=== PATIENT | male | born 1940 | race Caucasian/White ===

== ENCOUNTER → 2016-10-09 | Outpatient (CLI) | payer OTHER ==
[~2016-10-09] MED LIST: ASPI-113 PO
--- NOTE | 2016-10-09 16:43 | DIAGNOSTIC IMAGING REPORT ---
VENOUS DOPPLER LWR EXT BILA CLINICAL HISTORY: 76 years-old Male presenting with SUDDEN ONSET EDEMA, DYSPNEA ON EXERTION. TECHNIQUE: Real-time grayscale and color and spectral Doppler ultrasound imaging of the veins of the bilateral lower extremities was performed. Compression and augmentation were also utilized. COMPARISON: None. FINDINGS: Right: Common femoral vein: Patent. Femoral vein: Patent. Greater saphenous vein: Patent. Popliteal vein: Patent. Calf veins: Patent. Left: Common femoral vein: Patent. Femoral vein: Patent. Greater saphenous vein: Patent. Popliteal vein: Patent. Calf veins: Patent. Other: None. IMPRESSION: No evidence of deep venous thrombosis. Electronically signed by: El Larson M.D. 10/09/2016 4:42 PM Dictated Date/Time: 10/09/2016 4:41 PM
== END | disposition home or self-care (01) ==
LOC: C.ULTR 16:17
PROVIDERS: ATTEND Student in an Organized Health Care Education/Training Program
DX: R60.0 Localized edema (principal); R06.09 Other forms of dyspnea

== ENCOUNTER 2019-08-09 10:35 | Inpatient (IN) ==
[2019-08-09] MEDS ORDERED: fentaNYL citrate 100 MCG/2 ML VIAL IV PRN ×2 (11:28→16:43)
[2019-08-09] MEDS ORDERED: ONDANSETRON INJ 2 MG/ML 2 ML VIAL IV STA (11:28)
[2019-08-09] MEDS ORDERED: SODIUM CHLORIDE 0.9% 500 ML IV SCH (11:30)
[2019-08-09 11:47] LABS: Appearance Urine Cloudy (Clear); Bacteria Urine Automated Negative (Negative); Blood Urine 3+ (Negative); Color Urine Orange; Glucose Urine UA Negative (Negative); Ketones Urine Trace (Negative); Leukocyte Esterase Urine 1+ (Negative); Nitrite Urine Positive (Negative); Protein Urine 2+ (Negative); Urobilinogen Urine Negative (Negative); WBC Urine Automated >30 /hpf (0-5)
[2019-08-09 11:58] LABS: Bilirubin Urine Negative (Negative); Ictotest Urine Negative (Negative)
[2019-08-09 12:00] LABS: BUN Creatinine Ratio 25.1 (10-20); Calcium 8.7 mg/dl (8.5-10.1); Creatinine Clr Calc Pharmacy 37.3 ml/min; Est GFR (Non-African American) 42.3
[2019-08-09 12:03] LABS: Albumin Globulin Ratio 0.7 (0.9-2); Globulin 4.4 gm/dl (2.5-4.0); Total Protein 7.4 gm/dl (6.4-8.2)
[2019-08-09] MEDS ORDERED: ACETAMINOPHEN 500 MG TAB PO STA (12:09)
[2019-08-09 12:11] LABS: Hematocrit (blood only) 37.3 % (42-52); Hemoglobin 12.9 g/dL (14.0-18.0); Mean Corpuscular Hemoglobin 30.9 pg (25-34); Mean Corpuscular Hgb Conc 34.6 g/dL (32-36); Mean Corpuscular Volume 89.2 fL (80-100); Mean Platelet Volume 9.4 fL (7.4-10.4); Platelet Count 68 K/uL (130-400); RDW Coefficient of Variation 15.7 % (11.5-14.5); Red Blood Count 4.18 M/uL (4.7-6.1); White Blood Count 9.71 K/uL (4.8-10.8)
[2019-08-09] MEDS ORDERED: cefTRIAXone SODIUM 1,000 MG/50 ML BAG IV STA (12:19)
[2019-08-09 12:20] LABS: Basophils # (auto) 0.04 K/uL (0-0.2); Basophils % (auto) 0.4 %; Eosinophils # (auto) 0.01 K/uL (0-0.5); Eosinophils % (auto) 0.1 %; Immature Granulocytes # (auto) 0.09 K/uL (0.00-0.02); Immature Granulocytes % (auto) 0.9 %; Lymphocytes # (auto) 1.61 K/uL (1.2-3.4); Lymphocytes % (auto) 16.6 %; Monocytes # (auto) 1.67 K/uL (0.11-0.59); Monocytes % (auto) 17.2 %; Neutrophils # (auto) 6.29 K/uL (1.4-6.5); Neutrophils % (auto) 64.8 %; Platelet Estimate Decreased (Normal)
--- NOTE | 2019-08-09 12:28 | XRay Report ---
XR KUB/Abdomen 1 view CLINICAL HISTORY: hernia, obstruction COMPARISON STUDY: No previous studies for comparison. FINDINGS: The soft tissues, psoas shadows, renal outlines and intestinal gas pattern appear normal. T here is no evidence for bowel obstruction. No abnormal abdominal calcifications are seen. IMPRESSION: Normal study. ACT 112: Negative or not required by law. The above report was generated using voice recognition software. It may contain grammatical, syntax or spelling errors. Electronically signed by: Lex Hillman M.D. 08/09/2019 12:26 PM
[2019-08-09] MEDS ORDERED: IOVERSOL 100ml IV PRN (12:31)
[2019-08-09] MEDS ORDERED: AZITHROMYCIN 250 MG TAB PO ONE (12:45)
[2019-08-09] MEDS ORDERED: ATOVAQUONE 750 MG/5 ML UDC PO ONE (12:45)
--- NOTE | 2019-08-09 12:53 | CT Scan Report ---
CT OF THE ABDOMEN AND PELVIS WITH CONTRAST CLINICAL HISTORY: R inguinal hernia, reducible but pain, UTI COMPARISON STUDY: CT of the abdomen and pelvis November 23, 2011. KUB August 09, 2019. TECHNIQUE: Following IV administration of 93 mL of Optiray-320, axial images of the abdomen and pelvi s were obtained from the lung bases to the proximal femurs. Images were reviewed in the axial, sagitt al, and coronal planes. IV contrast was administered without complication. Automated exposure contro l was utilized for the study. A dose lowering technique was utilized adhering to the principles of A IRMA. CT DOSE: 432.27 mGycm FINDINGS: There is a nonobstructing 5 mm x 3 mm distal right ureteral calculus. There is no hydroneph rosis or hydroureter. Nephrograms are symmetric. A subcentimeter right renal lesion favors a cyst. Mo derate cardiomegaly is noted. The liver, spleen, adrenal glands and pancreas are unremarkable. There is no peripancreatic or pericholecystic infiltration. A prominent portacaval lymph node is unchanged. Mild dilatation of the proximal celiac axis, measuring 1.4 cm is also unchanged. Major vasculature i s patent. A small amount of ascites within the pelvis is noted. The appendix is normal. Caliber and w all thickness of small and large bowel are normal. Small bowel loop extends into a right inguinal her olga. Is no resultant bowel obstruction. No suspicious osseous lesions are present. Prostate is mildly enlarged. There is no pneumatosis, free air or portal venous gas. Colonic diverticulosis is noted wi thout evidence for acute diverticulitis. IMPRESSION: 1. Nonobstructing 5 mm x 3 mm distal right ureteral calculus. No hydronephrosis. 2. Right inguinal hernia which contains a loop of small bowel. No resultant bowel obstruction. 3. Small amount of ascites within the pelvis. ACT 112: Negative or not required by law. Electronically signed by: Janusz Cardoso M.D. 08/09/2019 12:51 PM
[2019-08-09] MEDS ORDERED: MAGNESIUM HYDROXIDE SUSP 30 ML UDC PO PRN (14:27)
[2019-08-09] MEDS ORDERED: ACETAMINOPHEN 325 MG TAB PO PRN (14:27)
[2019-08-09] MEDS ORDERED: POLYETHYLENE (MIRALAX) 17 GM PACK PO PRN (14:27)
[2019-08-09] MEDS ORDERED: ONDANSETRON INJ 2 MG/ML 2 ML VIAL IV PRN ×2 (14:27→16:43)
[2019-08-09] MEDS ORDERED: ALUMINUM/MAGNESIUM SUSP 30 ML UDC PO PRN (14:27)
[2019-08-09 14:28] LABS: INR 3.8 (0.9-1.1); Prothrombin Time 37.5 Seconds (9.0-12.0)
--- NOTE | 2019-08-09 14:39 | History & Physical Report ---
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 Lab work consistent with anemia and thrombocytopenia. Peripheral smear ordered to eval for tick borne illness. 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 He does have mildly elevated temp 37.7, anemia, and low platelets, decreased appetite and 15lb weight loss, but otherwise asymptomatic. In ED received Azithromycin 500mg x 1 and Atovaquone 750mg x 1. admit to tele continue treatment with azithromycin 250mg bid and atovaquone 750mg bid x 10 days Will need outpt evaluation/follow up with ID continue IVF, supportive measures trend h/h, plts hold warfarin until plt > 100 per cardiology (2) UTI (urinary tract infection): (3) Right nephrolithiasis: (4) RACHEL (acute kidney injury): CT scan abd/pelvis revealed: Nonobstructing 5 mm x 3 mm distal right ureteral calculus. No hydronephrosis. UA appears consistent with UTI bun/cr elevated 30 and 1.53 (last creatinine 2017 1.0) Hold nephrotoxic agents including Lasix and lisinopril Urology consulted IV ceftriaxone for UTI Await urine culture Keep n.p.o. until evaluated by urology (5) Thrombocytopenia: In EPIC 2015 plot 233, 2017 109, now 68 likely in setting of underlying tick borne illness no s/sx of bleeding monitor (6) Hyponatremia: Na 127 obtain urine na, urine osm, serum osm poor po intake over last several days, 15lb weight loss in past month likely pre renal continue IVF, monitor volume status repeat bmp (7) Chronic atrial fibrillation: continue metoprolol INR supratherapeutic at 3.8 Hold warfarin Discussed with cardiology, Dr. Nieves regarding thrombocytopenia in setting of babesiosis Recommend holding coumadin until PLT > 100 monitor on tele (8) (HFpEF) heart failure with preserved ejection fraction: Without acute exacerbation Last echo 10/29/2016 revealed EF 55 to 60%, diastolic dysfunction, reduced right ventricle systolic function, dilated right ventricle, mild left atrial enlargement, severe right atrial enlargement, pulmonary pretension As outpatient he is on metoprolol, lisinopril and Lasix Hold lisinopril and Lasix in setting of RACHEL He does have mild lower extremity edema Monitor daily weights, strict I's and O's (9) HTN (hypertension): Blood pressure on lower side Hold lisinopril and Lasix Continue metoprolol (10) Supratherapeutic INR: INR 3.8 On warfarin, repeat INR in a.m. Per cardiology hold warfarin until platelets greater than 100 (11) DVT prophylaxis: warfarin/INR supratherapeutic hold avoid mechanical prophylaxis in setting of thrombocytopenia Disposition: admit to tele Follow up: PCP Dr. Garcia upon discharge along with infectious disease follow up as outpt Pt was seen and examined in collaboration with Dr. Strauss, please see addendum History of Present Illness Chief Complaint: Painful right inguinal hernia x1 week. 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 Of significance patient was seen and evaluated in outpatient setting on [address] Grossman. He did undergo ultrasound of right inguinal region which did confirm a 14 x 13 mm defect appreciated with Valsalva. This morning when he woke up he was having significant right inguinal pain, nonradiating, described as sharp and stabbing which prompted him to present to ED. He further elicits approximately 15 pound weight loss in the past 1 month and overall decreased appetite. He denies any documented fever, chills, sweats, lightheadedness, dizziness, chest pain, shortness of breath, cough, hemoptysis, palpitations, nausea, abdominal pain, vomiting, diarrhea. He is moving bowels and passing urine without difficulty. He does admit to mild dysuria and increased urinary frequency but denies hematuria or urgency. He denies any flank pain. He denies any known tick bite or COVID-19 exposure. He denies any rash. He does admit to increased lower extremity swelling over the past week. He has been compliant with his medications. Denies any recent travel. In ED patient remained hemodynamically stable and mildly elevated temperature 37.7. Lab work notable for H&H 12.9 and 37.3, WBC 9.71, platelets 68, INR 3.8, sodium 127, chloride 97, BUN 30, creatinine 1.53, glucose 127, total bilirubin 2.0. Urinalysis consistent with +3 blood, positive nitrates, leukocyte esterase Peripheral smear revealed numerous intro erythrocyte ring forms concerning for Babesia. In ED he received 1 g IV Rocephin for concern for UTI. He also received azithromycin 500 mg x 1 and atovaquone 750 mg x 1. Allergies Allergy/AdvReac Type Severity Reaction Status Date / Time No Known Allergies Allergy Unverified 08/09/19 11:25 Home Medications Home Medications Medication Instructions Recorded Confirmed Type ferrous sulfate 325 mg PO DAILY 08/09/19 08/09/19 History metoprolol succinate 25 mg PO QAM 08/09/19 08/09/19 History vitamin B complex 1 tab PO DAILY 08/09/19 08/09/19 History Lactobacillus rhamnosus GG 1 cap PO DAILY #30 cap 08/12/19 Rx [Culturelle] atovaquone [Mepron] 750 mg PO BID #70 ml 08/12/19 Rx azithromycin 250 mg PO DAILY #7 tab 08/12/19 Rx doxycycline hyclate 100 mg PO BID 16 Days #32 cap 08/12/19 Rx Past Med/Surg History Medical History (HFpEF) heart failure with preserved ejection fraction RACHEL (acute kidney injury) Babesiosis Chronic atrial fibrillation HTN (hypertension) Hyponatremia Right distal ureteral calculus Supratherapeutic INR Valvular heart disease Surgical History History of right inguinal hernia repair 2014 with mesh Family History Father Myocardial infarction, Onset Age: 70 Mother COPD (chronic obstructive pulmonary disease) Social History Preferred Language: French Communication Ability: Effective Beliefs That Will Affect Care: None marital status: Current Living Situation: Spouse Feels Safe at Home: Yes Smoking Status: Never smoker Hx Alcohol Use: Yes Alcohol type: beer Alcohol Intake Frequency: Rarely Hx Substance Use: No Review of Systems Review of Systems: All systems reviewed & are unremarkable except as noted in HPI & below Physical Exam Physical Exam: Constitutional: Elderly, M, WD/WN, vitals as above, NAD, sitting up in bed, pleasant, conversing easily Head: Normocephalic, Atraumatic Eyes: PERRL, conjunctivae normal, anicteric sclerae ENMT: [place], external ear and nose normal, oropharynx normal Neck: trachea midline, no thyromegaly normal visual inspection Respiratory: normal respiratory effort, lungs clear to auscultation, no wheeze, rales, rhonchi. Normal insp/exp effort, no accessory muscle use Cardiovascular: regular rate, Irregular rhythm, no murmur, +1 lower ext edema, venous stasis chronic changes, b/l petechiae noted on pretibial surfaces Vessels: no JVD or carotid bruit Chest: normal inspection of chest Abdomen: normal bowel sounds, soft, nontender, no hepatosplenomegaly Musculoskeletal: no cyanosis or clubbing, extremities motor strength 5/5 Skin: no rashes, warm and dry normal turgor Neurologic: PERRL, EOMI, accommodation nl, no face palsy, no dysarthria CN's II-XI intact bilaterally and moves all extremities Psychiatric: A+Ox3, euthymic affect Lymphatic: no cervical or axillary lymphadenopathy : deferred Results & Data Results & Data ([facility]) Vital Signs (Past 12 Hours) Vital Signs Temp Pulse Resp BP Pulse Ox 08/09/19 14:11 80 16 96 08/09/19 13:02 80 19 08/09/19 13:01 85 22 107/75 08/09/19 13:00 97 H 21 08/09/19 12:36 83 20 08/09/19 12:01 89 22 98 08/09/19 12:00 82 17 101/67 98 08/09/19 11:35 103 H 20 08/09/19 11:34 97 08/09/19 11:30 103 H 17 116/77 08/09/19 10:47 37.7 C H 110 H 20 96 Laboratory Results Short CBC 08/09/19 Range/Units 11:30 WBC 9.71 (4.8-10.8) K/uL Hgb 12.9 L (14.0-18.0) g/dL Hct 37.3 L (42-52) % Plt Count 68 L (130-400) K/uL BMP 08/09/19 11:30 Sodium 127 L Potassium 4.0 Chloride 97 L Carbon Dioxide 22 BUN 38 H Creatinine 1.53 H Glucose 127 H Calcium 8.7 Liver Function 08/09/19 Range/Units 11:30 Total Bilirubin 2.0 H (0.2-1) mg/dl AST 28 (15-37) U/L ALT 21 (12-78) U/L Alkaline Phosphatase 96 (45-117) U/L Albumin 3.0 L (3.4-5.0) gm/dl Urine 08/09/19 Range/Units 11:30 Urine Color [place] Urine Appearance Cloudy A (Clear) Urine pH 5.0 (4.5-7.5) Ur Specific [place] 1.030 (1.000-1.030) Urine Protein 2+ H (Negative) Urine Glucose (UA) Negative (Negative) Diagnostic Findings KUB: FINDINGS: The soft tissues, psoas shadows, renal outlines and intestinal gas pattern appear normal. There is no evidence for bowel obstruction. No abnormal abdominal calcifications are seen. IMPRESSION: Normal study. Abd/Pelvis CT: IMPRESSION: 1. Nonobstructing 5 mm x 3 mm distal right ureteral calculus. No hydronephrosis. 2. Right inguinal hernia which contains a loop of small bowel. No resultant bowel obstruction. 3. Small amount of ascites within the pelvis. Medications Administered Fentanyl Citrate (Fentanyl Citrate) 50 mcg IV Q15M PRN PRN Reason: Pain Stop: 08/23/19 11:27 Last Admin: 08/09/19 11:48 Dose: 50 mcg Documented by: [id number] Ioversol (Optiray 320 100ml) 93 ml IV ONCE PRN PRN Reason: Interaction Checking Stop: 08/13/19 12:30 Last Admin: 08/09/19 12:31 Dose: 93 ml Documented by: [id number] Discontinued Medications Acetaminophen (Tylenol) 1,000 mg PO NOW STA Stop: 08/09/19 12:10 Last Admin: 08/09/19 12:57 Dose: 1,000 mg Documented by: [id number] Atovaquone (Mepron) 750 mg PO NOW ONE Stop: 08/09/19 12:46 Last Admin: 08/09/19 14:09 Dose: 750 mg Documented by: [id number] Azithromycin (Zithromax) 500 mg PO NOW ONE Stop: 08/09/19 12:46 Last Admin: 08/09/19 14:10 Dose: 500 mg Documented by: [id number] Sodium Chloride (Nss) 500 mls @ 999 mls/hr IV .Q31M NANCY Stop: 08/09/19 12:00 Last Infusion: 08/09/19 13:00 Dose: 0 mls/hr Documented by: [id number] Admin: 08/09/19 11:49 Dose: 999 mls/hr Documented by: [id number] Ceftriaxone Sodium (Rocephin) 1,000 mg in 50 mls @ 100 mls/hr IV NOW STA Stop: 08/09/19 12:48 Last Admin: 08/09/19 12:57 Dose: 100 mls/hr Documented by: [id number] Ondansetron HCl (Zofran) 4 mg IV NOW STA Stop: 08/09/19 11:29 Last Admin: 08/09/19 11:48 Dose: 4 mg Documented by: [id number] Code Status & VTE Plan Code Status Full Code VTE Prophylaxis Plan VTE Prophylaxis will be ordered: No Reason for no VTE drug order: Contraindicated (pt on warfarin, INR supratherapeutic) Supervising Physician Co-Signing Physician Notes ATTENDING ADDENDUM : 79 yo Male presented with Rt groin pain noted to have rt sided non obstructive ureteric stone , acute renal failure thrombocytosis , ,peripheral smear shows Babesiois started tx for Babesiosis IV fluid Urology consult Mirian Strauss MD
--- NOTE | 2019-08-09 14:43 | Urology Consultation ---
Date of Consultation August 09, 2019 Assessment & Plan (1) UTI (urinary tract infection): (2) Right distal ureteral calculus: 79 year-old male with multiple comorbidities admitted due to worsening right inguinal pain secondary to inguinal hernia and babesiosis. -Plan of care reviewed with Dr. Quispe. -CT notable for nonobstructing distal right ureteral calculus without hydronephrosis. -Clinically he is feeling well without flank pain or reported fevers. -Urinalysis suspicious for infection, received IV Rocephin, await culture results. -Continue to monitor patient closely. -He is with multiple acute conditions present, currently does not warrant acute urologic intervention. -Recommend keeping NPO after midnight and will reassess in the morning. Please consult our service urgently if patient develops fever >101F, intractable pain or nausea, or acute changes in status, as this will necessitate urgent surgical intervention. Thank you for the consultation and we will continue to monitor closely with primary service. Supervising Physician Co-Signing Physician Notes agree with assessment as above unfortunately, shortly after he was seen - he had a BP measured at 72/51 asymptomatic I returned to see and evaluate him again he has mild tenderness in the right groin no CVA tenderness denies light headed/dizzy feeling non-toxic appearing - discussed options - despite his stable clinical appearance, between the BP, UA, and stone - I have recommended we move forward with ureteral stent insertion emergently - his symptoms may ultimately prove to be secondary to his other issues, but we can at least treat the issues and try to stabilize that aspect of his care History of Present Illness Reason for Consultation: Right distal ureteral stone History of Present Illness 79 year-old male patient, with past medical history of hypertension, heart failure, atrial fibrillation currently on anticoagulation, and right inguinal hernia who presented to the ER with complaints of worsening discomfort to right inguinal area. Patient is currently following with Dr. Grossman hernia management. Patient has not followed with urology in the past. Has history of kidney stone x1, roughly 5 years ago, in which he passed spontaneously. Chart review: Temperature 37.7 Wbc 9.71 Creatinine 1.53 (noted to be 1.0 in 2017). 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 Urinalysis positive for nitrates, +1 leukocytes, >30 wbc, 5-10 RBCs, negative bacteria. Urine culture pending CT abdomen/pelvis: Demonstrating nonobstructing 5 mm x 3 mm distal right ureteral calculus. No hydronephrosis. Right inguinal hernia which contains a loop of small bowel. Patient examined with his brother at bedside. Reports he is feeling good overall. Pain to right inguinal area is reported as "not bad". Denies recent history of flank or abdominal pain. Did state he had episode of left flank pain over 2 months ago that resolved. Denies recent fevers or chills. Denies nausea or vomiting. Reports "slight" dysuria and has noticed more concentrated urine. Denies urinary frequency or urgency. Denies hematuria. Did eat breakfast this morning. Denies additional urologic concerns today. Allergies Allergy/AdvReac Type Severity Reaction Status Date / Time No Known Allergies Allergy Unverified 08/09/19 11:25 Home Medications Home Medications Medication Instructions Recorded Confirmed Type aspirin 81 mg PO DAILY 08/09/19 08/09/19 History ferrous sulfate 325 mg PO DAILY 08/09/19 08/09/19 History furosemide 20 mg PO DAILY 08/09/19 08/09/19 History lisinopril 10 mg PO DAILY 08/09/19 08/09/19 History metoprolol succinate 25 mg PO QAM 08/09/19 08/09/19 History vitamin B complex 1 tab PO DAILY 08/09/19 08/09/19 History warfarin 5 mg PO DAILY 08/09/19 08/09/19 History Patient History Medical History (HFpEF) heart failure with preserved ejection fraction Chronic atrial fibrillation HTN (hypertension) Valvular heart disease Surgical History History of right inguinal hernia repair 2014 with mesh Family History Father Myocardial infarction, Onset Age: 70 Mother COPD (chronic obstructive pulmonary disease) Social History Preferred Language: Upper Sorbian Communication Ability: Effective marital status: Current Living Situation: Spouse Feels Safe at Home: Yes Smoking Status: Never smoker Hx Alcohol Use: Yes Alcohol type: beer Alcohol Intake Frequency: Rarely Hx Substance Use: No Review of Systems Constitutional: no fever and no chills Respiratory: no cough and no dyspnea Cardiovascular: + edema; no chest pain Gastrointestinal: no nausea and no vomiting Genitourinary: + as per Subjective / HPI Integumentary: no rash Neurologic: no dizziness and no syncope Endocrine: no polyuria Physical Exam Constitutional: well developed and well nourished; no acute distress and not ill appearing Eyes: no eyelid abnormality ENMT: Ears: no external ear abnormality Neck: normal visual inspection and trachea midline Respiratory: normal respiratory effort and able to speak in complete sentences; no respiratory distress and no audible wheezes Cardiovascular: Extremities: + edema (+1 pitting edema to bilateral lower extremities) Gastrointestinal (Abdomen): Inspection/Auscultation: abdomen normal to inspection; abdomen not distended Percussion/Palpation: abdomen soft; abdomen nontender and no guarding Musculoskeletal: Moves all extremities without difficulty. Skin: Positive scattered petechiae to bilateral lower extremities. Neurologic: moves all extremities and awake Psychiatric: Orientation: alert, oriented x 3 and cooperative Affect: euthymic affect Genitourinary: no CVA tenderness Results & Data Vital Signs (Past 12 Hours) Vital Signs Temp Pulse Resp BP Pulse Ox 08/09/19 14:11 80 16 96 08/09/19 13:02 80 19 08/09/19 13:01 85 22 107/75 08/09/19 13:00 97 H 21 08/09/19 12:36 83 20 08/09/19 12:01 89 22 98 08/09/19 12:00 82 17 101/67 98 08/09/19 11:35 103 H 20 08/09/19 11:34 97 08/09/19 11:30 103 H 17 116/77 08/09/19 10:47 37.7 C H 110 H 20 96 PG Care Time/CCT Total # of Minutes Spent Total Time Spent with Patient: Total time spent is greater than 50% in coordination of care (as documented) at patient's floor/unit and/or counseling patient: Coding Level of Care Code 54127 Initial Inpt Care Lvl 2 Diagnoses UTI (urinary tract infection) N39.0 Right distal ureteral calculus N20.1
[2019-08-09] MEDS ORDERED: SODIUM CHLORIDE 0.9% 500 ML IV ONE (15:42)
--- NOTE | 2019-08-09 16:16 | Anesthesiology Consultation ---
Date of Service August 09, 2019 Assessment & Plan (1) Encounter for pre-operative examination: Chart Review Patient had peanut butter with meds at 1400. Urology physician has deemed this procedure an emergency so will proceed with the case. Given that he has not been NPO from his peanut butter, plan will be no sedation for this procedure. If he requires anything further he will require an RSI with GETA. ASA [id number] Proposed Anesthesia Anesthesia Type: MAC Risk / Benefits Reviewed With: PT / POA / Parent / Guardian, Accepts Plan and Informed Consent Obtained History Surgery Operation Date: 08/09/19 08:55 Proposed Procedures p Cystoscopy, Right Retrograde Pyelogram, Right Stent Insertion - Melvin Quispe MD Height/Weight Height: 5 ft 8 in Weight: 71.4 kg Allergies Allergy/AdvReac Type Severity Reaction Status Date / Time No Known Allergies Allergy Unverified 08/09/19 11:25 Medications Home Medications Medication Instructions Recorded Confirmed Last Taken aspirin 81 mg PO DAILY 08/09/19 08/09/19 08/08/19 ferrous sulfate 325 mg PO DAILY 08/09/19 08/09/19 08/08/19 furosemide 20 mg PO DAILY 08/09/19 08/09/19 08/08/19 lisinopril 10 mg PO DAILY 08/09/19 08/09/19 08/08/19 metoprolol succinate 25 mg PO QAM 08/09/19 08/09/19 08/09/19 vitamin B complex 1 tab PO DAILY 08/09/19 08/09/19 08/08/19 warfarin 5 mg PO DAILY 08/09/19 08/09/19 08/08/19 Active Medications Generic Name Dose Route Start Last Admin Trade Name Freq PRN Reason Stop Dose Admin Fentanyl Citrate 50 mcg 08/09/19 11:28 08/09/19 11:48 Fentanyl Citrate IV 08/23/19 11:27 50 mcg Q15M PRN Administration Pain Ioversol 93 ml 08/09/19 12:31 08/09/19 12:31 Optiray 320 100ml IV 08/13/19 12:30 93 ml ONCE PRN Administration Interaction Checking Past Medical History Medical History (HFpEF) heart failure with preserved ejection fraction RACHEL (acute kidney injury) Babesiosis Chronic atrial fibrillation HTN (hypertension) Hyponatremia Right distal ureteral calculus Supratherapeutic INR Valvular heart disease Exercise / Class Metabolic Activity III < 4 Walking/Shop/Light housework Past Family History Family History Father Myocardial infarction, Onset Age: 70 Mother COPD (chronic obstructive pulmonary disease) Past Surgical History Surgical History History of right inguinal hernia repair 2015 with mesh Past Anesthesia History No Hx of Anesthesia Complications and No Family Hx of Anesthesia Complications History of PONV No Hx of PONV and No Hx of Motion Sickness Social History Smoking Status: Never smoker Hx Alcohol Use: Yes Alcohol type: beer Hx Substance Use: No Review of Systems denies fever/cough/ colds/ chest pain/ SOB/ LOY Constitutional: no fever and no chills Respiratory: no cough and no dyspnea denies LOY Cardiovascular: no chest pain and no dyspnea on exertion Physical Exam Vital Signs Last Vital Signs Temp 36.8 C 08/09/19 16:35 Pulse 79 08/09/19 16:35 Resp 20 08/09/19 16:35 BP 85/60 L 08/09/19 16:35 Pulse Ox 97 08/09/19 16:35 ENMT Mouth: + edentulous; no TMJ abnormality and no dentition abnormality Thyromental Distance: > or= 3.5 Finger Breadths Mallampati Class: II Neck neck extension not limited Respiratory normal respiratory effort; no respiratory distress Auscultation: lungs clear to auscultation bilaterally Cardiovascular Rate/Rhythm: regular rate and regular rhythm Neurologic moves all extremities Psychiatric Orientation: alert and oriented x 3 Testing Laboratory Results 08/09/19 11:30 08/09/19 11:30 PT 37.5 Seconds (9.0-12.0) H 08/09/19 11:30 INR 3.8 (0.9-1.1) H 08/09/19 11:30 Urine Color [place] 08/09/19 11:30 Urine Appearance Cloudy (Clear) A 08/09/19 11:30 Urine pH 5.0 (4.5-7.5) 08/09/19 11:30 Ur Specific [place] 1.030 (1.000-1.030) 08/09/19 11:30 Urine Protein 2+ (Negative) H 08/09/19 11:30 Urine Glucose (UA) Negative (Negative) 08/09/19 11:30 Urine Ketones Trace (Negative) H 08/09/19 11:30 Urine Nitrite Positive (Negative) A 08/09/19 11:30 Ur Leukocyte Esterase 1+ (Negative) H 08/09/19 11:30 Urine WBC (Auto) >30 /hpf (0-5) H 08/09/19 11:30 Urine RBC (Auto) 5-10 /hpf (0-4) H 08/09/19 11:30 U Hyaline Cast (Auto) 5-10 /lpf (0-5) H 08/09/19 11:30 U Epithel Cells (Auto) 5-10 /lpf (0-5) H 08/09/19 11:30 Urine Bacteria (Auto) Negative (Negative) 08/09/19 11:30 08/09/19 11:30 Blood Parasites Smear - Preliminary Blood
--- NOTE | 2019-08-09 16:42 | Electrocardiogram Report ---
Test Reason : Blood Pressure : / mmHG Vent. Rate : 079 BPM Atrial Rate : 089 BPM P-R Int : 000 ms QRS Dur : 138 ms QT Int : 424 ms P-R-T Axes : 000 107 006 degrees QTc Int : 486 ms Atrial fibrillation Right bundle branch block Abnormal ECG No previous ECGs available Confirmed by Aldo Astorga ([id number]) on 08/09/2019 4:42:03 PM Referred By: REFERRED SELF Confirmed By:Aldo Astorga
[2019-08-09] MEDS ORDERED: ATROPINE SULFATE 0.1 MG/ML 10ML SYR IV PRN (16:43)
[2019-08-09] MEDS ORDERED: ePHEDrine sulfate 50 MG/ML AMP IV PRN (16:43)
[2019-08-09] MEDS ORDERED: fentaNYL citrate 100 MCG/2 ML VIAL ONE (16:47)
[2019-08-09] MEDS ORDERED: MIDAZOLAM HCL 1 MG/ML 2ML VIAL ONE (16:47)
[2019-08-09] MEDS ORDERED: PHENYLEPHRINE 100MCG/ML 5ML SYR ONE (16:54)
--- NOTE | 2019-08-09 17:08 | Operative Report ---
PG Post Operative Report Pre & Post Diagnosis Operation Date: 08/09/19 08:55 Pre-Op Diagnosis: Right Ureteral Stone Post-Op Diagnosis: Right Ureteral Stone I identified the patient and participated in the time-out.: Yes Procedure Operation Date: 08/09/19 08:55 Actual Procedures p Cystoscopy, Right Ureteral Stent Insertion(Right) - Melvin Quispe MD Surgeon Dante Quispe MD Android Ios Developer none Estimated Blood Loss 0 Findings Consistent with Post-Op Diagnosis Specimens none Description of Procedure The patient was identified in the preoperative holding area, appropriate informed consents were reviewed and completed and the patient was transferred to the operative suite. Upon arrival, appropriate antibiotics and anesthesia were administered and the patient was placed in dorsal lithotomy position and prepped and draped in sterile fashion. To begin the case I passed a 22 [place] cystoscope with 30 degree lens. Inspection revealed a healthy-appearing urethra and a relatively large prostate with a moderately high bladder neck. After bypassing the bladder neck I was able to inspect the bladder and saw no mucosal abnormalities. I turned my attention to the right ureteral orifice which I cannulated with a wire and a 5 [place] open-ended catheter. There was an obstructing calculus in the distal ureter which took some manipulation of bypass with the wire. I was able to advance the wire to the level of the kidney. There was some contrast within the collecting system from a prior CT. I then placed a 6 [place] by 26 cm double-J ureteral stent seeing a good curl in the renal pelvis as well as in the bladder. I emptied the bladder and concluded the case. He was subsequently taken to the PACU in stable condition. There were no complications. I attest to the content of the Intraoperative Record and any orders documented therein. Any exceptions are noted below.
--- NOTE | 2019-08-09 17:18 | Fluoroscopy Report ---
FL KUB CLINICAL HISTORY: RIGHT SIDE CYSTO/STENT COMPARISON STUDY: None. FLUOROSCOPY TIME: 6 seconds. FINDINGS: Single fluoroscopic spot image of the right abdomen demonstrate a ureteral stent. Only the proximal portion of the stent is visualized but appears in good position. IMPRESSION: Fluoroscopy provided for right ureteral stent placement as described above. ACT 112: Negative or not required by law. Electronically signed by: German Sheets M.D. 08/09/2019 5:17 PM
--- NOTE | 2019-08-09 17:45 | Anesthesiology Progress Note ---
Date of Service August 09, 2019 Anesthesia Post Procedure Vital Signs Vital Signs: Temp Pulse Pulse Pulse Resp BP BP 08/09/19 17:35 36.4 C L 71 14 88/57 L 08/09/19 17:25 62 14 102/73 08/09/19 17:18 77 14 94/60 L 08/09/19 17:11 36.3 C L 73 14 67/51 L 08/09/19 16:35 36.8 C 79 20 85/60 L 08/09/19 16:23 86/64 L 08/09/19 16:15 68 18 77/58 L 08/09/19 16:01 77 18 08/09/19 16:00 73 18 88/60 L 08/09/19 15:45 78 14 83/57 L 08/09/19 15:35 75 17 80/52 L 08/09/19 15:32 69 18 73/49 L 08/09/19 15:31 83 18 08/09/19 15:30 73 16 72/51 L 08/09/19 15:19 76 16 88/53 L 08/09/19 15:00 73 18 08/09/19 14:30 79 19 08/09/19 14:11 80 16 08/09/19 13:02 80 19 08/09/19 13:01 85 22 107/75 08/09/19 13:00 97 H 21 08/09/19 12:36 83 20 08/09/19 12:01 89 22 08/09/19 12:00 82 17 101/67 08/09/19 11:35 103 H 20 08/09/19 11:34 08/09/19 11:30 103 H 17 116/77 08/09/19 10:47 37.7 C H 110 H 20 Pulse Ox 08/09/19 17:35 98 08/09/19 17:25 98 08/09/19 17:18 95 08/09/19 17:11 98 08/09/19 16:35 97 08/09/19 16:23 08/09/19 16:15 96 08/09/19 16:01 97 08/09/19 16:00 98 08/09/19 15:45 96 08/09/19 15:35 96 08/09/19 15:32 95 08/09/19 15:31 94 08/09/19 15:30 95 06/30/20 15:19 96 08/09/19 15:00 96 08/09/19 14:30 96 08/09/19 14:11 96 08/09/19 13:02 08/09/19 13:01 08/09/19 13:00 08/09/19 12:36 08/09/19 12:01 98 08/09/19 12:00 98 08/09/19 11:35 08/09/19 11:34 97 08/09/19 11:30 08/09/19 10:47 96 Pain Intensity Right Groin: Pain Intensity: 4 Transfer of Care Handoff Completed per policy Notes Mental Status: alert / awake / arousable and participated in evaluation Patient Amnestic to Procedure: Yes Nausea / Vomiting: adequately controlled Pain: adequately controlled Airway Patency, RR, SpO2: stable & adequate BP & HR: stable & adequate Hydration State: stable & adequate Anesthetic Complications: no major complications apparent and Pt Satisfied with anesthetic care
--- NOTE | 2019-08-09 18:31 | Emergency Department Note ---
History of Present Illness General Chief complaint: Abdominal Pain Stated complaint: HERNIA Time Seen by Provider: 08/09/19 11:27 Source: patient and family Mode of arrival: ambulatory Limitations: no limitations History of Present Illness Provider complaint: Right inguinal pain Maximum Pain Intensity: 9 This patient is an 79-year-old male who presents emergency department with complaints of right inguinal pain. Patient states he saw the general surgeon several days ago in [place] and had a follow-up ultrasound. He was told he has a hernia and will need to have surgery. Patient states it has become somewhat more painful so he presents to the emergency department. He denies any fevers, chills, chest pain or shortness of breath. He denies any abdominal pain or difficulty with eating. Patient denies any urinary burning or bleeding. Patient is on Coumadin daily. He denies any significant COVID exposures. Home Medications Home Medications Medication Instructions Recorded Confirmed Type aspirin 81 mg PO DAILY 08/09/19 08/09/19 History ferrous sulfate 325 mg PO DAILY 08/09/19 08/09/19 History furosemide 20 mg PO DAILY 08/09/19 08/09/19 History lisinopril 10 mg PO DAILY 08/09/19 08/09/19 History metoprolol succinate 25 mg PO QAM 08/09/19 08/09/19 History vitamin B complex 1 tab PO DAILY 08/09/19 08/09/19 History warfarin 5 mg PO DAILY 08/09/19 08/09/19 History Allergies Allergy/AdvReac Type Severity Reaction Status Date / Time No Known Allergies Allergy Unverified 08/09/19 11:25 Past Med/Surg History Medical History (HFpEF) heart failure with preserved ejection fraction RACHEL (acute kidney injury) Babesiosis Chronic atrial fibrillation HTN (hypertension) Hyponatremia Right distal ureteral calculus Supratherapeutic INR Valvular heart disease Surgical History History of right inguinal hernia repair 2014 with mesh Family History Father Myocardial infarction, Onset Age: 70 Mother COPD (chronic obstructive pulmonary disease) Social History Preferred Language: Turkmen Communication Ability: Effective Beliefs That Will Affect Care: None marital status: Current Living Situation: Spouse Feels Safe at Home: Yes Smoking Status: Never smoker Hx Alcohol Use: Yes Alcohol type: beer Alcohol Intake Frequency: Rarely Hx Substance Use: No Review of Systems See HPI for pertinent positives & negatives. and A total of 10 systems reviewed and were otherwise negative Physical Exam Vital Signs Vital Signs - 24 hr 08/09/19 10:47 08/09/19 11:30 08/09/19 11:34 Temperature 37.7 C H Temperature Source Oral Pulse Rate 110 H 103 H Pulse Rate from SpO2 Sensor Pulse Rhythm Regular Pulse Strength Normal Respiratory Rate 20 17 Respiratory Effort / Characteristics Non-Labored Spontaneous Respiratory Depth Normal Respiratory Pattern Regular Blood Pressure 116/77 Blood Pressure Mean 89 Blood Pressure Position Sitting Pulse Oximetry 96 97 Oxygen Delivery Method Room Air Sepsis Recent Fever Within 48 Hours No Sepsis Action Taken by Nursing No Action Required 08/09/19 11:35 08/09/19 12:00 08/09/19 12:01 Temperature Temperature Source Pulse Rate 103 H 82 89 Pulse Rate from SpO2 Sensor 88 88 Pulse Rhythm Pulse Strength Respiratory Rate 20 17 22 Respiratory Effort / Characteristics Respiratory Depth Respiratory Pattern Blood Pressure 101/67 Blood Pressure Mean 71 Blood Pressure Position Pulse Oximetry 98 98 Oxygen Delivery Method Sepsis Recent Fever Within 48 Hours Sepsis Action Taken by Nursing 08/09/19 12:36 08/09/19 13:00 08/09/19 13:01 Temperature Temperature Source Pulse Rate 83 97 H 85 Pulse Rate from SpO2 Sensor Pulse Rhythm Pulse Strength Respiratory Rate 20 21 22 Respiratory Effort / Characteristics Respiratory Depth Respiratory Pattern Blood Pressure 107/75 Blood Pressure Mean 78 Blood Pressure Position Pulse Oximetry Oxygen Delivery Method Sepsis Recent Fever Within 48 Hours Sepsis Action Taken by Nursing 08/09/19 13:02 08/09/19 14:11 08/09/19 14:30 Temperature Temperature Source Pulse Rate 80 80 79 Pulse Rate from SpO2 Sensor 88 78 Pulse Rhythm Pulse Strength Respiratory Rate 19 16 19 Respiratory Effort / Characteristics Respiratory Depth Respiratory Pattern Blood Pressure Blood Pressure Mean Blood Pressure Position Pulse Oximetry 96 96 Oxygen Delivery Method Sepsis Recent Fever Within 48 Hours Sepsis Action Taken by Nursing 08/09/19 15:00 08/09/19 15:19 08/09/19 15:30 Temperature Temperature Source Pulse Rate 73 76 73 Pulse Rate from SpO2 Sensor 74 73 74 Pulse Rhythm Pulse Strength Respiratory Rate 18 16 16 Respiratory Effort / Characteristics Respiratory Depth Respiratory Pattern Blood Pressure 88/53 L 72/51 L Blood Pressure Mean 62 54 Blood Pressure Position Pulse Oximetry 96 96 95 Oxygen Delivery Method Sepsis Recent Fever Within 48 Hours Sepsis Action Taken by Nursing 08/09/19 15:31 08/09/19 15:32 08/09/19 15:35 Temperature Temperature Source Pulse Rate 83 69 75 Pulse Rate from SpO2 Sensor 80 73 78 Pulse Rhythm Pulse Strength Respiratory Rate 18 18 17 Respiratory Effort / Characteristics Respiratory Depth Respiratory Pattern Blood Pressure 73/49 L 80/52 L Blood Pressure Mean 58 63 Blood Pressure Position Pulse Oximetry 94 95 96 Oxygen Delivery Method Sepsis Recent Fever Within 48 Hours Sepsis Action Taken by Nursing 08/09/19 15:45 08/09/19 16:00 08/09/19 16:01 Temperature Temperature Source Pulse Rate 78 73 77 Pulse Rate from SpO2 Sensor 77 71 76 Pulse Rhythm Pulse Strength Respiratory Rate 14 18 18 Respiratory Effort / Characteristics Respiratory Depth Respiratory Pattern Blood Pressure 83/57 L 88/60 L Blood Pressure Mean 61 62 Blood Pressure Position Pulse Oximetry 96 98 97 Oxygen Delivery Method Sepsis Recent Fever Within 48 Hours Sepsis Action Taken by Nursing 08/09/19 16:15 08/09/19 16:23 Temperature Temperature Source Pulse Rate 68 Pulse Rate from SpO2 Sensor 67 Pulse Rhythm Pulse Strength Respiratory Rate 18 Respiratory Effort / Characteristics Respiratory Depth Respiratory Pattern Blood Pressure 77/58 L 86/64 L Blood Pressure Mean 62 66 Blood Pressure Position Pulse Oximetry 96 Oxygen Delivery Method Sepsis Recent Fever Within 48 Hours Sepsis Action Taken by Nursing Vital signs reviewed. Noted to be slightly hypotensive and tachycardic. General: Elderly, somewhat ill-appearing 79-year-old male, in no significant distress HEENT: No scleral icterus, PERRLA, neck supple. Atraumatic. Cardiovascular: Tachycardic, irregular. No extra sounds. Pulmonary: Clear to auscultation bilaterally, normal work of breathing. Abdomen: Soft, nontender, nondistended, positive bowel sounds. Reducible right inguinal hernia. Musculoskeletal: Atraumatic, no peripheral edema. Neurologic: Patient awake alert and oriented x 3 Skin: Warm, dry, no rash Course Administered Medications Atovaquone (Mepron) 750 mg PO BID [facility]; Protocol Stop: 08/18/19 21:01 Last Admin: 08/12/19 08:28 Dose: 750 mg Documented by: [id number] Admin: 08/11/19 20:12 Dose: 750 mg Documented by: [id number] Admin: 08/11/19 08:12 Dose: 750 mg Documented by: [id number] Admin: 08/10/19 20:37 Dose: 750 mg Documented by: [id number] Admin: 08/10/19 07:37 Dose: 750 mg Documented by: [id number] Admin: 08/09/19 22:42 Dose: 750 mg Documented by: [id number] Azithromycin (Zithromax) 250 mg PO DAILY [facility] Stop: 08/18/19 09:01 Last Admin: 08/12/19 08:29 Dose: 250 mg Documented by: [id number] Admin: 08/11/19 08:12 Dose: 250 mg Documented by: [id number] Admin: 08/10/19 07:36 Dose: 250 mg Documented by: [id number] Ferrous Sulfate (Feosol) 325 mg PO DAILY NANCY Stop: 09/09/19 08:59 Last Admin: 08/12/19 08:29 Dose: 325 mg Documented by: [id number] Admin: 08/11/19 08:12 Dose: 325 mg Documented by: [id number] Admin: 08/10/19 07:37 Dose: 325 mg Documented by: [id number] Ceftriaxone Sodium 2,000 mg/ (Dextrose) 70 mls @ 100 mls/hr IV Q24H [facility]; Protocol Stop: 08/20/19 12:59 Last Infusion: 08/11/19 13:15 Dose: 0 mls/hr Documented by: [id number] Admin: 08/11/19 12:30 Dose: 100 mls/hr Documented by: [id number] Infusion: 08/10/19 13:46 Dose: 0 mls/hr Documented by: [id number] Admin: 08/10/19 13:01 Dose: 100 mls/hr Documented by: [id number] Metoprolol Succinate (Toprol Xl) 25 mg PO QAM NANCY Stop: 09/09/19 08:59 Last Admin: 08/12/19 08:29 Dose: 25 mg Documented by: [id number] Admin: 08/11/19 08:12 Dose: 25 mg Documented by: [id number] Admin: 08/10/19 07:37 Dose: 25 mg Documented by: [id number] Vitamin B Complex (Vitamin B Complex) 1 tab PO DAILY [facility] Stop: 09/09/19 08:59 Last Admin: 08/12/19 08:29 Dose: 1 tab Documented by: [id number] Admin: 08/11/19 08:12 Dose: 1 tab Documented by: [id number] Admin: 08/10/19 07:37 Dose: 1 tab Documented by: [id number] Discontinued Medications Acetaminophen (Tylenol) 1,000 mg PO NOW STA Stop: 08/09/19 12:10 Last Admin: 08/09/19 12:57 Dose: 1,000 mg Documented by: [id number] Atovaquone (Mepron) 750 mg PO NOW ONE Stop: 08/09/19 12:46 Last Admin: 08/09/19 14:09 Dose: 750 mg Documented by: [id number] Azithromycin (Zithromax) 500 mg PO NOW ONE Stop: 08/09/19 12:46 Last Admin: 08/09/19 14:10 Dose: 500 mg Documented by: [id number] Fentanyl Citrate (Fentanyl Citrate) 50 mcg IV Q15M PRN PRN Reason: Pain Stop: 08/23/19 11:27 Last Admin: 08/09/19 11:48 Dose: 50 mcg Documented by: [id number] Sodium Chloride (Nss) 500 mls @ 999 mls/hr IV .Q31M NANCY Stop: 08/09/19 12:00 Last Infusion: 08/09/19 13:00 Dose: 0 mls/hr Documented by: [id number] Admin: 08/09/19 11:49 Dose: 999 mls/hr Documented by: [id number] Ceftriaxone Sodium (Rocephin) 1,000 mg in 50 mls @ 100 mls/hr IV NOW STA Stop: 08/09/19 12:48 Last Infusion: 08/09/19 15:27 Dose: 0 mls/hr Documented by: [id number] Admin: 08/09/19 12:57 Dose: 100 mls/hr Documented by: [id number] Sodium Chloride (Nss) 500 mls @ 999 mls/hr IV .Q31M ONE Stop: 08/09/19 16:12 Last Infusion: 08/09/19 16:35 Dose: 0 mls/hr Documented by: [id number] Admin: 08/09/19 16:03 Dose: 999 mls/hr Documented by: [id number] Lactated Ringer's (Lr) 1,000 mls @ 100 mls/hr IV .Q10H NANCY Stop: 09/08/19 18:35 Last Infusion: 08/10/19 14:05 Dose: 0 mls/hr Documented by: [id number] Admin: 08/10/19 04:53 Dose: 100 mls/hr Documented by: [id number] Infusion: 08/10/19 04:51 Dose: 100 mls/hr Documented by: [id number] Admin: 08/09/19 18:51 Dose: 100 mls/hr Documented by: [id number] Ioversol (Optiray 320 100ml) 93 ml IV ONCE PRN PRN Reason: Interaction Checking Stop: 08/13/19 12:30 Last Admin: 08/09/19 12:31 Dose: 93 ml Documented by: [id number] Ondansetron HCl (Zofran) 4 mg IV NOW STA Stop: 08/09/19 11:29 Last Admin: 08/09/19 11:48 Dose: 4 mg Documented by: [id number] Phytonadione (Mephyton) 5 mg PO NOW STA Stop: 08/11/19 13:06 Last Admin: 08/11/19 13:50 Dose: 5 mg Documented by: [id number] Medical Decision Making Medical Records Attestation: I reviewed the patient's medical records. (Tonia) Home Medications Current Medication List: was personally reviewed by me Laboratory Data Attestation: I reviewed the patient's lab results. Result diagrams: 08/12/19 06:01 08/12/19 06:01 Lab Results 08/09/19 08/09/19 08/09/19 Range/Units 11:30 11:30 11:30 WBC 9.71 (4.8-10.8) K/uL RBC 4.18 L (4.7-6.1) M/uL Hgb 12.9 L (14.0-18.0) g/dL Hct 37.3 L (42-52) % MCV 89.2 (80-100) fL MCH 30.9 (25-34) pg MCHC 34.6 (32-36) g/dL RDW Std Deviation 51.0 H (36.4-46.3) fL RDW Coeff of Jono 15.7 H (11.5-14.5) % Plt Count 68 L (130-400) K/uL MPV 9.4 (7.4-10.4) fL Immature Gran % (Auto) 0.9 % Neut % (Auto) 64.8 % Lymph % (Auto) 16.6 % [place] % (Auto) 17.2 % Eos % (Auto) 0.1 % Baso % (Auto) 0.4 % Neut # (Auto) 6.29 (1.4-6.5) K/uL Lymph # (Auto) 1.61 (1.2-3.4) K/uL [place] # (Auto) 1.67 H (0.11-0.59) K/uL Eos # (Auto) 0.01 (0-0.5) K/uL Baso # (Auto) 0.04 (0-0.2) K/uL Immature Gran # (Auto) 0.09 H (0.00-0.02) K/uL Blood Smear Review Platelet Estimate Decreased L (Normal) PT (9.0-12.0) Seconds INR (0.9-1.1) Sodium 127 L (136-145) mmol/L Potassium 4.0 (3.5-5.1) mmol/L Chloride 97 L (98-107) mmol/L Carbon Dioxide 22 (21-32) mmol/L Anion Gap 8.0 (3-11) BUN 38 H (7-18) mg/dl Creatinine 1.53 H (0.6-1.4) mg/dl Est Cr Clr Drug Dosing 37.3 ml/min Est GFR ( Amer) 49.0 Est GFR (Non-Af Amer) 42.3 BUN/Creatinine Ratio 25.1 H (10-20) Glucose 127 H (70-99) mg/dl Osmolality (280-300) mOsm/kg Lactate (0.4-2.0) mmol/L Calcium 8.7 (8.5-10.1) mg/dl Total Bilirubin 2.0 H (0.2-1) mg/dl Direct Bilirubin (0-0.2) mg/dl AST 28 (15-37) U/L ALT 21 (12-78) U/L Alkaline Phosphatase 96 (45-117) U/L Total Protein 7.4 (6.4-8.2) gm/dl Albumin 3.0 L (3.4-5.0) gm/dl Globulin 4.4 H (2.5-4.0) gm/dl Albumin/Globulin Ratio 0.7 L (0.9-2) Lipase 273 (73-393) U/L Procalcitonin (0-0.5) ng/ml Urine Color [place] Urine Appearance Cloudy A (Clear) Urine pH 5.0 (4.5-7.5) Ur Specific [place] 1.030 (1.000-1.030) Urine Protein 2+ H (Negative) Urine Glucose (UA) Negative (Negative) Urine Ketones Trace H (Negative) Urine Blood 3+ H (Negative) Urine Nitrite Positive A (Negative) Urine Bilirubin Negative (Negative) Urine Urobilinogen Negative (Negative) Ur Leukocyte Esterase 1+ H (Negative) Urine WBC (Auto) >30 H (0-5) /hpf Urine RBC (Auto) 5-10 H (0-4) /hpf U Hyaline Cast (Auto) 5-10 H (0-5) /lpf U Epithel Cells (Auto) 5-10 H (0-5) /lpf Urine Bacteria (Auto) Negative (Negative) Granular Casts 5-10 H (0) /lpf Urine Yeast Not Reportable Lyme Disease IgG Ab (Negative) Lyme IgG (Western Blot) (NEGATIVE) Lyme IgG 18 kDa Band Lyme IgG 23 kDa Band Lyme IgG 28 kDa Band Lyme IgG 30 kDa Band Lyme IgG 39 kDa Band Lyme IgG 41 kDa Band Lyme IgG 45 kDa Band Lyme IgG 58 kDa Band Lyme IgG 66 kDa Band Lyme IgG 93 kDa Band Lyme IgM Ab (WB) (NEGATIVE) Lyme Disease IgM Ab (Negative) Lyme IgM 23 kDa Band Lyme IgM 39 kDa Band Lyme IgM 41 kDa Band 30/20 30/20 30/20 Range/Units 11:30 14:30 14:30 WBC (4.8-10.8) K/uL RBC (4.7-6.1) M/uL Hgb (14.0-18.0) g/dL Hct (42-52) % MCV (80-100) fL MCH (25-34) pg MCHC (32-36) g/dL RDW Std Deviation (36.4-46.3) fL RDW Coeff of Jono (11.5-14.5) % Plt Count (130-400) K/uL MPV (7.4-10.4) fL Immature Gran % (Auto) % Neut % (Auto) % Lymph % (Auto) % [place] % (Auto) % Eos % (Auto) % Baso % (Auto) % Neut # (Auto) (1.4-6.5) K/uL Lymph # (Auto) (1.2-3.4) K/uL [place] # (Auto) (0.11-0.59) K/uL Eos # (Auto) (0-0.5) K/uL Baso # (Auto) (0-0.2) K/uL Immature Gran # (Auto) (0.00-0.02) K/uL Blood Smear Review Platelet Estimate (Normal) PT 37.5 H (9.0-12.0) Seconds INR 3.8 H (0.9-1.1) Sodium (136-145) mmol/L Potassium (3.5-5.1) mmol/L Chloride (98-107) mmol/L Carbon Dioxide (21-32) mmol/L Anion Gap (3-11) BUN (7-18) mg/dl Creatinine (0.6-1.4) mg/dl Est Cr Clr Drug Dosing ml/min Est GFR ( Amer) Est GFR (Non-Af Amer) BUN/Creatinine Ratio (10-20) Glucose (70-99) mg/dl Osmolality (280-300) mOsm/kg Lactate (0.4-2.0) mmol/L Calcium (8.5-10.1) mg/dl Total Bilirubin (0.2-1) mg/dl Direct Bilirubin 0.8 H (0-0.2) mg/dl AST (15-37) U/L ALT (12-78) U/L Alkaline Phosphatase (45-117) U/L Total Protein (6.4-8.2) gm/dl Albumin (3.4-5.0) gm/dl Globulin (2.5-4.0) gm/dl Albumin/Globulin Ratio (0.9-2) Lipase (73-393) U/L Procalcitonin (0-0.5) ng/ml Urine Color Urine Appearance (Clear) Urine pH (4.5-7.5) Ur Specific [place] (1.000-1.030) Urine Protein (Negative) Urine Glucose (UA) (Negative) Urine Ketones (Negative) Urine Blood (Negative) Urine Nitrite (Negative) Urine Bilirubin (Negative) Urine Urobilinogen (Negative) Ur Leukocyte Esterase (Negative) Urine WBC (Auto) (0-5) /hpf Urine RBC (Auto) (0-4) /hpf U Hyaline Cast (Auto) (0-5) /lpf U Epithel Cells (Auto) (0-5) /lpf Urine Bacteria (Auto) (Negative) Granular Casts (0) /lpf Urine Yeast Lyme Disease IgG Ab Positive A (Negative) Lyme IgG (Western Blot) (NEGATIVE) Lyme IgG 18 kDa Band Lyme IgG 23 kDa Band Lyme IgG 28 kDa Band Lyme IgG 30 kDa Band Lyme IgG 39 kDa Band Lyme IgG 41 kDa Band Lyme IgG 45 kDa Band Lyme IgG 58 kDa Band Lyme IgG 66 kDa Band Lyme IgG 93 kDa Band Lyme IgM Ab (WB) (NEGATIVE) Lyme Disease IgM Ab Positive A (Negative) Lyme IgM 23 kDa Band Lyme IgM 39 kDa Band Lyme IgM 41 kDa Band 08/08/08/08/08/09/19 Range/Units 14:30 14:30 14:30 WBC (4.8-10.8) K/uL RBC (4.7-6.1) M/uL Hgb (14.0-18.0) g/dL Hct (42-52) % MCV (80-100) fL MCH (25-34) pg MCHC (32-36) g/dL RDW Std Deviation (36.4-46.3) fL RDW Coeff of Jono (11.5-14.5) % Plt Count (130-400) K/uL MPV (7.4-10.4) fL Immature Gran % (Auto) % Neut % (Auto) % Lymph % (Auto) % [place] % (Auto) % Eos % (Auto) % Baso % (Auto) % Neut # (Auto) (1.4-6.5) K/uL Lymph # (Auto) (1.2-3.4) K/uL [place] # (Auto) (0.11-0.59) K/uL Eos # (Auto) (0-0.5) K/uL Baso # (Auto) (0-0.2) K/uL Immature Gran # (Auto) (0.00-0.02) K/uL Blood Smear Review Platelet Estimate (Normal) PT (9.0-12.0) Seconds INR (0.9-1.1) Sodium (136-145) mmol/L Potassium (3.5-5.1) mmol/L Chloride (98-107) mmol/L Carbon Dioxide (21-32) mmol/L Anion Gap (3-11) BUN (7-18) mg/dl Creatinine (0.6-1.4) mg/dl Est Cr Clr Drug Dosing ml/min Est GFR ( Amer) Est GFR (Non-Af Amer) BUN/Creatinine Ratio (10-20) Glucose (70-99) mg/dl Osmolality 278 L (280-300) mOsm/kg Lactate (0.4-2.0) mmol/L Calcium (8.5-10.1) mg/dl Total Bilirubin (0.2-1) mg/dl Direct Bilirubin (0-0.2) mg/dl AST (15-37) U/L ALT (12-78) U/L Alkaline Phosphatase (45-117) U/L Total Protein (6.4-8.2) gm/dl Albumin (3.4-5.0) gm/dl Globulin (2.5-4.0) gm/dl Albumin/Globulin Ratio (0.9-2) Lipase (73-393) U/L Procalcitonin 0.31 (0-0.5) ng/ml Urine Color Urine Appearance (Clear) Urine pH (4.5-7.5) Ur Specific [place] (1.000-1.030) Urine Protein (Negative) Urine Glucose (UA) (Negative) Urine Ketones (Negative) Urine Blood (Negative) Urine Nitrite (Negative) Urine Bilirubin (Negative) Urine Urobilinogen (Negative) Ur Leukocyte Esterase (Negative) Urine WBC (Auto) (0-5) /hpf Urine RBC (Auto) (0-4) /hpf U Hyaline Cast (Auto) (0-5) /lpf U Epithel Cells (Auto) (0-5) /lpf Urine Bacteria (Auto) (Negative) Granular Casts (0) /lpf Urine Yeast Lyme Disease IgG Ab (Negative) Lyme IgG (Western Blot) POSITIVE A (NEGATIVE) Lyme IgG 18 kDa Band REACTIVE A Lyme IgG 23 kDa Band REACTIVE A Lyme IgG 28 kDa Band NON-REACTIVE Lyme IgG 30 kDa Band NON-REACTIVE Lyme IgG 39 kDa Band NON-REACTIVE Lyme IgG 41 kDa Band REACTIVE A Lyme IgG 45 kDa Band REACTIVE A Lyme IgG 58 kDa Band NON-REACTIVE Lyme IgG 66 kDa Band NON-REACTIVE Lyme IgG 93 kDa Band REACTIVE A Lyme IgM Ab (WB) POSITIVE A (NEGATIVE) Lyme Disease IgM Ab (Negative) Lyme IgM 23 kDa Band REACTIVE A Lyme IgM 39 kDa Band NON-REACTIVE Lyme IgM 41 kDa Band REACTIVE A 08/09/19 Range/Units 15:52 WBC (4.8-10.8) K/uL RBC (4.7-6.1) M/uL Hgb (14.0-18.0) g/dL Hct (42-52) % MCV (80-100) fL MCH (25-34) pg MCHC (32-36) g/dL RDW Std Deviation (36.4-46.3) fL RDW Coeff of Jono (11.5-14.5) % Plt Count (130-400) K/uL MPV (7.4-10.4) fL Immature Gran % (Auto) % Neut % (Auto) % Lymph % (Auto) % [place] % (Auto) % Eos % (Auto) % Baso % (Auto) % Neut # (Auto) (1.4-6.5) K/uL Lymph # (Auto) (1.2-3.4) K/uL [place] # (Auto) (0.11-0.59) K/uL Eos # (Auto) (0-0.5) K/uL Baso # (Auto) (0-0.2) K/uL Immature Gran # (Auto) (0.00-0.02) K/uL Blood Smear Review Platelet Estimate (Normal) PT (9.0-12.0) Seconds INR (0.9-1.1) Sodium (136-145) mmol/L Potassium (3.5-5.1) mmol/L Chloride (98-107) mmol/L Carbon Dioxide (21-32) mmol/L Anion Gap (3-11) BUN (7-18) mg/dl Creatinine (0.6-1.4) mg/dl Est Cr Clr Drug Dosing ml/min Est GFR ( Amer) Est GFR (Non-Af Amer) BUN/Creatinine Ratio (10-20) Glucose (70-99) mg/dl Osmolality (280-300) mOsm/kg Lactate 1.7 (0.4-2.0) mmol/L Calcium (8.5-10.1) mg/dl Total Bilirubin (0.2-1) mg/dl Direct Bilirubin (0-0.2) mg/dl AST (15-37) U/L ALT (12-78) U/L Alkaline Phosphatase (45-117) U/L Total Protein (6.4-8.2) gm/dl Albumin (3.4-5.0) gm/dl Globulin (2.5-4.0) gm/dl Albumin/Globulin Ratio (0.9-2) Lipase (73-393) U/L Procalcitonin (0-0.5) ng/ml Urine Color Urine Appearance (Clear) Urine pH (4.5-7.5) Ur Specific [place] (1.000-1.030) Urine Protein (Negative) Urine Glucose (UA) (Negative) Urine Ketones (Negative) Urine Blood (Negative) Urine Nitrite (Negative) Urine Bilirubin (Negative) Urine Urobilinogen (Negative) Ur Leukocyte Esterase (Negative) Urine WBC (Auto) (0-5) /hpf Urine RBC (Auto) (0-4) /hpf U Hyaline Cast (Auto) (0-5) /lpf U Epithel Cells (Auto) (0-5) /lpf Urine Bacteria (Auto) (Negative) Granular Casts (0) /lpf Urine Yeast Lyme Disease IgG Ab (Negative) Lyme IgG (Western Blot) (NEGATIVE) Lyme IgG 18 kDa Band Lyme IgG 23 kDa Band Lyme IgG 28 kDa Band Lyme IgG 30 kDa Band Lyme IgG 39 kDa Band Lyme IgG 41 kDa Band Lyme IgG 45 kDa Band Lyme IgG 58 kDa Band Lyme IgG 66 kDa Band Lyme IgG 93 kDa Band Lyme IgM Ab (WB) (NEGATIVE) Lyme Disease IgM Ab (Negative) Lyme IgM 23 kDa Band Lyme IgM 39 kDa Band Lyme IgM 41 kDa Band Imaging Data Radiologist's Impression: CT OF THE ABDOMEN AND PELVIS WITH CONTRAST CLINICAL HISTORY: R inguinal hernia, reducible but pain, UTI COMPARISON STUDY: CT of the abdomen and pelvis November 23, 2011. KUB August 09, 2019. TECHNIQUE: Following IV administration of 93 mL of Optiray-320, axial images of the abdomen and pelvis were obtained from the lung bases to the proximal femurs. Images were reviewed in the axial, sagittal, and coronal planes. IV contrast was administered without complication. Automated exposure control was utilized for the study. A dose lowering technique was utilized adhering to the principles of ALARA. CT DOSE: 432.27 mGycm FINDINGS: There is a nonobstructing 5 mm x 3 mm distal right ureteral calculus. There is no hydronephrosis or hydroureter. Nephrograms are symmetric. A subcentimeter right renal lesion favors a cyst. Moderate cardiomegaly is noted. The liver, spleen, adrenal glands and pancreas are unremarkable. There is no peripancreatic or pericholecystic infiltration. A prominent portacaval lymph node is unchanged. Mild dilatation of the proximal celiac axis, measuring 1.4 cm is also unchanged. Major vasculature is patent. A small amount of ascites within the pelvis is noted. The appendix is normal. Caliber and wall thickness of small and large bowel are normal. Small bowel loop extends into a right inguinal hernia. Is no resultant bowel obstruction. No suspicious osseous lesions are present. Prostate is mildly enlarged. There is no pneumatosis, free air or portal venous gas. Colonic diverticulosis is noted without evidence for acute diverticulitis. IMPRESSION: 1. Nonobstructing 5 mm x 3 mm distal right ureteral calculus. No hydronephrosis. 2. Right inguinal hernia which contains a loop of small bowel. No resultant bowel obstruction. 3. Small amount of ascites within the pelvis. ACT 112: Negative or not required by law. Electronically signed by: Janusz Cardoso M.D. 08/09/2019 12:51 PM Dictated: 08/09/19 1243 Transcribed: 08/09/19 1243 ECG Data Attestation: I personally reviewed and interpreted this ECG as follows: Indication: + weakness Rate (beats per minute): 79 Rhythm: + atrial fibrillation ECG Intervals/blocks: + Right Bundle branch block; no Normal QT-c (486) ECG ST segments: + repolarization abnormalities ECG Findings: no PACs and no PVCs Blood Pressure Blood Pressure Findings: Low blood pressure Blood Pressure Disposition: further management by hospitalist NOAH Quesada This patient was evaluated and appeared to be in no significant distress. He has noted to be slightly tachycardic and hypotensive. IV access was obtained and laboratory work was drawn. Patient was hydrated with normal saline solution. An order for cardiac monitoring was placed and he was found to be in atrial fibrillation. Patient's laboratory work reveals a leukopenia and thrombocytopenia. Patient's right inguinal hernia is reducible without difficulty. Patient is noted to be hyponatremic and also has an INR of 3.8. Urinalysis is concerning for infection. CT scan of the abdomen pelvis was performed and reveals a 5 mm distal right ureteral calculus. Patient was given 1 g of IV ceftriaxone. I did receive a call from pathology, Dr. Xiong who believes the patient has babesiosis. Pharmacy was consulted and the patient was treated with azithromycin and atovaquone. The [facility] service was consulted for further evaluation and management. Patient is aware of the plan and agrees. Impression & Plan Babesiosis, UTI (urinary tract infection), Calculus of distal right ureter Discharge Plan Visit Data *Final* Discharge Date/Time: 08/09/19 16:34 Chief Complaint: Abdominal Pain Stated Complaint: HERNIA ED Provider: Serena Romero Discharge Problem: Babesiosis, UTI (urinary tract infection), Calculus of distal right ureter Patient Disposition: Admitted As Inpatient Discharge Instructions Interventions: ED Discharge Assessment Last Done: 08/09/19 16:34 Discharge Problem: UTI (urinary tract infection) Qualifiers: Urinary tract infection type: acute cystitis Hematuria presence: without hematuria Qualified Code(s): N30.00 - Acute cystitis without hematuria
[2019-08-09] MEDS ORDERED: [UNRECOGNIZED DRUG - REMARK] PRN (18:49)
[2019-08-09] MEDS: LACTATED RINGER'S 1,000 ML IV SCH (18:51)
[2019-08-09 21:07] LABS: Lyme Ab IgG w/WB Rflx Positive (Negative); Lyme Ab IgM w/WB Rflx Positive (Negative)
[2019-08-09] MEDS: ATOVAQUONE 750 MG/5 ML UDC PO SCH (22:42)
[2019-08-10] MEDS: LACTATED RINGER'S 1,000 ML IV SCH (04:53)
[2019-08-10] MEDS: AZITHROMYCIN 250 MG TAB PO SCH (07:36)
[2019-08-10] MEDS: METOPROLOL SUCC 25MG EXT REL TAB PO SCH (07:37)
[2019-08-10] MEDS: ATOVAQUONE 750 MG/5 ML UDC PO SCH ×2 (07:37→20:37)
[2019-08-10] MEDS: VITAMIN B COMPLEX TAB PO SCH (07:37)
[2019-08-10] MEDS: FERROUS SULFATE 325 MG TAB PO SCH (07:37)
[2019-08-10 07:47] LABS: Hematocrit (blood only) 32.4 % (42-52); Hemoglobin 11.2 g/dL (14.0-18.0); Mean Corpuscular Hemoglobin 30.5 pg (25-34); Mean Corpuscular Hgb Conc 34.6 g/dL (32-36); Mean Corpuscular Volume 88.3 fL (80-100); RDW Coefficient of Variation 16.1 % (11.5-14.5); RDW Standard Deviation 51.9 fL (36.4-46.3); Red Blood Count 3.67 M/uL (4.7-6.1); White Blood Count 7.22 K/uL (4.8-10.8)
[2019-08-10 08:05] LABS: INR 4.9 (0.9-1.1); Prothrombin Time 47.7 Seconds (9.0-12.0)
[2019-08-10 08:09] LABS: Mean Platelet Volume 9.3 fL (7.4-10.4); Platelet Count 60 K/uL (130-400)
[2019-08-10 08:10] LABS: Basophils # (auto) 0.03 K/uL (0-0.2); Basophils % (auto) 0.4 %; Echinocytes 1+; Eosinophils # (auto) 0.04 K/uL (0-0.5); Eosinophils % (auto) 0.6 %; Immature Granulocytes # (auto) 0.07 K/uL (0.00-0.02); Lymphocytes # (auto) 1.34 K/uL (1.2-3.4); Lymphocytes % (auto) 18.6 %; Monocytes # (auto) 1.45 K/uL (0.11-0.59); Monocytes % (auto) 20.1 %; Neutrophils # (auto) 4.29 K/uL (1.4-6.5); Neutrophils % (auto) 59.3 %
--- NOTE | 2019-08-10 08:11 | Urology Progress Note ---
Date of Service August 10, 2019 Assessment & Plan (1) Calculus of distal right ureter: Postop day 1 status post right ureteral stent placement Subjectively feels much better He is anxious to go home From a standpoint he is stableI will defer to the hospitalist team to determine his general medical care and discharge plan I will plan for outpatient follow-up for definitive stone treatment We will arrange that appointment Please call if further issues during this hospitalization Subjective Subjectively feeling quite well today He is no longer having any right flank pain It seems that placement of the stent relieved his discomfort No fevers or chills overnight Physical Exam Constitutional: well developed and well nourished Neck: neck nontender Respiratory: normal respiratory effort; no respiratory distress and does not use accessory muscles Cardiovascular: Rate/Rhythm: regular rate Vessels: radial pulses present Extremities: no edema Gastrointestinal (Abdomen): Inspection/Auscultation: abdomen normal to inspection Percussion/Palpation: abdomen soft; abdomen nontender and no guarding Musculoskeletal: Head/Neck/Chest: normocephalic and head atraumatic Extremities: extremities normal to inspection Skin: no rashes and no lesions Trauma: no evidence of skin trauma Neurologic: awake; not obtunded Speech / Cognition: normal speech Motor/Sensory: no tremor Psychiatric: Orientation: alert and oriented x 3 Genitourinary: no CVA tenderness Lymphatic: no lymphadenopathy Results & Data Vital Signs (Past 12 Hours) Vital Signs Temp Pulse Pulse Pulse Resp BP Pulse Ox 08/10/19 07:25 36.4 C L 70 16 102/70 96 08/10/19 04:35 36.8 C 78 20 102/68 97 08/10/19 01:00 67 08/10/19 00:10 36.8 C 75 20 114/72 97 08/09/19 20:31 36.6 C 82 19 106/73 96 PG Care Time/CCT Total # of Minutes Spent Total Time Spent with Patient: Total time spent is greater than 50% in coordination of care (as documented) at patient's floor/unit and/or counseling patient: Coding Level of Care Code 11514 Subseq Hosp Care Lvl 2 Diagnoses Calculus of distal right ureter N20.1
[2019-08-10 08:20] LABS: Albumin Level 2.2 gm/dl (3.4-5.0); BUN Creatinine Ratio 29.1 (10-20); Calcium 7.9 mg/dl (8.5-10.1); Creatinine Clr Calc Pharmacy 48.5 ml/min; Est GFR (African American) 63.2; Est GFR (Non-African American) 54.6; Potassium 4.3 mmol/L (3.5-5.1)
[2019-08-10 08:37] LABS: Albumin Globulin Ratio 0.6 (0.9-2); Bilirubin,Total 1.4 mg/dl (0.2-1); Globulin 3.9 gm/dl (2.5-4.0); Total Protein 6.1 gm/dl (6.4-8.2)
--- NOTE | 2019-08-10 08:42 | Anesthesiology Progress Note ---
Date of Service August 10, 2019 Anesthesia Post Procedure Vital Signs Vital Signs: Temp Pulse Pulse Pulse Resp BP BP 08/10/19 08:00 68 08/10/19 07:25 36.4 C L 70 16 102/70 08/10/19 04:35 36.8 C 78 20 102/68 08/10/19 01:00 67 08/10/19 00:10 36.8 C 75 20 114/72 08/09/19 20:31 36.6 C 82 19 106/73 08/09/19 19:33 36.4 C L 80 16 98/69 L 08/09/19 19:20 08/09/19 18:40 36.5 C 72 14 101/64 08/09/19 18:07 36.5 C 71 14 102/67 08/09/19 17:35 36.4 C L 71 14 88/57 L 08/09/19 17:25 62 14 102/73 08/09/19 17:18 77 14 94/60 L 08/09/19 17:11 36.3 C L 73 14 67/51 L 08/09/19 16:35 36.8 C 79 20 85/60 L 08/09/19 16:23 86/64 L 08/09/19 16:15 68 18 77/58 L 08/09/19 16:01 77 18 08/09/19 16:00 73 18 88/60 L 08/09/19 15:45 78 14 83/57 L 08/09/19 15:35 75 17 80/52 L 08/09/19 15:32 69 18 73/49 L 08/09/19 15:31 83 18 08/09/19 15:30 73 16 72/51 L 08/09/19 15:19 76 16 88/53 L 08/09/19 15:00 73 18 08/09/19 14:30 79 19 08/09/19 14:11 80 16 08/09/19 13:02 80 19 08/09/19 13:01 85 22 107/75 08/09/19 13:00 97 H 21 08/09/19 12:36 83 20 08/09/19 12:01 89 22 08/09/19 12:00 82 17 101/67 08/09/19 11:35 103 H 20 08/09/19 11:34 08/09/19 11:30 103 H 17 116/77 08/09/19 10:47 37.7 C H 110 H 20 Pulse Ox Pulse Ox 08/10/19 08:00 08/10/19 07:25 96 08/10/19 04:35 97 08/10/19 01:00 08/10/19 00:10 97 08/09/19 20:31 96 08/09/19 19:33 97 08/09/19 19:20 99 08/09/19 18:40 97 08/09/19 18:07 99 08/09/19 17:35 98 08/09/19 17:25 98 08/09/19 17:18 95 08/09/19 17:11 98 08/09/19 16:35 97 08/09/19 16:23 08/09/19 16:15 96 08/09/19 16:01 97 08/09/19 16:00 98 08/09/19 15:45 96 08/09/19 15:35 96 08/09/19 15:32 95 08/09/19 15:31 94 08/09/19 15:30 95 08/09/19 15:19 96 08/09/19 15:00 96 08/09/19 14:30 96 08/09/19 14:11 96 08/09/19 13:02 08/09/19 13:01 08/09/19 13:00 08/09/19 12:36 08/09/19 12:01 98 08/09/19 12:00 98 08/09/19 11:35 08/09/19 11:34 97 08/09/19 11:30 08/09/19 10:47 96 Pain Intensity Right Groin: Pain Intensity: 4 Notes Mental Status: alert / awake / arousable and participated in evaluation Patient Amnestic to Procedure: Yes Nausea / Vomiting: adequately controlled Pain: adequately controlled Airway Patency, RR, SpO2: stable & adequate BP & HR: stable & adequate Hydration State: stable & adequate Anesthetic Complications: no major complications apparent and Pt Satisfied with anesthetic care
[2019-08-10 09:47] LABS: Estimated Average Glucose 134 mg/dl; Hemoglobin A1C 6.3 % (4.5-5.6)
[2019-08-10] MEDS: cefTRIAXone SODIUM 2,000 MG in DEXTROSE 5% 50 ML IV SCH (13:01)
--- NOTE | 2019-08-10 14:07 | Hospitalist Progress Note ---
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 Lab work consistent with anemia and thrombocytopenia. Peripheral smear ordered to eval for tick borne illness. 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 He does have mildly elevated temp 37.7, anemia, and low platelets, decreased appetite and 15lb weight loss, but otherwise asymptomatic. In ED received Azithromycin 500mg x 1 and Atovaquone 750mg x 1. admit to tele continue treatment with azithromycin 250mg bid and atovaquone 750mg bid x 10 days Will need outpt evaluation/follow up with ID continue IVF, supportive measures trend h/h, plts hold warfarin until plt > 100 per cardiology 08/10/2019 Patient is afebrile, denies arthralgias, chills Lyme Western blot: Pending Positive babesiosis and peripheral smear Continue ceftriaxone, azithromycin, atovaquone Hemoglobin and platelet mildly decreased, continue to trend INR 4.9, also monitor with thrombocytopenia (3) UTI (urinary tract infection): (4) Right nephrolithiasis: (5) RACHEL (acute kidney injury): CT scan abd/pelvis revealed: Nonobstructing 5 mm x 3 mm distal right ureteral calculus. No hydronephrosis. UA appears consistent with UTI bun/cr elevated 30 and 1.53 (last creatinine 2016 1.0) Hold nephrotoxic agents including Lasix and lisinopril Urology consulted IV ceftriaxone for UTI Await urine culture Keep n.p.o. until evaluated by urology 08/10/2019 Status post right ureteral stent placement 08/09/2019 Headache improved from 1.5-1.2 Urine cultures: Pending Continue ceftriaxone Follow-up with urologist as an outpatient (6) Thrombocytopenia: In EP[facility] 2015 plot 233, 2017 109, now 68 likely in setting of underlying tick borne illness no s/sx of bleeding --Plt count 60,000 Continue to monitor (7) Hyponatremia: Na 127-- > 132 likely pre renal DC IV fluids Continue to monitor (8) Chronic atrial fibrillation: continue metoprolol INR supratherapeutic at 4.9 Hold warfarin Discussed with cardiology, Dr. Nieves regarding thrombocytopenia in setting of babesiosis Recommend holding coumadin until PLT > 100 monitor on tele (9) (HFpEF) heart failure with preserved ejection fraction: Without acute exacerbation Last echo 10/29/2016 revealed EF 55 to 60%, diastolic dysfunction, reduced right ventricle systolic function, dilated right ventricle, mild left atrial enlargem ent, severe right atrial enlargement, pulmonary pretension As outpatient he is on metoprolol, lisinopril and Lasix Hold lisinopril and Lasix in setting of RACHEL euvolemic (10) HTN (hypertension): Blood pressure on lower side Hold lisinopril and Lasix Continue metoprolol (11) Supratherapeutic INR: INR 4.9 hold coumadin Per cardiology hold warfarin until platelets greater than 100 (12) DVT prophylaxis: warfarin/INR supratherapeutic hold Disposition: admit to tele Follow up: PCP Dr. Garcia upon discharge along with infectious disease follow up as outpt Admission and Anticipated Discharge Date Admission Date: August 09, 2019 Subjective Follow-up for right atrial stone, Lyme disease plus babesiosis Called by RN as patient was getting confused, trying to leave Seen at the bedside, patient sitting edge of the bed, calm, cooperative, mildly confused but reoriented easily Is most questions appropriately but occasionally gets intermittently confused Says he feels fine overall Denies abdominal pain, flank pain, back pain Denies problems with urination, no hematuria or dysuria Denies headache, chills, chest pain, shortness of breath, joint pain, rashes No other symptoms Review of Systems Review of Systems: All systems reviewed & are unremarkable except as noted in HPI & below Physical Exam Physical Exam: General- oriented x 1-2, not in distress, speaks in sentences with no effort or accessory muscle use Head- atraumatic Eyes- PERRL, EOMI, anicteric ENT- oropharynx clear Neck- supple, no JVD, no adenopathy, no thyromegaly; carotids +2/2, no bruits appreciated Lungs- clear to auscultation bilaterally, no rales/wheezes Heart- normal rate, regular rhythm; no murmur, no gallop, no rub appreciated Abdomen- normal bowel sounds, nondistended, soft, nontender, no masses or hepatosplenomegaly Extremities- no pretibial edema, no calf tenderness; peripheral pulses intact Neuro- alert, oriented x 1-2; CN 2-12 grossly intact; motor 5/5 bilaterally;sensation 100% on all extremities; no other gross focal neurologic deficits Skin- warm & dry Results & Data Results & Data ([facility]) Vital Signs (Past 12 Hours) Vital Signs Temp Pulse Pulse Resp BP Pulse Ox 08/10/19 11:48 36.3 C L 77 16 115/77 97 08/10/19 08:00 68 08/10/19 07:25 36.4 C L 70 16 102/70 96 08/10/19 04:35 36.8 C 78 20 102/68 97
--- NOTE | 2019-08-10 15:03 | Electrocardiogram Report ---
Test Reason : Blood Pressure : / mmHG Vent. Rate : 077 BPM Atrial Rate : 000 BPM P-R Int : 000 ms QRS Dur : 140 ms QT Int : 426 ms P-R-T Axes : 000 049 -22 degrees QTc Int : 482 ms Atrial fibrillation Right bundle branch block Abnormal ECG When compared with ECG of 09-AUG-2019 15:16, No significant change Confirmed by Aldo Astorga ([id number] on 08/10/2019 3:03:07 PM Referred By: REFERRED SELF Confirmed By:Aldo Astorga
[2019-08-11 06:22] LABS: Hematocrit (blood only) 30.3 % (42-52); Hemoglobin 10.4 g/dL (14.0-18.0); Mean Corpuscular Hemoglobin 30.1 pg (25-34); Mean Corpuscular Hgb Conc 34.3 g/dL (32-36); Mean Corpuscular Volume 87.6 fL (80-100); RDW Coefficient of Variation 16.3 % (11.5-14.5); RDW Standard Deviation 52.2 fL (36.4-46.3); Red Blood Count 3.46 M/uL (4.7-6.1); White Blood Count 7.15 K/uL (4.8-10.8)
[2019-08-11 06:31] LABS: Platelet Count 73 K/uL (130-400)
[2019-08-11 06:51] LABS: Basophils # (auto) 0.01 K/uL (0-0.2); Basophils % (auto) 0.1 %; Echinocytes 1+; Eosinophils # (auto) 0.05 K/uL (0-0.5); Eosinophils % (auto) 0.7 %; Immature Granulocytes # (auto) 0.09 K/uL (0.00-0.02); Immature Granulocytes % (auto) 1.3 %; Lymphocytes # (auto) 1.43 K/uL (1.2-3.4); Monocytes # (auto) 1.69 K/uL (0.11-0.59); Monocytes % (auto) 23.6 %; Neutrophils # (auto) 3.88 K/uL (1.4-6.5); Neutrophils % (auto) 54.3 %; Platelet Estimate Decreased (Normal); Spherocytes 1+
[2019-08-11 06:59] LABS: BUN Creatinine Ratio 33.4 (10-20); Calcium 7.7 mg/dl (8.5-10.1); Creatinine Clr Calc Pharmacy 52.9 ml/min; Est GFR (African American) 69.3; Est GFR (Non-African American) 59.8; Potassium 4.1 mmol/L (3.5-5.1)
[2019-08-11] MEDS: FERROUS SULFATE 325 MG TAB PO SCH (08:12)
[2019-08-11] MEDS: VITAMIN B COMPLEX TAB PO SCH (08:12)
[2019-08-11] MEDS: ATOVAQUONE 750 MG/5 ML UDC PO SCH ×2 (08:12→20:12)
[2019-08-11] MEDS: METOPROLOL SUCC 25MG EXT REL TAB PO SCH (08:12)
[2019-08-11] MEDS: AZITHROMYCIN 250 MG TAB PO SCH (08:12)
[2019-08-11 11:13] LABS: INR 3.8 (0.9-1.1); Prothrombin Time 37.1 Seconds (9.0-12.0)
[2019-08-11] MEDS: cefTRIAXone SODIUM 2,000 MG in DEXTROSE 5% 50 ML IV SCH (12:30)
[2019-08-11] MEDS ORDERED: PHYTONADIONE 5 MG TAB PO STA (13:05)
[2019-08-11 16:39] LABS: 18KDIGG Band REACTIVE; 23KDIGG Band REACTIVE; 23KDIGM Band REACTIVE; 28KDIGG Band NON-REACTIVE; 30KDIGG Band NON-REACTIVE; 39KDIGG Band NON-REACTIVE; 39KDIGM Band NON-REACTIVE; 41KDIGG Band REACTIVE; 41KDIGM Band REACTIVE; 45KDIGG Band REACTIVE; 58KDIGG Band NON-REACTIVE; 66KDIGG Band NON-REACTIVE; 93KDIGG Band REACTIVE; Lyme Antibodies, WB IgG POSITIVE (NEGATIVE); Lyme Antibodies, WB IgM POSITIVE (NEGATIVE)
[2019-08-11 19:51] LABS: Hematocrit (blood only) 33.5 % (42-52); Hemoglobin 11.5 g/dL (14.0-18.0)
--- NOTE | 2019-08-11 20:01 | Hospitalist Progress Note ---
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 Lab work consistent with anemia and thrombocytopenia. Peripheral smear ordered to eval for tick borne illness. 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 He does have mildly elevated temp 37.7, anemia, and low platelets, decreased appetite and 15lb weight loss, but otherwise asymptomatic. In ED received Azithromycin 500mg x 1 and Atovaquone 750mg x 1. admit to tele continue treatment with azithromycin 250mg bid and atovaquone 750mg bid x 10 days Will need outpt evaluation/follow up with ID continue IVF, supportive measures trend h/h, plts hold warfarin until plt > 100 per cardiology 08/11/2019 Patient is afebrile, denies arthralgias, chills Lyme Western blot: Pending Positive babesiosis and peripheral smear Continue ceftriaxone, azithromycin, atovaquone Hemoglobin and platelet mildly decreased,-->platelet count improving, hemoglobin stable INR 3.8, positive hematuria, vitamin K 5 mg p.o. given, monitor INR platelet counts (3) UTI (urinary tract infection): (4) Right nephrolithiasis: (5) RACHEL (acute kidney injury): CT scan abd/pelvis revealed: Nonobstructing 5 mm x 3 mm distal right ureteral calculus. No hydronephrosis. UA appears consistent with UTI bun/cr elevated 30 and 1.53 (last creatinine 2017 1.0) Hold nephrotoxic agents including Lasix and lisinopril Urology consulted IV ceftriaxone for UTI Await urine culture Keep n.p.o. until evaluated by urology 08/11/2019 Status post right ureteral stent placement 08/09/2019 Creatinine normalized Urine cultures: Negative Vitamin K given for hematuria, continue to monitor Follow-up with urologist as an outpatient (6) Thrombocytopenia: In [facility] plot 233, 2017 109, now 68 likely in setting of underlying tick borne illness --Plt count 70 K Hematuria noted today, vitamin K given Continue to monitor (7) Hyponatremia: Na 127-- > 132 likely pre renal DC IV fluids Continue to monitor (8) Chronic atrial fibrillation: continue metoprolol INR supratherapeutic at 3.8 Hold warfarin Discussed with cardiology, Dr. Nieevs regarding thrombocytopenia in setting of babesiosis Recommend holding coumadin until PLT > 100 monitor on tele (9) (HFpEF) heart failure with preserved ejection fraction: Without acute exacerbation Last echo 10/29/2016 revealed EF 55 to 60%, diastolic dysfunction, reduced right ventricle systolic function, dilated right ventricle, mild left atrial enlargement, severe right atrial enlargement, pulmonary pretension As outpatient he is on metoprolol, lisinopril and Lasix Hold lisinopril and Lasix in setting of RACHEL euvolemic (10) HTN (hypertension): Blood pressure stable Hold lisinopril and Lasix Continue metoprolol (11) Supratherapeutic INR: INR 3.8 hold coumadin Per cardiology hold warfarin until platelets greater than 100 (12) DVT prophylaxis: warfarin/INR supratherapeutic hold Disposition: Anticipate discharge to home with home health services when m edically stable Follow up: PCP Dr. Garcia upon discharge along with infectious disease follow up as outpt Admission and Anticipated Discharge Date Admission Date: August 09, 2019 Subjective follow-up for ureteral stone, Lyme disease Seen resting in bed, comfortable, not in distress Patient reports he feels fine overall Denies headache, neck pain, blurring of vision, chills, joint pains Reports hematuria since yesterday, but no dysuria No chest pain, shortness of breath no palpitations, dizziness, nausea vomiting No other symptoms Review of Systems Review of Systems: All systems reviewed & are unremarkable except as noted in HPI & below Physical Exam Physical Exam: General- oriented x 2, not in distress, speaks in sentences w ith no effort or accessory muscle use Eyes- anicteric Neck- no JVD Lungs- clear breath sounds bilaterally, no rales/wheezes Heart- normal rate, irregularly irregular rhythm; no murmurs Abdomen- normal bowel sounds, nondistended, soft, nontender Extremities- no pretibial edema, no calf tenderness Positive hematoma on the left antecubital fossa area, no erythema/warmth/tenderness Neuro- alert, oriented x 2; no gross focal neurologic deficits Skin- warm & dry Results & Data Results & Data ([facility]) Vital Signs (Past 12 Hours) Vital Signs Temp Pulse Pulse Resp BP BP Pulse Ox 08/11/19 16:20 37.0 C 71 17 122/80 100 08/11/19 16:00 77 08/11/19 12:02 37.1 C 86 17 115/80 96 08/11/19 08:47 82
[2019-08-12 06:38] LABS: INR 1.6 (0.9-1.1); Prothrombin Time 16.5 Seconds (9.0-12.0)
[2019-08-12 06:54] LABS: Hematocrit (blood only) 30.7 % (42-52); Hemoglobin 10.6 g/dL (14.0-18.0); Mean Corpuscular Hemoglobin 30.5 pg (25-34); Mean Corpuscular Hgb Conc 34.5 g/dL (32-36); Mean Corpuscular Volume 88.2 fL (80-100); RDW Coefficient of Variation 16.6 % (11.5-14.5); Red Blood Count 3.48 M/uL (4.7-6.1); White Blood Count 7.68 K/uL (4.8-10.8)
[2019-08-12 07:03] LABS: BUN Creatinine Ratio 32.2 (10-20); Calcium 7.8 mg/dl (8.5-10.1); Creatinine Clr Calc Pharmacy 46.8 ml/min; Est GFR (African American) 59.7; Est GFR (Non-African American) 51.5; Potassium 4.2 mmol/L (3.5-5.1)
[2019-08-12 07:11] LABS: Basophils # (auto) 0.04 K/uL (0-0.2); Basophils % (auto) 0.5 %; Eosinophils # (auto) 0.07 K/uL (0-0.5); Eosinophils % (auto) 0.9 %; Immature Granulocytes # (auto) 0.09 K/uL (0.00-0.02); Immature Granulocytes % (auto) 1.2 %; Lymphocytes # (auto) 1.86 K/uL (1.2-3.4); Lymphocytes % (auto) 24.2 %; Monocytes # (auto) 1.75 K/uL (0.11-0.59); Monocytes % (auto) 22.8 %; Neutrophils # (auto) 3.87 K/uL (1.4-6.5); Neutrophils % (auto) 50.4 %; Platelet Count 95 K/uL (130-400)
[2019-08-12] MEDS: ATOVAQUONE 750 MG/5 ML UDC PO SCH (08:28)
[2019-08-12] MEDS: AZITHROMYCIN 250 MG TAB PO SCH (08:29)
[2019-08-12] MEDS: METOPROLOL SUCC 25MG EXT REL TAB PO SCH (08:29)
[2019-08-12] MEDS: VITAMIN B COMPLEX TAB PO SCH (08:29)
[2019-08-12] MEDS: FERROUS SULFATE 325 MG TAB PO SCH (08:29)
[2019-08-12] MEDS: cefTRIAXone SODIUM 2,000 MG in DEXTROSE 5% 50 ML IV SCH (12:05)
--- NOTE | 2019-08-12 13:27 | Hospitalist Progress Note ---
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 Lab work consistent with anemia and thrombocytopenia. Peripheral smear ordered to eval for tick borne illness. 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 He does have mildly elevated temp 37.7, anemia, and low platelets, decreased appetite and 15lb weight loss, but otherwise asymptomatic. In ED received Azithromycin 500mg x 1 and Atovaquone 750mg x 1. admit to tele continue treatment with azithromycin 250mg bid and atovaquone 750mg bid x 10 days Will need outpt evaluation/follow up with ID continue IVF, supportive measures trend h/h, plts hold warfarin until plt > 100 per cardiology 08/12/2019 Patient remains afebrile, denies arthralgias, chills Lyme Western blot: Positive Positive babesiosis based on peripheral smear Patient given ceftriaxone, azithromycin, atovaquone x4 days Hemoglobin and platelet mildly decreased-->platelet count improvin,000 on discharge day, hemoglobin stable: 10.6 on discharge day Discussed with infectious disease service of [facility], Dr. Lex Motta Recommend to transition patient to doxycycline 100 mg twice daily x16 more days to complete 3-week course Also continue azithromycin and atovaquone x6 more days to complete 10-day course Repeat CBC on 08/15/2019 (3) UTI (urinary tract infection): (4) Right nephrolithiasis: (5) RACHEL (acute kidney injury): CT scan abd/pelvis revealed: Nonobstructing 5 mm x 3 mm distal right ureteral calculus. No hydronephrosis. UA appears consistent with UTI bun/cr elevated 30 and 1.53 (last creatinine 2017 1.0) Hold nephrotoxic agents including Lasix and lisinopril Urology consulted IV ceftriaxone for UTI Await urine culture Keep n.p.o. until evaluated by urology 08/12/2019 Status post right ureteral stent placement 08/09/2019 Creatinine normalized Urine cultures: Negative Patient was having hematuria, given vitamin K for for therapeutic INR Hematuria resolved Follow-up with urologist Dr. Dante Quispe of [facility] physicians group in 1 week for definitive stone treatment (6) Thrombocytopenia: In EPIC 2014 plt 233, 2017 109, on admission platelet count decreased to 68 likely in setting of underlying tick borne illness --Plt count improved gradually, 90 5K on discharge day --Repeat CBC on Thursday, August 15, 2019 (7) Hyponatremia: Na 127-- > 133 likely pre renal Was given IV fluids Repeat BMP on follow-up with PCP next week (8) Chronic atrial fibrillation: continue metoprolol INR supratherapeutic, peaked at 4.9 Patient's Coumadin was held secondary to hematuria and thrombocytopenia Vitamin K 5 mg p.o. given Discussed with cardiology, Dr. Nieves regarding thrombocytopenia in setting of babesiosis Recommend holding coumadin until PLT > 100 INR on discharge day is 1.6 Will need repeat CBC and INR check on Thursday, August 15, 2019, as well as follow-up with Coumadin clinic Thursday, will notify Coumadin clinic (9) (HFpEF) heart failure with preserved ejection fraction: Without acute exacerbation Last echo 10/29/2016 revealed EF 55 to 60%, diastolic dysfunction, reduced right ventricle systolic function, dilated right ventricle, mild left atrial enlargement, severe right atrial enlargement, pulmonary pretension As outpatient he is on metoprolol, lisinopril and Lasix Patient euvolemic, blood pressure marginal, on discharge today, blood pressures 102/66 Hold lisinopril and Lasix until follow-up with primary care physician this coming week (10) HTN (hypertension): Blood pressure on the low normal side Hold lisinopril and Lasix Continue metoprolol Follow-up with primary care physician this coming week (11) Supratherapeutic INR: Management of Coumadin per above (12) DVT prophylaxis: INR supratherapeutic while admitted Disposition Discharge to home today Follow-up with primary care physician this coming week Follow-up with Coumadin clinic on Thursday, August 15, 2019 Follow-up with urologist Dr. Dante Quispe of [facility] physicians group in 1 week Admission and Anticipated Discharge Date Admission Date: August 09, 2019 Subjective Follow-up for ureteral stone, Lyme disease to be babesiosis Seen resting in bed, sitting up, just had lunch, comfortable Oriented X3, answers most questions appropriately States he feels much better overall No hematuria, no dysuria, or any problems with urination Denies fever or chills, abdominal pain, nausea vomiting No headache, dizziness, joint pains Appetite is great Denies other symptoms States he is ready and would like to be discharged today Review of Systems Review of Systems: All systems reviewed & are unremarkable except as noted in HPI & below Physical Exam Physical Exam: General- oriented x 2, not in distress, speaks in sentences with no effort or accessory muscle use Eyes- anicteric Neck- no JVD Lungs- clear BS BL No crackles or wheezing Heart- normal rate, regular rhythm; no murmurs Abdomen- normal bowel sounds, nondistended, soft, nontender Extremities- no pretibial edema, no calf tenderness Neuro- alert, oriented x 2; no gross focal neurologic deficits Skin- warm & dry Results & Data Results & Data ([facility]) Vital Signs (Past 12 Hours) Vital Signs Temp Pulse Pulse Resp BP BP Pulse Ox 08/12/19 11:50 36.7 C 86 17 102/66 96 08/12/19 07:32 36.8 C 84 17 113/79 97 08/12/19 07:00 79 08/12/19 03:31 37.2 C 90 20 110/63 97 Laboratory Results Laboratory Results - last 24 hr 08/09/19 08/11/19 08/12/19 14:30 19:42 06:01 WBC 7.68 RBC 3.48 L Hgb 11.5 L 10.6 L Hct 33.5 L 30.7 L MCV 88.2 MCH 30.5 MCHC 34.5 RDW Std Deviation 53.0 H RDW Coeff of Jono 16.6 H Plt Count 95 L MPV 9.0 Immature Gran % (Auto) 1.2 Neut % (Auto) 50.4 Lymph % (Auto) 24.2 [place] % (Auto) 22.8 Eos % (Auto) 0.9 Baso % (Auto) 0.5 Neut # (Auto) 3.87 Lymph # (Auto) 1.86 [place] # (Auto) 1.75 H Eos # (Auto) 0.07 Baso # (Auto) 0.04 Immature Gran # (Auto) 0.09 H PT INR Sodium Potassium Chloride Carbon Dioxide Anion Gap BUN Creatinine Est Cr Clr Drug Dosing Est GFR ( Amer) Est GFR (Non-Af Amer) BUN/Creatinine Ratio Glucose Calcium Lyme IgG (Western Blot) POSITIVE A Lyme IgG 18 kDa Band REACTIVE A Lyme IgG 23 kDa Band REACTIVE A Lyme IgG 28 kDa Band NON-REACTIVE Lyme IgG 30 kDa Band NON-REACTIVE Lyme IgG 39 kDa Band NON-REACTIVE Lyme IgG 41 kDa Band REACTIVE A Lyme IgG 45 kDa Band REACTIVE A Lyme IgG 58 kDa Band NON-REACTIVE Lyme IgG 66 kDa Band NON-REACTIVE Lyme IgG 93 kDa Band REACTIVE A Lyme IgM Ab (WB) POSITIVE A Lyme IgM 23 kDa Band REACTIVE A Lyme IgM 39 kDa Band NON-REACTIVE Lyme IgM 41 kDa Band REACTIVE A 08/12/19 08/12/19 06:01 06:01 WBC RBC Hgb Hct MCV MCH MCHC RDW Std Deviation RDW Coeff of Jono Plt Count MPV Immature Gran % (Auto) Neut % (Auto) Lymph % (Auto) [place] % (Auto) Eos % (Auto) Baso % (Auto) Neut # (Auto) Lymph # (Auto) [place] # (Auto) Eos # (Auto) Baso # (Auto) Immature Gran # (Auto) PT 16.5 H INR 1.6 H Sodium 133 L Potassium 4.2 Chloride 104 Carbon Dioxide 25 Anion Gap 4.0 BUN 42 H Creatinine 1.30 Est Cr Clr Drug Dosing 46.8 Est GFR ( Amer) 59.7 Est GFR (Non-Af Amer) 51.5 BUN/Creatinine Ratio 32.2 H Glucose 105 H Calcium 7.8 L Lyme IgG (Western Blot) Lyme IgG 18 kDa Band Lyme IgG 23 kDa Band Lyme IgG 28 kDa Band Lyme IgG 30 kDa Band Lyme IgG 39 kDa Band Lyme IgG 41 kDa Band Lyme IgG 45 kDa Band Lyme IgG 58 kDa Band Lyme IgG 66 kDa Band Lyme IgG 93 kDa Band Lyme IgM Ab (WB) Lyme IgM 23 kDa Band Lyme IgM 39 kDa Band Lyme IgM 41 kDa Band
--- NOTE | 2019-08-12 13:30 | Discharge Summary ---
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 Of significance patient was seen and evaluated in outpatient setting on [address] Grossman. He did undergo ultrasound of right inguinal region which did confirm a 14 x 13 mm defect appreciated with Valsalva. This morning when he woke up he was having significant right inguinal pain, nonradiating, described as sharp and stabbing which prompted him to present to ED. He further elicits approximately 15 pound weight loss in the past 1 month and overall decreased appetite. He denies any documented fever, chills, sweats, lightheadedness, dizziness, chest pain, shortness of breath, cough, hemoptysis, palpitations, nausea, abdominal pain, vomiting, diarrhea. He is moving bowels and passing urine without difficulty. He does admit to mild dysuria and increased urinary frequency but denies hematuria or urgency. He denies any flank pain. He denies any known tick bite or COVID-19 exposure. He denies any rash. He does admit to increased lower extremity swelling over the past week. He has been compliant with his medications. Denies any recent travel. In ED patient remained hemodynamically stable and mildly elevated temperature 37.7. Lab work notable for H&H 12.9 and 37.3, WBC 9.71, platelets 68, INR 3.8, sodium 127, chloride 97, BUN 30, creatinine 1.53, glucose 127, total bilirubin 2.0. Urinalysis consistent with +3 blood, positive nitrates, leukocyte esterase Peripheral smear revealed numerous intro erythrocyte ring forms concerning for Babesia. In ED he received 1 g IV Rocephin for concern for UTI. He also received azithromycin 500 mg x 1 and atovaquone 750 mg x 1. Admission Exam Per Admitting Provider Constitutional: Elderly, M, WD/WN, vitals as above, NAD, sitting up in bed, pleasant, conversing easily Head: Normocephalic, Atraumatic Eyes: PERRL, conjunctivae normal, anicteric sclerae ENMT: [place], external ear and nose normal, oropharynx normal Neck: trachea midline, no thyromegaly normal visual inspection Respiratory: normal respiratory effort, lungs clear to auscultation, no wheeze, rales, rhonchi. Normal insp/exp effort, no accessory muscle use Cardiovascular: regular rate, Irregular rhythm, no murmur, +1 lower ext edema, venous stasis chronic changes, b/l petechiae noted on pretibial surfaces Vessels: no JVD or carotid bruit Chest: normal inspection of chest Abdomen: normal bowel sounds, soft, nontender, no hepatosplenomegaly Musculoskeletal: no cyanosis or clubbing, extremities motor strength 5/5 Skin: no rashes, warm and dry normal turgor Neurologic: PERRL, EOMI, accommodation nl, no face palsy, no dysarthria CN's II-XI intact bilaterally and moves all extremities Psychiatric: A+Ox3, euthymic affect Lymphatic: no cervical or axillary lymphadenopathy : deferred Principal Diagnosis Right ureteral stone, Lyme disease, babesiosis Discharge Exam General- oriented x 2, not in distress, speaks in sentences with no effort or accessory muscle use Eyes- anicteric Neck- no JVD Lungs- clear BS BL No crackles or wheezing Heart- normal rate, regular rhythm; no murmurs Abdomen- normal bowel sounds, nondistended, soft, nontender Extremities- no pretibial edema, no calf tenderness Neuro- alert, oriented x 2; no gross focal neurologic deficits Skin- warm & dry Discharge Data Allergies Allergy/AdvReac Type Severity Reaction Status Date / Time No Known Allergies Allergy Unverified 08/09/19 11:25 Consultations 08/09/19 13:54 ED Decision to Admit Stat 08/09/19 14:27 Consult Urology Routine 08/09/19 14:29 Consult Case Management - Discharge Planning Routine Procedures Performed Operation Date: 08/09/19 08:55 Actual Procedures p Right Ureteral Stent Insertion(Right) - Melvin Quispe MD s Cystoscopy, - Melvin Quispe MD Ordered Studies 08/09/19 12:08 CT abd pelvis IV con only Stat FINDINGS: There is a nonobstructing 5 mm x 3 mm distal right ureteral calculus. There is no hydronephrosis or hydroureter. Nephrograms are symmetric. A subcentimeter right renal lesion favors a cyst. Moderate cardiomegaly is noted. The liver, spleen, adrenal glands and pancreas are unremarkable. There is no peripancreatic or pericholecystic infiltration. A prominent portacaval lymph node is unchanged. Mild dilatation of the proximal celiac axis, measuring 1.4 cm is also unchanged. Major vasculature is patent. A small amount of ascites within the pelvis is noted. The appendix is normal. Caliber and wall thickness of small and large bowel are normal. Small bowel loop extends into a right inguinal hernia. Is no resultant bowel obstruction. No suspicious osseous lesions are present. Prostate is mildly enlarged. There is no pneumatosis, free air or portal venous gas. Colonic diverticulosis is noted without evidence for acute diverticulitis. IMPRESSION: 1. Nonobstructing 5 mm x 3 mm distal right ureteral calculus. No hydronephrosis. 2. Right inguinal hernia which contains a loop of small bowel. No resultant bowel obstruction. 3. Small amount of ascites within the pelvis. 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 Lab work consistent with anemia and thrombocytopenia. Peripheral smear ordered to eval for tick borne illness. 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 He does have mildly elevated temp 37.7, anemia, and low platelets, decreased appetite and 15lb weight loss, but otherwise asymptomatic. In ED received Azithromycin 500mg x 1 and Atovaquone 750mg x 1. Lyme Western blot: Positive Positive babesiosis based on peripheral smear Patient given ceftriaxone, azithromycin, atovaquone x4 days Patient remains afebrile, denies arthralgias, chills Hemoglobin and platelet mildly decreased-->platelet count improvin,000 on discharge day, hemoglobin stable: 10.6 on discharge day Discussed with infectious disease service of [facility], Dr. Lex Motta Recommend to transition patient to doxycycline 100 mg twice daily x16 more days to complete 3-week course Also continue azithromycin and atovaquone x6 more days to complete 10-day course Repeat CBC on 08/15/2019 (3) UTI (urinary tract infection): (4) Right nephrolithiasis: (5) RACHEL (acute kidney injury): per admitting service notes: CT scan abd/pelvis revealed: Nonobstructing 5 mm x 3 mm distal right ureteral calculus. No hydronephrosis. UA appears consistent with UTI bun/cr elevated 30 and 1.53 (last creatinine 2017 1.0) Hold nephrotoxic agents including Lasix and lisinopril Urology consulted IV ceftriaxone for UTI Status post right ureteral stent placement 08/09/2019 Creatinine normalized Urine cultures: Negative Patient was having hematuria, given vitamin K for for therapeutic INR Hematuria resolved Follow-up with urologist Dr. Dante Quispe of [facility] physicians group in 1 week for definitive stone treatment (6) Thrombocytopenia: In EPIC 2014 plt 233, 2017 109, on admission platelet count decreased to 68 likely in setting of underlying tick borne illness --Plt count improved gradually, 95K on discharge day --Repeat CBC on Thursday, August 15, 2019 -- hold coumadin if Plt < 100k as per [employer] (7) Hyponatremia: Na 127-- > 133 likely pre renal Was given IV fluids Repeat BMP on follow-up with PCP next week (8) Cognitive impairment: --Noticed to be forgetful, mildly confused on occasion while admitted Discussed with patient's Brit, confirms patient has occasional forgetfulness at home as well --Likely exacerbated by underlying infection --Further work-up and close follow-up as an outpatient Please evaluate fitness for driving (9) Abnormal CT of the abdomen: Moderate cardiomegaly is noted. Small bowel loop extends into a right inguinal hernia. Is no resultant bowel obstruction -- please refer to full report noted in ordered studies above -- further work up and follow up as outpatient (10) Chronic atrial fibrillation: continue metoprolol INR supratherapeutic, peaked at 4.9 Patient's Coumadin was held secondary to hematuria and thrombocytopenia Vitamin K 5 mg p.o. given Discussed with cardiology, Dr. Nieves regarding thrombocytopenia in setting of babesiosis Recommend holding coumadin until PLT > 100 INR on discharge day is 1.6 Will need repeat CBC and INR check on Thursday, August 15, 2019, as well as follow-up with Coumadin clinic Thursday, will notify Coumadin clinic (11) (HFpEF) heart failure with preserved ejection fraction: Without acute exacerbation Last echo 10/29/2016 revealed EF 55 to 60%, diastolic dysfunction, reduced right ventricle systolic function, dilated right ventricle, mild left atrial enlargement, severe right atrial enlargement, pulmonary pretension As outpatient he is on metoprolol, lisinopril and Lasix Patient euvolemic, blood pressure marginal, on discharge today, blood pressures 102/66 Hold lisinopril and Lasix until follow-up with primary care physician this coming week (12) HTN (hypertension): Blood pressure on the low normal side Hold lisinopril and Lasix Continue metoprolol Follow-up with primary care physician this coming week (13) Supratherapeutic INR: Management of Coumadin per above (14) DVT prophylaxis: INR supratherapeutic while admitted Disposition Discharge to home Follow-up with primary care physician this week Follow-up with Coumadin clinic on Thursday, August 15, 2019 Follow-up with urologist Dr. Dante Quispe of [facility] group in 1 week Total Time Total Time Spent Total Time Spent (In Minutes): > 30 minutes Discharge Plan Discharge Items Patient Disposition: Home - Self-Care Reason For Visit: KIDNEY STONE,LOW PLATELETS Discharge Diagnosis: Right ureter stone, status post ureter stent placement Tick borne infection: Lyme disease, Babesiosis Activity: Resume your previous activity Activity Comment: Resume activity gradually as tolerated Exercise/Sports: Wait until after follow-up appointment Driving/Machine Use: No driving until evaluated and allowed by primary care physician Non-emergency contact: Primary Care Provider Call non-emergency contact if: you have any medication questions, your symptoms worsen, your pain is not controlled, your pain is worsening, your pain is unusual for you, your pain is concerning for you and you have a fever Follow-up/Referrals: Melvin Quispe MD [Physician] - Javi Garcia MD [Primary Care Provider] - 08/18/19 12:00 pm (08/18/2019 12:00 PM Provider Javi Garcia MD Department Internal Medicine [facility] ) Diet: Heart Healthy Ambulatory Orders: Complete Blood Count with Diff (Timed) Timeframe: 20190815 Location: Determined by Patient Ordered By: Jey Navarrete Prothrombin Time INR (Timed) Timeframe: 20190815 Location: Determined by Patient Ordered By: Jey Navarrete Addtl Attending Provider Instructions: Please review new medication list and follow instructions carefully. Your new medications are: Doxycycline-antibiotic for Lyme disease Azithromycin and atovaquone-antibiotics for babesiosis Please hold Coumadin/warfarin until further advice by the Coumadin clinic on Thursday, August 15, 2019. Also, hold aspirin, lisinopril and Lasix until follow-up with your primary care physician this coming week August 18, 2019. You may call the hospital and ask for Dr. Jey Navarrete, for any medication questions until August 16, 2019. After that, please call your primary care physician if you have any questions. Call primary care physician or return to the ER immediately if with worsening of symptoms, Blood in the urine, problems with urination, abdominal pain or flank pain, fevers or chills, headaches, weakness, nausea vomiting. You need to have blood work done on Thursday, August 15, 2019. Prescription will be provided for you. Coumadin clinic will call you on Thursday, August 15, 2019 for advice regarding your Coumadin/warfarin dosing. Follow-up with Dr. Blevins next week as outlined above. Follow-up with the urologist Dr. Dante Quispe of [facility] physicians group in 1 week. Call his office for an appointment. Contact information outlined above. Pending Studies at Discharge: Yes Studies:: Blood work on August 15, 2019: INR and complete blood count Stand-Alone Forms: My [facility] [employer], Smoking Cessation Medications and DC Order Prescriptions: New atovaquone [Mepron] 750 mg/5 mL Suspension 750 mg PO BID Qty: 70 RF: 0 azithromycin 250 mg Tablet 250 mg PO DAILY Qty: 7 RF: 0 doxycycline hyclate 100 mg capsule 100 mg PO BID 16 Days Qty: 32 RF: 0 Culturelle 10 billion cell capsule 1 cap PO DAILY Qty: 30 RF: 0 Continued ferrous sulfate 325 mg (65 mg iron) Tablet 325 mg PO DAILY RF: 0 vitamin B complex Tablet 1 tab PO DAILY RF: 0 metoprolol succinate 25 mg tablet extended release 24 hr 25 mg PO QAM RF: 0 Discontinued aspirin 81 mg Tablet,Delayed Release (Dr/Ec) 81 mg PO DAILY RF: 0 lisinopril 10 mg tablet 10 mg PO DAILY RF: 0 warfarin 5 mg tablet 5 mg PO DAILY RF: 0 furosemide 20 mg tablet 20 mg PO DAILY RF: 0 Discharge Orders: Discharge Order (Routine); Ordered 08/12/19 Ordered By: Jey Conte/Other Patient Handouts: A1C Admission Data Admit Date/Time: 08/09/19 16:35 Attending Provider: Jey Navarrete Admit Provider: Mirian Strauss Primary Care Provider: Javi Garcia Other Providers: Mirian Strauss ; Rodriguez Packer Other Interventions: Discharge Summary Assessment (RN) Last Done: 08/12/19 15:20 DC Date/Time DO NOT enter until pt leaves facility: 08/12/19 16:59
== END 2019-08-12 16:59 | disposition home or self-care (01) | DRG 854 ==
LOC: ED 10:35 → OR 16:34 → SUATTDRO 16:35 → 2N 16:35

== ENCOUNTER 2022-07-09 09:33 | Inpatient (IN) ==
--- NOTE | 2022-07-09 10:00 | Emergency Department Note ---
Impression & Plan Weakness, Acute confusion, Acute hyponatremia ED Provider Note NAME: LUCIAN SANDHU AGE: 82 SEX: M : 1940 ARRIVES VIA: Ambulance INFORMANT: Patient, EMS ED PROVIDER(S): Hernan Howell DO CHIEF COMPLAINT: AMS HPI: Patient is an 82-year-old female with a past medical history of UTI, babesiosis, cognitive impairment, chronic A-fib with valvular heart disease and heart failure with preserved EF who presents to the ER following a fall on the . He had CTs of his head and neck done which were unremarkable. He was referred back in today due to confusion. He denies any headache or neck pain. No chest pain or shortness of breath. No belly pain, nausea, vomiting, or diarrhea. No dysuria, urgency, or frequency. No other exacerbating or remitting factors. PAST MEDICAL HISTORY:See Below PAST SURGICAL HISTORY:See Below FAMILY HISTORY:See Below SOCIAL HISTORY:See Below HOME MEDICATIONS:See Below ALLERGIES:See Below VITALS:See Below PHYSICAL EXAMINATION: GENERAL: Sitting up in bed, alert, well appearing, well nourished, no distress, non-toxic HEAD: Small laceration with stable EYE EXAM: normal conjunctiva. PERRL and EOM's grossly intact. OROPHARYNX: no exudate, no erythema, lips, buccal mucosa, and tongue normal and mucous membranes are moist NECK: supple, no nuchal rigidity, no adenopathy, non-tender LUNGS: Clear to auscultation. Normal chest wall mechanics HEART: no murmurs, S1 normal and S2 normal ABDOMEN: abdomen soft, non-tender, normo-active bowel sounds, no masses, no rebound or guarding. BACK: Back is symmetrical on inspection and there is no deformity, no midline tenderness, no CVA tenderness. SKIN: no rashes and no bruising UPPER EXTREMITIES: upper extremities are grossly normal. LOWER EXTREMITIES: No pitting edema. NEURO EXAM: Oriented to person not place but year, cranial nerves II-XII grossly intact, normal speech, no gross weakness of arms, no gross weakness of legs. No drift. Finger to nose intact. Gross sensation intact. MEDICAL DECISION MAKING: Patient is an 82-year-old male who presents ER for above-stated complaint. IV was established blood work is obtained. External records were reviewed. Labs show no significant leukocytosis. No anemia. It was a thrombocytopenia at 80. INR was therapeutic at 2.3. BMP with LFTs bilirubin and lipase is unremarkable. UA was contaminated. Will not treat at this time. CT of the head was negative. Chest x-ray was unremarkable. Patient was updated bedside as well as family. They do not believe they can take him home. Patient was discussed with the hospitalist for further evaluation management and likely placement. Triage Nursing notes reviewed. Limited review of prior medical records performed Vital Signs: reviewed and remarkable for no significant abnormalities Differential diagnosis: Differential diagnoses includes but is not limited to toxic, metabolic, infectious, traumatic, cardiac, neurologic, hematologic, psychiatric and inflammatory etiologies. ER treatment provided: See below Diagnostics interpreted by me include EKG and cardiac monitoring as listed below: -Cardiac Monitoring: An order was placed for continuous cardiac monitoring. The monitor shows a rate of 92 with sinus rhythm. -ECG: A-fib rate of 98 Normal axis Right bundle branch block QTc 472 septal anterior and lateral leads T wave inversions are new from previous -Laboratory studies:Interpreted by me as stated above in MDM and shown below. Imaging studies: Xrays: As interpreted by me: Portable AP upright 1 view of the chest shows no pneumonia CTs show: CT head was negative Consultation(s): As described in MDM Procedures:none Critical Care: None Past Med/Surg History Medical History (HFpEF) heart failure with preserved ejection fraction Chronic atrial fibrillation on coumadin History of kidney stones HTN (hypertension) Valvular heart disease severe TR, mild to moderate MR per 2017 echo- cardio monitoring Surgical History History of right inguinal hernia repair 2014 with mesh History of tooth extraction Hx of cystoscopy with stent in place due to kidney stone Family History Father Myocardial infarction, Onset Age: 70 Mother COPD (chronic obstructive pulmonary disease) Social History Smoking Status: Never smoker Second Hand Exposure: No; Do You Dip or Chew Tobacco: No; Tobacco Cessation Education Requested by Patient: No Hx Alcohol Use: Yes Alcohol type: beer Hx Substance Use: No Preferred Language: Albanian Communication Ability: Effective 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 Beliefs That Will Affect Care: None marital status: Current Living Situation: Spouse Other Information That Helps Us Care for You: No Feels Safe at Home: Yes Safety Concerns: Feels Safe At This Time Assistive Devices: Denture - Upper and Denture - Lower Allergies Allergies Allergy/AdvReac Type Severity Reaction Status Date / Time No Known Allergies Allergy Verified 07/09/22 12:45 Home Meds Home Medications Medication Instructions Recorded Confirmed ferrous sulfate 325 mg (65 mg 325 mg PO QAM 08/09/19 07/09/22 iron) tablet vitamin B complex 1 tab PO QAM 08/09/19 07/09/22 warfarin 5 mg tablet 2.5 mg PO UD 08/24/19 07/09/22 furosemide 20 mg tablet 20 mg PO Q OTHER DAY 08/25/19 07/09/22 lisinopril 10 mg tablet 10 mg PO QAM 08/25/19 07/09/22 silver sulfadiazine 1 % topical 1 applic topical DAILY 07/09/22 07/09/22 cream warfarin 5 mg tablet 5 mg PO UD 07/09/22 07/09/22 Results & Data (ED) Vital Signs Vital Signs - 24 hr 07/09/22 09:52 07/09/22 09:52 07/09/22 09:52 Temperature 36.8 C Temperature Source Oral Pulse Rate 85 Pulse Rate [Apical] 85 Respiratory Rate 20 20 Respiratory Effort / Characteristics Non-Labored Non-Labored Respiratory Depth Normal Normal Blood Pressure 137/97 Blood Pressure [Right Arm] 137/97 Blood Pressure Mean 110 Blood Pressure Mean [Right Arm] 110 Blood Pressure Position Lying Pulse Oximetry 97 97 97 Oxygen Delivery Method Room Air Room Air Room Air Sepsis Recent Fever Within 48 Hours No Sepsis New/Unexplained Change in Mental Status Yes Sepsis Action Taken by Nursing No Action Required 07/09/22 09:58 07/09/22 11:07 07/09/22 11:46 Temperature Temperature Source Pulse Rate 85 Pulse Rate [Apical] 87 Respiratory Rate 20 Respiratory Effort / Characteristics Non-Labored Respiratory Depth Normal Blood Pressure Blood Pressure [Right Arm] 126/103 H Blood Pressure Mean Blood Pressure Mean [Right Arm] 110 Blood Pressure Position Pulse Oximetry 97 97 Oxygen Delivery Method Room Air Room Air Sepsis Recent Fever Within 48 Hours Sepsis New/Unexplained Change in Mental Status Sepsis Action Taken by Nursing Laboratory Data 07/09/22 09:46 07/09/22 09:46 Lab Results 07/09/22 07/09/22 07/09/22 Range/Units 09:46 09:46 09:46 WBC 5.05 (4.8-10.8) K/ul RBC 4.14 L (4.70-6.10) M/uL Hgb 13.1 L (14.0-18.0) g/dl Hct 38.8 L (42.0-52.0) % MCV 93.7 (80.0-100.0) fL MCH 31.6 (25.0-34.0) pg MCHC 33.8 (32.0-36.0) g/dL RDW Std Deviation 52.8 H (36.4-46.3) fL RDW Coeff of Jono 15.3 H (11.5-14.5) % Plt Count 80 L (130-400) K/uL MPV 10.5 (9.4-12.4) fL Immature Gran % (Auto) 0.6 % Neut % (Auto) 76.2 % Lymph % (Auto) 12.7 % [place] % (Auto) 9.7 % Eos % (Auto) 0.0 % Baso % (Auto) 0.8 % Neut # (Auto) 3.85 (1.40-6.50) K/uL Lymph # (Auto) 0.64 L (1.2-3.4) K/uL [place] # (Auto) 0.49 (0.11-0.59) K/uL Eos # (Auto) 0.00 (0-0.50) K/uL Baso # (Auto) 0.04 (0-0.2) K/uL Immature Gran # (Auto) 0.03 (0.01-0.20) K/uL Platelet Estimate Decreased L (Normal) Echinocytes 1+ PT 24.0 H (9.0-12.0) Seconds INR 2.3 H (0.9-1.1) Sodium 134 L (136-145) mmol/L Potassium 4.5 (3.5-5.1) mmol/L Chloride 103 (98-107) mmol/L Carbon Dioxide 25 (21-32) mmol/L Anion Gap 6 (3-11) BUN 32 H (6-23) mg/dl Creatinine 1.18 (0.6-1.4) mg/dl Est Cr Clr Drug Dosing 49.0 ml/min Est GFR ( Amer) 65.7 ml/min Est GFR (Non-Af Amer) 56.7 ml/min BUN/Creatinine Ratio 27.1 H (10-20) Glucose 109 H (70-99(Fasting)) mg/dl Calcium 8.7 (8.6-10.3) mg/dl Total Bilirubin 1.2 H (0.2-1.0) mg/dl AST 31 (13-39) U/L ALT 17 (7-52) U/L Alkaline Phosphatase 92 (34-104) U/L Troponin I High Sens 19.8 (0-20) pg/ml Total Protein 6.9 (6.0-8.3) gm/dl Albumin 3.8 (3.4-5.0) gm/dl Globulin 3.1 (2.5-4.0) gm/dl Albumin/Globulin Ratio 1.2 (0.9-2) Lipase 40 (11-82) U/L Urine Color Urine Appearance (Clear) Urine pH (4.5-7.5) Ur Specific [place] (1.000-1.030) Urine Protein (Negative) Urine Glucose (UA) (Negative) Urine Ketones (Negative) Urine Blood (Negative) Urine Nitrite (Negative) Urine Bilirubin (Negative) Urine Urobilinogen (Negative) Ur Leukocyte Esterase (Negative) Urine RBC (0-4) /hpf Urine WBC (0-5) /hpf Ur Epithelial Cells (0-5) /lpf Urine Bacteria (Negative) Urine Yeast (None Prsent) Anaplasma Smear Babesia Smear Lyme Disease IgG Ab (Negative) Lyme Disease IgM Ab (Negative) SARS-CoV-2, RNA, NAAT (NEGATIVE) 07/09/22 07/09/22 07/09/22 Range/Units 09:46 09:46 10:00 WBC (4.8-10.8) K/ul RBC (4.70-6.10) M/uL Hgb (14.0-18.0) g/dl Hct (42.0-52.0) % MCV (80.0-100.0) fL MCH (25.0-34.0) pg MCHC (32.0-36.0) g/dL RDW Std Deviation (36.4-46.3) fL RDW Coeff of Jono (11.5-14.5) % Plt Count (130-400) K/uL MPV (9.4-12.4) fL Immature Gran % (Auto) % Neut % (Auto) % Lymph % (Auto) % [place] % (Auto) % Eos % (Auto) % Baso % (Auto) % Neut # (Auto) (1.40-6.50) K/uL Lymph # (Auto) (1.2-3.4) K/uL [place] # (Auto) (0.11-0.59) K/uL Eos # (Auto) (0-0.50) K/uL Baso # (Auto) (0-0.2) K/uL Immature Gran # (Auto) (0.01-0.20) K/uL Platelet Estimate (Normal) Echinocytes PT (9.0-12.0) Seconds INR (0.9-1.1) Sodium (136-145) mmol/L Potassium (3.5-5.1) mmol/L Chloride (98-107) mmol/L Carbon Dioxide (21-32) mmol/L Anion Gap (3-11) BUN (6-23) mg/dl Creatinine (0.6-1.4) mg/dl Est Cr Clr Drug Dosing ml/min Est GFR ( Amer) ml/min Est GFR (Non-Af Amer) ml/min BUN/Creatinine Ratio (10-20) Glucose (70-99(Fasting)) mg/dl Calcium (8.6-10.3) mg/dl Total Bilirubin (0.2-1.0) mg/dl AST (13-39) U/L ALT (7-52) U/L Alkaline Phosphatase (34-104) U/L Troponin I High Sens (0-20) pg/ml Total Protein (6.0-8.3) gm/dl Albumin (3.4-5.0) gm/dl Globulin (2.5-4.0) gm/dl Albumin/Globulin Ratio (0.9-2) Lipase (11-82) U/L Urine Color Urine Appearance (Clear) Urine pH (4.5-7.5) Ur Specific [place] (1.000-1.030) Urine Protein (Negative) Urine Glucose (UA) (Negative) Urine Ketones (Negative) Urine Blood (Negative) Urine Nitrite (Negative) Urine Bilirubin (Negative) Urine Urobilinogen (Negative) Ur Leukocyte Esterase (Negative) Urine RBC (0-4) /hpf Urine WBC (0-5) /hpf Ur Epithelial Cells (0-5) /lpf Urine Bacteria (Negative) Urine Yeast (None Prsent) Anaplasma Smear See Comment Babesia Smear See Comment Lyme Disease IgG Ab Negative (Negative) Lyme Disease IgM Ab Equivocal A (Negative) SARS-CoV-2, RNA, NAAT NEGATIVE (NEGATIVE) 07/09/22 07/09/22 Range/Units 11:00 11:55 WBC (4.8-10.8) K/ul RBC (4.70-6.10) M/uL Hgb (14.0-18.0) g/dl Hct (42.0-52.0) % MCV (80.0-100.0) fL MCH (25.0-34.0) pg MCHC (32.0-36.0) g/dL RDW Std Deviation (36.4-46.3) fL RDW Coeff of Jono (11.5-14.5) % Plt Count (130-400) K/uL MPV (9.4-12.4) fL Immature Gran % (Auto) % Neut % (Auto) % Lymph % (Auto) % [place] % (Auto) % Eos % (Auto) % Baso % (Auto) % Neut # (Auto) (1.40-6.50) K/uL Lymph # (Auto) (1.2-3.4) K/uL [place] # (Auto) (0.11-0.59) K/uL Eos # (Auto) (0-0.50) K/uL Baso # (Auto) (0-0.2) K/uL Immature Gran # (Auto) (0.01-0.20) K/uL Platelet Estimate (Normal) Echinocytes PT (9.0-12.0) Seconds INR (0.9-1.1) Sodium (136-145) mmol/L Potassium (3.5-5.1) mmol/L Chloride (98-107) mmol/L Carbon Dioxide (21-32) mmol/L Anion Gap (3-11) BUN (6-23) mg/dl Creatinine (0.6-1.4) mg/dl Est Cr Clr Drug Dosing ml/min Est GFR ( Amer) ml/min Est GFR (Non-Af Amer) ml/min BUN/Creatinine Ratio (10-20) Glucose (70-99(Fasting)) mg/dl Calcium (8.6-10.3) mg/dl Total Bilirubin (0.2-1.0) mg/dl AST (13-39) U/L ALT (7-52) U/L Alkaline Phosphatase (34-104) U/L Troponin I High Sens (0-20) pg/ml Total Protein (6.0-8.3) gm/dl Albumin (3.4-5.0) gm/dl Globulin (2.5-4.0) gm/dl Albumin/Globulin Ratio (0.9-2) Lipase (11-82) U/L Urine Color Yellow Urine Appearance Slightly Cloudy (Clear) Urine pH 6.0 (4.5-7.5) Ur Specific [place] >= 1.030 (1.000-1.030) Urine Protein 2+ H (Negative) Urine Glucose (UA) Negative (Negative) Urine Ketones Trace H (Negative) Urine Blood 3+ H (Negative) Urine Nitrite Negative (Negative) Urine Bilirubin Negative (Negative) Urine Urobilinogen Positive H (Negative) Ur Leukocyte Esterase 1+ H (Negative) Urine RBC 10-30 H (0-4) /hpf Urine WBC >30 H (0-5) /hpf Ur Epithelial Cells 10-20 H (0-5) /lpf Urine Bacteria 1+ H (Negative) Urine Yeast Budding w/ Hyphae A (None Prsent) Anaplasma Smear Babesia Smear Lyme Disease IgG Ab (Negative) Lyme Disease IgM Ab (Negative) SARS-CoV-2, RNA, NAAT NEGATIVE (NEGATIVE) Administered Medications Discontinued Medications Furosemide (Furosemide Inj 20 Mg/2 Ml Vial) 20 mg IV ONE ONE Stop: 07/09/22 13:19 Last Admin: 07/09/22 13:54 Dose: 20 mg Documented By: EDA Doxycycline Hyclate 100 mg/ (Dextrose) 110 mls @ 50 mls/hr IV NOW STA Stop: 07/09/22 15:24 Last Admin: 07/09/22 13:50 Dose: 50 mls/hr Documented By: EDA Imaging Data Radiologist's Impression: Chest X-Ray 07/09/22 09:52 SINGLE VIEW CHEST CLINICAL HISTORY: Generalized weakness. FINDINGS: An AP, portable, upright chest radiograph is obtained. No prior studies are available for comparison at the time of dictation. Heart is enlarged. The pulmonary vasculature is noncongested. The lungs and pleural spaces are clear noting bibasilar scarring/atelectasis. No pneumothorax is seen. The skeletal structures are osteopenic. The bony thorax is grossly intact. IMPRESSION: Cardiomegaly with no acute cardiopulmonary abnormality. ACT 112: Negative or not required by law. Electronically signed by: Shiv Laughlin M.D. 07/09/2022 10:[address] 07/09/22 10:54 CT head/brain wo con CLINICAL HISTORY: fell again today Technique: Contiguous axial CT images of the head were acquired from the base of the skull to the vertex without intravenous contrast administration. Images were viewed in brain, subdural and bone windows. Automated dose lowering techniques and/or adjustment according to patient size were utilized for this exam. Comparison: Comparison is made to CT head 06/28/2022 Findings: Areas of decreased attenuation are present in the periventricular and subcortical white matter bilaterally consistent with small vessel ischemic disease. Generalized cerebral atrophy with commensurate enlargement of the ventricles, sulci, and cisterns is also present. There is no acute intracranial hemorrhage or evidence of acute territorial infarction. No shift of the midline structures, mass effect, or extra-axial abnormalities are shown. Atherosclerotic calcifications are present in the intracranial segments of the internal carotid arteries. Mucous retention cyst seen in the left maxillary sinus. The orbits appear normal. There are no acute fractures of the calvaria or scalp swelling. Impression: No acute intracranial hemorrhage, no evidence of acute territorial infarction or other acute intracranial disease process. ACT 112: Negative or not required by law. Electronically signed by: Dwight Amaya M.D. 07/09/2022 11:44 AM Discharge Plan Visit Data Chief Complaint: Altered Mental Status Stated Complaint: AMS ED Provider: Hernan Howell Discharge Problem: Weakness, Acute confusion, Acute hyponatremia Patient Disposition: Admitted As Inpatient Discharge Instructions Interventions: ED Discharge Assessment Last Done: 07/09/22 14:39
--- NOTE | 2022-07-09 10:24 | XRay Report ---
SINGLE VIEW CHEST CLINICAL HISTORY: Generalized weakness. FINDINGS: An AP, portable, upright chest radiograph is obtained. No prior studies are available for c omparison at the time of dictation. Heart is enlarged. The pulmonary vasculature is noncongested. The lungs and pleural spaces are clear noting bibasilar scarring/atelectasis. No pneumothorax is seen. T he skeletal structures are osteopenic. The bony thorax is grossly intact. IMPRESSION: Cardiomegaly with no acute cardiopulmonary abnormality. ACT 112: Negative or not required by law. Electronically signed by: Shiv Laughlin M.D. 07/09/2022 10:23 AM
[2022-07-09 10:54] LABS: Albumin Globulin Ratio 1.2 (0.9-2); Albumin Level 3.8 gm/dl (3.4-5.0); BUN Creatinine Ratio 27.1 (10-20); Bilirubin,Total 1.2 mg/dl (0.2-1.0); Calcium 8.7 mg/dl (8.6-10.3); Est GFR (African American) 65.7 ml/min; Est GFR (Non-African American) 56.7 ml/min; Globulin 3.1 gm/dl (2.5-4.0); Potassium 4.5 mmol/L (3.5-5.1); Total Protein 6.9 gm/dl (6.0-8.3)
[2022-07-09 10:58] LABS: Troponin I High Sensitivity 19.8 pg/ml (0-20)
[2022-07-09 11:02] LABS: INR 2.3 (0.9-1.1)
[2022-07-09 11:22] LABS: Appearance Urine Slightly Cloudy (Clear); Bilirubin Urine Negative (Negative); Blood Urine 3+ (Negative); Color Urine Yellow; Glucose Urine UA Negative (Negative); Ketones Urine Trace (Negative); Leukocyte Esterase Urine 1+ (Negative); Nitrite Urine Negative (Negative); Protein Urine 2+ (Negative); Specific Gravity Urine >= 1.030 (1.000-1.030); Urobilinogen Urine Positive (Negative)
--- NOTE | 2022-07-09 11:44 | Electrocardiogram Report ---
Test Reason : Blood Pressure : / mmHG Vent. Rate : 098 BPM Atrial Rate : 000 BPM P-R Int : 000 ms QRS Dur : 132 ms QT Int : 370 ms P-R-T Axes : 000 090 246 degrees QTc Int : 472 ms Poor data quality, interpretation may be adversely affected Atrial fibrillation with premature ventricular or aberrantly conducted complexes Right bundle branch block Abnormal ECG When compared with ECG of 10-AUG-2019 09:29, No significant change Confirmed by Aldo Astorga ([id number]) on 07/09/2022 11:43:52 AM Referred By: REFERRED SELF Confirmed By:Aldo Astorga
[2022-07-09 11:45] LABS: Hematocrit (blood only) 38.8 % (42.0-52.0); Hemoglobin 13.1 g/dl (14.0-18.0); Mean Corpuscular Hemoglobin 31.6 pg (25.0-34.0); Mean Corpuscular Hgb Conc 33.8 g/dL (32.0-36.0); Mean Corpuscular Volume 93.7 fL (80.0-100.0); Mean Platelet Volume 10.5 fL (9.4-12.4); Platelet Count 80 K/uL (130-400); RDW Coefficient of Variation 15.3 % (11.5-14.5); RDW Standard Deviation 52.8 fL (36.4-46.3); Red Blood Count 4.14 M/uL (4.70-6.10); White Blood Count 5.05 K/ul (4.8-10.8)
[2022-07-09 11:46] LABS: Bacteria Urine 1+ (Negative); WBC Urine >30 /hpf (0-5)
[2022-07-09 11:46] LABS: Basophils # (auto) 0.04 K/uL (0-0.2); Basophils % (auto) 0.8 %; Echinocytes 1+; Immature Granulocytes # (auto) 0.03 K/uL (0.01-0.20); Immature Granulocytes % (auto) 0.6 %; Lymphocytes # (auto) 0.64 K/uL (1.2-3.4); Lymphocytes % (auto) 12.7 %; Monocytes # (auto) 0.49 K/uL (0.11-0.59); Monocytes % (auto) 9.7 %; Neutrophils # (auto) 3.85 K/uL (1.40-6.50); Neutrophils % (auto) 76.2 %; Platelet Estimate Decreased (Normal)
--- NOTE | 2022-07-09 11:46 | CT Scan Report ---
CT head/brain wo con CLINICAL HISTORY: fell again today Technique: Contiguous axial CT images of the head were acquired from the base of the skull to the santos alli without intravenous contrast administration. Images were viewed [facility] brain, subd[facility] . Automated dose lowering techniques and/or adjustment according to patient size were utilized for this exam. Comparison: Comparison is made to CT head 06/28/2022 Findings: Areas of decreased attenuation are present in the periventricular and subcortical white matter bilate rally consistent with small vessel ischemic disease. Generalized cerebral atrophy with commensurate e nlargement of the ventricles, sulci, and cisterns is also present. There is no acute intracranial hem orrhage or evidence of acute territorial infarction. No shift of the midline structures, mass effect, or extra-axial abnormalities are shown. Atherosclerotic calcifications are present in the intracran ial segments of the internal carotid arteries. Mucous retention cyst seen in the left maxillary sinus. The orbits appear normal. There are no acute fractures of the calvaria or scalp swelling. Impression: No acute intracranial hemorrhage, no evidence of acute territorial infarction or other acute intracra nial disease process. ACT 112: Negative or not required by law. Electronically signed by: Dwight Amaya M.D. 07/09/2022 11:44 AM
--- NOTE | 2022-07-09 12:33 | History & Physical Report ---
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, CKD III, memory loss presented to ER with c/o fall last night and fall couple of days ago In ER CT head: No acute intracranial abnormality Fall precautions PT/OT eval Family reports would be interested in possible rehab at [facility] Treatment as below (2) AMS (altered mental status): Plan: Family reports progressive decline in cognitive status over the several years with increased confusion past day May be metabolic encephalopathy secondary to possible UTI on chronic dementia Monitor for delirium Other treatment as below (3) UTI (urinary tract infection): Plan: Possible UTI Family reports intermittent gross hematuria over the past several weeks No leukocytosis, UA 3+ blood, 1+ leuk esterase,> 30 WBC, 10-20 epithelial cells, 1+ bacteria Urine culture, blood cultures pending Start Rocephin CT abdomen pelvis to rule out ureteral/renal stone. Patient history of kidney stones in past CBC in a.m. (4) Thrombocytopenia: Plan: PLT: 80. Was 195 on 11/26/2021 DDx: Tickborne illness such as anaplasmosis Peripheral smear, anaplasmosis, Lyme pending Start empiric doxycycline (5) Wound of left foot: Plan: Following with outpatient podiatry for chronic left foot wound Looked at outpatient podiatry note with picture of wound. Today wound appears much improved Continue Silvadene ointment daily (6) Chronic atrial fibrillation: Plan: Anticoagulated on Coumadin INR: 2.3 Hold Coumadin secondary to thrombocytopenia INR, CBC in a.m. (7) Valvular heart disease: (8) (HFpEF) heart failure with preserved ejection fraction: Plan: History of heart failure secondary to valvular heart disease History echo 07/16/2021: EF: 45-49%, moderate MR, severe TR, moderate aortic valve sclerosis without aortic stenosis. Moderate AR, left atrium severely enlarged, right atrium severely enlarged Give dose of IV Lasix today Hold home oral Lasix which he was taking every 2 days. Reassess volume status tomorrow (9) CKD (chronic kidney disease), stage III: Plan: Cr: 1.18. Baseline Cr 1-1.3 Monitor renal functions, avoid nephrotoxic agents when possible (10) Chronic anemia: Plan: Hgb: 13. Baseline 12-13 Continue ferrous sulfate Monitor H&H DVT Prophylaxis INR currently 2.3. Monitor INR DNR/DNI as per discussion with pt and pt's family Follows with Dr Garcia for routine care Pt was seen and care coordinated with Dr Swift. See addendum I spent a total of 83 minutes reviewing notes, outpatient records, labs, medication, coordinating, documenting and providing care for this patient excluding time spent in the performance of separately billed services. 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 History obtained from patient, patient's , and chart review. Patient states was walking outside and fell two days ago. Denies dizziness, CP, SOB prior to fall. He was seen at [facility] ER and had negative CT head at the time. Patient's reports yesterday seemed very fatigued and slept all day. Today still very tired. Patient states he feels tired and weak. Patients reports heard patient in the middle of the night. She went to his bedroom and found the bed blankets all tossed everywhere and the lamp was knocked off the night stand. Patient stated he had to urinate so waited for him outside of the bathroom. She states she went in to the bathroom and found him sitting on the floor with blood on his elbow. She did not hear a thump but is unsure if patient fell. She states he seemed more confused than baseline and urinated on the floor. Family reports patient has had steady decline of mental status and has had progressive confusion over past couple of years. Family feels he was a little more confused than baseline. No known tick bites. Is outside often. Intermittent hematuria. Patient had PCP vist on 06/18/22 and confusion was discussed and thought patient may have had a UTI and was treated with Cipro x 10 days. 06/18/2022 urine culture: No significant growth. Denies fever/chills, diaphoresis, N/V/D/C, BENEDICT, dizziness, syncope, vision changes, neck pain, CP, SOB, , palpitations, cough, sore throat, rhinorrhea, abdominal pain, paresthesias, increased extremity edema, rashes, dysuria, urinary frequency. Allergies Allergy/AdvReac Type Severity Reaction Status Date / Time No Known Allergies Allergy Verified 07/09/22 12:45 Home Medications Medication Instructions Recorded Confirmed Type ferrous sulfate 325 mg (65 mg 325 mg PO QAM 08/09/19 07/09/22 History iron) tablet vitamin B complex 1 tab PO QAM 08/09/19 07/09/22 History warfarin 5 mg tablet 2.5 mg PO UD 08/24/19 07/09/22 History furosemide 20 mg tablet 20 mg PO Q OTHER DAY 08/25/19 07/09/22 History lisinopril 10 mg tablet 10 mg PO QAM 08/25/19 07/09/22 History silver sulfadiazine 1 % topical 1 applic topical DAILY 07/09/22 07/09/22 History cream warfarin 5 mg tablet 5 mg PO UD 07/09/22 07/09/22 History Past Med/Surg History Medical History (Updated 07/09/22 @ 16:49 by Kimbrelyn Lantigua PA-C) (HFpEF) heart failure with preserved ejection fraction Chronic anemia Chronic atrial fibrillation on coumadin CKD (chronic kidney disease), stage III History of kidney stones HTN (hypertension) Valvular heart disease severe TR, mild to moderate MR per 2017 echo- cardio monitoring Surgical History History of right inguinal hernia repair 2014 with mesh History of tooth extraction Hx of cystoscopy with stent in place due to kidney stone Family History Father Myocardial infarction, Onset Age: 70 Mother COPD (chronic obstructive pulmonary disease) Social History Smoking Status: Never smoker Second Hand Exposure: No; Do You Dip or Chew Tobacco: No; Tobacco Cessation Education Requested by Patient: No Hx Alcohol Use: Yes Alcohol type: beer Hx Substance Use: No Preferred Language: Latvian Communication Ability: Effective Supervisor Enrobing Required: No Beliefs That Will Affect Care: None marital status: Current Living Situation: Spouse Other Information That Helps Us Care for You: No Feels Safe at Home: Yes Safety Concerns: Feels Safe At This Time Assistive Devices: Denture - Upper and Denture - Lower Review of Systems Review of Systems: All systems reviewed & are unremarkable except as noted in HPI & below Physical Exam Physical Exam: General: no acute distress, WDWN Head: normocephalic, atraumatic Eyes: PERRL, EOM's intact, conjunctiva non-injected, anicteric ENT: normal inspection external ears, nose, mucous membranes moist Neck: supple, trachea midline Lungs: clear, no respiratory distress, no wheezing/rhonchi/rales CV: irregularly irregular, +murmur, no JVD, 2+ pretibial edema Abd: normal BS, soft, non-tender, no CVA tenderness Ext: no cyanosis, no calf tenderness Neuro: Alert, oriented to person, place, +lethargy, diffuse weakness, no other focal deficits noted, normal affect Skin: warm, dry, BUE and BLE with dark skin, face and neck with dark skin, left medial aspect foot with superficial ulcer without surrounding erythema Results & Data Results & Data Vital Signs (Past 12 Hours) Vital Signs Temp Pulse Pulse Resp BP BP Pulse Ox 07/09/22 11:46 85 07/09/22 11:07 87 20 126/103 H 97 07/09/22 09:58 97 07/09/22 09:52 85 20 137/97 97 07/09/22 09:52 97 07/09/22 09:52 36.8 C 85 20 137/97 97 O2 Del Method 07/09/22 11:46 07/09/22 11:07 Room Air 07/09/22 09:58 Room Air 07/09/22 09:52 Room Air 07/09/22 09:52 Room Air 07/09/22 09:52 Room Air Laboratory Results Short CBC 07/09/22 Range/Units 09:46 WBC 5.05 (4.8-10.8) K/ul Hgb 13.1 L (14.0-18.0) g/dl Hct 38.8 L (42.0-52.0) % Plt Count 80 L (130-400) K/uL BMP 07/09/22 09:46 Sodium 134 L Potassium 4.5 Chloride 103 Carbon Dioxide 25 BUN 32 H Creatinine 1.18 Glucose 109 H Calcium 8.7 Liver Function 07/09/22 Range/Units 09:46 Total Bilirubin 1.2 H (0.2-1.0) mg/dl AST 31 (13-39) U/L ALT 17 (7-52) U/L Alkaline Phosphatase 92 (34-104) U/L Albumin 3.8 (3.4-5.0) gm/dl Urine 07/09/22 Range/Units 11:00 Urine Color Yellow Urine Appearance Slightly Cloudy (Clear) Urine pH 6.0 (4.5-7.5) Ur Specific [place] >= 1.030 (1.000-1.030) Urine Protein 2+ H (Negative) Urine Glucose (UA) Negative (Negative) Diagnostic Findings Chest X-Ray 07/09/22 09:52 SINGLE VIEW CHEST CLINICAL HISTORY: Generalized weakness. FINDINGS: An AP, portable, upright chest radiograph is obtained. No prior studies are available for comparison at the time of dictation. Heart is enlarged. The pulmonary vasculature is noncongested. The lungs and pleural spaces are clear noting bibasilar scarring/atelectasis. No pneumothorax is seen. The skeletal structures are osteopenic. The bony thorax is grossly intact. IMPRESSION: Cardiomegaly with no acute cardiopulmonary abnormality. ACT 112: Negative or not required by law. Electronically signed by: Shiv Laughlin M.D. 07/09/2022 10:[address] 07/09/22 10:54 CT head/brain wo con CLINICAL HISTORY: fell again today Technique: Contiguous axial CT images of the head were acquired from the base of the skull to the vertex without intravenous contrast administration. Images were viewed in brain, subdural and bone windows. Automated dose lowering techniques and/or adjustment according to patient size were utilized for this exam. Comparison: Comparison is made to CT head 06/28/2022 Findings: Areas of decreased attenuation are present in the periventricular and subcortical white matter bilaterally consistent with small vessel ischemic disease. Generalized cerebral atrophy with commensurate enlargement of the ventricles, sulci, and cisterns is also present. There is no acute intracranial hemorrhage or evidence of acute territorial infarction. No shift of the midline structures, mass effect, or extra-axial abnormalities are shown. Atherosclerotic calcifications are present in the intracranial segments of the internal carotid arteries. Mucous retention cyst seen in the left maxillary sinus. The orbits appear normal. There are no acute fractures of the calvaria or scalp swelling. Impression: No acute intracranial hemorrhage, no evidence of acute territorial infarction or other acute intracranial disease process. ACT 112: Negative or not required by law. Electronically signed by: Dwight Amaya M.D. 07/09/2022 11:44 AM ECG Rate (beats per minute): 98 Rhythm: atrial fibrillation Findings: + RBBB Code Status & VTE Plan VTE Prophylaxis Plan VTE Prophylaxis will be ordered: Yes Supervising Physician Co-Signing Physician Notes 82 year old male with history of chronic atrial fibrillation anticoagulated on Coumadin, mitral regurgitation, tricuspid regurgitation, chronic heart failure secondary to valvular heart disease, CKD III, memory loss with frequent falls.. concerns for lymes, anaplasmosis, empirically started with doxycycline. also concerns for progressive decline in cognitive status. Also concerns for UTI, started on ceftriaxone. ordered ct abd/pelvis results awaited. Neuro: AAOx4, PERRLA, HEENT: head normocephalic, moist mucus membranes CV: S1/S2+ , systolic murmur+ Resp: Air entry present bilaterally. GI: Abdomen soft non tender . Musculoskeletal:unable to assess gait Skin: left medial aspect superficial ulcer Psych: unable to assess
[2022-07-09] MEDS ORDERED: DOXYCYCLINE HYCLATE 100 MG in DEXTROSE 5% 100 ML IV STA (13:13)
[2022-07-09] MEDS ORDERED: FUROSEMIDE INJ 20 MG/2 ML VIAL IV ONE (13:18)
[2022-07-09 14:16] LABS: Lyme Ab IgG w/WB Rflx Negative (Negative); Lyme Ab IgM w/WB Rflx Equivocal (Negative)
[2022-07-09] MEDS ORDERED: ONDANSETRON INJ 2 MG/ML 2 ML VIAL IV PRN (14:39)
[2022-07-09] MEDS ORDERED: POLYETHYLENE (MIRALAX) 17 GM PACK PO PRN (14:39)
--- NOTE | 2022-07-09 17:36 | CT Scan Report ---
ABDOMEN AND PELVIS CT WITHOUT CONTRAST CT DOSE: 1216.75 mGy.cm HISTORY: Flank pain. Assess for kidney stones. TECHNIQUE: Multiaxial CT images of the abdomen and pelvis were performed without contrast. A dose lo wering technique was utilized adhering to the principles of ALARA. COMPARISON STUDY: Abdomen and pelvis CT 08/09/2019. FINDINGS: Small patchy densities within the left lower lobe posteriorly. This favors atelectasis. A p neumonia could also have a similar appearance. The heart remains enlarged. Mild motion artifact. No p neumoperitoneum. No pneumatosis. Levoscoliosis and moderate to severe degenerative disc disease withi n the lumbar spine. Trace pericardial fluid is noted. There is a tiny hiatus hernia. Mild body wall e jr. Tiny fat-containing umbilical hernia. Trace perihepatic ascites. No hepatic or splenic masses i dentified on this noncontrast study. The unenhanced gallbladder, pancreas, and adrenal glands are unr emarkable. Streak artifact results in suboptimal evaluation the kidneys. No definite renal or uretera l calculi. No hydronephrosis. There is mild bilateral perinephric edema. No retroperitoneal lymphaden opathy. Normal caliber abdominal aorta. 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 Prominent periportal lymph nodes remain unchanged. Normal bladder. The prostate gland is enlarge d. Suboptimal evaluation for bowel pathology due to the lack of intravenous and oral contrast. Howeve r, there is no definite bowel wall thickening or obstruction. Colonic diverticulosis. No evidence for acute diverticulitis. Normal appendix. IMPRESSION: 1. No renal or ureteral stones. No hydronephrosis. 2. No definite bowel wall thickening or obstruction. 3. Colonic diverticulosis. No evidence for acute diverticulitis. 4. Normal appendix. 5. Mild body wall edema and mild perinephric edema. 6. Additional findings as described above. ACT 112: Negative or not required by law. Electronically signed by: German Sheets M.D. 07/09/2022 5:34 PM
[2022-07-09] MEDS: cefTRIAXone SODIUM 2,000 MG in DEXTROSE 5% 50 ML IV SCH (17:52)
[2022-07-09] MEDS: DOXYCYCLINE HYCLATE 100 MG in DEXTROSE 5% 100 ML IV SCH (20:18)
[2022-07-09] MEDS: ACETAMINOPHEN 325 MG TAB PO PRN (20:22)
[2022-07-10] MEDS: VITAMIN B COMPLEX TAB PO SCH (08:22)
[2022-07-10] MEDS: FERROUS SULFATE 325 MG TAB PO SCH (08:22)
[2022-07-10] MEDS: ACETAMINOPHEN 325 MG TAB PO PRN (08:54)
[2022-07-10] MEDS: DOXYCYCLINE HYCLATE 100 MG in DEXTROSE 5% 100 ML IV SCH ×2 (08:55→20:50)
[2022-07-10] MEDS ORDERED: lisinopril 10 MG TAB PO SCH (09:00)
[2022-07-10 09:23] LABS: Albumin Level 3.1 gm/dl (3.4-5.0); BUN Creatinine Ratio 30.2 (10-20); Bilirubin,Total 0.8 mg/dl (0.2-1.0); Calcium 8.1 mg/dl (8.6-10.3); Creatinine Clr Calc Pharmacy 54.5 ml/min; Est GFR (African American) 74.9 ml/min; Est GFR (Non-African American) 64.6 ml/min; Total Protein 6.1 gm/dl (6.0-8.3)
[2022-07-10 09:25] LABS: INR 1.9 (0.9-1.1); Prothrombin Time 19.6 Seconds (9.0-12.0)
[2022-07-10 10:06] LABS: Basophils # (auto) 0.02 K/uL (0-0.2); Basophils % (auto) 0.4 %; Echinocytes 1+; Hematocrit (blood only) 35.8 % (42.0-52.0); Hemoglobin 12.4 g/dl (14.0-18.0); Immature Granulocytes # (auto) 0.03 K/uL (0.01-0.20); Immature Granulocytes % (auto) 0.6 %; Lymphocytes # (auto) 0.44 K/uL (1.2-3.4); Mean Corpuscular Hemoglobin 31.7 pg (25.0-34.0); Mean Corpuscular Hgb Conc 34.6 g/dL (32.0-36.0); Mean Corpuscular Volume 91.6 fL (80.0-100.0); Mean Platelet Volume 11.2 fL (9.4-12.4); Monocytes # (auto) 0.41 K/uL (0.11-0.59); Monocytes % (auto) 8.4 %; Neutrophils % (auto) 81.6 %; Platelet Count 56 K/uL (130-400); RDW Coefficient of Variation 15.1 % (11.5-14.5); RDW Standard Deviation 50.7 fL (36.4-46.3); Red Blood Count 3.91 M/uL (4.70-6.10); Smudge Cells Present
[2022-07-10] MEDS: SILVER SULFADIAZINE 1% CR 50 GM JAR TOP SCH (11:29)
--- NOTE | 2022-07-10 12:38 | Hospitalist Progress Note ---
Date of Service July 10, 2022 Assessment & Plan (1) Recurrent falls: Plan: 82-year-old male with history of chronic atrial fibrillation anticoagulated on Coumadin, mitral regurgitation, tricuspid regurgitation, chronic heart failure secondary to valvular heart disease, CKD III, memory loss presented to ER with c/o fall last night and fall couple of days ago In ER CT head: No acute intracranial abnormality Fall precautions PT/OT eval Family reports would be interested in possible rehab at [facility] Treatment as below (2) AMS (altered mental status): Plan: Family reports progressive decline in cognitive status over the several years with increased confusion past day May be metabolic encephalopathy secondary to possible UTI on chronic dementia AMS seems improved. Monitor for delirium Other treatment as below (3) UTI (urinary tract infection): Plan: Possible UTI. UA abnormal. Prelim urine clx with yeast. Blood clx pending Family reports intermittent gross hematuria over the past several weeks On empiric Rocephin/doxy pending final clx results (4) Thrombocytopenia: Plan: Tick borne panel negative so far except for equivocal IgM for Lyme. Follow platelet count On empiric doxy pending final results (5) Wound of left foot: Plan: Following with outpatient podiatry for chronic left foot wound Looked at outpatient podiatry note with picture of wound. Today wound appears much improved Continue Silvadene ointment daily (6) Chronic atrial fibrillation: Plan: Anticoagulated on Coumadin. Continue coumadin. Follow INR for adjustment (7) Valvular heart disease: (8) (HFpEF) heart failure with preserved ejection fraction: Plan: History of heart failure secondary to valvular heart disease History echo 07/16/2021: EF: 45-49%, moderate MR, severe TR, moderate aortic valve sclerosis without aortic stenosis. Moderate AR, left atrium severely enlarged, right atrium severely enlarged S/p iv lasix in ED Continue home lasix every 2 days (9) CKD (chronic kidney disease), stage III: Plan: Cr: 1.18. Baseline Cr 1-1.3 Monitor renal functions, avoid nephrotoxic agents when possible Plan DVT prophylaxis-Coumadin, INR therapeutic Disposition -continue current level of care pending final culture results, PT OT evaluation Admission and Anticipated Discharge Date Admission Date: July 09, 2022 Subjective Patient was seen and examined at bedside. He is awake, alert oriented and conversing well. He feels better since admission. Denies any fever, chills, chest pain, shortness of breath, N/V. Review of Systems Review of Systems: All systems reviewed & are unremarkable except as noted in Subjective Physical Exam Physical Exam: General: Lying comfortably in bed, not in distress, on room air HEENT: EOMI, RANJAN, MMM Chest: Clear breath sounds bilaterally, no wheezes or crackles CVS: Regular rate and rhythm, normal heart sounds, no murmur Abdomen: Soft, non tender, not distended, normal bowel sounds Neuro: Awake, alert, oriented, conversing well, non focal Extremities: No cyanosis, clubbing or edema Results & Data Results & Data Vital Signs (Past 12 Hours) Vital Signs Temp Pulse Pulse Resp BP Pulse Ox O2 Del Method 07/10/22 10:47 36.6 C 108 H 17 96/60 L 97 Room Air 07/10/22 09:00 Room Air 07/10/22 07:34 37.9 C H 73 16 109/70 94 Room Air 07/10/22 07:00 71 07/10/22 04:00 37.3 C 72 20 135/86 96 Room Air Laboratory Results Short CBC 07/10/22 Range/Units 07:56 WBC 4.90 (4.8-10.8) K/ul Hgb 12.4 L (14.0-18.0) g/dl Hct 35.8 L (42.0-52.0) % Plt Count 56 L (130-400) K/uL BMP 07/10/22 07:56 Sodium 132 L Potassium 4.0 Chloride 100 Carbon Dioxide 23 BUN 32 H Creatinine 1.06 Glucose 95 Calcium 8.1 L Liver Function 07/10/22 Range/Units 07:56 Total Bilirubin 0.8 (0.2-1.0) mg/dl AST 34 (13-39) U/L ALT 17 (7-52) U/L Alkaline Phosphatase 73 (34-104) U/L Albumin 3.1 L (3.4-5.0) gm/dl
[2022-07-10] MEDS ORDERED: FUROSEMIDE 20 MG TAB PO SCH (13:00)
[2022-07-10] MEDS: WARFARIN SOD 5 MG TAB PO SCH (16:20)
[2022-07-10] MEDS: cefTRIAXone SODIUM 2,000 MG in DEXTROSE 5% 50 ML IV SCH (16:22)
[2022-07-11] MEDS: SILVER SULFADIAZINE 1% CR 50 GM JAR TOP SCH (07:51)
[2022-07-11] MEDS: VITAMIN B COMPLEX TAB PO SCH (07:52)
[2022-07-11] MEDS: FERROUS SULFATE 325 MG TAB PO SCH (07:52)
[2022-07-11] MEDS: DOXYCYCLINE HYCLATE 100 MG in DEXTROSE 5% 100 ML IV SCH (09:35)
[2022-07-11 11:01] LABS: Hematocrit (blood only) 36.9 % (42.0-52.0); Hemoglobin 12.8 g/dl (14.0-18.0); Mean Corpuscular Hemoglobin 31.8 pg (25.0-34.0); Mean Corpuscular Hgb Conc 34.7 g/dL (32.0-36.0); Mean Corpuscular Volume 91.6 fL (80.0-100.0); Mean Platelet Volume 10.4 fL (9.4-12.4); Platelet Count 73 K/uL (130-400); RDW Standard Deviation 50.5 fL (36.4-46.3); Red Blood Count 4.03 M/uL (4.70-6.10); White Blood Count 4.17 K/ul (4.8-10.8)
[2022-07-11 11:14] LABS: BUN Creatinine Ratio 34.7 (10-20); Calcium 8.4 mg/dl (8.6-10.3); Creatinine Clr Calc Pharmacy 57.2 ml/min; Est GFR (African American) 79.4 ml/min; Est GFR (Non-African American) 68.5 ml/min; Magnesium 1.9 mg/dl (1.7-2.4); Phosphorus 2.2 mg/dl (2.5-4.9); Potassium 3.9 mmol/L (3.5-5.1)
[2022-07-11 11:23] LABS: INR 1.8 (0.9-1.1); Prothrombin Time 19.1 Seconds (9.0-12.0)
--- NOTE | 2022-07-11 14:26 | Hospitalist Progress Note ---
Date of Service July 11, 2022 Assessment & Plan (1) Recurrent falls: Plan: 82-year-old male with history of chronic atrial fibrillation anticoagulated on Coumadin, mitral regurgitation, tricuspid regurgitation, chronic heart failure secondary to valvular heart disease, CKD III, memory loss presented to ER with c/o fall last night and fall couple of days ago In ER CT head: No acute intracranial abnormality Fall precautions PT/OT eval - recommend to return home with family vs SNF Family reports would be interested in possible rehab at [facility], appreciate CM assistance (2) AMS (altered mental status): Plan: Family reports progressive decline in cognitive status over the several years with increased confusion past day May be metabolic encephalopathy secondary to possible UTI on chronic dementia AMS seems improved. Monitor for delirium Other treatment as below (3) UTI (urinary tract infection): Plan: Possible UTI. UA abnormal. Final urine clx with joaquina albicans 40,000 CFU, no sensitivities to follow Blood cx without growth thus far Family reports intermittent gross hematuria over the past several weeks (4) Thrombocytopenia: Plan: Tick borne panel negative so far except for equivocal IgM for Lyme. Follow platelet count On empiric doxy, rocephin pending final results (5) Wound of left foot: Plan: Following with outpatient podiatry for chronic left foot wound Looked at outpatient podiatry note with picture of wound. Today wound appears much improved Continue Silvadene ointment daily (6) Chronic atrial fibrillation: Plan: Anticoagulated on Coumadin. Continue coumadin. Follow INR for adjustment (7) Valvular heart disease: (8) (HFpEF) heart failure with preserved ejection fraction: Plan: History of heart failure secondary to valvular heart disease History echo 07/16/2021: EF: 45-49%, moderate MR, severe TR, moderate aortic valve sclerosis without aortic stenosis. Moderate AR, left atrium severely enlarged, right atrium severely enlarged S/p iv lasix in ED Continue home lasix every 2 days (9) CKD (chronic kidney disease), stage III: Plan: Cr: 1.01. Baseline Cr 1-1.3 Monitor renal functions, avoid nephrotoxic agents when possible Plan DVT prophylaxis-Coumadin, INR therapeutic Disposition -continue current level of care pending final culture results, PT OT evaluation I spent a total of 35 minutes coordinating, documenting, and providing care for this patient excluding time spent in the performance of separately billed services. Admission and Anticipated Discharge Date Admission Date: July 10, 2022 Supervising Physician Co-Signing Physician Notes Patient was seen and examined independently at bedside. Chart reviewed. Case discussed with Juhi Borjas PA-C and agree with the documentation above. In summary, this is a 82 year old admitted with fall and AMS. AMS resolved and seems back to his baseline. Urine clx only with joaquina, likely colonization. On empiric rocephin/doxy since admission. Lyme IgM equivocal and western blot pending. If continues to improve, will consider discontinuing rocephin and continue doxy only. Continue coumadin and check INR for adjustment. Thrombocytopenia improving. Rest as per the note above. Subjective Seen and examined in 350-2. Resting comfortably. No new issues overnight. Denies any fever, chills, chest pain, shortness of breath, N/V. Review of Systems Review of Systems: At least ten systems reviewed and negative except as noted in the HPI. Physical Exam Physical Exam: Gen: WD/WN, NAD, lying comfortably in bed, pleasant, alert HEENT: Normocephalic, atraumatic, conjunctivae moist, sclerae anicteric, mucous membranes moist Lung: Clear to Auscultation bilaterally, no wheezes/rales/rhonchi Heart: Regular rate, regular rhythm, +systolic murmur Abdomen: Soft, NT, ND +BS x 4 Extremities: no edema Skin: Warm, no rash Results & Data Results & Data Vital Signs (Past 12 Hours) Vital Signs Temp Pulse Resp BP Pulse Ox O2 Del Method 07/11/22 07:01 36.9 C 68 18 119/74 96 Room Air Laboratory Results Short CBC 07/11/22 Range/Units 10:40 WBC 4.17 L (4.8-10.8) K/ul Hgb 12.8 L (14.0-18.0) g/dl Hct 36.9 L (42.0-52.0) % Plt Count 73 L (130-400) K/uL BMP 07/11/22 10:40 Sodium 130 L Potassium 3.9 Chloride 99 Carbon Dioxide 25 BUN 35 H Creatinine 1.01 Glucose 113 H Calcium 8.4 L Diagnostic Findings Chest X-Ray 07/09/22 09:52 SINGLE VIEW CHEST CLINICAL HISTORY: Generalized weakness. FINDINGS: An AP, portable, upright chest radiograph is obtained. No prior studies are available for comparison at the time of dictation. Heart is enlarged. The pulmonary vasculature is noncongested. The lungs and pleural spaces are clear noting bibasilar scarring/atelectasis. No pneumothorax is seen. The skeletal structures are osteopenic. The bony thorax is grossly intact. IMPRESSION: Cardiomegaly with no acute cardiopulmonary abnormality. ACT 112: Negative or not required by law. Electronically signed by: Shiv Laughlin M.D. 07/09/2022 10:[address] 07/09/22 10:54 CT head/brain wo con CLINICAL HISTORY: fell again today Technique: Contiguous axial CT images of the head were acquired from the base of the skull to the vertex without intravenous contrast administration. Images were viewed in brain, subdural and bone windows. Automated dose lowering techniques and/or adjustment according to patient size were utilized for this exam. Comparison: Comparison is made to CT head 06/28/2022 Findings: Areas of decreased attenuation are present in the periventricular and subcortical white matter bilaterally consistent with small vessel ischemic disease. Generalized cerebral atrophy with commensurate enlargement of the ventricles, sulci, and cisterns is also present. There is no acute intracranial hemorrhage or evidence of acute territorial infarction. No shift of the midline structures, mass effect, or extra-axial abnormalities are shown. Atherosclerotic calcifications are present in the intracranial segments of the internal carotid arteries. Mucous retention cyst seen in the left maxillary sinus. The orbits appear normal. There are no acute fractures of the calvaria or scalp swelling. Impression: No acute intracranial hemorrhage, no evidence of acute territorial infarction or other acute intracranial disease process. ACT 112: Negative or not required by law. Electronically signed by: Dwight Amaya M.D. 07/09/2022 11:44 AM Abdomen/Pelvis CT 07/09/22 16:[address] WITHOUT CONTRAST CT DOSE: 1216.75 mGy.cm HISTORY: Flank pain. Assess for kidney stones. TECHNIQUE: Multiaxial CT images of the abdomen and pelvis were performed without contrast. A dose lowering technique was utilized adhering to the principles of ALARA. COMPARISON STUDY: Abdomen and pelvis CT 08/09/2019. FINDINGS: Small patchy densities within the left lower lobe posteriorly. This favors atelectasis. A pneumonia could also have a similar appearance. The heart remains enlarged. Mild motion artifact. No pneumoperitoneum. No pneumatosis. Levoscoliosis and moderate to severe degenerative disc disease within the lumbar spine. Trace pericardial fluid is noted. There is a tiny hiatus hernia. Mild body wall edema. Tiny fat-containing umbilical hernia. Trace perihepatic ascites. No hepatic or splenic masses identified on this noncontrast study. The unenhanced gallbladder, pancreas, and adrenal glands are unremarkable. Streak artifact results in suboptimal evaluation the kidneys. No definite renal or ureteral calculi. No hydronephrosis. There is mild bilateral perinephric edema. No retroperitoneal lymphadenopathy. Normal caliber abdominal aorta. 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 Prominent periportal lymph nodes remain unchanged. Normal bladder. The prostate gland is enlarged. Suboptimal evaluation for bowel pathology due to the lack of intravenous and oral contrast. However, there is no definite bowel wall thickening or obstruction. Colonic diverticulosis. No evidence for acute diverticulitis. Normal appendix. IMPRESSION: 1. No renal or ureteral stones. No hydronephrosis. 2. No definite bowel wall thickening or obstruction. 3. Colonic diverticulosis. No evidence for acute diverticulitis. 4. Normal appendix. 5. Mild body wall edema and mild perinephric edema. 6. Additional findings as described above. ACT 112: Negative or not required by law. Electronically signed by: German Sheets M.D. 07/09/2022 5:34 PM
[2022-07-11] MEDS: WARFARIN SOD 5 MG TAB PO SCH (16:00)
[2022-07-11] MEDS: POT PHOSPHATE MONOBASIC W/ SOD TAB PO SCH ×2 (16:01→20:25)
[2022-07-11] MEDS: ACETAMINOPHEN 325 MG TAB PO PRN (20:26)
--- NOTE | 2022-07-11 20:49 | Communication Note ---
Date of Service: July 11, 2022 Made aware of patient's unwitnessed fall resulting in head trauma. CT head: No acute intracranial hemorrhage, midline shift, or mass effect. Mild posterior soft tissue swelling with single scalp staple. Hold Coumadin for now.
--- NOTE | 2022-07-11 21:11 | CT Scan Report ---
Exam(s): CT HEAD Without Contrast EXAM: CT Head Without Intravenous Contrast CLINICAL HISTORY: Reason for exam: head trauma. TECHNIQUE: Axial computed tomography images of the head/brain without intravenous contrast. CTDI is 37.49 mGy and DLP is 547.75 mGy-cm. Automated exposure control was utilized for the study. A dose lowering technique was utilized adhering to the principles of ALARA. COMPARISON: No relevant prior studies available. FINDINGS: No acute intracranial hemorrhage. No midline shift or mass effect. The territorial goff-white matter differentiation is maintained throughout. Age-related cerebral volume loss. Periventricular and subcortical white matter hypoattenuation, consistent with chronic microangiopathy. The visualized orbits appear grossly unremarkable. The calvarium is intact. Mild posterior soft tissue swelling with single scalp staple. The visualized paranasal sinuses and mastoid air cells are grossly clear. IMPRESSION: No acute intracranial hemorrhage, midline shift, or mass effect. Mild posterior soft tissue swelling with single scalp staple. Electronically signed by: Esau Marie MD 07/11/22 21:11 PM
[2022-07-12 03:12] LABS: 18KDIGG Band REACTIVE; 23KDIGG Band NON-REACTIVE; 23KDIGM Band REACTIVE; 28KDIGG Band NON-REACTIVE; 30KDIGG Band NON-REACTIVE; 39KDIGG Band NON-REACTIVE; 39KDIGM Band NON-REACTIVE; 41KDIGG Band REACTIVE; 41KDIGM Band NON-REACTIVE; 45KDIGG Band REACTIVE; 58KDIGG Band REACTIVE; 66KDIGG Band NON-REACTIVE; 93KDIGG Band NON-REACTIVE; Lyme Antibodies, WB IgG NEGATIVE (NEGATIVE); Lyme Antibodies, WB IgM NEGATIVE (NEGATIVE)
[2022-07-12 07:58] LABS: BUN Creatinine Ratio 34.9 (10-20); Calcium 8.2 mg/dl (8.6-10.3); Creatinine Clr Calc Pharmacy 67.2 ml/min; Est GFR (African American) 92.9 ml/min; Est GFR (Non-African American) 80.2 ml/min; Phosphorus 2.9 mg/dl (2.5-4.9); Potassium 3.7 mmol/L (3.5-5.1)
[2022-07-12 07:59] LABS: INR 1.8 (0.9-1.1); Prothrombin Time 18.7 Seconds (9.0-12.0)
[2022-07-12] MEDS: FERROUS SULFATE 325 MG TAB PO SCH (08:31)
[2022-07-12] MEDS: SILVER SULFADIAZINE 1% CR 50 GM JAR TOP SCH (08:32)
[2022-07-12] MEDS: VITAMIN B COMPLEX TAB PO SCH (08:32)
[2022-07-12] MEDS: DOXYCYCLINE HYCLATE 100 MG in DEXTROSE 5% 100 ML IV SCH ×2 (08:47→20:48)
--- NOTE | 2022-07-12 12:17 | Hospitalist Progress Note ---
Date of Service July 12, 2022 Assessment & Plan (1) Lyme disease: Plan: Western blot reviewed. Will continue doxycyline for lyme disease. Clinically much improved per family. Thrombocytopenia improving. (2) Thrombocytopenia: Plan: due to lyme. Improving on doxy. 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 Continue fall precautions PT OT Eval for rehab Awaiting availability for [facility], appreciate CM assistance (4) Candiduria: Plan[place] [id number] joaquina. 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 Remains stable. Does not warrant treatment currently. (5) AMS (altered mental status): Plan: Family reports progressive decline in cognitive status over the several years with increased confusion past day, in setting of lyme disease. Now improved per family. Monitor for delirium (6) Wound of left foot: Plan: Following with outpatient podiatry for chronic left foot wound Looked at outpatient podiatry note with picture of wound. Today wound appears much improved Continue Silvadene ointment daily (7) Chronic atrial fibrillation: Plan: Anticoagulated on Coumadin. Continue coumadin- will give extra dose today as INR still subtherapeutic. Follow INR for adjustment (8) Valvular heart disease: (9) (HFpEF) heart failure with preserved ejection fraction: Plan: History of heart failure secondary to valvular heart disease History echo 07/16/2021: EF: 45-49%, moderate MR, severe TR, moderate aortic valve sclerosis without aortic stenosis. Moderate AR, left atrium severely enlarged, right atrium severely enlarged S/p iv lasix in ED On home lasix every 2 days at home. Will give as indicated (10) CKD (chronic kidney disease), stage III: Plan: Cr: 1.01. Baseline Cr 1-1.3 Monitor renal functions, avoid nephrotoxic agents when possible (11) Hyponatremia: Plan: Sodium improving to 132. Monitor. Plan DVT prophylaxis-Coumadin Disposition - stable for discharge awaiting insurance auth and bed availability at rehab. Plan for Thursday to [facility] per family at bedside Updated and brother at bedside Admission and Anticipated Discharge Date Admission Date: July 10, 2022 Subjective Patient was seen and examined at bedside. He feels fine. Denies any pain from the fall yesterday. Reemphasized not to get out of bed independently and always ask for help to prevent further falls. No fever, chills, chest pain, SOB, N/V. Review of Systems Review of Systems: All systems reviewed & are unremarkable except as noted in Subjective Physical Exam Physical Exam: General: Lying comfortably in bed, not in distress, on room air HEENT: EOMI, RANJAN, MMM Chest: Clear breath sounds bilaterally, no wheezes or crackles CVS: Regular rate and rhythm, normal heart sounds, no murmur Abdomen: Soft, non tender, not distended, normal bowel sounds Neuro: Awake, alert, oriented, conversing well, non focal Extremities: No cyanosis, clubbing or edema Results & Data Results & Data Vital Signs (Past 12 Hours) Vital Signs Temp Pulse Resp BP Pulse Ox O2 Del Method 07/12/22 08:16 Room Air 07/12/22 07:54 36.6 C 65 16 121/75 96 Room Air Laboratory Results [facility] 07/12/22 07:05 Sodium 132 L Potassium 3.7 Chloride 101 Carbon Dioxide 25 BUN 30 H Creatinine 0.86 Glucose 99 Calcium 8.2 L Medications Administered Current Inpatient Medications Acetaminophen (Acetaminophen 325 Mg Tab) 650 mg PO Q4H PRN PRN Reason: Pain or Fever Stop: 08/08/22 14:38 Last Admin: 07/11/22 20:26 Dose: 650 mg Ferrous Sulfate (Ferrous Sulfate 325 Mg Tab) 325 mg PO DAILY NANCY Stop: 08/09/22 08:59 Last Admin: 07/12/22 08:31 Dose: 325 mg Furosemide (Furosemide 20 Mg Tab) 20 mg PO Q48H NANCY Stop: 08/09/22 12:59 Last Admin: 07/10/22 13:31 Dose: 20 mg Doxycycline Hyclate 100 mg/ (Dextrose) 110 mls @ 50 mls/hr IV Q12H NANCY Stop: 07/22/22 08:59 Last Infusion: 07/12/22 11:01 Dose: Infused Lisinopril (Lisinopril 10 Mg Tab) 10 mg PO QAM NANCY Stop: 08/09/22 08:59 Last Admin: 07/10/22 08:22 Dose: 10 mg Ondansetron HCl (Ondansetron Inj 2 Mg/Ml 2 Ml Vial) 4 mg IV Q6H PRN PRN Reason: Nausea Stop: 08/08/22 14:38 Polyethylene Glycol (Polyethylene (Miralax) 17 Gm Pack) 17 gm PO DAILY PRN PRN Reason: Constipation Stop: 08/08/22 14:38 Silver Sulfadiazine (Silver Sulfadiazine 1% Cr 50 Gm Jar) 1 appln TOP DAILY [facility] Stop: 08/09/22 08:59 Last Admin: 07/12/22 08:32 Dose: 1 appln Vitamin B Complex (Vitamin B Complex Tab) 1 tab PO QAM [facility] Stop: 08/09/22 08:59 Last Admin: 07/12/22 08:32 Dose: 1 tab Warfarin Sodium (Warfarin Sod 2.5 Mg Tab) 2.5 mg PO Sa@1600 [facility] Stop: 08/11/22 15:59 Warfarin Sodium (Warfarin Sod 5 Mg Tab) 5 mg PO SuMoTuWeThFr@1600 [facility] Stop: 08/09/22 15:59 Last Admin: 07/11/22 16:00 Dose: 5 mg Warfarin Sodium (Warfarin Sod 2 Mg Tab) 2 mg PO ONE ONE Stop: 07/12/22 16:01
[2022-07-12] MEDS ORDERED: WARFARIN SOD 2.5 MG TAB PO SCH (16:00)
[2022-07-12] MEDS ORDERED: WARFARIN SOD 2 MG TAB PO ONE (16:00)
[2022-07-12] MEDS ORDERED: OLANZapine 10 MG/2.1 ML SDV IM PRN (19:12)
[2022-07-12] MEDS ORDERED: OLANZapine 10 MG/2.1 ML SDV IM STA (19:12)
[2022-07-12] MEDS: ACETAMINOPHEN 325 MG TAB PO PRN (20:55)
[2022-07-13 02:48] LABS: Babesia microti DNA Not Detected (Not Detected)
[2022-07-13 06:35] LABS: Hematocrit (blood only) 36.3 % (42.0-52.0); Hemoglobin 12.6 g/dl (14.0-18.0); Mean Corpuscular Hemoglobin 31.3 pg (25.0-34.0); Mean Corpuscular Hgb Conc 34.7 g/dL (32.0-36.0); Mean Corpuscular Volume 90.1 fL (80.0-100.0); Mean Platelet Volume 9.8 fL (9.4-12.4); Platelet Count 84 K/uL (130-400); RDW Coefficient of Variation 14.8 % (11.5-14.5); Red Blood Count 4.03 M/uL (4.70-6.10); White Blood Count 7.22 K/ul (4.8-10.8)
[2022-07-13 06:48] LABS: BUN Creatinine Ratio 31.3 (10-20); Calcium 8.6 mg/dl (8.6-10.3); Creatinine Clr Calc Pharmacy 69.6 ml/min; Est GFR (African American) 94.3 ml/min; Est GFR (Non-African American) 81.4 ml/min; Potassium 4.2 mmol/L (3.5-5.1)
[2022-07-13] MEDS: FERROUS SULFATE 325 MG TAB PO SCH (07:13)
[2022-07-13] MEDS: VITAMIN B COMPLEX TAB PO SCH (07:13)
[2022-07-13] MEDS: SILVER SULFADIAZINE 1% CR 50 GM JAR TOP SCH (07:17)
[2022-07-13] MEDS: DOXYCYCLINE HYCLATE 100 MG in DEXTROSE 5% 100 ML IV SCH ×2 (07:17→21:00)
--- NOTE | 2022-07-13 10:53 | Hospitalist Progress Note ---
Date of Service July 13, 2022 Assessment & Plan (1) Lyme disease: Plan: Western blot reviewed. Will continue doxycyline for lyme disease. Thrombocytopenia improving. (2) Thrombocytopenia: Plan: due to lyme. Improving on doxy. Platelets 80->56->73->84. 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 Continue fall precautions PT OT Eval for rehab Awaiting availability for [facility], appreciate CM assistance (4) Candiduria: Plan[place] [id number] joaquina. 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 Remains stable. Does not warrant treatment currently. (5) AMS (altered mental status): Plan: Seems to have sundowning/delirium. Received zyprexa x2 overnight for behavioral issues as above. Family reports progressive decline in cognitive status over the several years with increased confusion past day, in setting of lyme disease. Delirium precautions. Frequent orientations. Avoid meds that might cause agitation/delirium. (6) Wound of left foot: Plan: Follows with outpatient podiatry for chronic left foot wound. Continue Silvadene ointment daily. local wound care (7) Chronic atrial fibrillation: Plan: Anticoagulated on Coumadin. Continue coumadin- INR therapeutic. (8) Valvular heart disease: (9) (HFpEF) heart failure with preserved ejection fraction: Plan: History of heart failure secondary to valvular heart disease History echo 07/16/2021: EF: 45-49%, moderate MR, severe TR, moderate aortic valve sclerosis without aortic stenosis. Moderate AR, left atrium severely enlarged, right atrium severely enlarged S/p iv lasix in ED On home lasix every 2 days at home. Will give as indicated (10) Hyponatremia: Plan: resolved. sodium 138 today Plan DVT prophylaxis-Coumadin,INR therapeutic Disposition - Plan for dc Thursday to [facility] per family at bedside Admission and Anticipated Discharge Date Admission Date: July 10, 2022 Subjective Patient is drowsy, confused and disoriented today during my encounter. Overnight events noted. Apparently he was restless, agitated, swatting at staff and attempting to get OOB frequently last night and was given zyprexa x2 and hence the situation this morning. Afebrile. Not answering questions appropriately, just mumbles, he did not even open eyes for me. Review of Systems Review of Systems: All systems reviewed & are unremarkable except as noted in Subjective Physical Exam Physical Exam: General: Lying comfortably in bed, not in distress, on room air HEENT: EOMI, RANJAN, MMM Chest: Clear breath sounds bilaterally, no wheezes or crackles CVS: Irregular, normal heart sounds, no murmur Abdomen: Soft, non tender, not distended, normal bowel sounds Neuro: Drowsy, confused, disoriented, mumbling, not answering questions appropriatelyl Extremities: No cyanosis, clubbing or edema Results & Data Results & Data Vital Signs (Past 12 Hours) Vital Signs Temp Pulse Resp BP Pulse Ox O2 Del Method 07/13/22 07:32 36.5 C 64 16 128/86 97 Room Air Laboratory Results Short CBC 07/13/22 Range/Units 05:41 WBC 7.22 (4.8-10.8) K/ul Hgb 12.6 L (14.0-18.0) g/dl Hct 36.3 L (42.0-52.0) % Plt Count 84 L (130-400) K/uL BMP 07/13/22 05:41 Sodium 138 Potassium 4.2 Chloride 105 Carbon Dioxide 28 BUN 26 H Creatinine 0.83 Glucose 101 H Calcium 8.6 Medications Administered Current Inpatient Medications Acetaminophen (Acetaminophen 325 Mg Tab) 650 mg PO Q4H PRN PRN Reason: Pain or Fever Stop: 08/08/22 14:38 Last Admin: 07/12/22 20:55 Dose: 650 mg Ferrous Sulfate (Ferrous Sulfate 325 Mg Tab) 325 mg PO DAILY NANCY Stop: 08/09/22 08:59 Last Admin: 07/13/22 07:13 Dose: 325 mg Furosemide (Furosemide 20 Mg Tab) 20 mg PO Q48H NANCY Stop: 08/09/22 12:59 Last Admin: 07/10/22 13:31 Dose: 20 mg Doxycycline Hyclate 100 mg/ (Dextrose) 110 mls @ 50 mls/hr IV Q12H NANCY Stop: 07/22/22 08:59 Last Infusion: 07/13/22 09:29 Dose: Infused Lisinopril (Lisinopril 10 Mg Tab) 10 mg PO QAM [facility] Stop: 08/09/22 08:59 Last Admin: 07/10/22 08:22 Dose: 10 mg Olanzapine (Olanzapine 10 Mg/2.1 Ml Sdv) 2.5 mg IM Q4H PRN PRN Reason: Anxiety/Agitation Stop: 08/11/22 19:11 Last Admin: 07/13/22 00:19 Dose: 2.5 mg Ondansetron HCl (Ondansetron Inj 2 Mg/Ml 2 Ml Vial) 4 mg IV Q6H PRN PRN Reason: Nausea Stop: 08/08/22 14:38 Polyethylene Glycol (Polyethylene (Miralax) 17 Gm Pack) 17 gm PO DAILY PRN PRN Reason: Constipation Stop: 08/08/22 14:38 Silver Sulfadiazine (Silver Sulfadiazine 1% Cr 50 Gm Jar) 1 appln TOP DAILY [facility] Stop: 08/09/22 08:59 Last Admin: 07/13/22 07:17 Dose: 1 appln Vitamin B Complex (Vitamin B Complex Tab) 1 tab [facility] Stop: 08/09/22 08:59 Last Admin: 07/13/22 07:13 Dose: 1 tab Warfarin Sodium (Warfarin Sod 2.5 Mg Tab) 2.5 mg PO Sa@1600 [facility] Stop: 08/11/22 15:59 Last Admin: 07/12/22 15:13 Dose: 2.5 mg Warfarin Sodium (Warfarin Sod 5 Mg Tab) 5 mg PO SuMoTuWeThFr@1600 [facility] Stop: 08/09/22 15:59 Last Admin: 07/11/22 16:00 Dose: 5 mg
[2022-07-13] MEDS: WARFARIN SOD 5 MG TAB PO SCH (16:08)
[2022-07-14 07:37] LABS: INR 2.3 (0.9-1.1); Prothrombin Time 23.9 Seconds (9.0-12.0)
[2022-07-14] MEDS: DOXYCYCLINE HYCLATE 100 MG in DEXTROSE 5% 100 ML IV SCH ×2 (08:49→20:23)
[2022-07-14] MEDS: FERROUS SULFATE 325 MG TAB PO SCH (08:49)
[2022-07-14] MEDS: SILVER SULFADIAZINE 1% CR 50 GM JAR TOP SCH (08:49)
[2022-07-14] MEDS: VITAMIN B COMPLEX TAB PO SCH (08:51)
--- NOTE | 2022-07-14 12:35 | Hospitalist Progress Note ---
Date of Service July 14, 2022 Assessment & Plan (1) Lyme disease: Plan: Western blot reviewed. Will continue doxycyline for lyme disease. Thrombocytopenia improving. (2) Thrombocytopenia: Plan: due to lyme. Improving on doxy. Platelets 80->56->73->84. 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 Continue fall precautions PT OT Eval for rehab Awaiting availability for [facility], appreciate CM assistance (4) Candiduria: Plan[place] [id number] joaquina. 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 Remains stable. Does not warrant treatment currently. (5) AMS (altered mental status): Plan: Seems to have sundowning/delirium. Received zyprexa x2 overnight for behavioral issues as above. Family reports progressive decline in cognitive status over the several years with increased confusion past day, in setting of lyme disease. Delirium precautions. Frequent orientations. Avoid meds that might cause agitation/delirium. (6) Wound of left foot: Plan: Follows with outpatient podiatry for chronic left foot wound. Continue Silvadene ointment daily. local wound care (7) Chronic atrial fibrillation: Plan: Anticoagulated on Coumadin. Continue coumadin- INR therapeutic. (8) Valvular heart disease: (9) (HFpEF) heart failure with preserved ejection fraction: Plan: History of heart failure secondary to valvular heart disease History echo 07/16/2021: EF: 45-49%, moderate MR, severe TR, moderate aortic valve sclerosis without aortic stenosis. Moderate AR, left atrium severely enlarged, right atrium severely enlarged S/p iv lasix in ED On home lasix every 2 days at home. Will give as indicated (10) Hyponatremia: Plan: resolved. sodium 138 Plan DVT prophylaxis-Coumadin,INR therapeutic Disposition - Plan for dc Thursday to [facility] Admission and Anticipated Discharge Date Admission Date: July 10, 2022 Subjective Seen and examined at bedside. No overnight events. Remains pleasantly confused. Sleeping but easily arousable. No fever, shortness of breath. No vomiting. Review of Systems Review of Systems: Unobtainable due to cognitive status Physical Exam Physical Exam: General: Sleeping but easily arousable, Not in distress, on room air HEENT: EOMI, RANJAN, MMM Chest: Clear breath sounds bilaterally, no wheezes or crackles CVS: Irregular, normal heart sounds, no murmur Abdomen: Soft, non tender, not distended, normal bowel sounds Neuro: Disoriented, mumbling, not answering questions appropriately Extremities: No cyanosis, clubbing or edema Results & Data Results & Data Vital Signs (Past 12 Hours) Vital Signs Temp Pulse Resp BP Pulse Ox O2 Del Method 07/14/22 07:34 36.6 C 56 L 14 136/78 96 Room Air
[2022-07-14] MEDS: WARFARIN SOD 5 MG TAB PO SCH (16:00)
[2022-07-15] MEDS: VITAMIN B COMPLEX TAB PO SCH (08:04)
[2022-07-15] MEDS: SILVER SULFADIAZINE 1% CR 50 GM JAR TOP SCH (08:04)
[2022-07-15] MEDS: FERROUS SULFATE 325 MG TAB PO SCH (08:04)
[2022-07-15] MEDS: DOXYCYCLINE HYCLATE 100 MG in DEXTROSE 5% 100 ML IV SCH (08:06)
[2022-07-15 08:51] LABS: Mean Corpuscular Hemoglobin 31.6 pg (25.0-34.0); Mean Corpuscular Hgb Conc 34.2 g/dL (32.0-36.0); Mean Corpuscular Volume 92.2 fL (80.0-100.0); Mean Platelet Volume 9.4 fL (9.4-12.4); Platelet Count 142 K/uL (130-400); RDW Coefficient of Variation 15.1 % (11.5-14.5); RDW Standard Deviation 51.2 fL (36.4-46.3); Red Blood Count 4.12 M/uL (4.70-6.10); White Blood Count 9.17 K/ul (4.8-10.8)
[2022-07-15 09:13] LABS: BUN Creatinine Ratio 37.3 (10-20); Calcium 8.4 mg/dl (8.6-10.3); Creatinine Clr Calc Pharmacy 69.6 ml/min; Est GFR (African American) 94.3 ml/min; Est GFR (Non-African American) 81.4 ml/min; Potassium 4.4 mmol/L (3.5-5.1)
[2022-07-15 09:14] LABS: INR 2.7 (0.9-1.1); Prothrombin Time 28.2 Seconds (9.0-12.0)
--- NOTE | 2022-07-15 13:39 | Discharge Summary ---
Date of Service July 15, 2022 Admission HPI Per Admitting Provider Patient was started on patient is 82-year-old male with history of chronic atrial fibrillation anticoagulated on Coumadin, mitral regurgitation, tricuspid regurgitation, chronic heart failure secondary to valvular heart disease, CKD III, memory loss presented to ER with c/o falls. History obtained from patient, patient's , and chart review. Patient states was walking outside and fell two days ago. Denies dizziness, CP, SOB prior to fall. He was seen at [facility] ER and had negative CT head at the time. Patient's reports yesterday seemed very fatigued and slept all day. Today still very tired. Patient states he feels tired and weak. Patients reports heard patient in the middle of the night. She went to his bedroom and found the bed blankets all tossed everywhere and the lamp was knocked off the night stand. Patient stated he had to urinate so waited for him outside of the bathroom. She states she went in to the bathroom and found him sitting on the floor with blood on his elbow. She did not hear a thump but is unsure if patient fell. She states he seemed more confused than baseline and urinated on the floor. Family reports patient has had steady decline of mental status and has had progressive confusion over past couple of years. Family feels he was a little more confused than baseline. No known tick bites. Is outside often. Intermittent hematuria. Patient had PCP vist on 06/18/22 and confusion was discussed and thought patient may have had a UTI and was treated with Cipro x 10 days. 06/18/2022 urine culture: No significant growth. Denies fever/chills, diaphoresis, N/V/D/C, BENEDICT, dizziness, syncope, vision changes, neck pain, CP, SOB, , palpitations, cough, sore throat, rhinorrhea, abdominal pain, paresthesias, increased extremity edema, rashes, dysuria, urinary frequency. Admission Exam Per Admitting Provider General: no acute distress, WDWN Head: normocephalic, atraumatic Eyes: PERRL, EOM's intact, conjunctiva non-injected, anicteric ENT: normal inspection external ears, nose, mucous membranes moist Neck: supple, trachea midline Lungs: clear, no respiratory distress, no wheezing/rhonchi/rales CV: irregularly irregular, +murmur, no JVD, 2+ pretibial edema Abd: normal BS, soft, non-tender, no CVA tenderness Ext: no cyanosis, no calf tenderness Neuro: Alert, oriented to person, place, +lethargy, diffuse weakness, no other focal deficits noted, normal affect Skin: warm, dry, BUE and BLE with dark skin, face and neck with dark skin, left medial aspect foot with superficial ulcer without surrounding erythema Principal Diagnosis Lyme disease, recurrent falls Discharge Exam General: Sitting comfortably in bed, Not in distress, on room air HEENT: EOMI, RANJAN, MMM Chest: Clear breath sounds bilaterally, no wheezes or crackles CVS: Irregular, normal heart sounds, no murmur Abdomen: Soft, non tender, not distended, normal bowel sounds Neuro: Awake, alert, orientedx2, answering questions appropriately. Extremities: No cyanosis, clubbing or edema Psych: Calm, cooperative. Observed to be ambulating with walker with physical therapy Skin: Ecchymosis present Discharge Data Allergies Allergy/AdvReac Type Severity Reaction Status Date / Time No Known Allergies Allergy Verified 07/09/22 12:45 Consultations 07/09/22 11:51 ED Decision to Admit Stat Ordered Studies 07/09/22 10:54 CT head/brain wo con Stat 07/09/22 16:44 CT Abd and Pelvis [CT abd pelvis wo con] Urgent 07/11/22 19:39 CT head/brain wo con Stat Laboratory Results WBC 9.17 K/ul (4.8-10.8) 07/15/22 08:19 RBC 4.12 M/uL (4.70-6.10) L 07/15/22 08:19 Hgb 13.0 g/dl (14.0-18.0) L 07/15/22 08:19 Hct 38.0 % (42.0-52.0) L 07/15/22 08:19 MCV 92.2 fL (80.0-100.0) 07/15/22 08:19 MCH 31.6 pg (25.0-34.0) 07/15/22 08:19 MCHC 34.2 g/dL (32.0-36.0) 07/15/22 08:19 RDW Std Deviation 51.2 fL (36.4-46.3) H 07/15/22 08:19 RDW Coeff of Jono 15.1 % (11.5-14.5) H 07/15/22 08:19 Plt Count 142 K/uL (130-400) 07/15/22 08:19 MPV 9.4 fL (9.4-12.4) 07/15/22 08:19 Immature Gran % (Auto) 0.6 % 07/10/22 07:56 Neut % (Auto) 81.6 % 07/10/22 07:56 Lymph % (Auto) 9.0 % 07/10/22 07:56 [place] % (Auto) 8.4 % 07/10/22 07:56 Eos % (Auto) 0.0 % 07/10/22 07:56 Baso % (Auto) 0.4 % 07/10/22 07:56 Neut # (Auto) 4.00 K/uL (1.40-6.50) 07/10/22 07:56 Lymph # (Auto) 0.44 K/uL (1.2-3.4) L 07/10/22 07:56 [place] # (Auto) 0.41 K/uL (0.11-0.59) 07/10/22 07:56 Eos # (Auto) 0.00 K/uL (0-0.50) 07/10/22 07:56 Baso # (Auto) 0.02 K/uL (0-0.2) 07/10/22 07:56 Immature Gran # (Auto) 0.03 K/uL (0.01-0.20) 07/10/22 07:56 Smudge Cells Present 07/10/22 07:56 Platelet Estimate Decreased (Normal) L 07/09/22 09:46 Echinocytes 1+ 07/10/22 07:56 PT 28.2 Seconds (9.0-12.0) H 07/15/22 08:19 INR 2.7 (0.9-1.1) H 07/15/22 08:19 Sodium 135 mmol/L (136-145) L 07/15/22 08:19 Potassium 4.4 mmol/L (3.5-5.1) 07/15/22 08:19 Chloride 105 mmol/L (98-107) 07/15/22 08:19 Carbon Dioxide 26 mmol/L (21-32) 07/15/22 08:19 Anion Gap 4 (3-11) 07/15/22 08:19 BUN 31 mg/dl (6-23) H 07/15/22 08:19 Creatinine 0.83 mg/dl (0.6-1.4) 07/15/22 08:19 Est Cr Clr Drug Dosing 69.6 ml/min 07/15/22 08:19 Est GFR ( Amer) 94.3 ml/min 07/15/22 08:19 Est GFR (Non-Af Amer) 81.4 ml/min 07/15/22 08:19 BUN/Creatinine Ratio 37.3 (10-20) H 07/15/22 08:19 Glucose 102 mg/dl (70-99(Fasting)) H 07/15/22 08:19 Calcium 8.4 mg/dl (8.6-10.3) L 07/15/22 08:19 Phosphorus 2.9 mg/dl (2.5-4.9) 07/12/22 07:05 Magnesium 1.9 mg/dl (1.7-2.4) 07/11/22 10:40 Total Bilirubin 0.8 mg/dl (0.2-1.0) 07/10/22 07:56 AST 34 U/L (13-39) 07/10/22 07:56 ALT 17 U/L (7-52) 07/10/22 07:56 Alkaline Phosphatase 73 U/L (34-104) 07/10/22 07:56 Troponin I High Sens 19.8 pg/ml (0-20) 07/09/22 09:46 Total Protein 6.1 gm/dl (6.0-8.3) 07/10/22 07:56 Albumin 3.1 gm/dl (3.4-5.0) L 07/10/22 07:56 Globulin 3.0 gm/dl (2.5-4.0) 07/10/22 07:56 Albumin/Globulin Ratio 1.0 (0.9-2) 07/10/22 07:56 Lipase 40 U/L (11-82) 07/09/22 09:46 Urine Color Yellow 07/09/22 11:00 Urine Appearance Slightly Cloudy (Clear) 07/09/22 11:00 Urine pH 6.0 (4.5-7.5) 07/09/22 11:00 Ur Specific [place] >= 1.030 (1.000-1.030) 07/09/22 11:00 Urine Protein 2+ (Negative) H 07/09/22 11:00 Urine Glucose (UA) Negative (Negative) 07/09/22 11:00 Urine Ketones Trace (Negative) H 07/09/22 11:00 Urine Blood 3+ (Negative) H 07/09/22 11:00 Urine Nitrite Negative (Negative) 07/09/22 11:00 Urine Bilirubin Negative (Negative) 07/09/22 11:00 Urine Urobilinogen Positive (Negative) H 07/09/22 11:00 Ur Leukocyte Esterase 1+ (Negative) H 07/09/22 11:00 Urine RBC 10-30 /hpf (0-4) H 07/09/22 11:00 Urine WBC >30 /hpf (0-5) H 07/09/22 11:00 Ur Epithelial Cells 10-20 /lpf (0-5) H 07/09/22 11:00 Urine Bacteria 1+ (Negative) H 07/09/22 11:00 Urine Yeast Budding w/ Hyphae (None Prsent) A 07/09/22 11:00 Anaplasma Smear See Comment 07/09/22 09:46 A. phagocytophilum DNA Positive (Negative) A 07/09/22 13:37 Babesia Smear See Comment 07/09/22 09:46 Babesia microti DNA PCR Not Detected (Not Detected) 07/09/22 13:37 Lyme Disease IgG Ab Negative (Negative) 07/09/22 09:46 Lyme IgG (Western Blot) NEGATIVE (NEGATIVE) 07/09/22 09:46 Lyme IgG 18 kDa Band REACTIVE A 07/09/22 09:46 Lyme IgG 23 kDa Band NON-REACTIVE 07/09/22 09:46 Lyme IgG 28 kDa Band NON-REACTIVE 07/09/22 09:46 Lyme IgG 30 kDa Band NON-REACTIVE 07/09/22 09:46 Lyme IgG 39 kDa Band NON-REACTIVE 07/09/22 09:46 Lyme IgG 41 kDa Band REACTIVE A 07/09/22 09:46 Lyme IgG 45 kDa Band REACTIVE A 07/09/22 09:46 Lyme IgG 58 kDa Band REACTIVE A 07/09/22 09:46 Lyme IgG 66 kDa Band NON-REACTIVE 07/09/22 09:46 Lyme IgG 93 kDa Band NON-REACTIVE 07/09/22 09:46 Lyme IgM Ab (WB) NEGATIVE (NEGATIVE) 07/09/22 09:46 Lyme Disease IgM Ab Equivocal (Negative) A 07/09/22 09:46 Lyme IgM 23 kDa Band REACTIVE A 07/09/22 09:46 Lyme IgM 39 kDa Band NON-REACTIVE 07/09/22 09:46 Lyme IgM 41 kDa Band NON-REACTIVE 07/09/22 09:46 SARS-CoV-2, RNA, NAAT NEGATIVE (NEGATIVE) 07/15/22 09:45 Impressions Chest X-Ray 07/09/22 09:52 SINGLE VIEW CHEST CLINICAL HISTORY: Generalized weakness. FINDINGS: An AP, portable, upright chest radiograph is obtained. No prior studies are available for comparison at the time of dictation. Heart is enlarged. The pulmonary vasculature is noncongested. The lungs and pleural spaces are clear noting bibasilar scarring/atelectasis. No pneumothorax is seen. The skeletal structures are osteopenic. The bony thorax is grossly intact. IMPRESSION: Cardiomegaly with no acute cardiopulmonary abnormality. ACT 112: Negative or not required by law. Electronically signed by: Shiv Laughlin M.D. 07/09/2022 10:23 AM Abdomen/Pelvis CT 07/09/22 16:[address] WITHOUT CONTRAST CT DOSE: 1216.75 mGy.cm HISTORY: Flank pain. Assess for kidney stones. TECHNIQUE: Multiaxial CT images of the abdomen and pelvis were performed without contrast. A dose lowering technique was utilized adhering to the principles of ALARA. COMPARISON STUDY: Abdomen and pelvis CT 08/09/2019. FINDINGS: Small patchy densities within the left lower lobe posteriorly. This favors atelectasis. A pneumonia could also have a similar appearance. The heart remains enlarged. Mild motion artifact. No pneumoperitoneum. No pneumatosis. Levoscoliosis and moderate to severe degenerative disc disease within the lumbar spine. Trace pericardial fluid is noted. There is a tiny hiatus hernia. Mild body wall edema. Tiny fat-containing umbilical hernia. Trace perihepatic ascites. No hepatic or splenic masses identified on this noncontrast study. The unenhanced gallbladder, pancreas, and adrenal glands are unremarkable. Streak artifact results in suboptimal evaluation the kidneys. No definite renal or ureteral calculi. No hydronephrosis. There is mild bilateral perinephric edema. No retroperitoneal lymphadenopathy. Normal caliber abdominal aorta. 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 Prominent periportal lymph nodes remain unchanged. Normal bladder. The prostate gland is enlarged. Suboptimal evaluation for bowel pathology due to the lack of intravenous and oral contrast. However, there is no definite bowel wall thickening or obstruction. Colonic diverticulosis. No evidence for acute diverticulitis. Normal appendix. IMPRESSION: 1. No renal or ureteral stones. No hydronephrosis. 2. No definite bowel wall thickening or obstruction. 3. Colonic diverticulosis. No evidence for acute diverticulitis. 4. Normal appendix. 5. Mild body wall edema and mild perinephric edema. 6. Additional findings as described above. ACT 112: Negative or not required by law. Electronically signed by: German Sheets M.D. 07/09/2022 5:[address] 07/11/22 19:39 Exam(s): CT HEAD Without Contrast EXAM: CT Head Without Intravenous Contrast CLINICAL HISTORY: Reason for exam: head trauma. TECHNIQUE: Axial computed tomography images of the head/brain without intravenous contrast. CTDI is 37.49 mGy and DLP is 547.75 mGy-cm. Automated exposure control was utilized for the study. A dose lowering technique was utilized adhering to the principles of ALARA. COMPARISON: No relevant prior studies available. FINDINGS: No acute intracranial hemorrhage. No midline shift or mass effect. The territorial goff-white matter differentiation is maintained throughout. Age-related cerebral volume loss. Periventricular and subcortical white matter hypoattenuation, consistent with chronic microangiopathy. The visualized orbits appear grossly unremarkable. The calvarium is intact. Mild posterior soft tissue swelling with single scalp staple. The visualized paranasal sinuses and mastoid air cells are grossly clear. IMPRESSION: No acute intracranial hemorrhage, midline shift, or mass effect. Mild posterior soft tissue swelling with single scalp staple. Electronically signed by: Esau Marie MD 07/11/22 21:11 PM Hospital Course (1) Lyme disease: Western blot reviewed. Continue doxycycline to complete antibiotic course. thrombocytopenia resolved (2) Thrombocytopenia: due to lyme. Thrombocytopenia resolved with doxycycline. Platelets 80->56->73->84>142 (3) Recurrent falls: 82-year-old male with history of chronic atrial fibrillation anticoagulated on Coumadin, mitral regurgitation, tricuspid regurgitation, chronic heart failure secondary to valvular heart disease, CKD III, memory loss presented to ER with c/o fall [employer] and fall couple of days ago In ER CT head: No acute intracranial abnormality Again had an unwitnessed fall on 07/11 in the room, no syncope, CT head with no bleed. Continue fall precautions PT OT Alethaal recommended rehab. He is being discharged to medical today (4) [place]uria: [place] [id number] joaquina. 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 Remains stable. Does not warrant treatment currently. (5) AMS (altered mental status): Awake alert, oriented x2 and back to baseline. Seems to have tendency to sundowning/delirium. Family reports progressive decline in cognitive status over the several years with increased confusion past day, in setting of lyme disease. Continue delirium precautions. Frequent orientations. Avoid meds that might cause agitation/delirium. (6) Wound of left foot: Follows with outpatient podiatry for chronic left foot wound. Continue Silvadene ointment daily. local wound care (7) Chronic atrial fibrillation: Anticoagulated on Coumadin. Continue coumadin- INR therapeutic. Recommended to hold Coumadin today to prevent overshooting as INR is rapidly trending up to 2.7 today. Recommended to check INR tomorrow and adjust Coumadin accordingly. (8) Valvular heart disease: (9) (HFpEF) heart failure with preserved ejection fraction: History of heart failure secondary to valvular heart disease History echo 07/16/2021: EF: 45-49%, moderate MR, severe TR, moderate aortic valve sclerosis without aortic stenosis. Moderate AR, left atrium severely enlarged, right atrium severely enlarged S/p iv lasix in ED Continue home Lasix every other day (10) Hyponatremia: resolved. Total Time Total Time Spent Total Time Spent (In Minutes): 40 Discharge Plan Discharge Items Patient Disposition: Transfer Custodial Fac Reason For Visit: RECURRENT FALLS Activity: Resume your previous activity Non-emergency contact: Primary Care Provider Call non-emergency contact if: you have any medication questions Follow-up/Referrals: Javi Garcia MD [Primary Care Provider] - Diet: Regular Addtl Attending Provider Instructions: Recommend HOLDING the coumadin dose for today as INR is rapidly trending up. Recommend checking INR tomorrow to further adjust the dose of coumadin Continue doxycycline for 1 more week for the lyme disease Follow up with the family doctor Pending Studies at Discharge: No Stand-Alone Forms: My Comfort Line, Smoking Cessation Skilled Items Patient informed of condition?: No DNR: No Discharge Level of Care: Skilled Communicable Disease: No Discharge Prognosis: Stable Lines: None Urinary Catheter: No Medications and DC Order Prescriptions: New doxycycline hyclate 100 mg tablet 100 mg PO BID 7 Days Qty: 14 0RF Continued warfarin 5 mg tablet 2.5 mg PO UD Rx Instructions: sat lisinopril 10 mg Tablet 10 mg PO QAM furosemide 20 mg tablet 20 mg PO Q OTHER DAY ferrous sulfate 325 mg (65 mg iron) Tablet 325 mg PO QAM vitamin B complex Tablet 1 tab PO QAM silver sulfadiazine 1 % cream 1 applic TOPICAL DAILY Rx Instructions: left foot wound warfarin 5 mg tablet 5 mg PO UD Rx Instructions: Sun, Mon, Tue, Wed, Thur, Fri Discharge Orders: Discharge Order (Routine); Ordered 07/15/22 Ordered By: Shayne Rodriguez Admission Data Admit Date/Time: 07/10/22 16:19 Attending Provider: Shayne Rodriguez Admit Provider: Shayne Rodriguez Primary Care Provider: Javi Garcia Other Providers: Nicole Byrd ; Scott Swift ; Juhi Borjas Other Interventions: Discharge Summary Assessment (RN) Last Done: 07/15/22 11:11
--- NOTE | 2022-07-16 09:24 | Coding Query ---
This scalp laceration happened and was addressed during prior ED visit on 07/07 and does not pertain to this admission on 07/09. Patient had a fall with scalp laceration on 07/07 for which he was seen in the ED and suture was placed by the ED provider on 07/07 and discharged home. He again presented on 07/09 due to AMS from lyme disease for which he was admitted. TREATMENT RENDERED WITHOUT A DIAGNOSIS To promote full compliance with coding requirements relating to patient care, physician participation is requested in all cases of pump machine operator uncertainty. Please assist us with the question(s) below: Coding Question: The patient had a fall on 07/11/22 and received a scalp staple, as noted in the communication note on 07/11/[address] report on the same day. Please document the diagnosis that is being addressed by this treatment and who rendered the treatment (need procedure note for the staple, as well.) Provider Response: Thank you for your time, GAURAV Donis, [facility]
--- NOTE | 2022-07-16 09:33 | Coding Query ---
To promote full compliance with coding requirements relating to patient care, provider participation is requested in all cases of relations mgr uncertainty. Please assist us with the question(s) below: Coding Question(s): The diagnosis below was documented in the H&P and progress notes then subsequently fell off all further documentation. Please indicate if it was still a possible diagnosis or if it was ruled out at the time of discharge. Physician's Response(s): METABOLIC ENCEPHALOPATHY ( ) Diagnosed and POA ( x ) Diagnosed and not POA ( ) Ruled out ( ) Other (please specify) Thank you for your time, GAURAV Donis, [facility]
== END 2022-07-15 14:47 | DRG 867 ==
LOC: EDINP 09:33 → ED 09:33 → SUATTDRO 12:28 → 2N 14:39 → SUATTDRO 07-10 16:19 → 3W 07-11 06:57

== ENCOUNTER 2023-04-26 19:09 | Inpatient (IN) ==
--- OUTSIDE RECORDS SUMMARY | 2023-04-26 19:16 | External Medical Summary | Summary of Care ---
Author Name Unknown Organization [facility] Address [address] [facility] [place] [address] Phone [phone] Care Team Providers Care Picture Copyist Name Role Phone Javi Garcia MD Primary Care Provider [phone] Reason for Visit * Reason Comments Dosage Adjustment In Person (Anticoag Cl inic) Encounter Details Date Type Department Care Team (Latest Contact Info) Description 03/30/2023 9:50 AM [facility] Anticoagulation Pharmacy, [address] [place] [address] [place] [address] Permanent atrial fibrillation (HCC)*; Anticoagulation management encounter; 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 30 Tablet 0 07/25/2022 Active Warfarin Sodium 5 MG Oral Tablet (Coumadin)Indicati ons:Permanent atrial fibrillation (HCC) TAKE 5 MG (1 TABLET) BY MOUTH EACH EVENING OR DIRECTED BY ANTICOAGULATION CLINIC. DX: I48.21 90 Tablet 3 07/25/2022 Active Ferrous Sulfate 325 (65 Fe) MG Oral Tablet (Feosol)Indication s:Iron deficiency anemia, unspecified iron deficiency anemia type Take 1 Tablet by mouth in the morning. 90 Tablet 1 07/25/2022 Active Vitamin B Complex Oral Tablet Take 1 Tablet by mouth daily with dinner. 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 45 Tablet 5 12/22/2022 Active Lisinopril 10 MG Oral Tablet (Prinivil)Indicati ons:Permanent atrial fibrillation (HCC) TAKE 1 TABLET BY MOUTH EVERY DAY 90 Tablet 1 01/28/2023 Active documented as of this encounter (statuses as of 03/30/2023) Active Problems Problem Noted Date Diagnosed Date Late onset Alzheimer's dementia with agitation 0 07/23/2022 Hypertension goal BP (blood pressure) < 140/90 0 07/23/2022 Other microscopic hematuria 07/23/2022 Iron deficiency anemia 07/23/2022 DNR (do not resuscitate) 07/18/2022 History of kidney stones 11/08/2019 Stage 3a chronic kidney disease 08/18/2019 Overview: EGFR 50.6 Mitral regurgitation 11/06/2016 TR (tricuspid regurgitation) 11/06/2016 Heart failure due to valvular disease 11/06/2016 Permanent atrial fibrillation 10/09/2016 Osteoarthritis of left hip 11/28/2011 documented as of this encounter (statuses as of 03/30/2023) Resolved Problems Problem Noted Date Diagnosed Date Resolved Date 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 Renal calculus 11/28/2011 11/08/2019 documented as of this encounter (statuses as of 03/30/2023) Immunizations Name Administration Dates Next Due TDAP (age 11 and older)(Adacel) 07/07/2022 documented as of this encounter Social History Tobacco Use Types Packs/Day Years Used Date Smoking Tobacco: Never Smokeless Tobacco: Never Alcohol Use Standard Drinks/Week Comments Yes 0 (1 standard drink = 0.6 oz pur e alcohol) occasional beer PHQ-2 Answer Date Recorded PHQ-2 Score -1 10/30/2019 Hunger Vital Sign Answer Date Recorded Within the past 12 months, y ou worried that your food would run out before you got the money to buy more. Never true 08/09/19 23 Within the past 12 months, t he food you bought just didn't last and you didn't have money to get more. Never true 08/08/2022 Sex and Gender Information Value Date Recorded Sex Assigned at Not on file Gender Identity Not on file Sexual Orientation Not on file Job Start Date Occupation Industry Not on file Not on file Not on file documented as of this encounter Progress Notes * Gely Ramírez RPh - 03/30/2023 9:51 AM EST Medication Therapy Disease Management - Anticoagulation Patient: Joshua Chavez | : 1940 Patient presents with spouse Subjective Patient-Reported Symptoms: Patient Findings Positives: Bruising Negatives: Signs/symptoms of thrombosis, Signs/symptoms of bleeding, Change in health, Change in alcohol use, Change in activity, Upcoming invasive procedure, Missed doses, Extra doses, Change in medications, Change in diet/appetite Objective Current Warfarin Dose As of 03/30/2023 Warfarin maintenance plan: 2.5 mg (5 mg x 0.5) every Sat; 5 mg (5 mg x 1) all other days INR Result As of 03/30/2023 INR goal: 2.0-3.0 INR used for dosin.3 (03/30/2023) Assessment & Plan Warfarin Plan As of 03/30/2023 Full warfarin instructions: 2.5 mg every Sat; 5 mg all other days No change documented: Gely Ramírez RPh Next INR check: 04/27/2023 Repeat PT/INR in 4 week(s) Weekly dose: not changed Additional Dosing Information: Patient presented today with black eye. Notes to falling on the ice last week. Denies any changes in vision/loss of consciousness. States he was not evaluated as injuries are healing. Counseled on the importance of this while on anticoagulation. Gely Ramírez RPh Clinical Pharmacist 03/30/2023, 9:51 AM documented in this encounter Plan of Treatment Upcoming Encounters Date Type Department Care Team (Late st Contact Info) Description 04/27/2023 10:40 AM EDT Anticoagulation Pharmacy, [address] [place] [address] [place] [address] 06/25/2023 10:00 AM EDT Office Visit Family Medicine [address] [place] [phone] Radhames Rowe MD [address] [place] [address] [place] [address] 06/25/2023 11:30 AM EDT Office Visit Cardiology [address] [place] [address] Lex Valerio PA-C [address] [place] [address] Health Maintenance Due Date Last Done Comments Pneumococcal Vaccine: 65+ Years (1 of 2 - PCV) 06/03/1946 Zoster Vaccines (1 of 2) 06/03/1989 Depression Screening 11/21/2020 11/22/2019 CKD PHOS USE SMARTSET 08727 07/04/2021 07/04/2020 COVID-19 Vaccine ( season) 2022 Influenza Vaccine (FLU shot) (#1) 2022 GFR 01/15/2023 07/16/2022, 11/09, 08/05/2021, Additional history exists CKD HGB USE SMARTSET 51743 07/17/202307/16, 07/16/2022, 11/26/2021, Additional history exists Albumin/Creatinine Ratio 07/25/2023 023, 06/18/2022, 07/04/2020 DTaP,Tdap,and Td Vaccines (2 - Td or Tdap) 07/07/2032 07/07/2022 GARDASIL-HPV IMMUNIZATION SERIES Aged Out No longer eligible based on patient's age to complete this topic Hepatitis B Aged Out No longer eligi ble based on patient's age to complete this topic MENINGOCOCCAL (MENACTRA/MENVEO) Aged Out No longer eligible based on patient's age to complete this topic documented as of this encounter Medical Devices Implanted Type Area Proposal Manager Device Identifier Shelf Expiration Date Model / Serial / Lot Patch Mesh Pre-W/Cord Opening - [id number] Implanted:Qty: 1 on 03/08/2014 by Araceli Mayo MD at OR [facility] Left: Groin CR BARD : DAVOL 09/08/2018 [id number] / / [id number] Plate Fib 4h - [id number] Implanted:Qty: 1 on 11/29/2021 by Lashawn Martinez DPM at OR [facility] Left: Ankle TRAV : TRAUMA / / Screw Lck T10 Fulthrd 3.5x12mm - [id number] Implanted:Qty: 1 on 11/29/2021 by Lashawn Martinez DPM at OR [facility] Left: Ankle TRAV : ORTHOPAEDICS [id number] / / Screw Lck T10 Fulthrd 3.5x14mm - [id number] Implanted:Qty: 1 on 11/29/2021 by Lashawn Martinez DPM at OR [facility] Left: Ankle TRAV : ORTHOPAEDICS [id number] / / Screw Bn T10 Ft St Lk 3.5x16mm - [id number] Implanted:Qty: 3 on 11/29/2021 by Lashawn Martinez DPM at OR [facility] Left: Ankle TRAV : ORTHOPAEDICS [id number] / / Screw Bn T10 Ft St Lk 3.5x18mm - [id number] Implanted:Qty: 2 on 11/29/2021 by Lashawn Martinez DPM at OR [facility] Left: Ankle TRAV : ORTHOPAEDICS [id number] / / Screw Bn T10 [address]t [address] Lk 3.5x50mm - [id number] Implanted:Qty: 1 on 11/29/2021 by Lashawn Martinez DPM at OR [facility] Left: Ankle TRAV : ORTHOPAEDICS [id number] / / documented as of this encounter Procedures Procedure Name Priority Date/Time Associated Diagnosis Comments INR FINGERSTICK, POINT OF CARE STAT 03/30/2023 9:55 AM EST Permanent atrial fibrillation (HCC) Anticoagulation management 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 documented in this encounter Results * INR FINGERSTICK, POINT OF CARE (03/30/2023 9:55 AM EST) Fingerstick INR 2.3 INR 9:56 AM EST [facility] Blood 03/30/2023 9:55 AM EST 03/30/2023 9:56 AM EST Narrative [facility] - 03/30/2023 9:56 AM EST Therapeutic ranges for non-operative patients: Prophylaxsis/treatment of DVT: (Range:2.0-3.0) Treatment of pulmonary embolism:(Range:2.0-3.0) Prevention of systemic embolism from: -tissue heart valves -acute myocardial infarction -valvular heart disease -atrial fibrillation (Range: 2.0-3.0) Mechanical prosthetic valves: (Range: 2.5-3.5) [facility]illo [facility] POINT OF CARE TEST DOCKED DEVICE UNSOLICITED RESULTS [facility] [address] [place] [address] [place] [address] documented in this encounter Visit Diagnoses Diagnosis Permanent atrial fibrillation (HCC)- Primary Atrial fibrillation Anticoagulation management encounter Encounter for therapeutic drug monitoring 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
--- OUTSIDE RECORDS SUMMARY | 2023-04-26 19:16 | External Medical Summary | Summary of Care ---
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 30 Tablet 0 07/25/2022 Active Warfarin Sodium 5 MG Oral Tablet (Coumadin)Indicat ions:Permanent atrial fibrillation (HCC) TAKE 5 MG (1 TABLET) BY MOUTH EACH EVENING OR DIRECTED BY ANTICOAGULATION CLINIC. DX: I48.21 90 Tablet 3 07/25/2022 Active Ferrous Sulfate 325 (65 Fe) MG Oral Tablet (Feosol)Indicatio ns:Iron deficiency anemia, unspecified iron deficiency anemia type Take 1 Tablet by mouth in the morning. 90 Tablet 1 07/25/2022 Active Vitamin B Complex Oral Tablet Take 1 Tablet by mouth daily with dinner. 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 Take with largest meal of the day.. 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 Renal calculus 11/28/2011 11/08/2019 documented as of this encounter (statuses as of 04/06/2023) Immunizations Name Administration Dates Next Due TDAP [...] on file documented as of this encounter Last Filed Vital Signs Vital Sign Reading Time Taken Comments Blood Pressure 110/60 04/06/2023 3:50 PM EST Pulse 68 04/06/2023 3:50 PM EST Temperature 36.1 C (97 F) 04/06/2023 3:50 PM EST Respiratory Rate 16 04/06/2023 3:50 PM EST Oxygen Saturation - - Inhaled Oxygen Concentration - - Weight 78 kg (172 lb) 04/06/2023 3:50 PM EST Height 170.2 cm (5' 7") 04/06/2023 3:50 PM EST Body Mass Index 26.94 04/06/2023 3:50 PM EST documented in this encounter Progress Notes * Javi Garcia MD - 04/06/2023 3:53 PM EST Things are getting bad at home with Joshua's dementia. He has no idea what is going on, what day it is. He is up all night talking. He can't do his ADLs. He is unsteady on his feet and has fallen several times. Once was down the steps. has been dealing with this for years and the burden is getting to be too much. They are interested in [employer], need my ok? He has not been tried on anything but it is not going to help that much. I asked him several questions, he did not know the answers. He says sometimes he feels short of breath but is not breathing heavy here. 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) 11/06/2016 HTN, goal below 140/90 Left inguinal hernia 02/17/2014 Lyme disease 08/09/2019 positive western blot Mitral regurgitation 11/06/2016 Nonrheumatic aortic valve stenosis 10/18/2019 moderate OA (osteoarthritis) Osteoarthritis of left hip 11/28/2011 Renal calculus 11/28/2011 Renal calculus, right 08/09/2019 5 mm nonobstructing ureteral calculus Stage 3a chronic kidney disease (HCC) 08/18/2019 EGFR 50.6 TR (tricuspid regurgitation) 11/06/2016 Yeast cystitis 01/24/2023 40,000 [place] Past Surgical History: Procedure Laterality Date BIMALLEOLAR ANKLE FX W/ FIXATION Left 11/29/2021 OPEN TREATMENT BIMALLEOLAR ANKLE FRACTURE performed by Lashawn Martinez DPM at OR [facility] ECHO, COMPLETE (2D), TRANS-THORACIC N/A 10/18/2019 EF 50-54% severe grade III diastoic dysfunction nl LV wall motion and function, mod ECHO, COMPLETE (2D), TRANS-THORACIC 07/16/2021 no wall motion abnormalities, EF 45-49%, severe LA and RA dilitation, MR, severed grade III diastolic dysfunction REPAIR INITIAL INGUINAL HERNIA REDUCIBLE AGE 5 OR MORE Left 03/08/2014 REPAIR INITIAL INGUINAL HERNIA REDUCIBLE AGE 5 OR MORE performed by Araceli Mayo MD at OR [facility] REPAIR INITIAL INGUINAL HERNIA REDUCIBLE AGE 5 OR MORE Right 09/26/2019 Dr Grossman XR ANKLE 2 VIEWS Left 11/25/2021 bimalleolar rx left ankle Review of patient's allergies indicates: No Known Allergies Social History Socioeconomic History Marital status: Spouse name: Not on file Number of children: Not on file Years of education: Not on file Highest education level: Not on file Occupational History Not on file Tobacco Use Smoking status: Never Smokeless tobacco: Never Vaping Use Vaping Use: Never used Substance and Sexual Activity Alcohol use: Yes Comment: occasional beer Drug use: No Sexual activity: Not on file Other Topics Concern Not on file Social History Narrative Not on file Social Determinants of Health Financial Resource Strain: Not on file Food Insecurity: No Food Insecurity (08/08/2022) Hunger Vital Sign Worried About Running Out of Food in the Last Year: Never true Ran Out of Food in the Last Year: Never true Transportation Needs: Not on file Physical Activity: Not on file Stress: Not on file Social Connections: Not on file Intimate Partner Violence: Not on file Housing Stability: Not on file Current Outpatient Medications Medication Sig Dispense Refill Melatonin 5 MG Oral Tablet Take 1 Tablet by mouth at bedtime. 30 Tablet 0 Warfarin Sodium 5 MG Oral Tablet (Coumadin) TAKE 5 MG (1 TABLET) BY MOUTH EACH EVENING OR DIRECTED BY ANTICOAGULATION CLINIC. DX: I48.21 90 Tablet 3 Ferrous Sulfate 325 (65 Fe) MG Oral Tablet (Feosol) Take 1 Tablet by mouth in the morning. 90 Tablet 1 Vitamin B Complex Oral Tablet Take 1 Tablet by mouth daily with dinner. 30 Tablet 0 Furosemide 20 MG Oral Tablet (Lasix) TAKE BY MOUTH 1 TABLET EVERY OTHER DAY . 45 Tablet 5 Lisinopril 10 MG Oral Tablet (Prinivil) TAKE 1 TABLET BY MOUTH EVERY DAY 90 Tablet 1 No current facility-administered medications for this visit. Immunization History Administered Date(s) Administered TDAP (age 11 and older)(Adacel) 07/07/2022 Results for orders placed or performed in visit on 07/16/22 BASIC METABOLIC PANEL Result Value Ref Range BUN 29 (H) 6 - 20 mg/dL Creatinine 0.8 0.6 - 1.2 mg/dL Estimated Glomerular Filtration Rate 87 >=60 mL/min Sodium 138 135 - 146 mmol/L Potassium 4.7 3.5 - 5.1 mmol/L Chloride 103 98 - 107 mmol/L CO2 22 22 - 32 mmol/L Anion Gap 13 7 - 15 mmol/L Glucose 95 70 - 120 mg/dL Calcium 9.0 8.4 - 10.2 mg/dL CBC Results: Results for orders placed or performed in visit on 07/16/22 CBC Result Value Ref Range WBC 11.21 (H) 4.00 - 10.80 K/uL RBC 4.33 4.50 - 5.25 M/uL HGB 13.4 (L) 14.0 - 16.8 g/dL HCT 40.2 40.0 - 48.4 % MCV 92.8 82.0 - 99.5 fL MCH 30.9 27.0 - 34.0 pg MCHC 33.3 32.0 - 36.0 g/dL RDW 15.5 11.5 - 15.5 % PLT 180 140 - 400 K/uL MPV 9.5 6.6 - 11.1 fL Results for orders placed or performed in visit on 03/01/14 LIPID PANEL WITH DIRECT LDL IF TG ABOVE 400 MG/DL Result Value Ref Range HOURS FASTING 12 hours Triglycerides 53 <200 mg/dL Cholesterol 163 <200 mg/dL HDL Cholesterol 67 >39 mg/dL Cholesterol-HDL Ratio 2.4 LDL Cholesterol 85 0 - 129 mg/dL LDL Cholesterol (Direct Measure) NOT APPLICABLE 0 - 100 mg/dL O: Blood pressure 110/60, pulse 68, temperature 36.1 C (97 F), resp. rate 16, height 1.702 m (5' 7"), weight 78 kg (172 lb). He has some ecchymosis by right eye. Neck is supple without adenopathyor thyromegaly. Chest is symmetrical and moves normally. The lungs are clear without wheezes, rales, rhonchi or rubs, and the heart is regular without murmurs or gallops, or ectopy. PMI not displaced. Hands seem a little puffy. 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 Take with largest meal of the day.. Will see if Haydee can help. I am not sure what else I am supposed to do. Follow Up: Return if symptoms worsen or fail to improve. documented in this encounter Nursing Notes * Mary Meier RN - 04/06/2023 3:51 PM EST Check up [facility] They want to discuss his Dementia documented in this encounter Plan of Treatment Upcoming Encounters Date Type Department Care Team (Late st Contact Info) Description 04/27/2023 10:40 AM EDT Anticoagulation Pharmacy, [address] [place] [address] [place] [address] 06/25/2023 10:00 AM EDT Office Visit Family Medicine [address] [place] [phone] Radhames Rowe MD [address] [place] [address] [place] [address] 06/25/2023 11:30 AM EDT Office Visit Cardiology [address] [place] [address] Lex Valerio PA-C [address] [place] [address] Health Maintenance Due Date Last Done Comments Pneumococcal Vaccine: 65+ Years (1 of 2 - PCV) 06/03/1946 Zoster Vaccines (1 of 2) 06/03/1989 Depression Screening 11/21/2020 11/22/2019 CKD PHOS USE SMARTSET 76395 07/04/2021 07/04/2020 COVID-19 Vaccine ( season) 2022 Influenza Vaccine (FLU shot) (#1) 2022 GFR 01/15/2023 07/16/2022, 11/09, 08/05/2021, Additional history exists CKD HGB USE SMARTSET 45282 07/17/202307/16, 07/16/2022, 11/26/2021, Additional history exists Albumin/Creatinine [...] this encounter Medical Devices Implanted Type Area Fern Cutter Device Identifier Shelf Expiration Date Model / Serial / Lot Patch Mesh Pre-W/Cord Opening - [id number] Implanted:Qty: 1 on 03/08/2014 by Araceli Mayo MD at OR [facility] Left: Courtneyin CR BARD : DAVOL 09/08/2018 [id number] / / [id number] Plate Fib 4h - [id number] Implanted:Qty: 1 on 11/29/2021 by Lashawn Martinez DPM at OR [facility] Left: Ankle TRAV : TRAUMA / / Screw Lck T10 Fulthrd 3.5x12mm - [id number] Implanted:Qty: 1 on 11/29/2021 by Lashawn Martinez DPM at OR [facility] Left: Ankle TRAV : ORTHOPAEDICS [id number] / / Screw Lck T10 Fulthrd 3.5x14mm - [id number] Implanted:Qty: 1 on 11/29/2021 by Lashawn Martinez DPM at OR [facility] Left: Ankle TRAV : ORTHOPAEDICS [id number] / / Screw Bn T10 Ft St Lk 3.5x16mm - [id number] Implanted:Qty: 3 on 11/29/2021 by Lashawn Martinez DPM at OR [facility] Left: Ankle TRAV : ORTHOPAEDICS [id number] / / Screw Bn T10 [address] Lk 3.5x18mm - [id number] Implanted:Qty: 2 on 11/29/2021 by Lashawn Martinez DPM at OR [facility] Left: Ankle TRAV : ORTHOPAEDICS [id number] / / Screw Bn T10 [address] Lk 3.5x50mm - [id number] Implanted:Qty: 1 on 11/29/2021 by Lashawn Martinez DPM at OR [facility] Left: Ankle TRAV : ORTHOPAEDICS [id number] / / documented as of this encounter Visit Diagnoses Diagnosis 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
--- OUTSIDE RECORDS SUMMARY | 2023-04-26 19:16 | External Medical Summary | Summary of Care ---
Author Name Unknown Organization [facility] Address [address] [place] [address] Phone [phone] Care Team Providers Care Boiler Reliner Name Role Phone Javi Garcia MD Primary Care Provider [phone] Encounter Details Date Type Department Care Team ([facility] Contact Info) Description 04/03/2023 Population Health External Data Unspecified Department Allergies No known active allergiesdocumented as of this encounter (statuses as of 04/03/2023) Medications Medication Sig Dispensed Refills Start Date [...] as of this encounter (statuses as of 04/03/2023) Active Problems Problem Noted Date Diagnosed Date [...] as of this encounter (statuses as of 04/03/2023) Resolved Problems Problem Noted Date Diagnosed Date Resolved Date 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 Never true 08/09/19 Within the past 12 months, t he [...] on file documented as of this encounter Plan of Treatment Upcoming Encounters Date Type Department Care Team (Late st Contact Info) Description 04/27/2023 10:40 AM EDT Anticoagulation Pharmacy, [address] [place] [address] [place] [address] 06/25/2023 10:00 AM EDT Office Visit Family Medicine [address] [place] [phone] Radhames Rowe MD [address] [place] [address] [place] [address] 06/25/2023 11:30 AM EDT Office Visit Cardiology [address] [place] [address] Lex Valerio PA-C [address] [place] [address] Health Maintenance Due Date Last Done Comments Pneumococcal Vaccine: 65+ Years (1 of 2 - PCV) 06/03/1946 Zoster Vaccines (1 of 2) 06/03/1989 Depression Screening 11/21/2020 11/22/2019 CKD PHOS USE SMARTSET 66922 07/04/2021 07/04/2020 COVID-19 Vaccine ( - season) 2022 Influenza Vaccine (FLU shot) (#1) 2022 GFR 01/15/2023 07/16/2022, 11/09, 08/05/2021, Additional history exists CKD HGB USE SMARTSET 95479 07/17/202307/16, 07/16/2022, 11/26/2021, Additional history exists Albumin/Creatinine [...] this encounter Medical Devices Implanted Type Area Web Design Instructor Device Identifier Shelf Expiration Date Model / Serial / Lot Patch Mesh Pre-W/Cord Opening - [id number] Implanted:Qty: 1 on 03/08/2014 by Araceli Mayo MD at OR [facility] Left: Groin CR BARD : DAVOL 09/08/2018 [id number] / / [id number] Plate Fib 4h - [id number] Implanted:Qty: 1 on 11/29/2021 by Lashawn Martinez DPM at OR [facility] Left: Ankle TRAV : TRAUMA / / Screw Lck T10 Fulthrd 3.5x12mm - [id number] Implanted:Qty: 1 on 11/29/2021 by Lashawn Martinez DPM at OR [facility] Left: Ankle TRAV : ORTHOPAEDICS [id number] / / Screw Lck T10 Fulthrd 3.5x14mm - [id number] Implanted:Qty: 1 on 11/29/2021 by Lashawn Martinez DPM at OR [facility] Left: Ankle TRAV : ORTHOPAEDICS [id number] / / Screw Bn T10 Ft [address] Lk 3.5x16mm - [id number] Implanted:Qty: 3 on 11/29/2021 by Lashawn Martinez DPM at OR [facility] Left: Ankle TRAV : ORTHOPAEDICS [id number] / / Screw Bn T10 Ft [address] Lk 3.5x18mm - [id number] Implanted:Qty: 2 on 11/29/2021 by Lashawn Martinez DPM at OR [facility] Left: Ankle TRAV : ORTHOPAEDICS [id number] / / Screw Bn T10 F[address] Lk 3.5x50mm - [id number] Implanted:Qty: 1 on 11/29/2021 by Lashawn Martinez DPM at OR [facility] Left: Ankle TRAV : ORTHOPAEDICS [id number] / / documented as of this encounter Care Teams Boiler Reliner Relationship Specialty Start Date End Date Javi Garcia MD [address] [place] [address] [place] [address] PCP - General Family Medicine 10/30/16 documented as of this encounter
--- OUTSIDE RECORDS SUMMARY | 2023-04-26 19:17 | External Medical Summary ---
Author Name Unknown Address Unknown Organization : Laboratory Report Ordering Provider Test Date Status THOMAS BURRELL 03/30/2023 09:55:03 Final Therapeutic ranges for non-o perative patients:
Prophylaxsis/treatment of DVT: (Range:2.0-3.0)
Treatment of pulmonary embolism:(Range:2.0-3.0)
Prevention of systemic embolism from:
-tissue heart valves
-acute myocardial infarction
-valvular heart disease
-atrial fibrillation
(Range: 2.0-3.0)
Mechanical prosthetic valves: (Range: 2.5-3.5) Observation Date Value Abnormality Reference (Units ) Status INR in Capillary blood by Coagulation assay 03/30/2023 09:55:03 2.3 (INR) Final Performing Location
--- OUTSIDE RECORDS SUMMARY | 2023-04-26 19:17 | External Medical Summary | Summary of Care ---
Author Name Unknown Organization [facility] Address [address] [place] [address] Phone [phone] Care Team Providers Care Office Rental Clerk Name Role Phone Javi Garcia MD Primary Care Provider Encounter Details Date Type Department Care Team ([facility] st Contact Info) Description 01/27/2023 Telephone Family Medicine [address] [phone] Javi Garcia MD [address] [place] [address] [place] [address] Allergies No known active allergiesdocumented as of this encounter (statuses as of 01/27/2023) Medications Medication Sig Dispensed Refills Start Date End Date Status Melatonin 5 MG Oral Tablet Take 1 Tablet by mouth at bedtime. 30 Tablet 0 07/25/2022 Active Warfarin Sodium 5 MG Oral Tablet (Coumadin)Indicati ons:Permanent atrial fibrillation (HCC) TAKE 5 MG (1 TABLET) BY MOUTH EACH EVENING OR DIRECTED BY ANTICOAGULATION CLINIC. DX: I48.21 90 Tablet 3 07/25/2022 Active Lisinopril 10 MG Oral Tablet (Prinivil)Indicati ons:Permanent atrial fibrillation (HCC) Take 1 Tablet by mouth in the morning. 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 Current weekly dose: 32.5 mg (2.5 mg every Sat; 5 mg all other days) Adjusted weekly dose while on Fluconazole: 17.5 mg (2.5mg daily) Called patient and spouse providing the above dosage instructions. This is a 47 % reduction (shouldbe 30-50%). Patient will resume usual dose when they finish course of medication Patient will contact [facility] if they experience any issues with unusual bruising or bleeding, or if they have any N/V/D while taking the medication. Repeat INR in 2 weeks on 02/17/23 Gely Ramírez RPh, PharmD Clinical Pharmacist - Still Photographer Medication [facility] 01/27/2023, 3:59 PM [phone] * Telephone Encounter - Vani Hernandez LPN - 01/27/2023 10:49 AM EST aware to take Diflucan along with Cephalexin. * Telephone Encounter - Giuliana Cheng RPh - 01/27/2023 10:47 AM EST Images from the original note were not included. BPA received for patient on warfarin prescribed fluconazole BID for 7 days: * Telephone Encounter - Javi Garcia MD - 01/27/2023 10:33 AM EST Yeast Cystitis. Gely: does his Coumadin need changed? * Telephone Encounter - Vani Hernandez LPN - 01/27/2023 10:25 AM EST Pt is seeing Gely today. said she had him at the [facility] on 01/24 for UTI symptoms. He is on Cephalexin for it. questioned if he actually has an infection. I reviewed reports with Dr. Garcia. Do you want to call something else in? Thanks. documented in this encounter Plan of Treatment Upcoming Encounters Date Type Department Care Team (Late st Contact Info) Description 02/17/2023 10:30 AM EST Anticoagulation Pharmacy, [address] [place] [address] [place] [address] 03/10/2023 11:00 AM EST Anticoagulation Pharmacy, [address] [place] [address] [place] [address] 06/25/2023 10:40 AM EDT Office Visit Family Medicine [address] [place] [phone] Radhames Rowe MD [address] [place] [address] [place] [address] 06/25/2023 11:30 AM EDT Office Visit Cardiology [address] [place] [address] Lex Valerio PA-C [address] [place] [address] Health Maintenance Due Date Last Done Comments COVID-19 Vaccine (#1) 1940 Pneumococcal Vaccine: 65+ Years (1 - PCV) 06/03/1946 Zoster Vaccines (1 of 2) 06/03/1989 Depression Screening 11/21/2020 11/22/2019 CKD PHOS USE SMARTSET 88591 07/04/2021 07/04/2020 Influenza Vaccine (FLU shot) (#1) 2022 GFR 01/15/2023 07/16/2022, 11/09, 08/05/2021, Additional history exists CKD HGB USE SMARTSET 86186 07/17/202307/16, 07/16/2022, 11/26/2021, Additional history exists Albumin/Creatinine [...] this encounter Medical Devices Implanted Type Area Field Coil Winder Device Identifier Shelf Expiration Date Model / Serial / Lot Patch Mesh Pre-W/Cord Opening - [id number] Implanted:Qty: 1 on 03/08/2014 by Araceli Mayo MD at OR [facility] Left: Groin CR BARD : DAVOL 09/08/2018 [id number] / / [id number] Screw Bn T10 Ft St Lk 3.5x50mm - [id number] Implanted:Qty: 1 on 11/29/2021 by Lashawn Martinez DPM at OR [facility] Left: Ankle TRAV : ORTHOPAEDICS [id number] / / documented as of this encounter Visit Diagnoses Diagnosis Yeast cystitis- Primary Candidiasis of other urogenital sites Permanent atrial fibrillation (HCC) Atrial fibrillation documented in this encounter Care Teams Office Rental Clerk Relationship Specialty Start Date End Date Javi Garcia MD [address] [place] [address] [place] [id number] PCP - General Family Medicine 10/30/16 documented as of this encounter
--- OUTSIDE RECORDS SUMMARY | 2023-04-26 19:17 | External Medical Summary ---
Author Name Unknown Address Unknown Organization : Laboratory Report Ordering Provider Test Date Status THOMAS BURRELL 03/10/2023 11:03:37 Final Therapeutic ranges for non-o perative patients:
Prophylaxsis/treatment of DVT: (Range:2.0-3.0)
Treatment of pulmonary embolism:(Range:2.0-3.0)
Prevention of systemic embolism from:
-tissue heart valves
-acute myocardial infarction
-valvular heart disease
-atrial fibrillation
(Range: 2.0-3.0)
Mechanical prosthetic valves: (Range: 2.5-3.5) Observation Date Value Abnormality Reference (Units ) Status INR in Capillary blood by Coagulation assay 03/10/2023 11:03:37 3.8 (INR) Final Performing Location
--- OUTSIDE RECORDS SUMMARY | 2023-04-26 19:17 | External Medical Summary | Summary of Care ---
Author Name Unknown Organization [facility] Address [address] [place] [address] Phone [phone] Care Team Providers Care Chemist Water Purification Name Role Phone Javi Garcia MD Primary Care Provider [phone] Encounter Details Date Type Department Care Team ([facility] Contact Info) Description 01/24/2023 Result Scan Unspecified Department <No scans attached> Allergies No known active allergiesdocumented as of this encounter (statuses as of 02/05/2023) Medications Medication Sig Dispensed Refills Start Date [...] DAY . 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 Renal calculus 11/28/2011 11/08/2019 documented as of this encounter (statuses as of 02/05/2023) Immunizations Name Administration Dates Next Due TDAP [...] Description 02/17/2023 10:30 AM EST Anticoagulation Pharmacy, [address] [place] [address] [place] [address] 03/10/2023 11:00 AM EST Anticoagulation Pharmacy, [address] [place] [address] [place] [address] 06/25/2023 10:40 AM EDT Office Visit Family Medicine [address] [place] [phone] Radhames Rowe MD [address] [place] [address] [place] [address] 06/25/2023 11:30 AM EDT Office Visit Cardiology [address] [place] [address] Lex Valerio PA-C [address] [place] [address] Health Maintenance Due Date Last Done Comments COVID-19 Vaccine (#1) 1940 Pneumococcal Vaccine: 65+ Years (1 - PCV) 06/03/1946 Zoster Vaccines (1 of 2) 06/03/1989 Depression Screening 11/21/2020 11/22/2019 CKD PHOS USE SMARTSET 30439 07/04/2021 07/04/2020 Influenza Vaccine (FLU shot) (#1) 2022 GFR 01/15/2023 07/16/2022, 11/09, 08/05/2021, Additional history exists CKD HGB USE SMARTSET 82046 07/17/202307/16, 07/16/2022, 11/26/2021, Additional history exists Albumin/Creatinine [...] this encounter Medical Devices Implanted Type Area Retail Field Merchandiser Device Identifier Shelf Expiration Date Model / Serial / Lot Patch Mesh Pre-W/Cord Opening - [id number] Implanted:Qty: 1 on 03/08/2014 by Araceli Mayo MD at OR [facility] Left: Groin CR BARD : DAVOL 09/08/2018 [id number] / / [id number] Screw Bn T10 Ft St Lk 3.5x50mm - [id number] Implanted:Qty: 1 on 11/29/2021 by Lashawn Martinez DPM at OR [facility] Left: Ankle TRAV : ORTHOPAEDICS [id number] / / documented as of this encounter Procedures Procedure Name Priority Date/Time Associated Diagnosis Comments OUTSIDE LAB RESULTS 01/24/2023 documented in this encounter Results * OUTSIDE LAB RESULTS (01/24/2023) 01/24/2023 No Physician Data Unknown LABORATORY documented in this encounter Care Teams Chemist Water Purification Relationship Specialty Start Date End Date Javi Garcia MD [address] [place] [address] [place] [id number] PCP - General Family Medicine 10/30/16 documented as of this encounter
--- OUTSIDE RECORDS SUMMARY | 2023-04-26 19:17 | External Medical Summary | Summary of Care ---
Author Name Unknown Organization [facility] Address [address] [place] [address] Phone [phone] Care Team Providers Care Computer Systems Technician Name Role Phone Wilbert Damian MD Primary Care Provider [phone] Reason for Visit * Reason Comments eRx-Medication Refill Encounter Details Date Type Department Care Team (Late st Contact Info) Description 01/28/2023 Refill Family Medicine [address] [phone] Wilbert Damian MD [address] [place] [address] Permanent atrial fibrillation (HCC) Allergies No known active allergiesdocumented as of this encounter (statuses as of 01/28/2023) Medications Medication Sig Dispensed Refills Start Date End Date Status Melatonin 5 MG Oral Tablet Take 1 Tablet by mouth at bedtime. 30 Tablet 0 3 Active Warfarin Sodium 5 MG Oral Tablet (Coumadin)Indica tions:Permanent atrial fibrillation (HCC) TAKE 5 MG (1 TABLET) BY MOUTH EACH EVENING OR DIRECTED BY ANTICOAGULATION CLINIC. DX: I48.21 90 Tablet 3 3 Active Ferrous Sulfate 325 (65 Fe) MG Oral Tablet (Feosol)Indicati ons:Iron deficiency anemia, unspecified iron deficiency anemia type Take 1 Tablet by mouth in the morning. 90 Tablet 1 3 Active Vitamin B Complex Oral Tablet Take 1 Tablet by mouth daily with dinner. 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 45 Tablet 5 3 Active Fluconazole 200 MG Oral Tablet (Diflucan)Indica tions:Yeast cystitis one pill twice a day 14 Tablet 0 3 02/04/20 23 Active Lisinopril 10 MG Oral Tablet (Prinivil)Indica tions:Permanent atrial fibrillation (HCC) TAKE 1 TABLET BY MOUTH EVERY DAY 90 Tablet 1 3 Active Lisinopril 10 MG Oral Tablet (Prinivil)Indica tions:Permanent atrial fibrillation (HCC) Take 1 Tablet by mouth in the morning. 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 Renal calculus 11/28/2011 11/08/2019 documented as of this encounter (statuses as of 01/28/2023) Immunizations Name Administration Dates Next Due TDAP [...] encounter Miscellaneous Notes * Telephone Encounter - Yesica Doe RPh - 01/28/2023 4:09 PM ESTSigned Prescriptions: Disp Refills Lisinopril 10 MG Oral Tablet (Prinivil) 90 Tab*1 Sig: TAKE 1 TABLET BY MOUTH EVERY DAYAuthorizing Provider: WILBERT DAMIAN User: YESICA DOE------ documented in this encounter Plan of Treatment Upcoming Encounters Date Type Department Care Team (Late st Contact Info) Description 02/17/2023 10:30 AM EST Anticoagulation Pharmacy, [address] [place] [address] [place] [address] 03/10/2023 11:00 AM EST Anticoagulation Pharmacy, [address] [place] [address] [place] [address] 06/25/2023 10:40 AM EDT Office Visit Family Medicine [address] [place] [phone] Radhames Rowe MD [address] [place] [address] [place] [address] 06/25/2023 11:30 AM EDT Office Visit Cardiology [address] [place] [address] Lex Valerio PA-C [address] [place] [address] Health Maintenance Due Date Last Done Comments COVID-19 Vaccine (#1) 1940 Pneumococcal Vaccine: 65+ Years (1 - PCV) 06/03/1946 Zoster Vaccines (1 of 2) 06/03/1989 Depression Screening 11/21/2020 11/22/2019 CKD PHOS USE SMARTSET 37164 07/04/2021 07/04/2020 Influenza Vaccine (FLU shot) (#1) 2022 GFR 01/15/2023 07/16/2022, 11/09, 08/05/2021, Additional history exists CKD HGB USE SMARTSET 17547 07/17/202307/16, 07/16/2022, 11/26/2021, Additional history exists Albumin/Creatinine [...] this encounter Medical Devices Implanted Type Area Cast Associate Device Identifier Shelf Expiration Date Model / Serial / Lot Patch Mesh Pre-W/Cord Opening - [id number] Implanted:Qty: 1 on 03/08/2014 by Araceli Mayo MD at OR [facility] Left: Groin CR BARD : DAVOL 09/08/2018 [id number] / / [id number] Screw Bn T10 Ft St Lk 3.5x50mm - [id number] Implanted:Qty: 1 on 11/29/2021 by Lashawn Martinez DPM at OR [facility] Left: Ankle TRAV : ORTHOPAEDICS [id number] / / documented as of this encounter Visit Diagnoses Diagnosis Permanent atrial fibrillation (HCC) Atrial fibrillation documented in this encounter Care Teams Computer Systems Technician Relationship Specialty Start Date End Date Wilbert Damian MD [address] [place] [address] [place] [address] PCP - General Family Medicine 10/30/16 documented as of this encounter
--- OUTSIDE RECORDS SUMMARY | 2023-04-26 19:17 | External Medical Summary ---
Author Name Unknown Address Unknown Organization : Laboratory Report Ordering Provider Test Date Status THOMAS BURRELL 01/27/2023 10:26:24 Final Therapeutic ranges for non-o perative patients:
Prophylaxsis/treatment of DVT: (Range:2.0-3.0)
Treatment of pulmonary embolism:(Range:2.0-3.0)
Prevention of systemic embolism from:
-tissue heart valves
-acute myocardial infarction
-valvular heart disease
-atrial fibrillation
(Range: 2.0-3.0)
Mechanical prosthetic valves: (Range: 2.5-3.5) Observation Date Value Abnormality Reference (Units ) Status INR in Capillary blood by Coagulation assay 01/27/2023 10:26:24 2.0 (INR) Final Performing Location
--- OUTSIDE RECORDS SUMMARY | 2023-04-26 19:17 | External Medical Summary | Summary of Care ---
Author Name Unknown Organization [facility] Address [address] [facility] [place] [address] Phone [phone] Care Team Providers Care Prosthodontist/Owner Name Role Phone Javi Garcia MD Primary Care Provider [phone] Reason for Visit * Reason Comments Dosage Adjustment In Person (Anticoag Cl inic) Encounter Details Date Type Department Care Team (Latest Contact Info) Description 01/27/2023 10:20 AM [facility] Anticoagulation Pharmacy, [address] [place] [address] [place] [address] Permanent atrial fibrillation (HCC)*; Anticoagulation management encounter; exterminator current use of anticoagulant therapy Allergies No [...] Progress Notes * Gely Ramírez RPh - 01/27/2023 10:23 AM EST Medication Therapy Disease Management - Anticoagulation Patient: Joshua Chavez | : 1940 Patient presents with spouse Subjective Patient-Reported Symptoms: Patient Findings Positives: Extra doses Negatives: Signs/symptoms of thrombosis, Signs/symptoms of bleeding, Change in health, Change in alcohol use, Change in activity, Upcoming invasive procedure, Missed doses, Change in medications, Change in diet/appetite, Bruising Objective Current Warfarin Dose As of 01/27/2023 Warfarin maintenance plan: 2.5 mg (5 mg x 0.5) every Thu, Sat; 5 mg (5 mg x 1) all other days INR Result As of 01/27/2023 INR goal: 2.0-3.0 INR used for dosin.0 (01/27/2023) Assessment & Plan Warfarin Plan As of 01/27/2023 Full warfarin instructions: 2.5 mg every Sat; 5 mg all other days Next INR check: 03/10/2023 Repeat PT/INR in 6 week(s) Weekly dose: not changed, increased to reflect what patient has been taking Additional Dosing Information: Patient and spouse report he has been taking 1/2 tablet on Thursday ONLY. Spouse confirms this is what she has been giving him. INR today is therapeutic. Will plan to continue with dosing at this time. Gely Ramírez RPh Clinical Pharmacist 01/27/2023, 10:23 AM documented in this encounter Plan of Treatment Upcoming Encounters Date Type Department Care Team (Late st Contact Info) Description 03/10/2023 11:00 AM EST Anticoagulation Pharmacy, [address] [place] [address] [place] [address] 06/25/2023 10:40 AM EDT Office Visit Family Medicine [address] [place] [phone] Radhames Rowe MD [address] [place] [address] [place] [address] 06/25/2023 11:30 AM EDT Office Visit Cardiology [address] [place] [address] Lex Valerio PA-C [address] [place] [address] Health Maintenance Due Date Last Done Comments COVID-19 Vaccine (#1) 1940 Pneumococcal Vaccine: 65+ Years (1 - PCV) 06[birth year]03/1945 Zoster Vaccines (1 of 2) 06/03/1989 Depression Screening 11/21/2020 11/22/2019 CKD PHOS USE SMARTSET 15224 07/04/2021 07/04/2020 Influenza Vaccine (FLU shot) (#1) 2022 GFR 01/15/2023 07/16/2022, 11/09, 08/05/2021, Additional history exists CKD HGB USE SMARTSET 92079 07/17/202307/16, 07/16/2022, 11/26/2021, Additional history exists Albumin/Creatinine [...] this encounter Medical Devices Implanted Type Area Host Coordinator Device Identifier Shelf Expiration Date Model / Serial / Lot Patch Mesh Pre-W/Cord Opening - [id number] Implanted:Qty: 1 on 03/08/2014 by Araceli Mayo MD at OR [facility] Left: Groin CR BARD : DAVOL 09/08/2018 [id number] / / [id number] Screw Bn T10 Ft [address] Lk 3.5x50mm - [id number] Implanted:Qty: 1 on 11/29/2021 by Lashawn Martinez DPM at OR [facility] Left: Ankle TRAV : ORTHOPAEDICS [id number] / / documented as of this encounter Procedures Procedure Name Priority Date/Time Associated Diagnosis Comments INR FINGERSTICK, POINT OF CARE STAT 01/27/2023 10:26 AM EST Permanent atrial fibrillation (HCC) Anticoagulation management encounter shelter current use of anticoagulant therapy documented in this encounter Results * INR FINGERSTICK, POINT OF CARE (01/27/2023 10:26 AM EST) Fingerstick INR 2.0 INR 10:28 AM EST [facility] 55-00 Blood 01/27/2023 10:2 6 AM EST 01/27/2023 10:28 AM EST Narrative [facility] [place] 55-00 - 01/27/2023 10:28 AM EST Therapeutic ranges for non-operative patients: Prophylaxsis/treatment of DVT: (Range:2.0-3.0) Treatment of pulmonary embolism:(Range:2.0-3.0) Prevention of systemic embolism from: -tissue heart valves -acute myocardial infarction -valvular heart disease -atrial fibrillation (Range: 2.0-3.0) Mechanical prosthetic valves: (Range: 2.5-3.5) Gely Ramírez [facility] LAB POINT OF CARE TEST DOCKED DEVICE UNSOLICITED RESULTS LAB[facility] 55-[address] [place] [address] Drive [place] [address] documented in this encounter Visit Diagnoses Diagnosis Permanent atrial fibrillation (HCC)- Primary Atrial fibrillation Anticoagulation management encounter Encounter for therapeutic drug monitoring shelter current use of anticoagulant therapy documented in this encounter Care Teams Prosthodontist/Owner Relationship Specialty Start Date End Date Javi Garcia MD [address] [place] [address] [place] [phone] PCP - General Family Medicine 10/30/16 documented as of this encounter"
--- OUTSIDE RECORDS SUMMARY | 2023-04-26 19:17 | External Medical Summary | Summary of Care ---
Author Name Unknown Organization [facility] [address] [facility] [place] [address] Phone [phone] Care Team Providers Care Casting Finisher Name Role Phone Jaiv Garcia MD Primary Care Provider [phone] Reason for Visit * Reason Comments Dosage Adjustment In Person (Anticoag Cl inic) Encounter Details Date Type Department Care Team (Latest Contact Info) Description 03/10/2023 11:00 AM [facility] Anticoagulation Pharmacy, [address] [place] [address] [place] [address] Permanent atrial fibrillation (HCC)*; Anticoagulation management encounter; termination clerk current use of anticoagulant therapy Allergies No known active allergiesdocumented as of this encounter (statuses as of 03/10/2023) Medications Medication Sig Dispensed Refills Start Date [...] as of this encounter (statuses as of 03/10/2023) Active Problems Problem Noted Date Diagnosed Date [...] as of this encounter (statuses as of 03/10/2023) Resolved Problems Problem Noted Date Diagnosed Date Resolved Date 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 Medication Therapy Disease Management - Anticoagulation Patient: Joshua Chavez | : 1940 Patient presents with spouse Subjective Patient-Reported Symptoms: Patient Findings Positives: Change in alcohol use Negatives: Signs/symptoms of thrombosis, Signs/symptoms of bleeding, Change in health, Change in activity, Upcoming invasive procedure, Missed doses, Extra doses, Change in medications, Change in diet/appetite, Bruising Objective Current Warfarin Dose As of 03/10/2023 Warfarin maintenance plan: 2.5 mg (5 mg x 0.5) every Sat; 5 mg (5 mg x 1) all other days INR Result As of 03/10/2023 INR goal: 2.0-3.0 INR used for dosin.8 (03/10/2023) Assessment & Plan Warfarin Plan As of 03/10/2023 Full warfarin instructions: 03/10: Hold; Otherwise 2.5 mg every Sat; 5 mg all other days Next INR check: 03/24/2023 Repeat PT/INR in 2 week(s) Weekly dose: not changed Additional Dosing Information: Gely Ramírez [facility] Clinical Pharmacist 03/10/2023, 10:59 AM documented in this encounter Plan of Treatment Upcoming Encounters Date Type Department Care Team (Late st Contact Info) Description 03/24/2023 9:50 AM EST Anticoagulation Pharmacy, [address] [place] [address] [place] [address] 06/25/2023 10:00 AM EDT Office Visit Family Medicine [address] [place] [phone] Radhames Rowe MD [address] [place] [address] [place] [address] 06/25/2023 11:30 AM EDT Office Visit Cardiology [address] [place] [address] Lex Valerio PA-C [address] [place] [address] Health Maintenance Due Date Last Done Comments COVID-19 Vaccine (#1) 1940 Pneumococcal Vaccine: 65+ Years (1 - PCV) 06/03/1945 Zoster Vaccines (1 of 2) 06/03/1989 Depression Screening 11/21/2020 11/22/2019 CKD PHOS USE SMARTSET 39379 07/04/2021 07/04/2020 Influenza Vaccine (FLU shot) (#1) 2022 GFR 01/15/2023 07/16/2022, 11/09, 08/05/2021, Additional history exists CKD HGB USE SMARTSET 29815 07/17/202307/16, 07/16/2022, 11/26/2021, Additional history exists Albumin/Creatinine [...] this encounter Medical Devices Implanted Type Area Box Order Person Device Identifier Shelf Expiration Date Model / Serial / Lot Patch Mesh Pre-W/Cord Opening - [id number] Implanted:Qty: 1 on 03/08/2014 by Araceli Mayo MD at OR [facility] Left: Groin CR BARD : DAVOL 09/08/2018 [id number] / / [id number] Screw Bn T10 Ft St Lk 3.5x50mm - [id number] Implanted:Qty: 1 on 11/29/2021 by Lashawn Martinez DPM at OR [facility] Left: Ankle TRAV : ORTHOPAEDICS [id number] / / documented as of this encounter Procedures Procedure Name Priority Date/Time Associated Diagnosis Comments INR FINGERSTICK, POINT OF CARE STAT 03/10/2023 11:03 AM EST Permanent atrial fibrillation (HCC) Anticoagulation 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 documented in this encounter Results * INR FINGERSTICK, POINT OF CARE (03/10/2023 11:03 AM EST) Fingerstick INR 3.8 INR 11:05 AM EST [facility] [place] 55-00 Blood 03/10/2023 11:0 3 AM EST 03/10/2023 11:05 AM EST Narrative [facility] [place] 55-00 - 03/10/2023 11:05 AM EST Therapeutic ranges for non-operative patients: Prophylaxsis/treatment of DVT: (Range:2.0-3.0) Treatment of pulmonary embolism:(Range:2.0-3.0) Prevention of systemic embolism from: -tissue heart valves -acute myocardial infarction -valvular heart disease -atrial fibrillation (Range: 2.0-3.0) Mechanical prosthetic valves: (Range: 2.5-3.5) Gely Ramírez [facility] LAB POINT OF CARE TEST DOCKED DEVICE UNSOLICITED RESULTS [facility] [place] 55-[address] [place] [address] [place] [address] documented in this encounter Visit Diagnoses Diagnosis Permanent atrial fibrillation (HCC)- Primary Atrial fibrillation Anticoagulation management encounter Encounter for therapeutic drug monitoring [facility] current use of anticoagulant therapy documented in this encounter Care Teams Casting Finisher Relationship Specialty Start Date End Date Javi Garcia MD [address] [place] [address] [place] [address] PCP - General Family Medicine 10/30/16 documented as of this encounter"
[2023-04-26 20:19] LABS: Basophils # (auto) 0.04 K/uL (0.00-0.20); Basophils % (auto) 0.6 %; Eosinophils # (auto) 0.03 K/uL (0.00-0.50); Eosinophils % (auto) 0.4 %; Hematocrit (blood only) 33.7 % (42.0-52.0); Hemoglobin 11.3 g/dl (14.0-18.0); Immature Granulocytes # (auto) 0.02 K/uL (0.01-0.20); Immature Granulocytes % (auto) 0.3 %; Lymphocytes # (auto) 1.45 K/uL (1.20-3.40); Lymphocytes % (auto) 20.7 %; Mean Corpuscular Hemoglobin 31.6 pg (25.0-34.0); Mean Corpuscular Hgb Conc 33.5 g/dL (32.0-36.0); Mean Corpuscular Volume 94.1 fL (80.0-100.0); Mean Platelet Volume 11.1 fL (9.4-12.4); Monocytes # (auto) 1.08 K/uL (0.11-0.59); Monocytes % (auto) 15.5 %; Neutrophils # (auto) 4.37 K/uL (1.40-6.50); Neutrophils % (auto) 62.5 %; Platelet Count 88 K/uL (130-400); RDW Coefficient of Variation 16.4 % (11.5-14.5); RDW Standard Deviation 56.7 fL (36.4-46.3); Red Blood Count 3.58 M/uL (4.70-6.10); White Blood Count 6.99 K/ul (4.8-10.8)
[2023-04-26 20:37] LABS: Albumin Globulin Ratio 1.4 (0.9-2); Albumin Level 3.8 gm/dl (3.4-5.0); BUN Creatinine Ratio 35.2 (10-20); Bilirubin,Total 2.3 mg/dl (0.2-1.0); Creatinine Clr Calc Pharmacy 33.9 ml/min; Est GFR (African American) 45.8 ml/min; Est GFR (Non-African American) 39.6 ml/min; Globulin 2.8 gm/dl (2.5-4.0); Magnesium 2.3 mg/dl (1.7-2.4); Potassium 4.4 mmol/L (3.5-5.1); Total Protein 6.6 gm/dl (6.0-8.3)
[2023-04-26 20:43] LABS: Troponin I High Sensitivity 33.5 pg/ml (0-20)
[2023-04-26 20:49] LABS: INR 3.8 (0.9-1.1); Partial Thromboplastin Ratio 1.7; Partial Thromboplastin Time 47 Seconds (21-31); Prothrombin Time 38.5 Seconds (9.0-12.0)
[2023-04-26 20:52] LABS: Thyroid Stimulating Hormone 1.823 uIu/ml (0.300-4.500)
[2023-04-26 21:00] LABS: Appearance Urine Cloudy (Clear); Bacteria Urine Automated Negative (Negative); Blood Urine 2+ (Negative); Color Urine Orange; Glucose Urine UA Negative (Negative); Ketones Urine Trace (Negative); Leukocyte Esterase Urine 1+ (Negative); Nitrite Urine Negative (Negative); Protein Urine 2+ (Negative); Specific Gravity Urine 1.024 (1.000-1.030); Urobilinogen Urine Negative (Negative); WBC Urine Automated >30 /hpf (0-5)
[2023-04-26 21:05] LABS: Bilirubin Urine 1+ (Negative)
[2023-04-26] MEDS: OPTIRAY 320 100ml IV ONE (21:38)
--- NOTE | 2023-04-26 22:24 | CT Scan Report ---
Exam(s): CT C SPINE EXAM: CT Cervical Spine Without Intravenous Contrast CLINICAL HISTORY: Reason for exam: Trauma, confusion. TECHNIQUE: Axial computed tomography images of the cervical spine without intravenous contrast. CTDI is 26.64 mGy and DLP is 489.9 mGy-cm. Automated exposure control was utilized for the study. A dose lowering technique was utilized adhering to the principles of ALARA. COMPARISON: 01/24/23 FINDINGS: Vertebral body heights are maintained. There is no acute fracture or traumatic subluxation. There is moderate to severe multilevel disc degeneration, multilevel uncovertebral joint degeneration, and advanced multilevel facet joint degeneration. There is degenerative anterolisthesis of C7 on T1 measuring 2 mm. Disc-osteophyte complex is mildly narrow the central canal at C5-C6 and C6-C7. There is moderate-severe right foraminal narrowing at C2-C3, mild right foraminal narrowing at C3-C4, severe left and mild right foraminal narrowing at C4-C5, mild bilateral foraminal narrowing at C5-C6, and severe bilateral foraminal narrowing at C6-C7. No prevertebral soft tissue swelling. Lung apices are clear. IMPRESSION: 1. No acute osseous findings. 2. Degenerative changes. Electronically signed by: Rene Garcia M.D. 04/26/23 22:23 PM
--- NOTE | 2023-04-26 22:25 | CT Scan Report ---
Exam(s): CT HEAD Without Contrast EXAM: CT Head Without Intravenous Contrast CLINICAL HISTORY: Reason for exam: Trauma, confusion. TECHNIQUE: Axial computed tomography images of the head/brain without intravenous contrast. CTDI is 36.67 mGy and DLP is 624.41 mGy-cm. Automated exposure control was utilized for the study. A dose lowering technique was utilized adhering to the principles of ALARA. COMPARISON: 01/24/23 FINDINGS: Brain: Age-related parenchymal volume loss. Mild chronic small vessel ischemic changes. Delacruz-white matter differentiation maintained. No acute intracranial hemorrhage, mass-effect, or edema. Ventricles: Unremarkable. No hydrocephalus. Bones/joints: Unremarkable. No acute fracture. Soft tissues: Unremarkable. Sinuses: Unremarkable as visualized. No acute sinusitis. Mastoid air cells: Unremarkable as visualized. No mastoid effusion. Orbits: Bilateral lens replacements. IMPRESSION: No acute intracranial process. Electronically signed by: Rene Garcia M.D. 04/26/23 22:24 PM
--- NOTE | 2023-04-26 22:29 | CT Scan Report ---
Exam(s): CT ABDOMEN + PELVIS With Contrast IV Amt: 90ml EXAM: CT Abdomen and Pelvis With Intravenous Contrast CLINICAL HISTORY: Reason for exam: Confusion, falls, ecchymosis, scrotal swelling. TECHNIQUE: Axial computed tomography images of the abdomen and pelvis with intravenous contrast. CTDI is 25.63 mGy and DLP is 1455.85 mGy-cm. Automated exposure control was utilized for the study. A dose lowering technique was utilized adhering to the principles of ALARA. CONTRAST: Patient received 90ml of IV contrast COMPARISON: 01/24/23 FINDINGS: Heart is enlarged. There is a small pleural effusion at the left lung base. Lung bases are otherwise clear. Gallbladder and common bile duct are normal. Liver appears cirrhotic. Dilatation of the hepatic veins and IVC are compatible with elevated right heart pressure. Spleen, pancreas, and adrenal glands are unremarkable. Kidneys enhance symmetrically, without hydronephrosis or significant perinephric stranding. There is atherosclerosis without aortic aneurysm. 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 There is no adenopathy. There is no free air. Prostate is mildly enlarged. Urinary bladder is decompressed around a Sanchez catheter. There is a small volume of low-density free pelvic fluid. Appendix is normal. There is no bowel obstruction or inflammation. There is diverticulosis without diverticulitis. There is lumbar scoliosis and spondylosis. Bones are demineralized. There are no acute fractures. Anasarca is increased from prior exam. There are bilateral scrotal hydroceles. IMPRESSION: 1. Anasarca, bilateral scrotal hydroceles, mild ascites, and small left pleural effusion. 2. Cirrhotic liver. 3. Cardiomegaly. Evidence of elevated right heart pressure with dilatation of the hepatic veins and IVC. Electronically signed by: Rene Garcia M.D. 04/26/23 22:28 PM
--- NOTE | 2023-04-26 22:40 | Emergency Department Note ---
Impression & Plan UTI (urinary tract infection), Anasarca, Acute confusion, Elevated INR, Heart failure ED Provider Note NAME: LUCIAN SANDHU AGE: 82 SEX: M : 1940 ARRIVES VIA: Ambulance INFORMANT: Patient, ED PROVIDER(S): Quinn Kwan MD CHIEF COMPLAINT: Fall, confusion HPI: This is an 82-year-old male with history of dementia presenting for confusion and falls. Patient is limited for any history at this time. Reported by nursing/EMS, patient had numerous falls in the past couple of days with increased confusion. He has numerous abrasions, skin tears across his arms and legs. He currently denies any pain. ROS: See above HPI for pertinent positives & negatives. A total of 10 systems reviewed and were otherwise negative. PAST MEDICAL HISTORY: See Below PAST SURGICAL HISTORY: See Below FAMILY HISTORY: See Below SOCIAL HISTORY: See Below HOME MEDICATIONS: See Below ALLERGIES: See Below VITALS: See Below PHYSICAL EXAMINATION: General: Resting in bed Head: Normocephalic and atraumatic Eyes: Normal inspection, extraocular muscles intact Ear, nose, throat: Normal external exam Neck: Normal range of motion Respiratory: lungs clear to auscultation bilaterally Cardiovascular: Regular rate/rhythm, no murmur GI: soft, nontender, distended with scrotal swelling/erythema Extremities: 2+ pitting edema to bilateral lower extremities Neuro: The patient awake and alert, appropriately conversive, no focal deficits, symmetric faces Skin: Scattered abrasions/skin tears MEDICAL DECISION MAKING: This is an 82-year-old male with history of dementia presenting for confusion/falls. This time patient is unable to provide any significant history. Appears to be fluid overloaded with significant pitting edema to bilateral lower extremities tracking up to the groin with a slight distended abdomen. With patient's numerous falls, will require CT imaging of the head. Patient has significant groin erythema, tenderness and swelling, low concern for Homa's gangrene but will rule out with CT imaging. Patient has as numerous falls necessitating further imaging of his abdomen/pelvis. -Chest Xray independently interpreted by me showing no pneumothorax, focal opacity, however cardiomegaly is noted -Sanchez placed by nurse as patient has significant skin excoriation around the genitals and patient being difficult to ambulate -Lab work is reviewed without significant leukocytosis, anemia is noted, slightly worse than usual. INR is elevated at 3.8. Otherwise creatinine elevation 1.59. Total bilirubin is slightly elevated with AST greater than ALT -Troponin currently elevated at 33 CT head and C-spine revealed no acute intracranial process. CT Abdo/pelvis with significant anasarca, pleural effusion on the left -Patient will require admission for confusion, UTI, fluid overload, CHF Differential diagnosis: Urosepsis, UTI, head trauma including intracranial hemorrhage, pneumonia, Homa's gangrene, ER treatment provided: See below Diagnostics interpreted by me: ECG: None Cardiac Monitoring: An order was placed for continuous cardiac monitoring. The monitor shows a rate of 79 with sinus rhythm. Laboratory studies: As stated above and show below. Imaging studies: See below. Past Med/Surg History Medical History (Updated 04/27/23 @ 00:40 by Quinn Kwan MD) Chronic anemia CKD (chronic kidney disease), stage III History of kidney stones HTN (hypertension) (HFpEF) heart failure with preserved ejection fraction Valvular heart disease severe TR, mild to moderate MR per 2017 echo- cardio monitoring Chronic atrial fibrillation on coumadin Surgical History History of tooth extraction Hx of cystoscopy with stent in place due to kidney stone History of right inguinal hernia repair 2014 with mesh Family History Father Myocardial infarction, Onset Age: 70 Mother COPD (chronic obstructive pulmonary disease) Social History Smoking Status: Unknown if ever smoked Second Hand Exposure: No; Do You Dip or Chew Tobacco: No; Hx Alcohol Use: Yes Alcohol type: beer Hx Substance Use: No Preferred Language: Tuvaluan Communication Ability: Impaired Machine Leather Trimmer Required: No Beliefs That Will Affect Care: None marital status: Current Living Situation: Spouse Feels Safe at Home: Yes Assistive Devices: Glasses Allergies Allergies Allergy/AdvReac Type Severity Reaction Status Date / Time No Known Allergies Allergy Verified 04/26/23 22:07 Home Meds Home Medications Medication Instructions Recorded Confirmed ferrous sulfate 325 mg (65 mg 325 mg PO QAM 08/09/19 04/26/23 iron) tablet vitamin B complex 1 tab PO QDD 08/09/19 04/26/23 furosemide 20 mg tablet 20 mg PO Q OTHER DAY 08/25/19 04/26/23 lisinopril 10 mg tablet 10 mg PO QAM 08/25/19 04/26/23 warfarin 5 mg tablet See Rx Instructions .Route .COMPLEX 07/09/22 04/26/23 donepezil 5 mg tablet 5 mg PO QAM 04/26/23 04/26/23 melatonin 5 mg tablet 5 mg PO HS 04/26/23 04/26/23 Results & Data (ED) Vital Signs Vital Signs - 24 hr 04/26/23 19:27 04/26/23 19:27 04/26/23 19:48 Temperature 36.6 C Temperature Source Oral Pulse Rate 83 84 Pulse Rate [Apical] 89 Respiratory Rate 18 18 18 Respiratory Effort / Characteristics Non-Labored Non-Labored Respiratory Depth Normal Normal Respiratory Pattern Regular Regular Blood Pressure 121/62 Blood Pressure [Right Arm] 121/62 Blood Pressure Mean 81 Blood Pressure Mean [Right Arm] 81 Pulse Oximetry 96 97 98 Oxygen Delivery Method Room Air Room Air Room Air Sepsis Recent Fever Within 48 Hours No Sepsis New/Unexplained Change in Mental Status N/A Sepsis Action Taken by Nursing No Action Required 04/26/23 19:48 04/26/23 22:33 Temperature Temperature Source Pulse Rate 83 Pulse Rate [Apical] 79 Respiratory Rate 18 Respiratory Effort / Characteristics Non-Labored Respiratory Depth Normal Respiratory Pattern Regular Blood Pressure Blood Pressure [Right Arm] Blood Pressure Mean Blood Pressure Mean [Right Arm] Pulse Oximetry 97 Oxygen Delivery Method Room Air Sepsis Recent Fever Within 48 Hours Sepsis New/Unexplained Change in Mental Status Sepsis Action Taken by Nursing Laboratory Data 04/26/23 20:05 04/26/23 20:05 Lab Results 04/26/23 04/26/23 Range/Units 20:05 20:45 WBC 6.99 (4.8-10.8) K/ul RBC 3.58 L (4.70-6.10) M/uL Hgb 11.3 L (14.0-18.0) g/dl Hct 33.7 L (42.0-52.0) % MCV 94.1 (80.0-100.0) fL MCH 31.6 (25.0-34.0) pg MCHC 33.5 (32.0-36.0) g/dL RDW Std Deviation 56.7 H (36.4-46.3) fL RDW Coeff of Jono 16.4 H (11.5-14.5) % Plt Count 88 L (130-400) K/uL MPV 11.1 (9.4-12.4) fL Immature Gran % (Auto) 0.3 % Neut % (Auto) 62.5 % Lymph % (Auto) 20.7 % [place] % (Auto) 15.5 % Eos % (Auto) 0.4 % Baso % (Auto) 0.6 % Neut # (Auto) 4.37 (1.40-6.50) K/uL Lymph # (Auto) 1.45 (1.20-3.40) K/uL [place] # (Auto) 1.08 H (0.11-0.59) K/uL Eos # (Auto) 0.03 (0.00-0.50) K/uL Baso # (Auto) 0.04 (0.00-0.20) K/uL Immature Gran # (Auto) 0.02 (0.01-0.20) K/uL PT 38.5 H (9.0-12.0) Seconds INR 3.8 H (0.9-1.1) APTT 47 H (21-31) Seconds PTT Ratio 1.7 Sodium 141 (136-145) mmol/L Potassium 4.4 (3.5-5.1) mmol/L Chloride 109 H (98-107) mmol/L Carbon Dioxide 20 L (21-32) mmol/L Anion Gap 12 H (3-11) BUN 56 H (6-23) mg/dl Creatinine 1.59 H (0.6-1.4) mg/dl Est Cr Clr Drug Dosing 33.9 ml/min Est GFR ( Amer) 45.8 ml/min Est GFR (Non-Af Amer) 39.6 ml/min BUN/Creatinine Ratio 35.2 H (10-20) Glucose 109 H (70-99(Fasting)) mg/dl Calcium 9.0 (8.6-10.3) mg/dl Magnesium 2.3 (1.7-2.4) mg/dl Total Bilirubin 2.3 H (0.2-1.0) mg/dl AST 53 H (13-39) U/L ALT 26 (7-52) U/L Alkaline Phosphatase 99 (34-104) U/L Troponin I High Sens 33.5 H (0-20) pg/ml Total Protein 6.6 (6.0-8.3) gm/dl Albumin 3.8 (3.4-5.0) gm/dl Globulin 2.8 (2.5-4.0) gm/dl Albumin/Globulin Ratio 1.4 (0.9-2) TSH 1.823 (0.300-4.500) uIu/ml Urine Color [place] Urine Appearance Cloudy A (Clear) Urine pH 5.0 (4.5-7.5) Ur Specific [place] 1.024 (1.000-1.030) Urine Protein 2+ H (Negative) Urine Glucose (UA) Negative (Negative) Urine Ketones Trace H (Negative) Urine Blood 2+ H (Negative) Urine Nitrite Negative (Negative) Urine Bilirubin 1+ H (Negative) Urine Urobilinogen Negative (Negative) Ur Leukocyte Esterase 1+ H (Negative) Urine WBC (Auto) >30 H (0-5) /hpf Urine RBC (Auto) 5-10 H (0-4) /hpf U Hyaline Cast (Auto) 5-10 H (0-5) /lpf U Epithel Cells (Auto) 5-10 H (0-5) /lpf Urine Bacteria (Auto) Negative (Negative) Administered Medications Droperidol (Droperidol 5 Mg/2 Ml Vial) 1.25 mg IV ONE STA Stop: 04/27/23 00:20 Last Admin: 04/26/23 23:30 Dose: 1.25 mg Documented By: ADDISON Droperidol (Droperidol 5 Mg/2 Ml Vial) 1.25 mg IV ONE STA Stop: 04/27/23 00:21 Last Admin: 04/27/23 00:15 Dose: 1.25 mg Documented By: ADDISON Olanzapine (Olanzapine 10 Mg/2.1 Ml Sdv) 2.5 mg IM NOW STA Stop: 04/27/23 00:12 Last Admin: 04/27/23 00:22 Dose: 2.5 mg Documented By: ADDISON Discontinued Medications Droperidol (Droperidol 5 Mg/2 Ml Vial) Confirm Administered Dose 5 mg .ROUTE .[employer]-MED ONE Stop: 04/26/23 23:39 Last Admin: 04/27/23 00:22 Dose: Not Given Documented By: ADDISON Ioversol (Optiray 320 100ml) 90 ml IV ONCE ONE Stop: 04/26/23 21:39 Last Admin: 04/26/23 21:38 Dose: 90 ml Documented By: KATTY Imaging Data Radiologist's Impression: Abdomen/Pelvis CT 04/26/23 21:18 Exam(s): CT ABDOMEN + PELVIS With Contrast IV Amt: 90ml EXAM: CT Abdomen and Pelvis With Intravenous Contrast CLINICAL HISTORY: Reason for exam: Confusion, falls, ecchymosis, scrotal swelling. TECHNIQUE: Axial computed tomography images of the abdomen and pelvis with intravenous contrast. CTDI is 25.63 mGy and DLP is 1455.85 mGy-cm. Automated exposure control was utilized for the study. A dose lowering technique was utilized adhering to the principles of ALARA. CONTRAST: Patient received 90ml of IV contrast COMPARISON: 01/24/23 FINDINGS: Heart is enlarged. There is a small pleural effusion at the left lung base. Lung bases are otherwise clear. Gallbladder and common bile duct are normal. Liver appears cirrhotic. Dilatation of the hepatic veins and IVC are compatible with elevated right heart pressure. Spleen, pancreas, and adrenal glands are unremarkable. Kidneys enhance symmetrically, without hydronephrosis or significant perinephric stranding. There is atherosclerosis without aortic aneurysm. 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 There is no adenopathy. There is no free air. Prostate is mildly enlarged. Urinary bladder is decompressed around a Sanchez catheter. There is a small volume of low-density free pelvic fluid. Appendix is normal. There is no bowel obstruction or inflammation. There is diverticulosis without diverticulitis. There is lumbar scoliosis and spondylosis. Bones are demineralized. There are no acute fractures. Anasarca is increased from prior exam. There are bilateral scrotal hydroceles. IMPRESSION: 1. Anasarca, bilateral scrotal hydroceles, mild ascites, and small left pleural effusion. 2. Cirrhotic liver. 3. Cardiomegaly. Evidence of elevated right heart pressure with dilatation of the hepatic veins and IVC. Electronically signed by: Rene Garcia M.D. 04/26/23 22:[address] 04/26/23 21:18 Exam(s): CT C SPINE EXAM: CT Cervical Spine Without Intravenous Contrast CLINICAL HISTORY: Reason for exam: Trauma, confusion. TECHNIQUE: Axial computed tomography images of the cervical spine without intravenous contrast. CTDI is 26.64 mGy and DLP is 489.9 mGy-cm. Automated exposure control was utilized for the study. A dose lowering technique was utilized adhering to the principles of ALARA. COMPARISON: 01/24/23 FINDINGS: Vertebral body heights are maintained. There is no acute fracture or traumatic subluxation. There is moderate to severe multilevel disc degeneration, multilevel uncovertebral joint degeneration, and advanced multilevel facet joint degeneration. There is degenerative anterolisthesis of C7 on T1 measuring 2 mm. Disc-osteophyte complex is mildly narrow the central canal at C5-C6 and C6-C7. There is moderate-severe right foraminal narrowing at C2-C3, mild right foraminal narrowing at C3-C4, severe left and mild right foraminal narrowing at C4-C5, mild bilateral foraminal narrowing at C5-C6, and severe bilateral foraminal narrowing at C6-C7. No prevertebral soft tissue swelling. Lung apices are clear. IMPRESSION: 1. No acute osseous findings. 2. Degenerative changes. Electronically signed by: Rene Garcia M.D. 04/26/23 22:[address] 04/26/23 21:18 Exam(s): CT HEAD Without Contrast EXAM: CT Head Without Intravenous Contrast CLINICAL HISTORY: Reason for exam: Trauma, confusion. TECHNIQUE: Axial computed tomography images of the head/brain without intravenous contrast. CTDI is 36.67 mGy and DLP is 624.41 mGy-cm. Automated exposure control was utilized for the study. A dose lowering technique was utilized adhering to the principles of ALARA. COMPARISON: 01/24/23 FINDINGS: Brain: Age-related parenchymal volume loss. Mild chronic small vessel ischemic changes. [place]-white matter differentiation maintained. No acute intracranial hemorrhage, mass-effect, or edema. Ventricles: Unremarkable. No hydrocephalus. Bones/joints: Unremarkable. No acute fracture. Soft tissues: Unremarkable. Sinuses: Unremarkable as visualized. No acute sinusitis. Mastoid air cells: Unremarkable as visualized. No mastoid effusion. Orbits: Bilateral lens replacements. IMPRESSION: No acute intracranial process. Electronically signed by: Rene Garcia M.D. 04/26/23 22:24 PM Discharge Plan Visit Data Chief Complaint: Fall Stated Complaint: FALL, CONFUSION ED Provider: Quinn Kwan Discharge Problem: UTI (urinary tract infection), Anasarca, Acute confusion, Elevated INR, Heart failure Forms Stand Alone Forms: My [facility] Prescriptions Prescriptions: No Action lisinopril 10 mg Tablet 10 mg PO QAM furosemide 20 mg tablet 20 mg PO Q OTHER DAY ferrous sulfate 325 mg (65 mg iron) Tablet 325 mg PO QAM vitamin B complex Tablet 1 tab PO QDD warfarin 5 mg tablet See Rx Instructions .ROUTE .COMPLEX Rx Instructions: Take 5mg on Sun, Mon, Tue, Wed, Thur and Fri. And 2.5mg on Sat donepezil 5 mg tablet 5 mg PO QAM melatonin 5 mg Tablet 5 mg PO HS Referrals Referrals: Javi Garcia MD [Primary Care Provider] -
[2023-04-26] MEDS: DROPERIDOL 5 MG/2 ML VIAL IV STA (23:30)
[2023-04-27] MEDS: DROPERIDOL 5 MG/2 ML VIAL IV STA (00:15)
[2023-04-27] MEDS: DROPERIDOL 5 MG/2 ML VIAL ONE (00:22)
[2023-04-27] MEDS: OLANZapine 10 MG/2.1 ML SDV IM STA ×2 (00:22→01:19)
[2023-04-27] MEDS: OLANZapine 10 MG/2.1 ML SDV IM ONE (00:39)
--- NOTE | 2023-04-27 01:42 | History & Physical Report ---
Date of Service April 27, 2023 Assessment & Plan (1) Acute confusion: Plan: 82-year-old male with past medical history significant for heart failure due to valvular disease, permanent atrial fibrillation, mitral regurgitation, tricuspid regurgitation, hypertension, CKD stage III, microscopic hematuria, osteoarthritis of left hip, late onset Alzheimer's dementia with agitation, iron deficiency anemia, history of kidney stones presents with falls and also con fusion. As per patient was sitting on edge of chair and he fell down and is bleeding from the arm and was brought in here. As per he has dementia but last few days his confusion is getting worse. Yesterday he did not know where he was. Generally ambulates without support. But yesterday he was requiring support of furniture and he was wobbly. Generally eats regular food. No recent fevers. No cough. Complaints of pain all over. No diarrhea. No blood in the stools. Currently patient is very drowsy. He was agitated and received IM Zyprexa. Requiring one-on-one. Hemodynamics okay. Could not get any history from the patient. Acute confusion Possible from UTI Receiving Rocephin Will follow cultures Acute diastolic CHF Due to valvular heart disease Placed on IV Lasix 20 mg daily for now Daily weights and I's and O's Will follow echo Telemetry Consult cardiology in a.m. for further recommendations Mild elevation troponin We will follow serial cardiac enzymes and repeat EKG and echo Cardiology consulted Frequent falls CT head and CT cervical spine okay PT OT when stable Late onset Alzheimer's dementia with agitation Required Zyprexa in the ER Continue home donezepil Close monitor for delirium One-on-one as needed Hypertension On lisinopril Permanent atrial fibrillation On Coumadin Will hold Coumadin as INR is 3.8 Follow PT/INR RACHEL on CKD stage III Baseline creatinine around 1 Plan for creatinine of 1.5 Possibly cardiorenal Getting Lasix Monitor labs Liver cirrhosis On CT scan We will follow LFTs GI consult DVT prophylaxis On Coumadin INR 3.8 Disposition Telemetry CODE STATUS DNR/DNI as per my discussion with the History of Present Illness Chief Complaint: Fall and confusion Primary Care Provider: Javi Garcia MD 82-year-old male with past medical history significant for heart failure due to valvular disease, permanent atrial fibrillation, mitral regurgitation, tricuspid regurgitation, hypertension, CKD stage III, microscopic hematuria, osteoarthritis of left hip, late onset Alzheimer's dementia with agitation, iron deficiency anemia, history of kidney stones presents with falls and also confusion. As per patient was sitting on edge of chair and he fell down and is bleeding from the arm and was brought in here. As per he has dementia but last few days his confusion is getting worse. Yesterday he did not know where he was. Generally ambulates without support. But yesterday he was requiring support of furniture and he was wobbly. Generally eats regular food. No recent fevers. No cough. Complaints of pain all over. No diarrhea. No bl ood in the stools. Currently patient is very drowsy. He was agitated and received IM Zyprexa. Requiring one-on-one. Hemodynamics okay. Could not get any history from the patient. Past medical history. As mentioned above Past surgical history. Left bimalleolar ankle fracture repair. Repair of inguinal hernia. Social history. . No smoking. Alcohol occasional. No drug use. Family history. Father had ID at age of 70. Mother had lung disorder. Allergies Allergy/AdvReac Type Severity Reaction Status Date / Time No Known Allergies Allergy Verified 04/26/23 22:07 Home Medications Medication Instructions Recorded Confirmed Type ferrous sulfate 325 mg (65 mg 325 mg PO QAM 08/09/19 04/26/23 History iron) tablet vitamin B complex 1 tab PO QDD 08/09/19 04/26/23 History furosemide 20 mg tablet 20 mg PO Q OTHER DAY 08/25/19 04/26/23 History lisinopril 10 mg tablet 10 mg PO QAM 08/25/19 04/26/23 History warfarin 5 mg tablet See Rx Instructions .Route .COMPLEX 07/09/22 04/26/23 History donepezil 5 mg tablet 5 mg PO QAM 04/26/23 04/26/23 History melatonin 5 mg tablet 5 mg PO HS 04/26/23 04/26/23 History Past Med/Surg History Medical History (Updated 04/27/23 @ 08:39 by MARI Cortes) Chronic anemia CKD (chronic kidney disease), stage III History of kidney stones HTN (hypertension) (HFpEF) heart failure with preserved ejection fraction Valvular heart disease severe TR, mild to moderate MR per 2017 echo- cardio monitoring Chronic atrial fibrillation on coumadin Surgical History History of tooth extraction Hx of cystoscopy with stent in place due to kidney stone History of right inguinal hernia repair 2015 with mesh Family History Father Myocardial infarction, Onset Age: 70 Mother COPD (chronic obstructive pulmonary disease) Social History Smoking Status: Never smoker Second Hand Exposure: No; Do You Dip or Chew Tobacco: No; Hx Alcohol Use: Yes Alcohol type: beer Hx Substance Use: No Preferred Language: Mexican Communication Ability: Impaired Sourcing Manager Required: No Beliefs That Will Affect Care: None marital status: Current Living Situation: Spouse Current Living Situation Comment: Last medical record stats w/ spouse unable to get a clear response now Feels Safe at Home: Yes Safety Concerns: Feels Safe At This Time Assistive Devices: Denture - Upper Review of Systems Review of Systems: Unobtainable due to cognitive status Physical Exam Physical Exam: General- Drowsy Head- atraumatic Eyes- PERRL. Lungs- clear to auscultation no wheezing or crackles. Heart- regular rhythm; no murmur, no gallop. Abdomen- normal bowel sounds, soft, no distension. Extremities- b/l lower extremity edema present. Chronic skin changes seen. Neuro- Drowsy, not oriented. Moves extremities. Results & Data Results & Data Vital Signs (Past 12 Hours) Vital Signs Temp Pulse Pulse Resp BP BP Pulse Ox 04/27/23 01:30 85 18 92 04/26/23 23:36 83 04/26/23 22:33 79 18 97 04/26/23 19:48 83 04/26/23 19:48 84 18 98 04/26/23 19:27 89 18 121/62 97 04/26/23 19:27 36.6 C 83 18 121/62 96 O2 Del Method 04/27/23 01:30 Room Air 04/26/23 23:36 04/26/23 22:33 Room Air 04/26/23 19:48 04/26/23 19:48 Room Air 04/26/23 19:27 Room Air 04/26/23 19:27 Room Air Diagnostic Findings Laboratory Results WBC 6.99 K/ul (4.8-10.8) 04/26/23 20:05 RBC 3.58 M/uL (4.70-6.10) L 04/26/23 20:05 Hgb 11.3 g/dl (14.0-18.0) L 04/26/23 20:05 Hct 33.7 % (42.0-52.0) L 04/26/23 20:05 MCV 94.1 fL (80.0-100.0) 04/26/23 20:05 MCH 31.6 pg (25.0-34.0) 04/26/23 20:05 MCHC 33.5 g/dL (32.0-36.0) 04/26/23 20:05 RDW Std Deviation 56.7 fL (36.4-46.3) H 04/26/23 20:05 RDW Coeff of Jono 16.4 % (11.5-14.5) H 04/26/23 20:05 Plt Count 88 K/uL (130-400) L 04/26/23 20:05 MPV 11.1 fL (9.4-12.4) 04/26/23 20:05 Immature Gran % (Auto) 0.3 % 04/26/23 20:05 Neut % (Auto) 62.5 % 04/26/23 20:05 Lymph % (Auto) 20.7 % 04/26/23 20:05 [place] % (Auto) 15.5 % 04/26/23 20:05 Eos % (Auto) 0.4 % 04/26/23 20:05 Baso % (Auto) 0.6 % 04/26/23 20:05 Neut # (Auto) 4.37 K/uL (1.40-6.50) 04/26/23 20:05 Lymph # (Auto) 1.45 K/uL (1.20-3.40) 04/26/23 20:05 [place] # (Auto) 1.08 K/uL (0.11-0.59) H 04/26/23 20:05 Eos # (Auto) 0.03 K/uL (0.00-0.50) 04/26/23 20:05 Baso # (Auto) 0.04 K/uL (0.00-0.20) 04/26/23 20:05 Immature Gran # (Auto) 0.02 K/uL (0.01-0.20) 04/26/23 20:05 PT 38.5 Seconds (9.0-12.0) H 04/26/23 20:05 INR 3.8 (0.9-1.1) H 04/26/23 20:05 APTT 47 Seconds (21-31) H 04/26/23 20:05 PTT Ratio 1.7 04/26/23 20:05 Sodium 141 mmol/L (136-145) 04/26/23 20:05 Potassium 4.4 mmol/L (3.5-5.1) 04/26/23 20:05 Chloride 109 mmol/L (98-107) H 04/26/23 20:05 Carbon Dioxide 20 mmol/L (21-32) L 04/26/23 20:05 Anion Gap 12 (3-11) H 04/26/23 20:05 BUN 56 mg/dl (6-23) H 04/26/23 20:05 Creatinine 1.59 mg/dl (0.6-1.4) H 04/26/23 20:05 Est Cr Clr Drug Dosing 33.9 ml/min 04/26/23 20:05 Est GFR ( Amer) 45.8 ml/min 04/26/23 20:05 Est GFR (Non-Af Amer) 39.6 ml/min 04/26/23 20:05 BUN/Creatinine Ratio 35.2 (10-20) H 04/26/23 20:05 Glucose 109 mg/dl (70-99(Fasting)) H 04/26/23 20:05 Calcium 9.0 mg/dl (8.6-10.3) 04/26/23 20:05 Magnesium 2.3 mg/dl (1.7-2.4) 04/26/23 20:05 Total Bilirubin 2.3 mg/dl (0.2-1.0) H 04/26/23 20:05 AST 53 U/L (13-39) H 04/26/23 20:05 ALT 26 U/L (7-52) 04/26/23 20:05 Alkaline Phosphatase 99 U/L (34-104) 04/26/23 20:05 Troponin I High Sens 33.5 pg/ml (0-20) H 04/26/23 20:05 Total Protein 6.6 gm/dl (6.0-8.3) 04/26/23 20:05 Albumin 3.8 gm/dl (3.4-5.0) 04/26/23 20:05 Globulin 2.8 gm/dl (2.5-4.0) 04/26/23 20:05 Albumin/Globulin Ratio 1.4 (0.9-2) 04/26/23 20:05 TSH 1.823 uIu/ml (0.300-4.500) 04/26/23 20:05 Urine Color [place] 04/26/23 20:45 Urine Appearance Cloudy (Clear) A 04/26/23 20:45 Urine pH 5.0 (4.5-7.5) 04/26/23 20:45 Ur Specific [place] 1.024 (1.000-1.030) 04/26/23 20:45 Urine Protein 2+ (Negative) H 04/26/23 20:45 Urine Glucose (UA) Negative (Negative) 04/26/23 20:45 Urine Ketones Trace (Negative) H 04/26/23 20:45 Urine Blood 2+ (Negative) H 04/26/23 20:45 Urine Nitrite Negative (Negative) 04/26/23 20:45 Urine Bilirubin 1+ (Negative) H 04/26/23 20:45 Urine Urobilinogen Negative (Negative) 04/26/23 20:45 Ur Leukocyte Esterase 1+ (Negative) H 04/26/23 20:45 Urine WBC (Auto) >30 /hpf (0-5) H 04/26/23 20:45 Urine RBC (Auto) 5-10 /hpf (0-4) H 04/26/23 20:45 U Hyaline Cast (Auto) 5-10 /lpf (0-5) H 04/26/23 20:45 U Epithel Cells (Auto) 5-10 /lpf (0-5) H 04/26/23 20:45 Urine Bacteria (Auto) Negative (Negative) 04/26/23 20:45 Impressions Abdomen/Pelvis CT 04/26/23 21:18 Exam(s): CT ABDOMEN + PELVIS With Contrast IV Amt: 90ml EXAM: CT Abdomen and Pelvis With Intravenous Contrast CLINICAL HISTORY: Reason for exam: Confusion, falls, ecchymosis, scrotal swelling. TECHNIQUE: Axial computed tomography images of the abdomen and pelvis with intravenous contrast. CTDI is 25.63 mGy and DLP is 1455.85 mGy-cm. Automated exposure control was utilized for the study. A dose lowering technique was utilized adhering to the principles of ALARA. CONTRAST: Patient received 90ml of IV contrast COMPARISON: 01/24/23 FINDINGS: Heart is enlarged. There is a small pleural effusion at the left lung base. Lung bases are otherwise clear. Gallbladder and common bile duct are normal. Liver appears cirrhotic. Dilatation of the hepatic veins and IVC are compatible with elevated right heart pressure. Spleen, pancreas, and adrenal glands are unremarkable. Kidneys enhance symmetrically, without hydronephrosis or significant perinephric stranding. There is atherosclerosis without aortic aneurysm. 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 There is no adenopathy. There is no free air. Prostate is mildly enlarged. Urinary bladder is decompressed around a Sanchez catheter. There is a small volume of low-density free pelvic fluid. Appendix is normal. There is no bowel obstruction or inflammation. There is diverticulosis without diverticulitis. There is lumbar scoliosis and spondylosis. Bones are demineralized. There are no acute fractures. Anasarca is increased from prior exam. There are bilateral scrotal hydroceles. IMPRESSION: 1. Anasarca, bilateral scrotal hydroceles, mild ascites, and small left pleural effusion. 2. Cirrhotic liver. 3. Cardiomegaly. Evidence of elevated right heart pressure with dilatation of the hepatic veins and IVC. Electronically signed by: Rene Garcia M.D. 04/26/23 22:[address] 04/26/23 21:18 Exam(s): CT C SPINE EXAM: CT Cervical Spine Without Intravenous Contrast CLINICAL HISTORY: Reason for exam: Trauma, confusion. TECHNIQUE: Axial computed tomography images of the cervical spine without intravenous contrast. CTDI is 26.64 mGy and DLP is 489.9 mGy-cm. Automated exposure control was utilized for the study. A dose lowering technique was utilized adhering to the principles of ALARA. COMPARISON: 01/24/23 FINDINGS: Vertebral body heights are maintained. There is no acute fracture or traumatic subluxation. There is moderate to severe multilevel disc degeneration, multilevel uncovertebral joint degeneration, and advanced multilevel facet joint degeneration. There is degenerative anterolisthesis of C7 on T1 measuring 2 mm. Disc-osteophyte complex is mildly narrow the central canal at C5-C6 and C6-C7. There is moderate-severe right foraminal narrowing at C2-C3, mild right foraminal narrowing at C3-C4, severe left and mild right foraminal narrowing at C4-C5, mild bilateral foraminal narrowing at C5-C6, and severe bilateral foraminal narrowing at C6-C7. No prevertebral soft tissue swelling. Lung apices are clear. IMPRESSION: 1. No acute osseous findings. 2. Degenerative changes. Electronically signed by: Rene Garcia M.D. 04/26/23 22:[address] 04/26/23 21:18 Exam(s): CT HEAD Without Contrast EXAM: CT Head Without Intravenous Contrast CLINICAL HISTORY: Reason for exam: Trauma, confusion. TECHNIQUE: Axial computed tomography images of the head/brain without intravenous contrast. CTDI is 36.67 mGy and DLP is 624.41 mGy-cm. Automated exposure control was utilized for the study. A dose lowering technique was utilized adhering to the principles of ALARA. COMPARISON: 01/24/23 FINDINGS: Brain: Age-related parenchymal volume loss. Mild chronic small vessel ischemic changes. Delacruz-white matter differentiation maintained. No acute intracranial hemorrhage, mass-effect, or edema. Ventricles: Unremarkable. No hydrocephalus. Bones/joints: Unremarkable. No acute fracture. Soft tissues: Unremarkable. Sinuses: Unremarkable as visualized. No acute sinusitis. Mastoid air cells: Unremarkable as visualized. No mastoid effusion. Orbits: Bilateral lens replacements. IMPRESSION: No acute intracranial process. Electronically signed by: Rene Garcia M.D. 04/26/23 22:24 PM ECG Additional Comments: ECG. Atrial fibrillation at a rate of 82. Right bundle branch block. T wave abnormality inferolateral leads. Code Status & VTE Plan VTE Prophylaxis Plan VTE Prophylaxis will be ordered: Yes
[2023-04-27] MEDS: cefTRIAXone SODIUM 2,000 MG/50 ML BAG IV STA (01:56)
[2023-04-27] MEDS ORDERED: POLYETHYLENE (MIRALAX) 17 GM PACK PO PRN (02:23)
[2023-04-27] MEDS ORDERED: NITROGLYCERIN SL 0.4 MG/TAB TAB SL PRN (02:23)
--- NOTE | 2023-04-27 07:35 | XRay Report ---
SINGLE VIEW CHEST CLINICAL HISTORY: Generalized weakness. FINDINGS: 2 AP, portable, upright chest radiographs are compared to study dated 01/24/2023. The patie nt's head partially obscures the apices. The heart is enlarged. The pulmonary vasculature is nonconge sted. Chronic interstitial thickening is similar to previous. Scarring/atelectasis is noted at the pablito ng bases. The lungs and pleural spaces are otherwise clear. No pneumothorax is seen. The skeletal str uctures are osteopenic. The bony thorax is grossly intact. IMPRESSION: Cardiomegaly with no acute cardiopulmonary abnormality. ACT 112: Negative or not required by law. Electronically signed by: Shiv Laughlin M.D. 04/27/2023 7:34 AM
[2023-04-27 08:07] LABS: Basophils # (auto) 0.02 K/uL (0.00-0.20); Basophils % (auto) 0.3 %; Eosinophils # (auto) 0.07 K/uL (0.00-0.50); Eosinophils % (auto) 0.9 %; Hematocrit (blood only) 30.4 % (42.0-52.0); Immature Granulocytes # (auto) 0.02 K/uL (0.01-0.20); Immature Granulocytes % (auto) 0.3 %; Lymphocytes # (auto) 1.37 K/uL (1.20-3.40); Lymphocytes % (auto) 17.1 %; Mean Corpuscular Hemoglobin 31.2 pg (25.0-34.0); Mean Corpuscular Hgb Conc 32.9 g/dL (32.0-36.0); Mean Corpuscular Volume 94.7 fL (80.0-100.0); Monocytes # (auto) 1.35 K/uL (0.11-0.59); Monocytes % (auto) 16.9 %; Neutrophils # (auto) 5.16 K/uL (1.40-6.50); Neutrophils % (auto) 64.5 %; Platelet Count 72 K/uL (130-400); RDW Coefficient of Variation 16.5 % (11.5-14.5); Red Blood Count 3.21 M/uL (4.70-6.10); White Blood Count 7.99 K/ul (4.8-10.8)
[2023-04-27 08:24] LABS: BUN Creatinine Ratio 37.7 (10-20); Calcium 8.5 mg/dl (8.6-10.3); Creatinine Clr Calc Pharmacy 39.1 ml/min; Est GFR (African American) 54.4 ml/min; Est GFR (Non-African American) 46.9 ml/min; Magnesium 2.3 mg/dl (1.7-2.4); Potassium 4.5 mmol/L (3.5-5.1)
[2023-04-27 08:30] LABS: Troponin I High Sensitivity 24.5 pg/ml (0-20)
[2023-04-27 08:34] LABS: INR 3.8 (0.9-1.1); Prothrombin Time 37.9 Seconds (9.0-12.0)
--- NOTE | 2023-04-27 08:39 | Cardiology Consultation ---
Date of Consultation April 27, 2023 Assessment & Plan (1) Acute on chronic diastolic HF (heart failure): (2) Valvular heart disease: (3) Permanent atrial fibrillation: (4) UTI (urinary tract infection): (5) CKD (chronic kidney disease), stage III: Plan IMPRESSION: Medically complex 82 year old male who presented to [facility] ED due to AMS/Confusion and a fall at home. ROS limited due to cognitive status. +UTI. HS troponin mildly elevated. Hypervolemic on exam. Acute on chronic HFpEF vs Hepatic encephalopathy: Chronic HFpEF secondary to valvular heart disease. Patient appears hypervolemic on exam. BNP pending. HS troponin mildly elevated-- likely in the setting of demand. Low likelihood of ACS. -Being diuresed with IV Lasix 20 mg daily, renal function improving. Continue -Potassium goal of 4.0 and mag goal of 2.0, replace as needed -2g sodium diet when patient is able to eat. -Daily weights. Strict I&O. -Echo pending. -Known CKD, scr improvement with IV diuresis Permanent AFIB: Rate controlled on telemetry. -Not currently requiring beta darrel therapy -AC on hold due to elevated INR (3.8) and recent falls, will need to reconsider car sander AC use prior to discharge with patient's functional decline/dementia (increased risk of bleeding). Confusion/AMS: +UTI. GI workup for possible cirrhosis and ? hepatic encephalopathy-- appreciate recommendations. Will defer to primary team for ABX treatment. Case discussed with Dr. Pineda. Further recommendations pending his assessment. I spent a total of 40 minutes on the date of service in preparation, delivery, and documentation of the care provided to the patient excluding any time spent in the performance of separately billed services. MARI Hernandez Department of Cardiology, [facility] This chart was completed in part utilizing Speech Voice Recognition Software. Grammatical errors, random word insertions, pronoun errors, and incomplete sentences are an occasional consequence of this system due to software limitations, ambient noise, and hardware issues. Any formal questions or concerns about the content, text, or information contained within the body of this dictation should be directly addressed to the provider for clarification. Supervising Physician Co-Signing Physician Notes I have reviewed the advance practitioner's documentation, and I agree with, and take responsibility for the plan of care. 82-year-old male presented to the emergency department due to dementia, confusion, and falls. Unable to offer history. Concerns regarding hyper bulimia and CHF on admission prompting IV diuresis. Fluid balance -2.1 L. No respiratory distress on examination. Patient resting comfortably. Noted to be agitated and combative with staff. Lower extremity edema noted. Pulmonary exam without active wheeze or Rales, poor effort. A/P: 82-year-old male with significant dementia and confusion. Echoca rdiographic evidence of right ventricular dysfunction,dilation, and pulmonary hypertension. Physical exam consistent with acute on chronic heart failure, primarily right-sided signs/symptoms. CT with evidence of anasarca and cirrhosis of the liver. Agree with titration of Lasix to 40 mg daily. Aldactone may be considered during hospitalization pending ongoing assessment of blood pressure and renal function. Hold warfarin with supratherapeutic INR. I spent a total of 25 minutes on the date of service in preparation, delivery, and documentation of the care provided to this patient, excluding any time spent in the performance of separately billed services. History of Present Illness Reason for Consultation: CHF and elevated troponin Requesting Physician: [facility] Attending Physician: Manfred Leung MD History of Present Illness 82-year-old male who presented to [facility] emergency department yesterday due to worsening confusion and a fall at home. Found to have a UTI and was placed on Rocephin. RACHEL on CKD with a serum creatinine of 1.5, normally baseline creatinine around 1.0 Patient appeared hypervolemic and was placed on IV Lasix 20 mg daily. Normally maintained on Lasix 20 mg every other day. Sensitivity troponins were mildly elevated (33.5>>24.5) EKG showing atrial fibrillation without acute changes. Upon entrance into the room paient asleep in bed. Unable to provide a meaningful history due to underlying dementia. Lying flat in bed. Did not appear to be in any distress. +Course lung sounds. +BLLE pitting edema. +Abdominal bloating. GI evaluated this am for possible cirrhosis on CT abdomen. ? Hepatic encephalopathy. Past medical history: Permanent atrial fibrillation--on Coumadin Hypertension, on lisinopril 10 mg daily Chronic diastolic CHF Valvular heart disease-- Mitral and tricuspid regurgitation Right bundle branch block CKD stage III Iron deficiency anemia Alzheimer's dementia Allergies Allergy/AdvReac Type Severity Reaction Status Date / Time No Known Allergies Allergy Verified 04/26/23 22:07 Home Medications Medication Instructions Recorded Confirmed Type ferrous sulfate 325 mg (65 mg 325 mg PO QAM 08/09/19 04/26/23 History iron) tablet vitamin B complex 1 tab PO QDD 08/09/19 04/26/23 History furosemide 20 mg tablet 20 mg PO Q OTHER DAY 08/25/19 04/26/23 History lisinopril 10 mg tablet 10 mg PO QAM 08/25/19 04/26/23 History warfarin 5 mg tablet See Rx Instructions .Route .COMPLEX 07/09/22 04/26/23 History donepezil 5 mg tablet 5 mg PO QAM 04/26/23 04/26/23 History melatonin 5 mg tablet 5 mg PO HS 04/26/23 04/26/23 History Patient History Medical History (Updated 04/27/23 @ 10:49 by MARI Cortes) Chronic anemia CKD (chronic kidney disease), stage III History of kidney stones HTN (hypertension) (HFpEF) heart failure with preserved ejection fraction Valvular heart disease severe TR, mild to moderate MR per 2017 echo- cardio monitoring Chronic atrial fibrillation on coumadin Surgical History History of tooth extraction Hx of cystoscopy with stent in place due to kidney stone History of right inguinal hernia repair 2014 with mesh Family History Father Myocardial infarction, Onset Age: 70 Mother COPD (chronic obstructive pulmonary disease) Social History Smoking Status: Never smoker Second Hand Exposure: No; Do You Dip or Chew Tobacco: No; Hx Alcohol Use: Yes Alcohol type: beer Hx Substance Use: No Preferred Language: [place] Communication Ability: Impaired Nursery Attendant Required: No Beliefs That Will Affect Care: None marital status: Current Living Situation: Spouse Current Living Situation Comment: Last medical record stats w/ spouse unable to get a clear response now Feels Safe at Home: Yes Safety Concerns: Feels Safe At This Time Assistive Devices: Denture - Upper Review of Systems Review of Systems: Unobtainable due to cognitive status Physical Exam Constitutional: + ill appearing and + frail appearing; n o acute distress Neck: normal visual inspection Respiratory: normal respiratory effort Auscultation: + rales and + rhonchi Cardiovascular: Rate/Rhythm: regular rate and + irregularly irregular Heart Sounds: + murmur (+systolic murmur ) Vessels: + JVD Extremities: + edema (+3 BLLE pitting edema ) Gastrointestinal (Abdomen): Percussion/Palpation: abdomen soft Skin: + ecchymosis Psychiatric: A+Ox3, euthymic affect Results & Data Vital Signs (Past 12 Hours) Vital Signs Pulse Pulse Resp BP Pulse Ox O2 Del Method 04/27/23 03:02 78 18 128/78 95 Room Air 04/27/23 01:30 85 18 92 Room Air 04/26/23 23:36 83 04/26/23 22:33 79 18 97 Room Air Laboratory Results Cardiac Enzymes 04/26/23 04/27/23 Range/Units 20:05 07:44 AST 53 H 49 H (13-39) U/L Troponin I High Sens 33.5 H 24.5 H (0-20) pg/ml B-Natriuretic Peptide 657 H (0-100) pg/ml Coagulation 04/26/23 04/27/23 Range/Units 20:05 07:44 PT 38.5 H 37.9 H (9.0-12.0) Seconds APTT 47 H (21-31) Seconds B-Natriuretic Peptide 657 H (0-100) pg/ml CBC 04/26/23 04/27/23 Range/Units 20:05 07:44 WBC 6.99 7.99 (4.8-10.8) K/ul RBC 3.58 L 3.21 L (4.70-6.10) M/uL Hgb 11.3 L 10.0 L (14.0-18.0) g/dl Hct 33.7 L 30.4 L (42.0-52.0) % Plt Count 88 L 72 L (130-400) K/uL Neut # (Auto) 4.37 5.16 (1.40-6.50) K/uL Lymph # (Auto) 1.45 1.37 (1.20-3.40) K/uL Major # (Auto) 1.08 H 1.35 H (0.11-0.59) K/uL Eos # (Auto) 0.03 0.07 (0.00-0.50) K/uL Baso # (Auto) 0.04 0.02 (0.00-0.20) K/uL Comprehensive Metabolic Panel 04/26/23 04/27/23 Range/Units 20:05 07:44 Sodium 141 142 (136-145) mmol/L Potassium 4.4 4.5 (3.5-5.1) mmol/L Chloride 109 H 111 H (98-107) mmol/L Carbon Dioxide 20 L 23 (21-32) mmol/L BUN 56 H 52 H (6-23) mg/dl Creatinine 1.59 H 1.38 (0.6-1.4) mg/dl Glucose 109 H 98 (70-99(Fasting)) mg/dl Calcium 9.0 8.5 L (8.6-10.3) mg/dl Direct Bilirubin TNP AST 53 H 49 H (13-39) U/L ALT 26 24 (7-52) U/L Alkaline Phosphatase 99 80 (34-104) U/L Total Protein 6.6 5.7 L (6.0-8.3) gm/dl Albumin 3.8 3.4 (3.4-5.0) gm/dl Intake and Output 04/26/23 04/27/23 04/27/23 22:59 06:59 14:59 Intake Total 50 / 50 Output Total 400 / 400 Balance 50 / 50 -400 / -400 Intake: IV 50 / 50 cefTRIAXone SODIUM 50 ml @ 100 50 / 50 mls/hr IV NOW STA Rx#:[id number] Oral 0 / 0 Output: Urine Amount (Catheter) 400 / 400 Straight 400 / 400 Other: Weight 68.1 kg 68.1 kg Weight Measurement Method [facility] ([facility]) CKD (chronic kidney disease), stage III Chronic kidney disease stage 3 subtype: unspecified whether 3a or 3b Qualified Code(s): N18.30 - Chronic kidney disease, stage 3 unspecified
--- NOTE | 2023-04-27 08:53 | Electrocardiogram Report ---
Test Reason : Blood Pressure : / mmHG Vent. Rate : 082 BPM Atrial Rate : 000 BPM P-R Int : 000 ms QRS Dur : 138 ms QT Int : 424 ms P-R-T Axes : 000 132 251 degrees QTc Int : 495 ms Atrial fibrillation Right bundle branch block T wave abnormality, consider inferolateral ischemia Abnormal ECG When compared with ECG of 09-JUL-2022 09:37, QRS axis Shifted right Confirmed by Dante Salgado ([id number]) on 04/27/2023 8:53:38 AM Referred By: REFERRED SELF Confirmed By:Dieter Salgado
--- NOTE | 2023-04-27 09:57 | Gastrointestinal Consultation ---
Date of Consultation April 27, 2023 Assessment & Plan (1) Acute confusion: (2) Fall: Pt is a 82 yo male admitted for confusion and after a fall. GI consulted for concern of cirrhosis finding on CT abd/pelvis. Due to confusion, and agitation, he's unable to provide history. MELD 28 (INR driven, on Coumadin) - Evidence of congestive heart disease on CT: will check BNP - Check ammonia level ? hepatic encephalopathy. If elevated, initiate Rifaximin 550mg BID if pt able to take PO meds, or Lactulose enema if still confused and not awake. - Cardiology following - We will follow along and plan to discuss w pt re: cirrhosis workup and management once he's mentating better Supervising Physician Co-Signing Physician Notes I saw and evaluated the patient, we were asked to see the patient with a question of liver disease given nodularity seen on the CT scan. The patient was brought in for confusion and is unable to give much historical information does have Based on the patient's history and appearance I wonder if he may have congestive hepatopathy. We would recommend further evaluation with a proBNP and a ammonia level to see if he may have underlying hepatic encephalopathy. If the patient has an elevated ammonia level we would then recommend initiation of therapy with rifaximin 550 mg twice daily in addition to lactulose 1-2 times daily. History of Present Illness Reason for Consultation: Cirrhosis Requesting Physician: Dr. Manfred Leung Attending Physician: Dr. Percy Mayo History of Present Illness Pt is a 82 yo male who was brought into the hospital after a fall and confusion. He is confused and per RN was combative this AM, unable to provide history. No family at bedside. Chart reviewed. Pt w PMHx of heart failure due to valvular disease, permanent atrial fibrillation, mitral regurgitation, tricuspid regurgitation, hypertension, CKD stage III, microscopic hematuria, osteoarthritis of left hip, late onset Alzheimer's dementia with agitation, iron deficiency anemia, history of kidney stones presents. Head CT wo acute changes. CT abd/pelvis sign of cirrhotic liver. He also has cardiomegaly, and evidence of elevated R heart pressure w dilation of hepatic veins and IVC. Occasional ETOH use, no tobacco or durgs. Hx of L ankle fracture repiar and inguinal hernia repair Father w hx of ND, mother w lung disorder Allergies Allergy/AdvReac Type Severity Reaction Status Date / Time No Known Allergies Allergy Verified 04/26/23 22:07 Home Medications Medication Instructions Recorded Confirmed Type ferrous sulfate 325 mg (65 mg 325 mg PO QAM 08/09/19 04/26/23 History iron) tablet vitamin B complex 1 tab PO QDD 08/09/19 04/26/23 History furosemide 20 mg tablet 20 mg PO Q OTHER DAY 08/25/19 04/26/23 History lisinopril 10 mg tablet 10 mg PO QAM 08/25/19 04/26/23 History warfarin 5 mg tablet See Rx Instructions .Route .COMPLEX 07/09/22 04/26/23 History donepezil 5 mg tablet 5 mg PO QAM 04/26/23 04/26/23 History melatonin 5 mg tablet 5 mg PO HS 04/26/23 04/26/23 History Patient History Medical History (Updated 04/27/23 @ 09:57 by MARI Paetl) Chronic anemia CKD (chronic kidney disease), stage III History of kidney stones HTN (hypertension) (HFpEF) heart failure with preserved ejection fraction Valvular heart disease severe TR, mild to moderate MR per 2017 echo- cardio monitoring Chronic atrial fibrillation on coumadin Surgical History History of tooth extraction Hx of cystoscopy with stent in place due to kidney stone History of right inguinal hernia repair 2014 with mesh Family History Father Myocardial infarction, Onset Age: 70 Mother COPD (chronic obstructive pulmonary disease) Social History Smoking Status: Never smoker Second Hand Exposure: No; Do You Dip or Chew Tobacco: No; Hx Alcohol Use: Yes Alcohol type: beer Hx Substance Use: No Preferred Language: [place] Communication Ability: Impaired 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 Beliefs That Will Affect Care: None marital status: Current Living Situation: Spouse Current Living Situation Comment: Last medical record stats w/ spouse unable to get a clear response now Feels Safe at Home: Yes Safety Concerns: Feels Safe At This Time Assistive Devices: Denture - Upper Review of Systems Review of Systems: Unobtainable due to cognitive status Physical Exam Constitutional: WD/WN, vitals as above (Laying in bed, asleep) Eyes: PERRL, conjunctivae normal, anicteric sclerae Respiratory: Normal respiratory effort Cardiovascular: RRR Skin: no rashes, warm and dry + jaundice Neurologic: Amberly currently, was agitated and somewhat combative this AM per RN Lymphatic: no lymphedema Results & Data Vital Signs (Past 12 Hours) Vital Signs Pulse Pulse Resp BP Pulse Ox O2 Del Method 04/27/23 03:02 78 18 128/78 95 Room Air 04/27/23 01:30 85 18 92 Room Air 04/26/23 23:36 83 04/26/23 22:33 79 18 97 Room Air
[2023-04-27] MEDS: FUROSEMIDE INJ 20 MG/2 ML VIAL IV SCH (10:04)
[2023-04-27 10:19] LABS: Alanine Aminotransferase 24 U/L (7-52); Albumin Level 3.4 gm/dl (3.4-5.0); Alkaline Phosphatase 80 U/L (34-104); Aspartate Aminotransferase 49 U/L (13-39); Bilirubin,Total 1.7 mg/dl (0.2-1.0); Total Protein 5.7 gm/dl (6.0-8.3)
[2023-04-27] MEDS: FUROSEMIDE INJ 20 MG/2 ML VIAL IV ONE (13:28)
--- NOTE | 2023-04-27 14:27 | Hospitalist Progress Note ---
Date of Service April 27, 2023 Assessment & Plan (1) Acute confusion: Plan: 82-year-old male with past medical history significant for heart failure due to valvular disease, permanent atrial fibrillation, mitral regurgitation, tricuspid regurgitation, hypertension, CKD stage III, microscopic hematuria, osteoarthritis of left hip, late onset Alzheimer's dementia with agitation, iron deficiency anemia, history of kidney stones presents with falls and also con fusion. As per patient was sitting on edge of chair and he fell down and is bleeding from the arm and was brought in here. As per patient's , he has dementia but last few days his confusion is getting worse. Metabolic encephalopathy History of Alzheimer's dementia. Frequent falls Possible UTI Patient has history of Alzheimer's dementia; symptoms getting worse as per patient's Patient has been frequently getting disoriented recently and waking up at night. He has history of frequent falls as well Urinalysis suggestive of possible infection CT head and CT cervical spine negative for acute findings Currently on empiric antibiotics; continue for now Will follow-up on final culture Wound care consulted for multiple abrasions/skin tears Dressing change PT OT when medically stable Acute on chronic diastolic CHF Demand ischemia Chest x-ray on admission personally reviewed; bilateral congestion present, cardiomegaly present Echocardiogram shows EF of 60 to 65% with severely dilated right ventricle, dilated IVC proBNP elevated High sensitive troponin of 33, down trended Cardiology on board; currently on diuretics Strict input and output monitoring Permanent atrial fibrillation Supratherapeutic INR EKG on admission personally reviewed atrial fibrillation with controlled ventricular rate On Coumadin, INR elevated to 3.8 Also history of thrombocytopenia Discussed with patient's Brit over the phone; patient has frequent falls, presents with laceration on his leading to bleeding. He has thrombocytopenia, possible liver cirrhosis; she agreed that benefits of anticoagulation outweigh the risks of bleeding/hemorrhage. Vitamin K 2.5 ordered. Will discontinue Coumadin. Late onset Alzheimer's dementia with agitation Required Zyprexa in the ER Continue home donezepil Close monitor for delirium One-on-one as needed Hypertension On lisinopril RACHEL on CKD stage III Baseline creatinine around 1 Plan for creatinine of 1.5 Possibly cardiorenal Getting Lasix Monitor labs Liver cirrhosis Thrombocytopenia GI consulted for comanagement; possible congestive hepatopathy. Ammonia normal; holded off on rifaximin/lactulose DVT prophylaxis On Coumadin INR 3.8 Disposition Telemetry Goals of care discussion; patient's acknowledges that patient's quality of life at severely decline over the course of years with significant decline in last few months. He has multiple comorbidities including advanced dementia, atrial fibrillation, heart failure. She wants to continue medical treatment for the time being; if patient improves with medical treatmentplan to transition to rehab. If patient decompensates during the hospitalization; plan to change to comfort care. Time spent evaluating patient, direct bedside care, chart review, placing orders, interpretation of diagnostic studies, discussion with consultants, patient, and family members, as well as other required patient management activities is 60 minutes Please note the above document was generated using voice recognition software. It may contain grammatical, syntax or spelling errors. Any formal questions or concerns about the content, text or information contained within the body of this dictation should be directly addressed to the provider for clarification Admission and Anticipated Discharge Date Admission Date: April 27, 2023 Subjective Patient seen and examined at bedside. He is lying in the bed; sleeping. Earlier he was agitated and required medication for sedation. Vitals are stable and he is saturating well on room air. Review of Systems Review of Systems: Unobtainable due to mental health condition Physical Exam Physical Exam: Constitutional: Drowsy, awake able voice voice. He is not oriented to time place or person. Respiratory: Bilateral clear breath sound Cardiovascular: Irregular no edema Vessels: no JVD or carotid bruit Chest: normal inspection of chest Abdomen: normal bowel sounds, soft, nontender, no hepatosplenomegaly Musculoskeletal: no cyanosis or clubbing, extremities motor strength 5/5. Pitting edema present Skin: Multiple bandages over his extremities. No overlying soakage Neurologic: Grossly moves all extremities Results & Data Results & Data Vital Signs (Past 12 Hours) Vital Signs Pulse Pulse Resp BP BP Pulse Ox O2 Del Method 04/27/23 13:00 96/65 L 04/27/23 13:00 94 H 14 94 04/27/23 12:00 95/61 L 04/27/23 12:00 76 14 97 04/27/23 11:18 94/66 L 04/27/23 11:18 85 14 87 L 04/27/23 11:01 64 17 86 L 04/27/23 11:01 96/75 L 04/27/23 11:00 76 16 94 04/27/23 10:03 105/73 04/27/23 10:03 71 16 91 04/27/23 10:00 79 19 95 04/27/23 09:00 76 16 92 04/27/23 08:00 81 12 96 04/27/23 07:01 100/68 04/27/23 07:01 92 H 12 89 L 04/27/23 07:00 85 11 L 96 04/27/23 06:01 108/73 04/27/23 06:01 97 H 15 90 04/27/23 06:00 84 14 97 04/27/23 05:00 81 23 87 L 04/27/23 04:27 120/59 L 04/27/23 04:27 76 15 88 L 04/27/23 04:00 17 84 L 04/27/23 03:02 78 18 128/78 95 Room Air 04/27/23 03:00 84 18
[2023-04-27] MEDS: lisinopril 10 MG TAB PO SCH (14:53)
[2023-04-27] MEDS: FERROUS SULFATE 325 MG TAB PO SCH (14:53)
[2023-04-27] MEDS: DONEPEZIL HCL 5 MG TAB PO SCH (14:53)
[2023-04-27] MEDS: PHYTONADIONE 2.5 MG in DEXTROSE 5% 50 ML IV ONE (15:23)
[2023-04-27] MEDS: VITAMIN B COMPLEX TAB PO SCH (16:35)
[2023-04-27] MEDS: MELATONIN 3 MG TAB PO SCH (21:25)
[2023-04-27] MEDS: OLANZapine 10 MG/2.1 ML SDV IM PRN (23:22)
[2023-04-28 06:13] LABS: Basophils # (auto) 0.05 K/uL (0.00-0.20); Basophils % (auto) 0.6 %; Eosinophils # (auto) 0.13 K/uL (0.00-0.50); Eosinophils % (auto) 1.6 %; Hematocrit (blood only) 34.9 % (42.0-52.0); Hemoglobin 11.4 g/dl (14.0-18.0); Immature Granulocytes # (auto) 0.03 K/uL (0.01-0.20); Immature Granulocytes % (auto) 0.4 %; Lymphocytes # (auto) 1.46 K/uL (1.20-3.40); Lymphocytes % (auto) 17.6 %; Mean Corpuscular Hemoglobin 31.1 pg (25.0-34.0); Mean Corpuscular Hgb Conc 32.7 g/dL (32.0-36.0); Mean Corpuscular Volume 95.4 fL (80.0-100.0); Mean Platelet Volume 10.4 fL (9.4-12.4); Monocytes # (auto) 1.19 K/uL (0.11-0.59); Monocytes % (auto) 14.3 %; Neutrophils # (auto) 5.44 K/uL (1.40-6.50); Neutrophils % (auto) 65.5 %; Platelet Count 88 K/uL (130-400); RDW Coefficient of Variation 16.4 % (11.5-14.5); Red Blood Count 3.66 M/uL (4.70-6.10)
[2023-04-28 06:25] LABS: Albumin Globulin Ratio 1.2 (0.9-2); Albumin Level 3.3 gm/dl (3.4-5.0); BUN Creatinine Ratio 35.3 (10-20); Bilirubin,Total 2.2 mg/dl (0.2-1.0); Calcium 8.5 mg/dl (8.6-10.3); Creatinine Clr Calc Pharmacy 38.7 ml/min; Est GFR (African American) 53.9 ml/min; Est GFR (Non-African American) 46.5 ml/min; Globulin 2.8 gm/dl (2.5-4.0); Potassium 4.2 mmol/L (3.5-5.1); Total Protein 6.1 gm/dl (6.0-8.3)
[2023-04-28 06:33] LABS: INR 1.7 (0.9-1.1); Prothrombin Time 18.2 Seconds (9.0-12.0)
--- NOTE | 2023-04-28 07:27 | Cardiology Progress Note ---
Date of Service April 28, 2023 Assessment & Plan (1) Acute on chronic diastolic HF (heart failure): (2) Valvular heart disease: (3) Permanent atrial fibrillation: (4) UTI (urinary tract infection): (5) CKD (chronic kidney disease), stage III: Plan IMPRESSION: 82-year-old male with significant dementia and confusion. Echocardiographic evidence of right ventricular dysfunction,dilation, and pulmonary hypertension. Physical exam consistent with acute on chronic heart failure, primarily right- sided signs/symptoms. CT with evidence of anasarca and cirrhosis of the liver. Acute on chronic HFpEF vs Hepatic encephalopathy: Chronic HFpEF secondary to valvular heart disease. Patient appears hypervolemic on exam. HS troponin mildly elevated-- likely in the setting of demand. Low likelihood of ACS. -Being diuresed with IV Lasix 40 mg daily, renal function improving. Continue. -Potassium goal of 4.0 and mag goal of 2.0, replace as needed -2g sodium diet -Daily weights. Strict I&O. + Sanchez -Known CKD, scr improvement with IV diuresis Permanent AFIB: Rate controlled on telemetry. -Not currently requiring beta darrel therapy -AC on hold due to elevated INR (3.8)>> now 1.7 this am (given Vit K yesterday). +Recent falls, will need to reconsider snf AC use prior to discharge with patient's functional decline/dementia (increased risk of bleeding). Consider AC with IV heparin while inpatient, however risk of bleeding elevated due to possible cirrhosis. Confusion/AMS: +UTI. GI workup for possible cirrhosis and ? hepatic encephalopathy-- appreciate recommendations. Will defer to primary team for ABX treatment. ? Hepatic encephalopathy, liver cirrhosis on CT. GI following Case discussed with Dr. Pineda. Will follow. I spent a total of 30 minutes on the date of service in preparation, delivery, and documentation of the care provided to the patient excluding any time spent in the performance of separately billed services. MARI Hernandez Department of Cardiology, [facility] This chart was completed in part utilizing Speech Voice Recognition Software. Grammatical errors, random word insertions, pronoun errors, and incomplete sentences are an occasional consequence of this system due to software limitations, ambient noise, and hardware issues. Any formal questions or concerns about the content, text, or information contained within the body of this dictation should be directly addressed to the provider for clarification. Admission and Anticipated Discharge Date Admission Date: April 27, 2023 Supervising Physician Co-Signing Physician Notes I have reviewed the advance practitioner's documentation, and I agree with, and take responsibility for the plan of care. 82-year-old male presented to the emergency department due to dementia, confusion, and falls. More awake today, however, unable to offer meaningful history. Cooperative with physical exam. Fluid balance -3.9 L. Stable renal function and electrolytes. Telemetry reveals atrial fibrillation with heart rate ranging from 50s-80s. Oxygenation improved with IV diuresis. GI following for cirrhosis. PE: VSS. Gen NAD. Heart: Irregular rhythm. Normal S1-S2. 2/6 midsystolic murmur heard at the left sternal border. Lungs: Diminished breath sounds at the bases. No rales, rhonchi, wheeze per extremities: 2+ edema with stasis changes. A/P: 82-year-old male with history of dementia and acute confusion. Acute decompensated heart failure with preserved left ventricular systolic function and reduced right ventricular function noted on presentation. Clinically improved with IV diuresis. Continue Lasix 40 mg IV daily. Consider transition to torsemide 20 mg daily in the next 24-48 hours. Monitor fluid balance, daily, GFR, and electrolytes. Anticoagulation discontinued after hospitalist discussed risk versus benefits with family. Rate controlled on telemetry. No need for beta-darrel therapy at this time. I spent a total of 20 minutes on the date of service in preparation, delivery, and documentation of the care provided to this patient, excluding any time spent in the performance of separately billed services. Subjective 82-year-old male with significant dementia and confusion. Echocardiographic evidence of right ventricular dysfunction,dilation, and pulmonary hypertension. Physical exam consistent with acute on chronic heart failure, primarily right- sided signs/symptoms. CT with evidence of anasarca and cirrhosis of the liver. GI following. 04/27/2023: -Echo: LVEF 60 to 65%, severe biatrial enlargement, RV severely dilated with moderately reduced systolic function, flattened septum consistent with RV pressure/volume overload, dilated tricuspid annulus with mild coaptation of the tricuspid valve leaflets, severe TR, dilated inferior vena cava with right atrial pressure 15 mmHg, indirect evidence of severely elevated pulmonary pressures -Diuresing with IV Lasix, increased to 40 mg daily. -Anticoagulation on hold due to supratherapeutic INR. 04/28/2023: Labs: Serum creatinine 1.39, potassium 4.2, INR 1.7 (was treated with Vit K yesterday) Tele: AFIB 70s I&O: -3.5L Weight: 68.1kg >>68 kg Upon entrance into the room patient resting in bed. Nursing at bedside. No acute complaints. ROS limited due to underlying dementia. Review of Systems Review of Systems: Unobtainable due to cognitive status Physical Exam Constitutional: + ill appearing and + frail appearing; n o acute distress Neck: normal visual inspection Respiratory: normal respiratory effort Auscultation: + rales and + rhonchi Cardiovascular: Rate/Rhythm: regular rate and + irregularly irregular Heart Sounds: + murmur (+systolic murmur ) Vessels: + JVD Extremities: + edema (+2 BLLE pitting edema ) Gastrointestinal (Abdomen): Percussion/Palpation: abdomen soft Skin: + ecchymosis Psychiatric: A+Ox3, euthymic affect Results & Data Vital Signs (Past 12 Hours) Vital Signs Temp Pulse Pulse Resp BP Pulse Ox O2 Del Method 04/28/23 02:58 36.7 C 80 18 124/80 95 Room Air 04/27/23 22:48 36.8 C 74 18 99/64 L 94 Room Air 04/27/23 22:00 79 04/27/23 20:13 80 04/27/23 20:12 36.6 C 99 H 16 91/63 L 97 Room Air Laboratory Results Cardiac Enzymes 04/27/23 04/27/23 04/27/23 Range/Units 07:44 11:17 18:57 AST 49 H (13-39) U/L Troponin I High Sens 25.9 H 30.3 H (0-20) pg/ml 04/28/23 Range/Units 05:24 AST 67 H (13-39) U/L Troponin I High Sens (0-20) pg/ml Coagulation 04/28/23 Range/Units 05:24 PT 18.2 H (9.0-12.0) Seconds CBC 04/28/23 Range/Units 05:24 WBC 8.30 (4.8-10.8) K/ul RBC 3.66 L (4.70-6.10) M/uL Hgb 11.4 L (14.0-18.0) g/dl Hct 34.9 L (42.0-52.0) % Plt Count 88 L (130-400) K/uL Neut # (Auto) 5.44 (1.40-6.50) K/uL Lymph # (Auto) 1.46 (1.20-3.40) K/uL Bee # (Auto) 1.19 H (0.11-0.59) K/uL Eos # (Auto) 0.13 (0.00-0.50) K/uL Baso # (Auto) 0.05 (0.00-0.20) K/uL Comprehensive Metabolic Panel 04/27/23 04/27/23 04/28/23 Range/Units 07:44 11:17 05:24 Sodium 143 (136-145) mmol/L Potassium 4.2 (3.5-5.1) mmol/L Chloride 110 H (98-107) mmol/L Carbon Dioxide 24 (21-32) mmol/L BUN 49 H (6-23) mg/dl Creatinine 1.39 (0.6-1.4) mg/dl Glucose 85 (70-99(Fasting)) mg/dl Calcium 8.5 L (8.6-10.3) mg/dl Direct Bilirubin TNP 0.5 H AST 49 H 67 H (13-39) U/L ALT 24 31 (7-52) U/L Alkaline Phosphatase 80 91 (34-104) U/L Total Protein 5.7 L 6.1 (6.0-8.3) gm/dl Albumin 3.4 3.3 L (3.4-5.0) gm/dl Intake and Output 04/27/23 04/28/23 04/28/23 22:59 06:59 14:59 Intake Total 50.25 / 50.25 50 / 50 Output Total 1050 / 3600 350 / 3600 Balance -999.75 / -3549.75 -350 / -3549.75 50 / 50 Intake: IV 50.25 / 50.25 50 / 50 Phytonadione 2.5 mg In Dextrose 50.25 / 50.25 5% 50 ml @ 100.5 mls/hr IV ONE ONE Rx#:[id number] cefTRIAXone SODIUM 2,000 mg In 50 / 50 Dextrose 5 % Mini-B 50 ml @ 100 mls/hr IV Q24H NANCY Rx#: [id number] Output: Urine Amount (Catheter) 1050 / 3600 350 / 3600 Straight 1050 / 3600 350 / 3600 Other: Other Intake Source sips Weight 68 kg Weight Measurement Method Built in [facility] (5) CKD (chronic kidney disease), stage III Chronic kidney disease stage 3 subtype: unspecified whether 3a or 3b Qualified Code(s): N18.30 - Chronic kidney disease, stage 3 unspecified
[2023-04-28] MEDS: cefTRIAXone SODIUM 2,000 MG in DEXTROSE 5 % MINI-B 50 ML IV SCH (08:47)
[2023-04-28] MEDS: FUROSEMIDE INJ 20 MG/2 ML VIAL IV SCH (08:50)
--- NOTE | 2023-04-28 10:46 | Gastroenterology Progress Note ---
Date of Service April 28, 2023 Assessment & Plan (1) Acute confusion: (2) Fall: Plan: Pt is a 82 yo male w hx of dementia, admitted for confusion and after a fall. GI consulted for concern of cirrhosis finding on CT abd/pelvis. Due to confusion, and agitation, he's unable to provide history. MELD 28 (INR driven, on Coumadin). Confusion seems to be at baseline per 's report. His ammonia level is normal thus not likely that he has hepatic encephalopathy. - Cardiology following for acute on chronic HF - is unable to care for him at home, requesting placement. Will consult case management - No new plans from GI standpoint during this admission. We can offer f/u in GI office upon his discharge for cirrhosis management. Pls recall us prn Admission and Anticipated Discharge Date Admission Date: April 27, 2023 Supervising Physician Co-Signing Physician Notes I saw and evaluted the patient, given the low ammonia the patients AMS is not likely related to underlying liver disease. Given his advanced medical problems and dementia I am not certain that further testing for occult causes of liver disease would be beneficial. Please call with any additional questions or concerns, GI to sign off. Subjective Pt confused, drowsy, unable to obtain history from him. I called and spoke w his (jaskaran) who informed me that due to pt's dementia, he's confused at baseline. Review of Systems Review of Systems: Unobtainable due to cognitive status and Unobtainable due to reduced consciousness Physical Exam Constitutional: WD/WN, vitals as above (Laying in bed, asleep) Respiratory: Normal respiratory effort, bases diminished lung sounds Cardiovascular: RRR, no murmur or gallops Skin: no rashes, warm and dry Neurologic: Confused, drowsy Lymphatic: no lymphedema Results & Data Vital Signs (Past 12 Hours) Vital Signs Temp Pulse Resp BP Pulse Ox O2 Del Method 04/28/23 07:17 36.3 C L 64 22 104/60 98 Room Air 04/28/23 02:58 36.7 C 80 18 124/80 95 Room Air 04/27/23 22:48 36.8 C 74 18 99/64 L 94 Room Air
--- NOTE | 2023-04-28 13:19 | Hospitalist Progress Note ---
Date of Service April 28, 2023 Assessment & Plan (1) Acute confusion: Plan: 82-year-old male with past medical history significant for heart failure due to valvular disease, permanent atrial fibrillation, mitral regurgitation, tricuspid regurgitation, hypertension, CKD stage III, microscopic hematuria, osteoarthritis of left hip, late onset Alzheimer's dementia with agitation, iron deficiency anemia, history of kidney stones presents with falls and also con fusion. As per patient was sitting on edge of chair and he fell down and is bleeding from the arm and was brought in here. As per patient's , he has dementia but last few days his confusion is getting worse. Metabolic encephalopathy History of Alzheimer's dementia. Frequent falls UTI, ruled out Patient has history of Alzheimer's dementia; symptoms getting worse as per patient's Patient has been frequently getting disoriented recently and waking up at night. He has history of frequent falls as well Urinalysis suggestive of possible infection Urine culture growing Malathi; likely contaminant CT head and CT cervical spine negative for acute findings Currently on empiric antibiotics; discontinued as urine culture is negative. Wound care consulted for multiple abrasions/skin tears Dressing change PT OT ordered Suspect that his altered mental status is likely related with delirium in setting of dementia. On as needed Zyprexa. Acute on chronic diastolic CHF Demand ischemia Chest x-ray on admission personally reviewed; bilateral congestion present, cardiomegaly present Echocardiogram shows EF of 60 to 65% with severely dilated right ventricle, dilated IVC proBNP elevated High sensitive troponin of 33, down trended Cardiology on board; currently on diuretics Strict input and output monitoring. Sanchez catheter in place. Permanent atrial fibrillation Supratherapeutic INR EKG on admission personally reviewed atrial fibrillation with controlled ventricular rate On Coumadin, INR elevated to 3.8 on admission; down trended. Also history of thrombocytopenia Discussed with patient's Brit over the phone; patient has frequent falls, presents with laceration on his leading to bleeding. He has thrombocytopenia, possible liver cirrhosis; she agreed that benefits of anticoagulation outweigh the risks of bleeding/hemorrhage. Vitamin K 2.5 was given with improvement in INR. will discontinue Coumadin. Late onset Alzheimer's dementia with agitation Required Zyprexa in the ER Continue home donezepil Close monitor for delirium One-on-one as needed Hypertension On lisinopril RACHEL on CKD stage III Baseline creatinine around 1 Plan for creatinine of 1.5 Possibly cardiorenal Getting Lasix Improvement noted in creatinine. Liver cirrhosis Thrombocytopenia GI consulted for comanagement; possible congestive hepatopathy. Ammonia normal; holded off on rifaximin/lactulose DVT prophylaxis On Coumadin INR 1.7 Disposition Telemetry Goals of care discussion; patient's acknowledges that patient's quality of life at severely decline over the course of years with significant decline in last few months. He has multiple comorbidities including advanced dementia, atrial fibrillation, heart failure. She wants to continue medical treatment for the time being; if patient improves with medical treatmentplan to transition to rehab. If patient decompensates during the hospitalization; plan to change to comfort care. Palliative care also consulted to further discuss goals of care. Time spent evaluating patient, direct bedside care, chart review, placing orders, interpretation of diagnostic studies, discussion with consultants, patient, and family members, as well as other required patient management activities is 60 minutes Please note the above document was generated using voice recognition software. It may contain grammatical, syntax or spelling errors. Any formal questions or concerns about the content, text or information contained within the body of this dictation should be directly addressed to the provider for clarification Admission and Anticipated Discharge Date Admission Date: April 27, 2023 Subjective Patient seen and examined at bedside. He is lethargic; he wakes up with verbal stimuli. Disoriented. Review of Systems Review of Systems: Unobtainable due to reduced consciousness Physical Exam Physical Exam: Constitutional: Drowsy, awake able voice voice. He is not oriented to time place or person. Respiratory: Bilateral clear breath sound Cardiovascular: Irregular no edema Vessels: no JVD or carotid bruit Chest: normal inspection of chest Abdomen: normal bowel sounds, soft, nontender, no hepatosplenomegaly Musculoskeletal: no cyanosis or clubbing, extremities motor strength 5/5. Pitting edema present Skin: Multiple bandages over his extremities. No overlying soakage Neurologic: Grossly moves all extremities Results & Data Results & Data Vital Signs (Past 12 Hours) Vital Signs Temp Pulse Resp BP BP Pulse Ox O2 Del Method 04/28/23 11:03 36.3 C L 57 L 18 101/64 94 Room Air 04/28/23 07:17 36.3 C L 64 22 104/60 98 Room Air 04/28/23 02:58 36.7 C 80 18 124/80 95 Room Air
[2023-04-29 06:05] LABS: INR 1.5 (0.9-1.1); Prothrombin Time 15.8 Seconds (9.0-12.0)
--- NOTE | 2023-04-29 07:23 | Cardiology Progress Note ---
Date of Service April 29, 2023 Assessment & Plan (1) Acute on chronic diastolic HF (heart failure): (2) Valvular heart disease: (3) Permanent atrial fibrillation: (4) UTI (urinary tract infection): (5) CKD (chronic kidney disease), stage III: Plan IMPRESSION: 82-year-old male with significant dementia and confusion. Echocardiographic evidence of right ventricular dysfunction,dilation, and pulmonary hypertension. Physical exam consistent with acute on chronic heart failure, primarily right- sided signs/symptoms. CT with evidence of anasarca and cirrhosis of the liver. Acute on chronic HFpEF vs Hepatic encephalopathy: Chronic HFpEF secondary to valvular heart disease. Patient appears hypervolemic on exam. HS troponin mildly elevated-- likely in the setting of demand. Low likelihood of ACS. -Being diuresed with IV Lasix 40 mg daily, renal function improving. Continue. Consider transition to torsemide 20 mg daily in the next 24-48 hours. -Potassium goal of 4.0 and mag goal of 2.0, replace as needed -2g sodium diet -Daily weights. Strict I&O. + Sanchez -Known CKD, scr improvement with IV diuresis Permanent AFIB: Rate controlled on telemetry. -Not currently requiring beta darrel therapy -AC on hold due to elevated INR (3.8)>> now 1.7>> 1.5 (given Vit K 04/27/2023). Anticoagulation discontinued after hospitalist discussed risk versus benefits with family. Confusion/AMS: +UTI. GI workup for possible cirrhosis and ? hepatic encephalopathy-- appreciate recommendations. Will defer to primary team for ABX treatment. ? Hepatic encephalopathy, liver cirrhosis on CT. GI following Case discussed with Dr. Pineda. Will follow. I spent a total of 30 minutes on the date of service in preparation, delivery, and documentation of the care provided to the patient excluding any time spent in the performance of separately billed services. MARI Hernandez Department of Cardiology, [facility] This chart was completed in part utilizing Speech Voice Recognition Software. Grammatical errors, random word insertions, pronoun errors, and incomplete sentences are an occasional consequence of this system due to software limitations, ambient noise, and hardware issues. Any formal questions or concerns about the content, text, or information contained within the body of this dictation should be directly addressed to the provider for clarification. Admission and Anticipated Discharge Date Admission Date: April 27, 2023 Subjective 82-year-old male with significant dementia and confusion. Echocardiographic evidence of right ventricular dysfunction,dilation, and pulmonary hypertension. Physical exam consistent with acute on chronic heart failure, primarily right- sided signs/symptoms. CT with evidence of anasarca and cirrhosis of the liver. GI following. 04/27/2023: -Echo: LVEF 60 to 65%, severe biatrial enlargement, RV severely dilated with moderately reduced systolic function, flattened septum consistent with RV pressure/volume overload, dilated tricuspid annulus with mild coaptation of the tricuspid valve leaflets, severe TR, dilated inferior vena cava with right atrial pressure 15 mmHg, indirect evidence of severely elevated pulmonary pressures -Diuresing with IV Lasix, increased to 40 mg daily. -Anticoagulation on hold due to supratherapeutic INR. Was given vitamin K to reverse--there was no active bleeding 04/28/2023: Patient remaining hypervolemic but responding well to IV diuresis. IV Lasix 40 mg daily continued 04/29/2023: Labs: Serum creatinine 1.39, potassium 4.2 , INR 1.5 Tele: AFIB 70s I&O: -6.7L Weight: 68.1kg >>68 kg >> 70.5 kg Upon entrance into the room patient resting in bed. Nursing at bedside. No acute complaints. ROS limited due to underlying dementia. Physical Exam Constitutional: + ill appearing and + frail appearing; n o acute distress Neck: normal visual inspection Respiratory: normal respiratory effort Auscultation: + rales and + rhonchi Cardiovascular: Rate/Rhythm: regular rate and + irregularly irregular Heart Sounds: + murmur (+systolic murmur ) Vessels: + JVD Extremities: + edema (+2 BLLE pitting edema ) Gastrointestinal (Abdomen): Percussion/Palpation: abdomen soft Skin: + ecchymosis Psychiatric: A+Ox3, euthymic affect Results & Data Vital Signs (Past 12 Hours) Vital Signs Temp Pulse Pulse Resp BP Pulse Ox O2 Del Method 04/29/23 03:00 36.7 C 64 21 90/54 L 93 Room Air 04/28/23 23:00 36.7 C 56 L 20 100/64 97 Room Air 04/28/23 22:20 56 L (5) CKD (chronic kidney disease), stage III Chronic kidney disease stage 3 subtype: unspecified whether 3a or 3b Qualified Code(s): N18.30 - Chronic kidney disease, stage 3 unspecified
[2023-04-29 08:47] LABS: Calcium 7.9 mg/dl (8.6-10.3); Magnesium 2.1 mg/dl (1.7-2.4); Potassium 3.7 mmol/L (3.5-5.1)
[2023-04-29 08:53] LABS: BUN Creatinine Ratio 42.1 (10-20); Creatinine Clr Calc Pharmacy 47.5 ml/min; Est GFR (African American) 68.5 ml/min; Est GFR (Non-African American) 59.1 ml/min
--- NOTE | 2023-04-29 09:25 | Cardiology Progress Note ---
Date of Service April 29, 2023 Assessment & Plan (1) Acute on chronic diastolic HF (heart failure): (2) Valvular heart disease: (3) Permanent atrial fibrillation: (4) UTI (urinary tract infection): (5) CKD (chronic kidney disease), stage III: Plan IMPRESSION: 82-year-old male with significant dementia and confusion. Echocardiographic evidence of right ventricular dysfunction,dilation, and pulmonary hypertension. Physical exam consistent with acute on chronic heart failure, primarily right- sided signs/symptoms. CT with evidence of anasarca and cirrhosis of the liver. Acute on chronic HFpEF vs Hepatic encephalopathy: Chronic HFpEF secondary to valvular heart disease. Patient appears euvolemic on exam. HS troponin mildly elevated-- likely in the setting of demand. Low likelihood of ACS. -Diuresed with IV Lasix 40 mg daily, renal function improving. Will transition to torsemide 20 mg daily to start tommorrow. -Potassium goal of 4.0 and mag goal of 2.0, replace as needed -2g sodium diet -Daily weights. Strict I&O. + Sanchez Permanent AFIB: Rate controlled on telemetry. -Not currently requiring beta darrel therapy -AC on hold due to elevated INR (3.8)>> now 1.7>> 1.5 (given Vit K 04/27/2023). Anticoagulation discontinued after hospitalist discussed risk versus benefits with family. Case discussed with Dr. Pineda. Will follow. I spent a total of 30 minutes on the date of service in preparation, delivery, and documentation of the care provided to the patient excluding any time spent in the performance of separately billed services. MARI Dupont Department of Cardiology, [facility] This chart was completed in part utilizing Speech Voice Recognition Software. Grammatical errors, random word insertions, pronoun errors, and incomplete sentences are an occasional consequence of this system due to software limitations, ambient noise, and hardware issues. Any formal questions or concerns about the content, text, or information contained within the body of this dictation should be directly addressed to the provider for clarification. Admission and Anticipated Discharge Date Admission Date: April 27, 2023 Supervising Physician Co-Signing Physician Notes I have reviewed the advance practitioner's documentation, and I agree with, and take responsibility for the plan of care. 82-year-old male presented to the emergency department due to dementia, confusion, and falls. More alert today with improved cognitive status. Poor historian. Fluid balance -3.2 L. Stable renal function and electrolytes. Mildly hypotensive this morning. Telemetry reveals atrial fibrillation with heart rate ranging from 50s-80s. Supplemental oxygen discontinued. PE: VSS. Gen NAD. Heart: Irregular rhythm. Normal S1-S2. 2/6 midsystolic murmur heard at the left sternal border. Lungs: Diminished breath sounds at the bases. No rales, rhonchi, wheeze per extremities: 1+ edema with stasis changes. A/P: 82-year-old male with history of dementia and acute confusion. Acute heart failure with preserved LV systolic function and RV dilatation/anasarca improved with IV diuresis. Recommend transition to oral torsemide. Consider addition of low-dose Aldactone if BP improves. Monitor fluid balance, daily, GFR, and electrolytes. Anticoagulation discontinued after hospitalist discussed risk versus benefits with family. Rate controlled on telemetry. No need for beta- darrel therapy at this time. I spent a total of 20 minutes on the date of service in preparation, delivery, and documentation of the care provided to this patient, excluding any time spent in the performance of separately billed services. Subjective 82-year-old male with significant dementia and confusion. Echocardiographic evidence of right ventricular dysfunction,dilation, and pul monary hypertension. Physical exam consistent with acute on chronic heart failure, primarily right- sided signs/symptoms. CT with evidence of anasarca and cirrhosis of the liver. GI following. 04/27/2023: -Echo: LVEF 60 to 65%, severe biatrial enlargement, RV severely dilated with moderately reduced systolic function, flattened septum consistent with RV pressure/volume overload, dilated tricuspid annulus with mild coaptation of the tricuspid valve leaflets, severe TR, dilated inferior vena cava with right atrial pressure 15 mmHg, indirect evidence of severely elevated pulmonary pressures -Diuresing with IV Lasix, increased to 40 mg daily. -Anticoagulation on hold due to supratherapeutic INR. Was given vitamin K to reverse--there was no active bleeding 04/28/2023: Patient remaining hypervolemic but responding well to IV diuresis. IV Lasix 40 mg daily continued 04/29/2023: Appears euvolemic on exam Urine appears concentrated Labs: Serum creatinine 1.14, potassium 3.7 , INR 1.5 Tele: A Fib 50-60s I&O: -6.7L Weight: 68.1kg >>68 kg >> 70.5 kg Review of Systems Review of Systems: Unobtainable due to cognitive status Physical Exam Constitutional: WD/WN, vitals as above well developed, well nourished and healthy appearing Respiratory: normal respiratory effort, lungs clear to auscultation Cardiovascular: Rate/Rhythm: regular rate and + irregularly irregular Vessels: normal peripheral pulses; no JVD and no carotid bruit Extremities: normal capillary refill; no edema Gastrointestinal (Abdomen): normal bowel sounds, soft, nontender, no hepatosplenomegaly Skin: no rashes, warm and dry + wound (dressing in place to left hand ) Psychiatric: Orientation: alert, oriented to person and cooperative; + not oriented to place and + not oriented to time Results & Data Vital Signs (Past 12 Hours) Vital Signs Temp Pulse Pulse Resp BP Pulse Ox O2 Del Method 04/29/23 09:07 110/62 04/29/23 07:50 36.3 C L 55 L 18 106/55 L 95 Room Air 04/29/23 03:00 36.7 C 64 21 90/54 L 93 Room Air 04/28/23 23:00 36.7 C 56 L 20 100/64 97 Room Air 04/28/23 22:20 56 L Laboratory Results Coagulation 04/29/23 Range/Units 05:24 PT 15.8 H (9.0-12.0) Seconds Comprehensive Metabolic Panel 04/29/23 Range/Units 07:26 Sodium 139 (136-145) mmol/L Potassium 3.7 (3.5-5.1) mmol/L Chloride 104 (98-107) mmol/L Carbon Dioxide 30 (21-32) mmol/L BUN 48 H (6-23) mg/dl Creatinine 1.14 (0.6-1.4) mg/dl Glucose 82 (70-99(Fasting)) mg/dl Calcium 7.9 L (8.6-10.3) mg/dl Intake and Output 04/28/23 04/29/23 04/29/23 22:59 06:59 14:59 Output Total 475 / 3325 250 / 3325 Balance -475 / -3275 -250 / -3275 Output: Urine Amount (Catheter) 475 / 3325 250 / 3325 Sanchez/Indwelling 475 / 1825 250 / 1825 Other: Weight 70.5 kg Medications Administered Current Inpatient Medications Acetaminophen (Acetaminophen 325 Mg Tab) 650 mg PO Q4H PRN PRN Reason: Pain or Fever Stop: 05/27/23 02:22 Donepezil HCl (Donepezil Hcl 5 Mg Tab) 5 mg PO QAM [facility] Stop: 05/27/23 08:59 Last Admin: 04/29/23 09:10 Dose: 5 mg Ferrous Sulfate (Ferrous Sulfate 325 Mg Tab) 325 mg PO QAM [facility] Stop: 05/27/23 08:59 Last Admin: 04/29/23 09:10 Dose: 325 mg Furosemide (Furosemide Inj 20 Mg/2 Ml Vial) 40 mg IV DAILY [facility] Stop: 05/28/23 08:59 Last Admin: 04/29/23 09:08 Dose: 40 mg Lisinopril (Lisinopril 10 Mg Tab) 10 mg PO QAM [facility] Stop: 05/27/23 08:59 Last Admin: 04/29/23 09:11 Dose: 10 mg Melatonin (Melatonin 3 Mg Tab) 4.5 mg PO HS [facility] Stop: 05/27/23 20:59 Last Admin: 04/28/23 20:07 Dose: 4.5 mg Nitroglycerin (Nitroglycerin Sl 0.4 Mg/Tab Tab) 0.4 mg SL Q5M PRN PRN Reason: Chest Pain Stop: 05/27/23 02:22 Olanzapine (Olanzapine 10 Mg/2.1 Ml Sdv) 5 mg IM Q6H PRN PRN Reason: Agitation Stop: 05/27/23 16:14 Last Admin: 04/27/23 23:22 Dose: 5 mg Polyethylene Glycol (Polyethylene (Miralax) 17 Gm Pack) 17 gm PO DAILY PRN PRN Reason: Constipation Stop: 05/27/23 02:22 Vitamin B Complex (Vitamin B Complex Tab) 1 tab PO QDD [facility] Stop: 05/27/23 16:29 Last Admin: 04/28/23 12:45 Dose: Not Given (5) CKD (chronic kidney disease), stage III Chronic kidney disease stage 3 subtype: unspecified whether 3a or 3b Qualified Code(s): N18.30 - Chronic kidney disease, stage 3 unspecified
--- NOTE | 2023-04-29 12:47 | Palliative Care Consultation ---
Date of Consultation April 29, 2023 Assessment & Plan (1) Confusion: (2) Recurrent falls: (3) Weakness generalized: (4) Palliative care by specialist: (5) Discussion about advance care planning held with family member: Attempted to call who is SDM, left message on requesting call back Pt is not decisional (6) Dementia with behavioral disturbance: (7) Valvular heart disease: Plan * Attempted ACP with , [facility] req call back * has expressed desire to primary team for pt to have a trial of rehab if he improves this admission but if he worsens she wants him transitioned to comfort care * Plan of care per my chart review seems fairly straightforward - rehab vs no rehab with comfort care, the only pending decision is placement which care mgt will coordinate * If he goes to rehab trial, i would offer outpatient pall med clinic follow up for sx mgt needs and family meeting with . * If he acutely declines, wants pt moved to comfort care. Thank you for allowing us to participate in the ongoing care of this patient. Please don't hesitate to call or page with any additional concerns. Dr. Elena Barrett DNP Director, Palliative Care History of Present Illness Reason for Consultation: goals Attending Physician: Nnamdi Harden MD History of Present Illness 82yo male admitted with worsening dementia related confusion and inc falls; found to have exac HFpEF secondary to valvular heart disease. He has mostly right heart failure symptoms with overload family declined anticoag given recurrent falls troponin was elevated mildly, this is likely demand related and not ACS echo confirms RV dysfxn, RV dilation and PH. PMH: heart failure due to valvular disease, permanent atrial fibrillation, mitral regurgitation, tricuspid regurgitation, hypertension, CKD stage III, microscopic hematuria, osteoarthritis of left hip, late onset Alzheimer's dementia with agitation, iron deficiency anemia, history of kidney stones confusion at baseline, unable to provide HPI alert to self when name is called no family present at time of my visit Allergies Allergy/AdvReac Type Severity Reaction Status Date / Time No Known Allergies Allergy Verified 04/26/23 22:07 Home Medications Medication Instructions Recorded Confirmed Type ferrous sulfate 325 mg (65 mg 325 mg PO QAM 08/09/19 04/26/23 History iron) tablet vitamin B complex 1 tab PO QDD 08/09/19 04/26/23 History furosemide 20 mg tablet 20 mg PO Q OTHER DAY 08/25/19 04/26/23 History lisinopril 10 mg tablet 10 mg PO QAM 08/25/19 04/26/23 History warfarin 5 mg tablet See Rx Instructions .Route .COMPLEX 07/09/22 04/26/23 History donepezil 5 mg tablet 5 mg PO QAM 04/26/23 04/26/23 History melatonin 5 mg tablet 5 mg PO HS 04/26/23 04/26/23 History Patient History Medical History (Updated 04/29/23 @ 12:43 by Elena Barrett DNP) Dementia with behavioral disturbance Discussion about advance care planning held with family member Palliative care by specialist Weakness generalized Confusion Recurrent falls Chronic anemia CKD (chronic kidney disease), stage III History of kidney stones HTN (hypertension) (HFpEF) heart failure with preserved ejection fraction Valvular heart disease severe TR, mild to moderate MR per 2017 echo- cardio monitoring Chronic atrial fibrillation on coumadin Surgical History History of tooth extraction Hx of cystoscopy with stent in place due to kidney stone History of right inguinal hernia repair 2014 with mesh Family History Father Myocardial infarction, Onset Age: 70 Mother COPD (chronic obstructive pulmonary disease) Social History Smoking Status: Never smoker Second Hand Exposure: No; Do You Dip or Chew Tobacco: No; Hx Alcohol Use: Yes Alcohol type: beer Hx Substance Use: No Preferred Language: Czech Communication Ability: Impaired French Weaver Required: No Beliefs That Will Affect Care: None marital status: Current Living Situation: Spouse Current Living Situation Comment: Last medical record stats w/ spouse unable to get a clear response now Feels Safe at Home: Yes Safety Concerns: Feels Safe At This Time Assistive Devices: None Review of Systems Review of Systems: Unobtainable due to cognitive status Physical Exam Physical Exam: elderly male NAD , restng in bed bitemp wasting neck supple, no stridor lungs diminished bibasilar vines irreg irreg, +murmur abd soft, BS+ +generalized weakness mild restlessness skin pale pleasantly confused, unable to follow commands Results & Data Vital Signs (Past 12 Hours) Vital Signs Temp Pulse Resp BP BP Pulse Ox O2 Del Method 04/29/23 12:01 89/57 L 04/29/23 11:36 87/62 L 04/29/23 11:11 36.3 C L 68 19 85/47 L 99 Room Air 04/29/23 09:07 110/62 04/29/23 07:50 36.3 C L 55 L 18 106/55 L 95 Room Air 04/29/23 03:00 36.7 C 64 21 90/54 L 93 Room Air Laboratory Results data reviewed Diagnostic Findings data reviewed PG Care Time/CCT Total # of Minutes Spent Total Time Spent with Patient: Total time spent is greater than 50% in coordination of care (as documented) at patient's floor/unit and/or counseling patient: I spent 45 minutes overall addressing this case: 15 min in medical data review/discussion with referring provider(s) and/or preparation for the visit 15 min in direct interaction with the patient/exam 00 min in Advance Care Planning/Goals of Care discussions as detailed above in note (must be >16min) 5 min in subsequent review and synthesis of assessment and plan 10 min communicating with other providers regarding the patient's case: [place] [address] IN/OBS CONSULT LVL 3,45M Patient Type New History Comprehensive Exam Comprehensive Medical Decision Making High Complexity Diagnoses Confusion R41.0 Recurrent falls R29.6 Weakness generalized R53.1 Palliative care by specialist Z51.5 Discussion about advance care planning held with family member Z71.0 Dementia with behavioral disturbance F03.918 Valvular heart disease I38
--- NOTE | 2023-04-29 15:28 | Hospitalist Progress Note ---
Date of Service April 29, 2023 Assessment & Plan (1) Acute confusion: Plan: 82-year-old male with past medical history significant for heart failure due to valvular disease, permanent atrial fibrillation, mitral regurgitation, tricuspid regurgitation, hypertension, CKD stage III, microscopic hematuria, osteoarthritis of left hip, late onset Alzheimer's dementia with agitation, iron deficiency anemia, history of kidney stones presents with falls and also con fusion. As per patient was sitting on edge of chair and he fell down and is bleeding from the arm and was brought in here. As per patient's , he has dementia but last few days his confusion is getting worse. He is being managed for the following: Metabolic encephalopathy History of Alzheimer's dementia. Frequent falls UTI, ruled out Patient has history of Alzheimer's dementia; symptoms getting worse as per patient's Patient has been frequently getting disoriented recently and waking up at night. He has history of frequent falls as well Urinalysis suggestive of possible infection--> UCx likely contaminant --->Empiric Atb was dc'd. CT head and CT cervical spine negative for acute findings Wound care consulted for multiple abrasions/skin tears--Dressing change PT OT ordered Suspect that his altered mental status is likely related with delirium in setting of dementia. On as needed Zyprexa. Acute on chronic diastolic CHF Demand ischemia Chest x-ray on admission personally reviewed; bilateral congestion present, cardiomegaly present Echocardiogram shows EF of 60 to 65% with severely dilated right ventricle, dilated IVC proBNP elevated High sensitive troponin of 33, down trended Cardiology on board; currently on diuretics Strict input and output monitoring. Sanchez catheter in place. Permanent atrial fibrillation: Supratherapeutic INR at presentation. Per prior attending - Discussed with patient's Brit over the phone; patient has frequent falls, presents with laceration on his leading to bleeding. He has thrombocytopenia, possible liver cirrhosis; she agreed that benefits of anticoagulation outweigh the risks of bleeding/hemorrhage. Vitamin K 2.5 was given with improvement in INR. will discontinue Coumadin. Coumadin DC'd. Late onset Alzheimer's dementia with agitation: Required Zyprexa in the ER. Continue home donezepil. Close monitor for delirium. One-on-one as needed Hypertension: On lisinopril RACHEL on CKD stage III: Baseline creatinine around 1, about stable now. Monitor. Liver cirrhosis Thrombocytopenia GI consulted for comanagement; possible congestive hepatopathy. Ammonia normal; holded off on rifaximin/lactulose DVT prophylaxis: Hep sc. Disposition: Telemetry Per prior attending - Goals of care discussion; patient's acknowledges that patient's quality of life at severely decline over the course of years with significant decline in last few months. He has multiple comorbidities including advanced dementia, atrial fibrillation, heart failure. She wants to continue medical treatment for the time being; if patient improves with medical treatmentplan to transition to rehab. If patient decompensates during the hospitalization; plan to change to comfort care. Palliative care also consulted to further discuss goals of care. Palliative care's recs noted. Please note the above document was generated using voice recognition software. It may contain grammatical, syntax or spelling errors. Any formal questions or concerns about the content, text or information contained within the body of this dictation should be directly addressed to the provider for clarification Admission and Anticipated Discharge Date Admission Date: April 27, 2023 Subjective Patient seen and examined at bedside. He is alert and oriented, denies pain, ROS not able due to cognition status. Physical Exam Physical Exam: Constitutional: alert, awake. He is not oriented to time place or person. Respiratory: Bilateral clear breath sound Cardiovascular: Irregular no edema Vessels: no JVD or carotid bruit Chest: normal inspection of chest Abdomen: normal bowel sounds, soft, nontender, no hepatosplenomegaly Musculoskeletal: no cyanosis or clubbing, extremities motor strength 5/5. Pitting edema present Skin: Multiple bandages over his extremities. No overlying soakage Neurologic: Grossly moves all extremities Results & Data Results & Data Vital Signs (Past 12 Hours) Vital Signs Temp Pulse Resp BP BP Pulse Ox O2 Del Method 04/29/23 13:23 90/52 L 04/29/23 13:02 92/58 L 04/29/23 12:01 89/57 L 04/29/23 11:36 87/62 L 04/29/23 11:11 36.3 C L 68 19 85/47 L 99 Room Air 04/29/23 09:07 110/62 04/29/23 07:50 36.3 C L 55 L 18 106/55 L 95 Room Air
[2023-04-29] MEDS: HEPARIN SOD 5,000 UNIT/0.5 ML VIAL SQ SCH (20:24)
--- NOTE | 2023-04-30 07:23 | Cardiology Progress Note ---
Date of Service April 30, 2023 Assessment & Plan (1) Acute on chronic diastolic HF (heart failure): (2) Valvular heart disease: (3) Permanent atrial fibrillation: (4) UTI (urinary tract infection): (5) CKD (chronic kidney disease), stage III: Plan IMPRESSION: 82-year-old male with significant dementia and confusion. Echocardiographic evidence of right ventricular dysfunction,dilation, and pulmonary hypertension. Physical exam consistent with acute on chronic heart failure, primarily right- sided signs/symptoms. CT with evidence of anasarca and cirrhosis of the liver. Acute on chronic HFpEF vs Hepatic encephalopathy: Chronic HFpEF secondary to valvular heart disease. Patient appears euvolemic on exam. HS troponin mildly elevated-- likely in the setting of demand. Low likelihood of ACS. -IV Lasix discontinued in favor of oral torsemide 20 mg daily. Continue. -Potassium goal of 4.0 and mag goal of 2.0, replace as needed -2g sodium diet -Daily weights. Strict I&O. + Sanchez Permanent AFIB: Rate controlled on telemetry. HR dropped into the 20s. -Not currently on AVN blocking agents. Would avoid. Overall poor prognosis. -Anticoagulation discontinued after hospitalist discussed risk versus benefits with family. Agree with palliative care consult to discuss goals of care. Prognosis limited. Trial of rehab vs. comfort care. No further recommendations from a cardiology standpoint. Case discussed with Dr. Pineda. I spent a total of 20 minutes on the date of service in preparation, delivery, and documentation of the care provided to the patient excluding any time spent in the performance of separately billed services. AMRI Hernandez Department of Cardiology, [facility] This chart was completed in part utilizing Speech Voice Recognition Software. Grammatical errors, random word insertions, pronoun errors, and incomplete sentences are an occasional consequence of this system due to software limitations, ambient noise, and hardware issues. Any formal questions or concerns about the content, text, or information contained within the body of this dictation should be directly addressed to the provider for clarification. Admission and Anticipated Discharge Date Admission Date: April 27, 2023 Supervising Physician Co-Signing Physician Notes I have reviewed the advance practitioner's documentation, and I agree with, and take responsibility for the plan of care. 82-year-old male presented to the emergency department due to dementia, confusion, and falls. Mental status waxing and waning during hospitalization. Agitated this afternoon. Poor historian. Borderline hypotension unchanged. Poor historian. Telemetry reveals atrial fibrillation with heart rate ranging from 50s-80s. Transient bradycardia with heart rate down to 28 bpm recorded without associated symptoms while eating lunch. PE: VSS. Gen NAD. Heart: Irregular rhythm. Normal S1-S2. 2/6 midsystolic murmur heard at the left sternal border. Lungs: Diminished breath sounds at the bases. No rales, rhonchi, wheeze per extremities: 1+ edema with stasis changes. A/P: 82-year-old male with history of dementia and admission for acute confusion/falls. Acute heart failure with preserved LV systolic function and RV dilatation/anasarca improved with IV diuresis. 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 Echocardiogram demonstrating significant right ventricular dilatation and dysfunction. Patient transition to oral torsemide 04/29/2023. Monitor fluid balance, daily, GFR, and electrolytes while hospitalized. Anticoagulation discontinued due to fall risk, and hospitalist discussion with patient's family. Transient, asymptomatic bradycardia recorded. Continue telemetry monitoring. Avoid AV hero blocking agents. Poor prognosis. I spent a total of 20 minutes on the date of service in preparation, delivery, and documentation of the care provided to this patient, excluding any time spent in the performance of separately billed services. Subjective 82-year-old male with significant dementia and confusion. Echocardiographic evidence of right ventricular dysfunction,dilation, and pulmonary hypertension. Physical exam consistent with acute on chronic heart failure, primarily right- sided signs/symptoms. CT with evidence of anasarca and cirrhosis of the liver. GI following. 04/27/2023: -Echo: LVEF 60 to 65%, severe biatrial enlargement, RV severely dilated with moderately reduced systolic function, flattened septum consistent with RV pressure/volume overload, dilated tricuspid annulus with mild coaptation of the tricuspid valve leaflets, severe TR, dilated inferior vena cava with right atrial pressure 15 mmHg, indirect evidence of severely elevated pulmonary pressures -Diuresing with IV Lasix, increased to 40 mg daily. -Anticoagulation on hold due to supratherapeutic INR. Was given vitamin K to reverse--there was no active bleeding 04/28/2023: Patient remaining hypervolemic but responding well to IV diuresis. IV Lasix 40 mg daily continued 04/29/2023: Patient appears euvolemic on exam. IV Lasix placed on hold with plans to transition to torsemide 04/29. Palliative care consult 04/30/2023: Labs: Serum creatinine 1.1, potassium 3.9, INR 1.4 Tele: A Fib 60-70s I&O: -8.1L Weight: 68.1kg >>68 kg >> 70.5 kg>>72.9 kg Review of systems limited due to underlying dementia. Patient appears in no acute distress. Increased alertness. Review of Systems Review of Systems: Unobtainable due to cognitive status (confusion ) Physical Exam Constitutional: WD/WN, vitals as above no acute distress Respiratory: normal respiratory effort; no labored breathing Auscultation: + diminished lung sounds; no rales, no rhonchi and no wheezes Cardiovascular: Rate/Rhythm: regular rate and + irregularly irregular Vessels: normal peripheral pulses; no JVD and no carotid bruit Extremities: no edema Gastrointestinal (Abdomen): normal bowel sounds, soft, nontender, no hepatosplenomegaly Skin: + wound (dressing in place to left hand ) and + ecchymosis Psychiatric: Orientation: alert, oriented to person, oriented to place and cooperative; + not oriented to time Results & Data Vital Signs (Past 12 Hours) Vital Signs Temp Pulse Pulse Resp BP Pulse Ox O2 Del Method 04/30/23 02:55 36.4 C L 66 18 104/61 95 Room Air 04/29/23 22:55 36.4 C L 69 16 106/66 96 Room Air 04/29/23 22:00 65 04/29/23 19:30 Room Air Laboratory Results Coagulation 04/30/23 Range/Units 08:21 PT 15.1 H (9.0-12.0) Seconds CBC 04/30/23 Range/Units 08:21 WBC 8.34 (4.8-10.8) K/ul RBC 3.68 L (4.70-6.10) M/uL Hgb 11.5 L (14.0-18.0) g/dl Hct 35.3 L (42.0-52.0) % Plt Count 137 (130-400) K/uL Comprehensive Metabolic Panel 04/30/23 Range/Units 08:21 Sodium 135 L (136-145) mmol/L Potassium 3.9 (3.5-5.1) mmol/L Chloride 100 (98-107) mmol/L Carbon Dioxide 30 (21-32) mmol/L BUN 50 H (6-23) mg/dl Creatinine 1.10 (0.6-1.4) mg/dl Glucose 104 H (70-99(Fasting)) mg/dl Calcium 8.2 L (8.6-10.3) mg/dl Intake and Output 04/29/23 04/30/23 04/30/23 22:59 06:59 14:59 Output Total 250 / 1800 300 / 1800 Balance -250 / -1320 -300 / -1320 Output: Urine Amount (Catheter) 250 / 1800 300 / 1800 Sanchez/Indwelling 250 / 1800 300 / 1800 Other: Weight 72.9 kg Weight Measurement Method Built in [facility] (5) CKD (chronic kidney disease), stage III Chronic kidney disease stage 3 subtype: unspecified whether 3a or 3b Qualified Code(s): N18.30 - Chronic kidney disease, stage 3 unspecified
[2023-04-30 08:44] LABS: Hematocrit (blood only) 35.3 % (42.0-52.0); Hemoglobin 11.5 g/dl (14.0-18.0); Mean Corpuscular Hemoglobin 31.3 pg (25.0-34.0); Mean Corpuscular Hgb Conc 32.6 g/dL (32.0-36.0); Mean Corpuscular Volume 95.9 fL (80.0-100.0); Mean Platelet Volume 9.6 fL (9.4-12.4); Platelet Count 137 K/uL (130-400); RDW Coefficient of Variation 16.6 % (11.5-14.5); Red Blood Count 3.68 M/uL (4.70-6.10); White Blood Count 8.34 K/ul (4.8-10.8)
[2023-04-30 08:54] LABS: BUN Creatinine Ratio 45.5 (10-20); Calcium 8.2 mg/dl (8.6-10.3); Creatinine Clr Calc Pharmacy 49.2 ml/min; Est GFR (African American) 71.6 ml/min; Est GFR (Non-African American) 61.8 ml/min; Magnesium 1.9 mg/dl (1.7-2.4); Potassium 3.9 mmol/L (3.5-5.1)
[2023-04-30 09:04] LABS: INR 1.4 (0.9-1.1); Prothrombin Time 15.1 Seconds (9.0-12.0)
[2023-04-30] MEDS: TORSEMIDE 20 MG TAB PO SCH (09:30)
--- NOTE | 2023-04-30 15:13 | Hospitalist Progress Note ---
Date of Service April 30, 2023 Assessment & Plan (1) Acute confusion: Plan: 82-year-old male with past medical history significant for heart failure due to valvular disease, permanent atrial fibrillation, mitral regurgitation, tricuspid regurgitation, hypertension, CKD stage III, microscopic hematuria, osteoarthritis of left hip, late onset Alzheimer's dementia with agitation, iron deficiency anemia, history of kidney stones presents with falls and also con fusion. As per patient was sitting on edge of chair and he fell down and is bleeding from the arm and was brought in here. As per patient's , he has dementia but last few days his confusion is getting worse. He is being managed for the following: Metabolic encephalopathy History of Alzheimer's dementia. Frequent falls UTI, ruled out Patient has history of Alzheimer's dementia; symptoms getting worse as per patient's Patient has been frequently getting disoriented recently and waking up at night. He has history of frequent falls as well Urinalysis suggestive of possible infection--> UCx likely contaminant --->Empiric Atb was dc'd. CT head and CT cervical spine negative for acute findings Wound care consulted for multiple abrasions/skin tears--Dressing change PT OT ordered Suspect that his altered mental status is likely related with delirium in setting of dementia. On as needed Zyprexa. Acute on chronic diastolic CHF Demand ischemia Chest x-ray on admission personally reviewed; bilateral congestion present, cardiomegaly present Echocardiogram shows EF of 60 to 65% with severely dilated right ventricle, dilated IVC proBNP elevated High sensitive troponin of 33, down trended Cardiology on board; currently on diuretics, transitioned to oral. Strict input and output monitoring. Sanchez catheter in place. Permanent atrial fibrillation: Supratherapeutic INR at presentation. Per prior attending - Discussed with patient's Brit over the phone; patient has frequent falls, presents with laceration on his leading to bleeding. He has thrombocytopenia, possible liver cirrhosis; she agreed that benefits of anticoagulation outweigh the risks of bleeding/hemorrhage. Vitamin K 2.5 was given with improvement in INR. will discontinue Coumadin. Coumadin DC'd. Late onset Alzheimer's dementia with agitation: Required Zyprexa in the ER. Continue home donezepil. Close monitor for delirium. One-on-one as needed Hypertension: On lisinopril RACHEL on CKD stage III: Baseline creatinine around 1, about stable now. Monitor. Liver cirrhosis Thrombocytopenia GI consulted for comanagement; possible congestive hepatopathy. Ammonia normal; holded off on rifaximin/lactulose DVT prophylaxis: Hep sc. Disposition: Telemetry Per prior attending - Goals of care discussion; patient's acknowledges that patient's quality of life at severely decline over the course of years with significant decline in last few months. He has multiple comorbidities including advanced dementia, atrial fibrillation, heart failure. She wants to continue medical treatment for the time being; if patient improves with medical treatmentplan to transition to rehab. If patient decompensates during the hospitalization; plan to change to comfort care. Palliative care also consulted to further discuss goals of care. Palliative care's recs noted. d/w Pt's Brit over the phone 04/29. She was updated on patient's poor prognosis given severe dementia and poor quality of life iso multiple comorbidities including arrythmia and advanced heart failure. She understands he has poor prognosis and she states she can't take care of him at home. We discussed about further plan of care, Brit wants patient to be comfortable, doesn't want further blood draws and heart monitoring, doesn't want any invasive intervention. She wants him to continue current meds as able and comfort care measures meds if needed. She is looking into getting him going to facility with hospice. Will consult CM for hospice, will move the patient to 3rd floor. Please note the above document was generated using voice recognition software. It may contain grammatical, syntax or spelling errors. Any formal questions or concerns about the content, text or information contained within the body of this dictation should be directly addressed to the provider for clarification Admission and Anticipated Discharge Date Admission Date: April 27, 2023 Subjective Patient seen and examined at bedside. He is alert and oriented, denies pain, ROS not able due to cognition status. Per RN, pt is removing iv lines , wound dressing and heart monitor, hence placed on soft mitts. Per RN, eating ok and moving bowels ok. Pt had transient asymptomatic bradycardia earlier today. Physical Exam Physical Exam: Constitutional: alert, awake. He is not oriented to time place or person. Respiratory: Bilateral clear breath sound Cardiovascular: Irregular no edema Vessels: no JVD or carotid bruit Chest: normal inspection of chest Abdomen: normal bowel sounds, soft, nontender, no hepatosplenomegaly Musculoskeletal: no cyanosis or clubbing, extremities motor strength 5/5. Pitting edema present Skin: Multiple bandages over his extremities. No overlying soakage Neurologic: Grossly moves all extremities Results & Data Results & Data Vital Signs (Past 12 Hours) Vital Signs Temp Pulse Pulse Resp BP BP Pulse Ox 04/30/23 11:44 36.3 C L 83 19 105/73 95 04/30/23 09:30 112/72 04/30/23 07:29 36.4 C L 79 20 106/72 O2 Del Method 04/30/23 11:44 Room Air 04/30/23 09:30 04/30/23 07:29
[2023-05-01] MEDS: LORazepam 0.5 MG TAB SL PRN (06:20)
--- NOTE | 2023-05-01 07:08 | Cardiology Progress Note ---
Date of Service May 01, 2023 Assessment & Plan (1) Acute on chronic diastolic HF (heart failure): (2) Valvular heart disease: (3) Permanent atrial fibrillation: (4) UTI (urinary tract infection): (5) CKD (chronic kidney disease), stage III: Plan IMPRESSION: 82-year-old male with significant dementia and confusion. Echocardiographic evidence of right ventricular dysfunction,dilation, and pulmonary hypertension. Physical exam consistent with acute on chronic heart failure, primarily right- sided signs/symptoms. CT with evidence of anasarca and cirrhosis of the liver. Acute on chronic HFpEF vs Hepatic encephalopathy: Chronic HFpEF secondary to valvular heart disease. Patient appears euvolemic on exam. HS troponin mildly elevated-- likely in the setting of demand. Low likelihood of ACS. -Continue oral torsemide 20 mg daily. -Potassium goal of 4.0 and mag goal of 2.0, replace as needed -2g sodium diet -Daily weights. Strict I&O. + Sanchez Permanent AFIB: Rate controlled on telemetry. HR dropped into the 20s briefly around 11am 04/30/2023- asymptomatic. -Not currently on AVN blocking agents. Would avoid. Overall poor prognosis. -Anticoagulation discontinued after hospitalist discussed risk versus benefits with family. Agree with palliative care consult to discuss goals of care. Prognosis limited. Trial of rehab vs. comfort care. No further recommendations from a cardiology standpoint. Case discussed with Dr. Pineda. I spent a total of 20 minutes on the date of service in preparation, delivery, and documentation of the care provided to the patient excluding any time spent in the performance of separately billed services. MARI Hernandez Department of Cardiology, [facility] This chart was completed in part utilizing Speech Voice Recognition Software. Grammatical errors, random word insertions, pronoun errors, and incomplete sentences are an occasional consequence of this system due to software limitations, ambient noise, and hardware issues. Any formal questions or concerns about the content, text, or information contained within the body of this dictation should be directly addressed to the provider for clarification. Admission and Anticipated Discharge Date Admission Date: April 27, 2023 Subjective 82-year-old male with significant dementia and confusion. Echocardiographic evidence of right ventricular dysfunction,dilation, and pulmonary hypertension. Physical exam consistent with acute on chronic heart failure, primarily right- sided signs/symptoms. CT with evidence of anasarca and cirrhosis of the liver. GI following. 04/27/2023: -Echo: LVEF 60 to 65%, severe biatrial enlargement, RV severely dilated with moderately reduced systolic function, flattened septum consistent with RV pressure/volume overload, dilated tricuspid annulus with mild coaptation of the tricuspid valve leaflets, severe TR, dilated inferior vena cava with right atrial pressure 15 mmHg, indirect evidence of severely elevated pulmonary pressures -Diuresing with IV Lasix, increased to 40 mg daily. -Anticoagulation on hold due to supratherapeutic INR. Was given vitamin K to reverse--there was no active bleeding 04/28/2023: Patient remaining hypervolemic but responding well to IV diuresis. IV Lasix 40 mg daily continued 04/29/2023: Patient appears euvolemic on exam. IV Lasix placed on hold with plans to transition to torsemide 04/29. Palliative care consult. Rehab vs Comfort care. 04/30/2023: Tele: A Fib 60-70s, episode of bradycardic heart rates into the 20s around 11 AM. Patient was asymptomatic. Not on AV hero blocking agents. 05/01/2023: Tele: I&O: -9.9L Weight: 68.1kg >>68 kg >> 70.5 kg>>72.9 kg >> Review of systems limited due to underlying dementia. Patient appears in no acute distress. Increased alertness. Physical Exam Constitutional: WD/WN, vitals as above well developed, well nourished and healthy appearing; no acute distress Respiratory: normal respiratory effort, lungs clear to auscultation normal respiratory effort; no labored breathing Auscultation: + diminished lung sounds; no rales, no rhonchi and no wheezes Cardiovascular: Rate/Rhythm: regular rate and + irregularly irregular Vessels: normal peripheral pulses; no JVD and no carotid bruit Extremities: normal capillary refill; no edema Gastrointestinal (Abdomen): normal bowel sounds, soft, nontender, no hepatosplenomegaly Skin: no rashes, warm and dry + wound (dressing in place to left hand ) and + ecchymosis Psychiatric: Orientation: alert, oriented to person, oriented to place and cooperative; + not oriented to time Results & Data Vital Signs (Past 12 Hours) Vital Signs Temp Pulse Resp BP Pulse Ox O2 Del Method 04/30/23 22:00 110/74 04/30/23 21:34 Room Air 04/30/23 20:24 36.6 C 76 14 85/52 L 95 Room Air (5) CKD (chronic kidney disease), stage III Chronic kidney disease stage 3 subtype: unspecified whether 3a or 3b Qual ified Code(s): N18.30 - Chronic kidney disease, stage 3 unspecified
[2023-05-01] MEDS: haloperidoL 1 MG TAB PO SCH (13:56)
--- NOTE | 2023-05-01 15:45 | Hospitalist Progress Note ---
Date of Service May 01, 2023 Assessment & Plan (1) Acute confusion: Plan: 82-year-old male with past medical history significant for heart failure due to valvular disease, permanent atrial fibrillation, mitral regurgitation, tricuspid regurgitation, hypertension, CKD stage III, microscopic hematuria, osteoarthritis of left hip, late onset Alzheimer's dementia with agitation, iron deficiency anemia, history of kidney stones presents with falls and also con fusion. As per patient was sitting on edge of chair and he fell down and is bleeding from the arm and was brought in here. As per patient's , he has dementia but last few days his confusion is getting worse. He is being managed for the following: Metabolic encephalopathy History of Alzheimer's dementia. Frequent falls UTI, ruled out Patient has history of Alzheimer's dementia; symptoms getting worse as per patient's Patient has been frequently getting disoriented recently and waking up at night. He has history of frequent falls as well Urinalysis suggestive of possible infection--> UCx likely contaminant --->Empiric Atb was dc'd. CT head and CT cervical spine negative for acute findings Wound care consulted for multiple abrasions/skin tears--Dressing change PT OT ordered Suspect that his altered mental status is likely related with delirium in setting of dementia. On as needed Zyprexa. Acute on chronic diastolic CHF Demand ischemia Chest x-ray on admission personally reviewed; bilateral congestion present, cardiomegaly present Echocardiogram shows EF of 60 to 65% with severely dilated right ventricle, dilated IVC proBNP elevated High sensitive troponin of 33, down trended Cardiology evaled. c/w diuresis as able. Sanchez catheter in place. Mostly for comfort now. Permanent atrial fibrillation: Supratherapeutic INR at presentation. Per prior attending - Discussed with patient's Brit over the phone; patient has frequent falls, presents with laceration on his leading to bleeding. He has thrombocytopenia, possible liver cirrhosis; she agreed that benefits of anticoagulation outweigh the risks of bleeding/hemorrhage. Vitamin K 2.5 was given with improvement in INR. will discontinue Coumadin. Coumadin DC'd. Late onset Alzheimer's dementia with agitation: Required Zyprexa in the ER. Continue home donezepil. Close monitor for delirium. One-on-one as needed Hypertension: On lisinopril RACHEL on CKD stage III: Baseline creatinine around 1, about stable now. Monitor. Liver cirrhosis Thrombocytopenia GI consulted for comanagement; possible congestive hepatopathy. Ammonia normal; holded off on rifaximin/lactulose Goals of care discussion: Pt's Brit came in at bedside later today along with her sister and CARO on 04/29. She asked me to reiterate all our discussion over the phone that happened earlier on the day of 04/29 with her sister present. We went over the discussion again. The plan remains comfort oriented, no blood draws, no heart monitor, current medications as long as patient tolerates, gradual introduction of comfort care medications as needed with ultimate plan to dc to facility with hospice. DVT prophylaxis: Hep sc. Please note the above document was generated using voice recognition software. It may contain grammatical, syntax or spelling errors. Any formal questions or concerns about the content, text or information contained within the body of this dictation should be directly addressed to the provider for clarification Admission and Anticipated Discharge Date Admission Date: April 27, 2023 Subjective Patient seen and examined at bedside. Patient is lying in bed, on room air, occasional involuntary movement of hands. Patient confused, ROS not able. Physical Exam Physical Exam: Constitutional: drowsy. He is not oriented to time place or person. Respiratory: Bilateral clear breath sound Cardiovascular: Irregular no edema Vessels: no JVD or carotid bruit Chest: normal inspection of chest Abdomen: normal bowel sounds, soft, nontender, no hepatosplenomegaly Musculoskeletal: no cyanosis or clubbing, extremities motor strength 5/5. P itting edema present Skin: Multiple bandages over his extremities. No overlying soakage Neurologic: Grossly moves all extremities Results & Data Results & Data Vital Signs (Past 12 Hours) Vital Signs Temp Pulse Resp BP Pulse Ox O2 Del Method 05/01/23 12:03 36.5 C 62 14 94/52 L 97 Room Air 05/01/23 08:10 36.7 C 65 16 96/59 L 95 Room Air 05/01/23 08:00 Room Air
--- NOTE | 2023-05-02 14:36 | Hospitalist Progress Note ---
Date of Service May 02, 2023 Assessment & Plan (1) Acute confusion: Plan: 82-year-old male with past medical history significant for heart failure due to valvular disease, permanent atrial fibrillation, mitral regurgitation, tricuspid regurgitation, hypertension, CKD stage III, microscopic hematuria, osteoarthritis of left hip, late onset Alzheimer's dementia with agitation, iron deficiency anemia, history of kidney stones presents with falls and also con fusion. As per patient was sitting on edge of chair and he fell down and is bleeding from the arm and was brought in here. As per patient's , he has dementia but last few days his confusion is getting worse. He is being managed for the following: Metabolic encephalopathy History of Alzheimer's dementia. Frequent falls UTI, ruled out Patient has history of Alzheimer's dementia; symptoms getting worse as per patient's Patient has been frequently getting disoriented recently and waking up at night. He has history of frequent falls as well Urinalysis suggestive of possible infection--> UCx likely contaminant --->Empiric Atb was dc'd. CT head and CT cervical spine negative for acute findings Wound care consulted for multiple abrasions/skin tears--Dressing change PT OT ordered Suspect that his altered mental status is likely related with delirium in setting of dementia. On as needed Zyprexa. Acute on chronic diastolic CHF Demand ischemia Chest x-ray on admission personally reviewed; bilateral congestion present, cardiomegaly present Echocardiogram shows EF of 60 to 65% with severely dilated right ventricle, dilated IVC proBNP elevated High sensitive troponin of 33, down trended Cardiology evaled. On PO diuresis, continue as able. Sanchez catheter in place. Mostly for comfort now. Permanent atrial fibrillation: Supratherapeutic INR at presentation. Per prior attending - Discussed with patient's Brit over the phone; patient has frequent falls, presents with laceration on his leading to bleeding. He has thrombocytopenia, possible liver cirrhosis; she agreed that benefits of anticoagulation outweigh the risks of bleeding/hemorrhage. Vitamin K 2.5 was given with improvement in INR. will discontinue Coumadin. Coumadin DC'd. Late onset Alzheimer's dementia with agitation: Required Zyprexa in the ER. Continue home donezepil. Close monitor for delirium. One-on-one as needed Hypertension: On lisinopril RACHEL on CKD stage III: Baseline creatinine around 1, about stable now. Monitor. Liver cirrhosis Thrombocytopenia GI consulted for comanagement; possible congestive hepatopathy. Ammonia normal; holded off on rifaximin/lactulose Goals of care discussion: Pt's Brit came in at bedside later on 04/29 along with her sister and CARO on 04/29. She asked me to reiterate all our discussion ov er the phone that happened earlier on the day of 04/29 with her sister present. We went over the discussion again. The plan remains comfort oriented, no blood draws, no heart monitor, current medications as long as patient tolerates, gradual introduction of comfort care medications as needed with ultimate plan to dc to facility with hospice. DVT prophylaxis: Hep sc. Dispo: awating placement, cm assissting. Please note the above document was generated using voice recognition software. It may contain grammatical, syntax or spelling errors. Any formal questions or concerns about the content, text or information contained within the body of this dictation should be directly addressed to the provider for clarification Admission and Anticipated Discharge Date Admission Date: April 27, 2023 Subjective Patient seen and examined at bedside. Patient is lying in bed, on room air, occasional involuntary movement of hands. Patient confused, ROS not able. Per RN patient is eating okay, is moving bowels okay, no new acute event overnight, has been comfortable. Physical Exam Physical Exam: Constitutional: drowsy. He is not oriented to time place or person. Respiratory: Bilateral clear breath sound Cardiovascular: Irregular no edema Vessels: no JVD or carotid bruit Chest: normal inspection of chest Abdomen: normal bowel sounds, soft, nontender, no hepatosplenomegaly Musculoskeletal: no cyanosis or clubbing, extremities motor strength 5/5. Pitting edema present Skin: Multiple bandages over his extremities. No overlying soakage Neurologic: Grossly moves all extremities Results & Data Results & Data Vital Signs (Past 12 Hours) Vital Signs Temp Pulse Resp BP Pulse Ox O2 Del Method 05/02/23 08:04 36.6 C 56 L 18 107/67 94 Room Air 05/02/23 08:00 Room Air
[2023-05-03] MEDS: ACETAMINOPHEN 325 MG TAB PO PRN (21:20)
--- NOTE | 2023-05-04 10:25 | Communication Note ---
Date of Service: May 04, 2023 Brief Pall Med Note Per chart review, family discussions held with at bedside and plan is now officially [employer] with hospice at SNF. Care mgt to coordinate dc plan I will sign off. Plan of care and goals of care defined and clarified with primary team + . Of note, did not return my call from last week. Per my review of the chart, there are no acute or urgent/high level/refractory pall med needs. Patient not seen, NO charge submitted Thank you for allowing us to participate in the ongoing care of this patient. Please don't hesitate to call or page with any additional concerns. Dr. Elena Barrett DNP Director, Palliative Care
--- NOTE | 2023-05-04 15:50 | Hospitalist Progress Note ---
Date of Service May 04, 2023 Assessment & Plan (1) Acute confusion: Plan: 82-year-old male with past medical history significant for heart failure due to valvular disease, permanent atrial fibrillation, mitral regurgitation, tricuspid regurgitation, hypertension, CKD stage III, microscopic hematuria, osteoarthritis of left hip, late onset Alzheimer's dementia with agitation, iron deficiency anemia, history of kidney stones presents with falls and also con fusion. As per patient was sitting on edge of chair and he fell down and is bleeding from the arm and was brought in here. As per patient's , he has dementia but last few days his confusion is getting worse. He is being managed for the following: Metabolic encephalopathy History of Alzheimer's dementia. Frequent falls UTI, ruled out Patient has history of Alzheimer's dementia; symptoms getting worse as per patient's Patient has been frequently getting disoriented recently and waking up at night. He has history of frequent falls as well Urinalysis suggestive of possible infection--> UCx likely contaminant --->Empiric Atb was dc'd. CT head and CT cervical spine negative for acute findings Wound care consulted for multiple abrasions/skin tears--Dressing change PT OT ordered Suspect that his altered mental status is likely related with delirium in setting of dementia. On as needed Zyprexa. Acute on chronic diastolic CHF Demand ischemia Chest x-ray on admission personally reviewed; bilateral congestion present, cardiomegaly present Echocardiogram shows EF of 60 to 65% with severely dilated right ventricle, dilated IVC proBNP elevated High sensitive troponin of 33, down trended Cardiology evaled. On PO diuresis, continue as able. Sanchez catheter in place. Mostly for comfort now. Permanent atrial fibrillation: Supratherapeutic INR at presentation. Per prior attending - Discussed with patient's Brit over the phone; patient has frequent falls, presents with laceration on his leading to bleeding. He has thrombocytopenia, possible liver cirrhosis; she agreed that benefits of anticoagulation outweigh the risks of bleeding/hemorrhage. Vitamin K 2.5 was given with improvement in INR. will discontinue Coumadin. Coumadin DC'd. Late onset Alzheimer's dementia with agitation: Required Zyprexa in the ER. Continue home donezepil. Close monitor for delirium. One-on-one as needed Hypertension: On lisinopril RACHEL on CKD stage III: Baseline creatinine around 1, about stable now. Monitor. Liver cirrhosis Thrombocytopenia GI consulted for comanagement; possible congestive hepatopathy. Ammonia normal; holded off on rifaximin/lactulose Goals of care discussion: Pt's Brit came in at bedside later on 04/29 along with her sister and CARO on 04/29. She asked me to reiterate all our discussion ov er the phone that happened earlier on the day of 04/29 with her sister present. We went over the discussion again. The plan remains comfort oriented, no blood draws, no heart monitor, current medications as long as patient tolerates, gradual introduction of comfort care medications as needed with ultimate plan to dc to facility with hospice. BP is soft, will dc lisinopril. DVT prophylaxis: Hep sc. Dispo: awating placement, cm assissting. Please note the above document was generated using voice recognition software. It may contain grammatical, syntax or spelling errors. Any formal questions or concerns about the content, text or information contained within the body of this dictation should be directly addressed to the provider for clarification Admission and Anticipated Discharge Date Admission Date: April 27, 2023 Subjective Patient seen and examined at bedside. Patient is lying in bed, on room air, occasional involuntary movement of hands. Patient confused, ROS not able. Physical Exam Physical Exam: Constitutional: drowsy. He is not oriented to time place or person. Respiratory: Bilateral clear breath sound Cardiovascular: Irregular no edema Vessels: no JVD or carotid bruit Chest: normal inspection of chest Abdomen: normal bowel sounds, soft, nontender, no hepatosplenomegaly Musculoskeletal: no cyanosis or clubbing, extremities motor strength 5/5. Pitting edema present Skin: Multiple bandages over his extremities. No overlying soakage Neurologic: Grossly moves all extremities Results & Data Results & Data Vital Signs (Past 12 Hours) Vital Signs Temp Pulse Resp BP Pulse Ox O2 Del Method 05/04/23 15:04 36.5 C 68 16 91/53 L 93 Room Air 05/04/23 07:36 36.3 C L 65 18 95/57 L 94 Room Air
--- NOTE | 2023-05-05 12:10 | Hospitalist Progress Note ---
Date of Service May 05, 2023 Assessment & Plan (1) Acute confusion: Plan: 82-year-old male with past medical history significant for heart failure due to valvular disease, permanent atrial fibrillation, mitral regurgitation, tricuspid regurgitation, hypertension, CKD stage III, microscopic hematuria, osteoarthritis of left hip, late onset Alzheimer's dementia with agitation, iron deficiency anemia, history of kidney stones presents with falls and also con fusion. As per patient was sitting on edge of chair and he fell down and is bleeding from the arm and was brought in here. As per patient's , he has dementia but last few days his confusion is getting worse. He is being managed for the following: Metabolic encephalopathy History of Alzheimer's dementia. Frequent falls UTI, ruled out Patient has history of Alzheimer's dementia; symptoms getting worse as per patient's Patient has been frequently getting disoriented recently and waking up at night. He has history of frequent falls as well Urinalysis suggestive of possible infection--> UCx likely contaminant --->Empiric Atb was dc'd. CT head and CT cervical spine negative for acute findings Wound care consulted for multiple abrasions/skin tears--Dressing change PT OT ordered Suspect that his altered mental status is likely related with delirium in setting of dementia. On as needed Zyprexa. Acute on chronic diastolic CHF Demand ischemia Chest x-ray on admission personally reviewed; bilateral congestion present, cardiomegaly present Echocardiogram shows EF of 60 to 65% with severely dilated right ventricle, dilated IVC proBNP elevated High sensitive troponin of 33, down trended Cardiology evaled. On PO diuresis, continue as able. Sanchez catheter in place. Mostly for comfort now. Permanent atrial fibrillation: Supratherapeutic INR at presentation. Per prior attending - Discussed with patient's Brit over the phone; patient has frequent falls, presents with laceration on his leading to bleeding. He has thrombocytopenia, possible liver cirrhosis; she agreed that benefits of anticoagulation outweigh the risks of bleeding/hemorrhage. Vitamin K 2.5 was given with improvement in INR. will discontinue Coumadin. Coumadin DC'd. Late onset Alzheimer's dementia with agitation: Required Zyprexa in the ER. Continue home donezepil. Close monitor for delirium. One-on-one as needed Hypertension: On lisinopril RACHEL on CKD stage III: Baseline creatinine around 1, about stable now. Monitor. Liver cirrhosis Thrombocytopenia GI consulted for comanagement; possible congestive hepatopathy. Ammonia normal; holded off on rifaximin/lactulose Goals of care discussion: Pt's Brit came in at bedside later on 04/29 along with her sister and CARO on 04/29. She asked me to reiterate all our discussion over the phone that happened earlier on the day of 04/29 with her sister present. We went over the discussion again. The plan remains comfort oriented, no blood draws, no heart monitor, current medications as long as patient tolerates, gradual introduction of comfort care medications as needed with ultimate plan to dc to facility with hospice. BP is soft, will dc lisinopril. DVT prophylaxis: Hep sc. Dispo: awaiting placement, cm assisting. He is medically stable for d/c. Pt was seen and examined in collaboration with Dr. Harden, please see addendum A total of 35 was spent coordinating, documenting, and providing care for this patient excluding time spent in the performance of separately billed services. This included personally viewing all current laboratories and imaging studies, medication reconciliation, outpatient chart review, and discussion with specialists. Admission and Anticipated Discharge Date Admission Date: April 27, 2023 Supervising Physician Co-Signing Physician Notes Patient was seen and examined at bedside as a follow-up of metabolic encephalopathy, frequent falls, advanced dementia. Patient was lying in bed and appeared comfortable. Patient is awaiting placement to facility with hospice. I have seen and examined the patient and have discussed the case with the provider above. I agree with the assessment and plan as stated. Subjective Patient was seen and examined in 386 Follow-up metabolic encephalopathy, frequent falls. He is resting comfortably. ROS unreliable. No acute concerns. Review of Systems Review of Systems: Unobtainable due to cognitive status Physical Exam Physical Exam: Gen: WD/WN elderly, chronically ill appearing, NAD, resting comfortably HEENT: Normocephalic, atraumatic, conjunctivae moist, sclerae anicteric, mucous membranes dry. Lung: Clear to Auscultation bilaterally, no wheezes/rales/rhonchi Heart: bradycardic rate, regular rhythm, no murmurs, rubs, or gallops Abdomen: Soft, NT, ND +BS x 4 Extremities: b/l venous stasis changes Skin: Warm, no rash, negative turgor. : Sanchez cath draining yellow urine Results & Data Results & Data Vital Signs (Past 12 Hours) Vital Signs Temp Pulse Resp BP Pulse Ox O2 Del Method 05/05/23 09:41 Room Air 05/05/23 08:37 36.3 C L 52 L 16 94/59 L 95 Room Air Medications Administered Current Inpatient Medications Acetaminophen (Acetaminophen 325 Mg Tab) 650 mg PO Q4H PRN PRN Reason: Pain or Fever Stop: 05/27/23 02:22 Last Admin: 05/05/23 02:08 Dose: 650 mg Donepezil HCl (Donepezil Hcl 5 Mg Tab) 5 mg PO QAM [facility] Stop: 05/27/23 08:59 Last Admin: 05/05/23 08:34 Dose: 5 mg Ferrous Sulfate (Ferrous Sulfate 325 Mg Tab) 325 mg PO QAM [facility] Stop: 05/27/23 08:59 Last Admin: 05/05/23 08:34 Dose: 325 mg Haloperidol (Haloperidol 1 Mg Tab) 2 mg PO BID [facility] Stop: 05/31/23 11:14 Last Admin: 05/05/23 08:34 Dose: 2 mg Heparin Sodium (Porcine) (Heparin Sod 5,000 Unit/0.5 Ml Vial) 5,000 units SQ Q12 [facility] Stop: 05/29/23 20:59 Last Admin: 05/05/23 08:34 Dose: 5,000 units Lorazepam (Lorazepam 0.5 Mg Tab) 0.5 mg SL Q4H PRN PRN Reason: anxiety/agitation Stop: 05/30/23 15:39 Last Admin: 05/05/23 02:08 Dose: 0.5 mg Melatonin (Melatonin 3 Mg Tab) 4.5 mg PO HS NANCY Stop: 05/27/23 20:59 Last Admin: 05/04/23 21:05 Dose: 4.5 mg Nitroglycerin (Nitroglycerin Sl 0.4 Mg/Tab Tab) 0.4 mg SL Q5M PRN PRN Reason: Chest Pain Stop: 05/27/23 02:22 Olanzapine (Olanzapine 10 Mg/2.1 Ml Sdv) 5 mg IM Q6H PRN PRN Reason: Agitation Stop: 05/27/23 16:14 Last Admin: 04/30/23 11:22 Dose: 5 mg Polyethylene Glycol (Polyethylene (Miralax) 17 Gm Pack) 17 gm PO DAILY PRN PRN Reason: Constipation Stop: 05/27/23 02:22 Torsemide (Torsemide 20 Mg Tab) 20 mg PO QAM [facility] Stop: 05/30/23 08:59 Last Admin: 05/05/23 08:37 Dose: Not Given Vitamin B Complex (Vitamin B Complex Tab) 1 tab PO QDD NANCY Stop: 05/27/23 16:29 Last Admin: 05/04/23 18:56 Dose: 1 tab
--- NOTE | 2023-05-06 08:12 | Discharge Summary ---
Discharge Summary Date of Service May 06, 2023 Notes For Next Care Provider Goal is for patient to remain comfort oriented at this time. Recommend no routine lab draws unless discussed with family. Continue current medications as he is currently tolerating. Family willing to consider hospice in future. He currently has Sanchez catheter in place for comfort. It was placed on 04/25. Comfort feedings as needed. He is no longer on warfarin. Medication Changes From Visit MEDICATION CHANGES: Haloperidol 1mg, take two tablets twice daily Lorazepam 0.5mg every 6 hours as needed for restlessness/anxiety Torsemide 20mg by mouth daily. STOP TAKING * Lisinopril * Lasix * Warfarin Admission HPI Per Admitting Provider 82-year-old male with past medical history significant for heart failure due to valvular disease, permanent atrial fibrillation, mitral regurgitation, tricuspid regurgitation, hypertension, CKD stage III, microscopic hematuria, osteoarthritis of left hip, late onset Alzheimer's dementia with agitation, iron deficiency anemia, history of kidney stones presents with falls and also confusion. As per patient was sitting on edge of chair and he fell down and is bleeding from the arm and was brought in here. As per he has dementia but last few days his confusion is getting worse. Yesterday he did not know where he was. Generally ambulates without support. But yesterday he was requiring support of furniture and he was wobbly. Generally eats regular food. No recent fevers. No cough. Complaints of pain all over. No diarrhea. No blood in the stools. Currently patient is very drowsy. He was agitated and received IM Zyprexa. Requiring one-on-one. Hemodynamics okay. Could not get any history from the patient. Past medical history. As mentioned above Past surgical history. Left bimalleolar ankle fracture repair. Repair of inguinal hernia. Social history. . No smoking. Alcohol occasional. No drug use. Family history. Father had IN at age of 70. Mother had lung disorder. Admission Exam Per Admitting Provider General- Drowsy Head- atraumatic Eyes- PERRL. Lungs- clear to auscultation no wheezing or crackles. Heart- regular rhythm; no murmur, no gallop. Abdomen- normal bowel sounds, soft, no distension. Extremities- b/l lower extremity edema present. Chronic skin changes seen. Neuro- Drowsy, not oriented. Moves extremities. Principal Dx & Hospital Course #1 = Principal Diagnosis (1) Acute confusion: 82-year-old male with past medical history significant for heart failure due to valvular disease, permanent atrial fibrillation, mitral regurgitation, tricuspid regurgitation, hypertension, CKD stage III, microscopic hematuria, osteoarthritis of left hip, late onset Alzheimer's dementia with agitation, iron deficiency anemia, history of kidney stones presents with falls and also confusion. As per patient was sitting on edge of chair and he fell down and is bleeding from the arm and was brought in here. As per patient's , he has dementia but last few days his confusion is getting worse. He is being managed for the following: Metabolic encephalopathy History of Alzheimer's dementia. Frequent falls UTI, ruled out Patient has history of Alzheimer's dementia; symptoms getting worse as per patient's Patient has been frequently getting disoriented recently and waking up at night. He has history of frequent falls as well Urinalysis suggestive of possible infection--> UCx likely contaminant --->Empiric Atb was dc'd. CT head and CT cervical spine negative for acute findings Wound care consulted for multiple abrasions/skin tears--Dressing change PT OT ordered Suspect that his altered mental status is likely related with delirium in setting of dementia. On as needed Zyprexa. Acute on chronic diastolic CHF Demand ischemia Chest x-ray on admission personally reviewed; bilateral congestion present, cardiomegaly present Echocardiogram shows EF of 60 to 65% with severely dilated right ventricle, dilated IVC proBNP elevated High sensitive troponin of 33, down trended Cardiology evaled. On PO diuresis, continue as able. Sanchez catheter in place. Mostly for comfort now. Permanent atrial fibrillation: Supratherapeutic INR at presentation. Per prior attending - Discussed with patient's Brit over the phone; patient has frequent falls, presents with laceration on his leading to bleeding. He has thrombocytopenia, possible liver cirrhosis; she agreed that benefits of anticoagulation outweigh the risks of bleeding/hemorrhage. Vitamin K 2.5 was given with improvement in INR. will discontinue Coumadin. Coumadin DC'd. Late onset Alzheimer's dementia with agitation: Required Zyprexa in the ER. Continue home donezepil. Close monitor for delirium. One-on-one as needed Hypertension: On lisinopril, this has been discontinued due to softer blood pressures RACHEL on CKD stage III: Baseline creatinine around 1, about stable now. Monitor. Liver cirrhosis Thrombocytopenia GI consulted for comanagement; possible congestive hepatopathy. Ammonia normal; holded off on rifaximin/lactulose Goals of care discussion: Pt's Brit came in at bedside later on 04/29 along with her sister and CARO on 04/29. She asked me to reiterate all our discussion over the phone that happened earlier on the day of 04/29 with her sister present. We went over the discussion again. The plan remains comfort oriented, no blood draws, no heart monitor, current medications as long as patient tolerates, gradual introduction of comfort care medications as needed with ultimate plan to dc to facility with hospice DVT prophylaxis: Hep sc. Dispo: Pt to be discharged to [facility] today Pt was seen and examined in collaboration with Dr. Harden, please see addendum A total of 39 minutes was spent coordinating, documenting, and providing care for this patient excluding time spent in the performance of separately billed services. This included personally viewing all current laboratories and imaging studies, medication reconciliation, outpatient chart review, and discussion with specialists. Discharge Exam Gen: WD/WN elderly, chronically ill appearing, NAD, resting comfortably HEENT: Normocephalic, atraumatic, conjunctivae moist, sclerae anicteric, mucous membranes dry. Lung: Clear to Auscultation bilaterally, no wheezes/rales/rhonchi Heart: bradycardic rate, regular rhythm, no murmurs, rubs, or gallops Abdomen: Soft, NT, ND +BS x 4 Extremities: b/l venous stasis changes Skin: Warm, no rash, negative turgor. : Sanchez cath draining yellow urine Updated Medication List Medication Instructions Recorded Confirmed Type donepezil 5 mg tablet 5 mg PO QAM #30 tabs 05/06/23 Rx ferrous sulfate 325 mg (65 mg 325 mg PO QAM #30 tabs 05/06/23 Rx iron) tablet haloperidol 1 mg tablet 2 mg (2 x 1 mg) PO BID #60 tabs 05/06/23 Rx lorazepam 0.5 mg tablet 0.5 mg sublingual Q4H PRN 05/06/23 Rx restlessness/anxiety #12 tabs melatonin 5 mg tablet 5 mg PO HS #30 tabs 05/06/23 Rx torsemide 20 mg tablet 20 mg PO QAM #30 tabs 05/06/23 Rx vitamin B complex 1 tab PO QDD #30 tabs 05/06/23 Rx Hospital Stay Data Consultations 04/26/23 22:43 ED Decision to Admit Stat 04/27/23 08:00 Consult Cardiology Routine Consult Gastroenterology Routine 04/28/23 13:13 Consult Palliative Care Routine Diagnostic Imagining Performed Chest X-Ray 04/26/23 19:48 SINGLE VIEW CHEST CLINICAL HISTORY: Generalized weakness. FINDINGS: 2 AP, portable, upright chest radiographs are compared to study dated 01/24/2023. The patient's head partially obscures the apices. The heart is enlarged. The pulmonary vasculature is noncongested. Chronic interstitial thickening is similar to previous. Scarring/atelectasis is noted at the lung ba ses. The lungs and pleural spaces are otherwise clear. No pneumothorax is seen. The skeletal structures are osteopenic. The bony thorax is grossly intact. IMPRESSION: Cardiomegaly with no acute cardiopulmonary abnormality. ACT 112: Negative or not required by law. Electronically signed by: Shiv Laughlin M.D. 04/27/2023 7:34 AM Abdomen/Pelvis CT 04/26/23 21:18 Exam(s): CT ABDOMEN + PELVIS With Contrast IV Amt: 90ml EXAM: CT Abdomen and Pelvis With Intravenous Contrast CLINICAL HISTORY: Reason for exam: Confusion, falls, ecchymosis, scrotal swelling. TECHNIQUE: Axial computed tomography images of the abdomen and pelvis with intravenous contrast. CTDI is 25.63 mGy and DLP is 1455.85 mGy-cm. Automated exposure control was utilized for the study. A dose lowering technique was utilized adhering to the principles of ALARA. CONTRAST: Patient received 90ml of IV contrast COMPARISON: 01/24/23 FINDINGS: Heart is enlarged. There is a small pleural effusion at the left lung base. Lung bases are otherwise clear. Gallbladder and common bile duct are normal. Liver appears cirrhotic. Dilatation of the hepatic veins and IVC are compatible with elevated right heart pressure. Spleen, pancreas, and adrenal glands are unremarkable. Kidneys enhance symmetrically, without hydronephrosis or significant perinephric stranding. There is atherosclerosis without aortic aneurysm. 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 There is no adenopathy. There is no free air. Prostate is mildly enlarged. Urinary bladder is decompressed around a Sanchez catheter. There is a small volume of low-density free pelvic fluid. Appendix is normal. There is no bowel obstruction or inflammation. There is diverticulosis without diverticulitis. There is lumbar scoliosis and spondylosis. Bones are demineralized. There are no acute fractures. Anasarca is increased from prior exam. There are bilateral scrotal hydroceles. IMPRESSION: 1. Anasarca, bilateral scrotal hydroceles, mild ascites, and small left pleural effusion. 2. Cirrhotic liver. 3. Cardiomegaly. Evidence of elevated right heart pressure with dilatation of the hepatic veins and IVC. Electronically signed by: Rene Garcia M.D. 04/26/23 22:[address] 04/26/23 21:18 Exam(s): CT C SPINE EXAM: CT Cervical Spine Without Intravenous Contrast CLINICAL HISTORY: Reason for exam: Trauma, confusion. TECHNIQUE: Axial computed tomography images of the cervical spine without intravenous contrast. CTDI is 26.64 mGy and DLP is 489.9 mGy-cm. Automated exposure control was utilized for the study. A dose lowering technique was utilized adhering to the principles of ALARA. COMPARISON: 01/24/23 FINDINGS: Vertebral body heights are maintained. There is no acute fracture or traumatic subluxation. There is moderate to severe multilevel disc degeneration, multilevel uncovertebral joint degeneration, and advanced multilevel facet joint degeneration. There is degenerative anterolisthesis of C7 on T1 measuring 2 mm. Disc-osteophyte complex is mildly narrow the central canal at C5-C6 and C6-C7. There is moderate-severe right foraminal narrowing at C2-C3, mild right foraminal narrowing at C3-C4, severe left and mild right foraminal narrowing at C4-C5, mild bilateral foraminal narrowing at C5-C6, and severe bilateral foraminal narrowing at C6-C7. No prevertebral soft tissue swelling. Lung apices are clear. IMPRESSION: 1. No acute osseous findings. 2. Degenerative changes. Electronically signed by: Rene Garcia M.D. 04/26/23 22:[address] 04/26/23 21:18 Exam(s): CT HEAD Without Contrast EXAM: CT Head Without Intravenous Contrast CLINICAL HISTORY: Reason for exam: Trauma, confusion. TECHNIQUE: Axial computed tomography images of the head/brain without intravenous contrast. CTDI is 36.67 mGy and DLP is 624.41 mGy-cm. Automated exposure control was utilized for the study. A dose lowering technique was utilized adhering to the principles of ALARA. COMPARISON: 01/24/23 FINDINGS: Brain: Age-related parenchymal volume loss. Mild chronic small vessel ischemic changes. Delacruz-white matter differentiation maintained. No acute intracranial hemorrhage, mass-effect, or edema. Ventricles: Unremarkable. No hydrocephalus. Bones/joints: Unremarkable. No acute fracture. Soft tissues: Unremarkable. Sinuses: Unremarkable as visualized. No acute sinusitis. Mastoid air cells: Unremarkable as visualized. No mastoid effusion. Orbits: Bilateral lens replacements. IMPRESSION: No acute intracranial process. Electronically signed by: Rene Garcia M.D. 04/26/23 22:24 PM Pending Results Patient Have Any Pending Studies at Discharge: No Discharge Instructions Given to Patient (Per Discharging Provider) MEDICATION CHANGES: Haloperidol 1mg, take two tablets twice daily Lorazepam 0.5mg every 6 hours as needed for restlessness/anxiety Torsemide 20mg by mouth daily. STOP TAKING * Lisinopril * Lasix * Warfarin RECOMMENDATIONS FOR FOLLOW-UP: Please follow up with Provider at halfway facility. Upon discharge from correction facility it is recommended that you follow up with your Primary Care Provider. Continue to take medications as prescribed. You are being discharged to [facility] for subacute rehab. You are being discharged with a Sanchez catheter. Please continue routine catheter care and replace every 30 days or sooner if needed. It was placed on April 25. Indication is for comfort measures. Recommend no lab draws. Plan is to remain comfort oriented at this time with possible consideration for hospice in the future. He still remains on certain essential medications he is tolerating. OTHER INSTRUCTIONS: Seek medical attention if you have: * temperature above 101 * chest pain or trouble breathing * abdominal pain, nausea, vomiting * diarrhea, dark stools or bloody stools * any unanswered questions or concerns Call 911 if symptoms are severe. Please take good care of yourself. It has been a pleasure taking care of you. Please take care of yourself. If you have any questions regarding your recent hospitalization please contact [facility] and request Tonia Wade @ [phone]. Total Time Total Time Spent Total Time Spent (In Minutes): 35 minutes Supervising Physician Co-Signing Physician Notes Patient was seen and examined at bedside as a follow-up of metabolic encephalopathy, frequent falls, advanced dementia. Patient was lying in bed and appeared comfortable. Patient is awaiting placement to facility with hospice. DC today. I have seen and examined the patient and have discussed the case with the provider above. I agree with the assessment and plan as stated.
== END 2023-05-06 12:26 | DRG 291 ==
LOC: ED 19:09 → SUATTDRO 04-27 01:34 → EDINP 04-27 01:34 → 2S 04-27 02:23 → 3N 04-30 18:00